=== PATIENT | female | born 1955 | race Caucasian/White ===

== ENCOUNTER 2021-11-06 06:48 | Emergency (ER) | payer OTHER ==
--- OUTSIDE RECORDS SUMMARY | 2021-11-06 06:50 | XMS REPORT | Continuity of Care Document ---
:1955 Author Organization [facility] t Address [address] [place] [address] Care Team Providers Name Role Phone PCP, DOES NOT HAVE A Primary Care Physician Unavailable Mike Attending Clinician Unavailable Topher GUAJARDO Attending Clinician Unavailable Jones FLETCHER Attending Clinician Unavailable Payers Payer Name Policy Type Policy Number Effective Date Expiration Date S ourclaribel COVID19 [facility] [id number] 2020 2020 UNINSURED 00:00:00 00:00:00 Problems This patient has no known problems. Allergies, Adverse Reactions, Alerts Allergy Allergy Status Severity Reaction(s) Onset Inactive Treating Comm ents Source Name Type Date Date Clinician PENICILL Drug Active SOB 2015- Univers INS Class 5-26 ity of 00:00: [address] Medications This patient has no known medications. Procedures This patient has no known procedures. Encounters Start End Encounter Admission Attending Care Care Encounter Source Date/Time Date/Time Type Type Clinicians Facility Department ID 2021-09-29 Outpatient Mckeon, [facility] [id number] Common 15:48:01 Avnee [facility] 2021-06-27 Outpatient Mckeon, [facility] [id number] Common 13:32:02 Avnee [facility] 2021-06-11 [facility] [id number] Common 12:53:14 Avnee [facility] 2021-10-30 2021-10-30 ambulatory [facility] [id number] Common 00:00:00 00:00:00 [facility] 2021-10-02 2021-10-02 ambulatory [facility]C [facility] [id number] Common 00:00:00 00:00:00 [facility] 2021-09-30 2021-09-30 ambulatory [facility] [id number] Common 00:00:00 00:00:00 [facility] 2021-09-30 2021-09-30 ambulatory [facility] [id number] Common 00:00:00 00:00:00 [facility] 2021-03-17 2021-03-17 Outpatient [facility]C [facility] [id number] Common 00:00:00 00:00:00 [facility] 2021-03-17 2021-03-17 ambulatory [facility]C [facility] [id number] Common 00:00:00 00:00:00 [facility] 2020-12-17 2020-12-17 Outpatient [facility]C [facility] [id number] Common 00:00:00 00:00:00 [facility] 2020-12-12 2020-12-12 Outpatient [facility] [id number] Common 00:00:00 00:00:00 [facility] 2020-11-20 2020-11-20 Outpatient [facility]C [facility] [id number] Common 00:00:00 00:00:00 [facility] 2020-11-04 2020-11-04 Outpatient [facility] [id number] Common 00:00:00 00:00:00 [facility] 2020-10-08 2020-10-08 Outpatient [facility] [id number] Common 00:00:00 00:00:00 [facility] 2020-10-07 2020-10-07 Outpatient [facility] [id number] Common 00:00:00 00:00:00 [facility] 2020-10-04 2020-10-04 Outpatient [facility] [id number] Common 00:00:00 00:00:00 [facility] 2020-09-16 2020-09-16 Outpatient [facility] [id number] Common 00:00:00 00:00:00 [facility] 2020-09-13 2020-09-13 Outpatient [facility] [id number] Common 00:00:00 00:00:00 [facility] 2020-09-13 2020-09-13 Outpatient [facility] [id number] Common 00:00:00 00:00:00 [facility] 2020-09-03 2020-09-03 Outpatient [facility] [id number] Common 00:00:00 00:00:00 [facility] 2020-09-03 2020-09-03 Outpatient [facility] [id number] Common 00:00:00 00:00:00 [facility] 2020-09-02 2020-09-02 Outpatient [facility] [id number] Common 00:00:00 00:00:00 [facility] 2020-09-02 2020-09-02 Outpatient [facility] [id number] Common 00:00:00 00:00:00 [facility] 2020-08-13 2020-08-13 [facility] [id number] Univers 11:50:00 11:34:24 MASSIEL kim of [facility] 2020-07-11 2020-07-11 [facility] [id number] Univers 16:40:00 16:42:58 IMELDA carlos [facility] Results Test Description Test Time Test Comments Results Result Sourc e Comments SCR MAMM 2019-03-14 - SCR MAMM BILATERAL BILATERAL CAD 13:00:02 CAD DIGITALBILATERAL DIGITAL DIGITAL SCREENING MAMMOGRAM WITH CAD: 03/13/2019CLINICAL: Asymptomatic. Current mammographic images were evaluated by either a [employer] M-Vu or a [employer] CAD (computer aided detection system). Comparison is made to exams dated 07/20/2016 mammogram - [facility] and 03/23/2013 mammogram - [facility]. The tissue of both breasts is predominantly fatty. No suspicious mass, architectural distortion, malignant type calcification, or lymph node abnormality detected. Breast architecture is stable compared to prior exams.IMPRESSION: NEGATIVEThere is no mammographic evidence of malignancy. Resume annual screening mammography in one year. Yoli caldwell/sue:03/14/2019 13:00:02 Education Associate: Tracee Finney [facility], [facility] sent: BIRADS 1-2 Normal Mammogram BI-RADS: 1 Negative
[2021-11-06] MEDS ORDERED: GABAPENTIN 300 MG CAP ONE (07:44)
[2021-11-06] MEDS ORDERED: HYDROCODONE/APAP 7.5/325 MG TAB ONE (07:44)
[2021-11-06 08:25] LABS: Absolute Lymphocytes (CBC) 2.3 K/uL (0.7-4.9); MPV 7.5 fL (7.6-11.3); RBC Red Blood Cell Count 3.99 M/uL (3.86-4.86)
[2021-11-06 08:41] LABS: Albumin 3.5 g/dL (3.4-5.0); Bilirubin Total 0.4 mg/dL (0.2-1.0); Potassium 4.9 mmol/L (3.5-5.1); Protein, Total 7.2 g/dL (6.4-8.2)
[2021-11-06 08:46] LABS: Blood Morphology Comment NOT SEEN (NOT SEEN); Platelet Estimate ADEQ; White Blood Cell Scan OK (OK)
--- NOTE | 2021-11-06 10:47 | RAD REPORT ---
EXAM DESCRIPTION: USExtrem Venous W Compress Bil11/06/2021 8:12 am CLINICAL HISTORY: Leg pain COMPARISON: none FINDINGS: The common femoral, superficial femoral, popliteal and posterior tibial veins bilaterally are compressible and demonstrate augmentation. Doppler demonstrates good flow. Grayscale, color and spectral analysis performed on all vessels IMPRESSION: No evidence of deep venous thrombosis involving either lower extremity.
--- NOTE | 2021-11-06 10:59 | EDPHYS ---
Physician Documentation [facility] Name: Anju Richards Age: 66 yrs Sex: Female : 1955 Arrival Date: 11/06/2021 Time: 06:52 Bed 5 Private MD: ED Physician Frederick Ramirez HPI: 11/06 07:34 This 66 yrs old Female presents to ER via Ambulatory with complaints of Leg Pain. kdr 07:34 The patient presents with pain, that is acute. The complaints affect the left kdr quadriceps, left knee, left brooke and anterior aspect of left ankle, right quadriceps, right knee, right brooke, anterior aspect of right ankle and dorsum of right foot. Context: The problem was sustained at home, resulted from an unknown cause, the patient can fully bear weight, the patient is able to ambulate, with mild difficulty, Problem is a result from a previous injury: No. Onset: The symptoms/episode began/occurred gradually, Wednesday. Modifying factors: The symptoms are alleviated by nothing. the symptoms are aggravated by movement, weight bearing. Associated signs and symptoms: The patient has no apparent associated signs or symptoms. Severity of symptoms: At their worst the symptoms were moderate, severe, just prior to arrival. The patient has experienced similar episodes in the past, a few times, but today's symptoms are worse. 07:34 Patient has pain in both legs from just below the hips down. Similar pain though not as kdr severe and persistent in the past. She has a history of varicose veins. She denies any injury or any other precipitating factor. She has not had any fever, chills or nausea and vomiting. Historical: - Allergies: 07:20 No Known Allergies; jh6 - PMHx: 07:20 Hypertensive disorder; 6 - Immunization history:: Adult Immunizations up to date, Client reports receiving the 2nd dose of the Covid vaccine. - Social history:: Smoking status: Patient denies any tobacco usage or history of. ROS: 07:34 Constitutional: Negative for fever, chills, and weight loss, Eyes: Negative for injury, kdr pain, redness, and discharge, ENT: Negative for injury, pain, and discharge, Neck: Negative for injury, pain, and swelling, Cardiovascular: Negative for chest pain, palpitations, and edema, Respiratory: Negative for shortness of breath, cough, wheezing, and pleuritic chest pain, Abdomen/GI: Negative for abdominal pain, nausea, vomiting, diarrhea, and constipation, Back: Negative for injury and pain, : Negative for injury, bleeding, discharge, and swelling, Skin: Negative for injury, rash, and discoloration, Neuro: Negative for headache, weakness, numbness, tingling, and seizure activity. Psych: Negative for depression, anxiety, suicide ideation, homicidal ideation, and hallucinations, Allergy/Immunology: Negative for hives, rash, and allergies, Endocrine: Negative for neck swelling, polydipsia, polyuria, polyphagia, and marked weight changes, Hematologic/Lymphatic: Negative for swollen nodes, abnormal bleeding, and unusual bruising. 07:34 MS/extremity: Positive for pain, Negative for injury or acute deformity, abrasion, decreased range of motion, ecchymosis, erythema. Exam: 07:34 Constitutional: This is a well developed, well nourished patient who is awake, alert, kdr and in no acute distress. Head/Face: Normocephalic, atraumatic. Eyes: Pupils equal round and reactive to light, extra-ocular motions intact. Lids and lashes normal. Conjunctiva and sclera are non-icteric and not injected. Cornea within normal limits. Periorbital areas with no swelling, redness, or edema. Neck: Trachea midline, no thyromegaly or masses palpated, and no cervical lymphadenopathy. Supple, full range of motion without nuchal rigidity, or vertebral point tenderness. No Meningismus. Chest/axilla: Normal chest wall appearance and motion. Nontender with no deformity. No lesions are appreciated. Cardiovascular: Regular rate and rhythm with a normal S1 and S2. No gallops, murmurs, or rubs. Normal PMI, no JVD. No pulse deficits. Respiratory: Lungs have equal breath sounds bilaterally, clear to auscultation and percussion. No rales, rhonchi or wheezes noted. No increased work of breathing, no retractions or nasal flaring. Abdomen/GI: Soft, non-tender, with normal bowel sounds. No distension or tympany. No guarding or rebound. No evidence of tenderness throughout. Back: No spinal tenderness. No costovertebral tenderness. Full range of motion. Skin: Warm, dry with normal turgor. Normal color with no rashes, no lesions, and no evidence of cellulitis. Neuro: Awake and alert, GCS 15, oriented to person, place, time, and situation. Cranial nerves II-XII grossly intact. Motor strength 5/5 in all extremities. Sensory grossly intact. Cerebellar exam normal. Normal gait. Psych: Awake, alert, with orientation to person, place and time. Behavior, mood, and affect are within normal limits. 07:34 Musculoskeletal/extremity: Extremities: grossly normal except: General appearance of her lower extremities appears to be at her baseline however there is obviously numerous varicose veins in both legs. Pulses distally are equal and strong. No obvious cellulitis or suggestion of any DVT. Vital Signs: 07:17 BP 119 / 70; Pulse 73; Resp 18; Temp 97.6(O); Pulse Ox 99% ; Weight 90.26 kg; Height 5 [facility] ft. 3 in. (160.02 cm); Pain 0/10; 09:46 BP 107 / 62; Pulse 70; Resp 16; Pulse Ox 100% ; Pain 0/10; [facility] 11:08 BP 112 / 60; Pulse 64; Resp 16; Pulse Ox 100% ; Pain 0/10; 6 07:17 Body Mass Index 35.25 (90.26 kg, 160.02 cm) [facility] MDM: 10:59 Patient medically screened. [facility] 13:04 Data reviewed: vital signs, nurses notes, lab test result(s), radiologic studies. kdr Counseling: I had a detailed discussion with the patient and/or guardian regarding: the historical points, exam findings, and any diagnostic results supporting the discharge/admit diagnosis, lab results, radiology results, the need for outpatient follow up. 11/06 07:29 Order name: CBC with Diff; Complete Time: 08:50 [facility] 11/06 07:29 Order name: Comprehensive Metabolic Panel; Complete Time: 08:50 [facility] 11/06 07:29 Order name: CPK; Complete Time: 08:50 [facility] 11/06 07:29 Order name: US Extremity Venous W Compression Rafael; Complete Time: 10:57 [facility] 11/06 08:46 Order name: CBC Smear Scan; Complete Time: 08:50 EDMS Administered Medications: 07:45 Drug: Gabapentin 300 mg Route: PO; [facility] 10:23 Follow up: Response: No adverse reaction [facility] 07:45 Drug: [place] (HYDROcodone-acetaminophen) (7.5 mg-325 mg) 1 tabs Route: PO; 6 10:23 Follow up: Response: No adverse reaction jh6 11:05 Drug: traMADol 50 mg Route: PO; ph 11:09 Follow up: Response: No adverse reaction; Medication administered at discharge. ph Disposition Summary: 11/06/21 10:59 Discharge Ordered Location: Home kdr Problem: new kdr Symptoms: have improved kdr Condition: Stable kdr Diagnosis - Other idiopathic peripheral autonomic neuropathy kdr - Varicose veins of unspecified lower extremity with pain kdr Followup: kdr - With: Private Physician - When: 2 - 3 days - Reason: If symptoms return, Further diagnostic work-up, Recheck today's complaints, Continuance of care, Re-evaluation by your physician Discharge Instructions: - Discharge Summary Sheet kdr - Neuropathic Pain kdr - Varicose Veins kdr - Peripheral Neuropathy kdr Forms: - Medication Reconciliation Form kdr - Thank You Letter kdr Prescriptions: - Neurontin 300 mg Oral Capsule - take 1 capsule by ORAL route At bedtime; 20 capsule; Refills: 0, Product kdr Selection Permitted - Tramadol 50 mg Oral Tablet - take 1 tablet by ORAL route every 8 hours As needed as needed; 12 tablet; kdr Refills: 0, Product Selection Permitted Signatures: Dispatcher [employer] Frederick Berger MD MD kdr Eleni Peguero RN PRISCILLA Alyssa Pa RN RN 6
--- NOTE | 2021-11-06 10:59 | ER ---
Nurse's Notes [facility] Name: Anju Richards Age: 66 yrs Sex: Female : 1955 Arrival Date: 11/06/2021 Time: 06:52 Bed 5 Private MD: Diagnosis: Other idiopathic peripheral autonomic neuropathy;Varicose veins of unspecified lower extremity with pain Presentation: 11/06 07:17 Chief complaint: Patient states: bilat lower leg pain started two days ago. no injury jh6 or lower back pain. pain from the top of foot to mid thigh. Coronavirus screen: Vaccine status: Patient reports receiving the 2nd dose of the covid vaccine. Ebola Screen: Patient negative for fever greater than or equal to 101.5 degrees Fahrenheit, and additional compatible Ebola Virus Disease symptoms Patient denies exposure to infectious person. Patient denies travel to an Ebola-affected area in the 21 days before illness onset. Initial Sepsis Screen: Does the patient meet any 2 criteria? No. Patient's initial sepsis screen is negative. Does the patient have a suspected source of infection? No. Patient's initial sepsis screen is negative. Risk Assessment: Do you want to hurt yourself or someone else? Patient reports no desire to harm self or others. Onset of symptoms was November 06, 2021. 07:17 Method Of Arrival: Ambulatory [facility] 07:17 Acuity: ROBBY 4 jh6 Historical: - Allergies: 07:20 No Known Allergies; jh6 - PMHx: 07:20 Hypertensive disorder; 6 - Immunization history:: Adult Immunizations up to date, Client reports receiving the 2nd dose of the Covid vaccine. - Social history:: Smoking status: Patient denies any tobacco usage or history of. Screenin:21 Abuse screen: Denies threats or abuse. Denies injuries from another. Nutritional [facility] screening: No deficits noted. Tuberculosis screening: No symptoms or risk factors identified. Fall Risk None identified. Assessment: 07:21 General: Appears in no apparent distress. Behavior is calm. Pain: Complains of pain in jh6 right leg and left leg Pain currently is 7 out of 10 on a pain scale. Quality of pain is described as burning, aching, shooting, Pain began 2-3 days ago. Is intermittent, Aggravated by increased activity. 09:47 Reassessment: Patient is alert, oriented x 3, equal unlabored respirations, skin jh6 warm/dry/pink. Patient denies pain at this time. Patient states feeling better. Patient states symptoms have improved. 11:08 Reassessment: Patient and/or family updated on plan of care and expected duration. Pain jh6 level reassessed. Patient is alert, oriented x 3, equal unlabored respirations, skin warm/dry/pink. Patient denies pain at this time. Patient states symptoms have improved. Vital Signs: 07:17 BP 119 / 70; Pulse 73; Resp 18; Temp 97.6(O); Pulse Ox 99% ; Weight 90.26 kg; Height 5 jh6 ft. 3 in. (160.02 cm); Pain 0/10; 09:46 BP 107 / 62; Pulse 70; Resp 16; Pulse Ox 100% ; Pain 0/10; jh6 11:08 BP 112 / 60; Pulse 64; Resp 16; Pulse Ox 100% ; Pain 0/10; jh6 07:17 Body Mass Index 35.25 (90.26 kg, 160.02 cm) jh6 ED Course: 06:52 Patient arrived in ED. as 07:05 Frederick Ramirez MD is Attending Physician. kdr 07:17 Alyssa Pa RN is Primary Nurse. jh6 07:20 Triage completed. jh6 07:21 Arm band placed on right wrist. Patient placed in the treatment room, on a stretcher, jh6 on pulse oximetry. 07:21 No provider procedures requiring assistance completed. jh6 07:22 Bed in low position. Call light in reach. Side rails up X 1. jh6 07:50 Patient taken to ultrasound. via wheelchair. jh6 08:03 US Extremity Venous W Compression Rafael In Process Unspecified. EDMS 08:20 Inserted saline lock: 22 gauge in right antecubital area, using aseptic technique. jh6 Blood collected. 11:08 IV discontinued, intact, bleeding controlled, No redness/swelling at site. Pressure jh6 dressing applied. Administered Medications: 07:45 Drug: Gabapentin 300 mg Route: PO; jh6 10:23 Follow up: Response: No adverse reaction jh6 07:45 Drug: [place] (HYDROcodone-acetaminophen) (7.5 mg-325 mg) 1 tabs Route: PO; jh6 10:23 Follow up: Response: No adverse reaction jh6 11:05 Drug: traMADol 50 mg Route: PO; ph 11:09 Follow up: Response: No adverse reaction; Medication administered at discharge. ph Medication: 11:20 VIS not applicable for this client. ph Outcome: 10:59 Discharge ordered by . kdr 11:09 Patient left the ED. 6 11:09 Discharged to home ambulatory. ph 11:09 Condition: good 11:09 Discharge instructions given to patient, Instructed on discharge instructions, follow up and referral plans. medication usage, Demonstrated understanding of instructions, follow-up care, medications, Prescriptions given X 2. 11:20 Patient left the ED. ph Signatures: Dispatcher [employer] EDMS Frederick Ramirez MD MD [facility] Arabella Kumar Patricia, RN RN [facility] Center[facility]lyssa camara RN RN [facility]
[2021-11-06] MEDS ORDERED: TRAMADOL HCL 50 MG TAB ONE (11:12)
[2021-11-06 11:19] VITALS: TEMP 97.6
[2021-11-06 11:22] VITALS: O2SAT 100
[2021-11-06 11:24] VITALS: BP 112/60
== END 2021-11-06 11:20 | disposition home or self-care (01) ==
LOC: ER 06:48
DX: I83.812 Varicose veins of left lower extremity with pain (principal); G90.09 Other idiopathic peripheral autonomic neuropathy; I10 Essential (primary) hypertension
CPT/HCPCS: 36415; 80053; 82550; 85025; 93970; 99284

== ENCOUNTER 2021-11-09 10:23 | Observation (INO) | payer OTHER ==
--- OUTSIDE RECORDS SUMMARY | 2021-11-09 10:25 | XMS REPORT | Continuity of Care Document ---
:1955 Author Organization [facility] t Address [address] [place] [address] Care Team Providers Name Role Phone PCP, DOES NOT HAVE A Primary Care Physician Unavailable Mike Attending Clinician Unavailable Topher GUAJARDO Attending Clinician Unavailable Jones FLETCHER Attending Clinician Unavailable Payers Payer Name Policy Type Policy Number Effective Date Expiration Date S ourclaribel COVID19 [facility] [id number] 2020 2020 UNINSURED 00:00:00 00:00:00 Problems This patient has no known problems. Allergies, Adverse Reactions, Alerts Allergy Allergy Status Severity Reaction(s) Onset Inactive Treating Comm ents Source Name Type Date Date Clinician PENICILL Drug Active SOB 2015- [facility] INS Class 5-26 ity of 00:00: [address] Medications This patient has no known medications. Procedures This patient has no known procedures. Encounters Start End Encounter Admission Attending Care Care Encounter Source Date/Time Date/Time Type Type Clinicians Facility Department ID 2021-09-29 Outpatient Mckeon, [facility] [id number] Common 15:48:01 Avnee [facility] 2021-06-27 Outpatient Mckeon, [facility] [id number] Common 13:32:02 Avnee [facility]06[facility] [id number] Common 12:53:14 Avnee [facility] 2021-11-06 2021-11-06 ambulatory [facility]C [facility] [id number] Common 00:00:00 00:00:00 [facility] 2021-11-06 2021-11-06 ambulatory [facility]MLC [facility] [id number] Common 00:00:00 00:00:00 [facility] 2021-10-30 2021-10-30 ambulatory [facility]C [facility] [id number] Common 00:00:00 00:00:00 [facility] 2021-10-02 2021-10-02 ambulatory [facility]C [facility] [id number] Common 00:00:00 00:00:00 [facility] 2021-09-30 2021-09-30 ambulatory [facility] [id number] Common 00:00:00 00:00:00 [facility] 2021-09-30 2021-09-30 ambulatory [facility]C [facility] [id number] Common 00:00:00 00:00:00 [facility] 2021-03-17 2021-03-17 Outpatient [facility]C [facility] [id number] Common 00:00:00 00:00:00 [facility] 2021-03-17 2021-03-17 ambulatory [facility]C [facility] [id number] Common 00:00:00 00:00:00 [facility] 2020-12-17 2020-12-17 Outpatient [facility] [id number] Common 00:00:00 00:00:00 [facility] 2020-12-12 2020-12-12 Outpatient [facility]C [facility] [id number] Common 00:00:00 00:00:00 [facility] 2020-11-20 2020-11-20 Outpatient [facility]C [facility] [id number] Common 00:00:00 00:00:00 [facility] 2020-11-04 2020-11-04 Outpatient [facility] [id number] Common 00:00:00 00:00:00 [facility] 2020-10-08 2020-10-08 Outpatient [facility]C [facility] [id number] Common 00:00:00 00:00:00 [facility] 2020-10-07 2020-10-07 Outpatient [facility]C [facility] [id number] Common 00:00:00 00:00:00 [facility] 2020-10-04 2020-10-04 Outpatient [facility]C [facility] [id number] Common 00:00:00 00:00:00 [facility] 2020-09-16 2020-09-16 Outpatient [facility]C [facility] [id number] Common 00:00:00 00:00:00 [facility] 2020-09-13 2020-09-13 Outpatient [facility]C [facility] [id number] Common 00:00:00 00:00:00 [facility] 2020-09-13 2020-09-13 Outpatient [facility] [id number] Common 00:00:00 00:00:00 [facility] 2020-09-03 2020-09-03 Outpatient [facility] [id number] Common 00:00:00 00:00:00 [facility] 2020-09-03 2020-09-03 Outpatient [facility] [id number] Common 00:00:00 00:00:00 [facility] 2020-09-02 2020-09-02 Outpatient [facility] [id number] Common 00:00:00 00:00:00 [facility] 2020-09-02 2020-09-02 Outpatient [facility]C [facility] [id number] Common 00:00:00 00:00:00 [facility] 2020-08-13 2020-08-13 Outpatient Paula GUAJARDO [facility] [id number] Univers 11:50:00 11:34:24 MASSIEL kim of [facility] 2020-07-11 2020-07-11 Outpatient Paula FLETCHER [facility] [id number] Univers 16:40:00 16:42:58 IMELDA carlos [facility] Results Test Description Test Time Test Comments Results Result Sour e Comments SCR MAMM 2019-03-14 - SCR MAMM BILATERAL BILATERAL CAD 13:00:02 CAD DIGITALBILATERAL DIGITAL DIGITAL SCREENING MAMMOGRAM WITH CAD: 03/13/2019CLINICAL: Asymptomatic. Current mammographic images were evaluated by either a [employer] M-Vu or a [employer] CAD (computer aided detection system). Comparison is made to exams dated 07/20/2016 mammogram - [facility] and 03/23/2013 mammogram - [facility]. The tissue of both breasts is predominantly fatty. No suspicious mass, architectural distortion, malignant type calcification, or lymph node abnormality detected. Breast architecture is stable compared to prior exams.IMPRESSION: NEGATIVEThere is no mammographic evidence of malignancy. Resume annual screening mammography in one year. Yoli caldwell/sue:03/14/2019 13:00:02 Stage Rigger: Tracee Finney MM, [facility] sent: BIRADS 1-2 Normal Mammogram BI-RADS: 1 Negative
[2021-11-09] MEDS ORDERED: IPRATROPIUM BROM 0.5MG/2.5ML ONE (12:12)
[2021-11-09] MEDS ORDERED: ALBUTEROL 2.5 MG/3 ML NEB SOL ONE (12:12)
--- NOTE | 2021-11-09 12:35 | RAD REPORT ---
EXAM DESCRIPTION: CT - Thorax Wo Hardy - 11/09/2021 12:23 pm CLINICAL HISTORY: Rib fracture suspected, traumatic, chest pain persistent following fall 2 days ear lier COMPARISON: No comparisons TECHNIQUE: Axial 5 mm thick images of the chest were obtained without IV contrast. All CT scans are performed using dose optimization technique as appropriate and may include automated exposure control or mA/KV adjustment according to patient size. FINDINGS: No pulmonary contusion or acute lung parenchymal process. No pleural thickening or pleural effusion. No pneumothorax. No abnormal mediastinal or hilar masses or lymphadenopathy seen. No gross aortic or pulmonary artery finding suspected. Assessment is limited in the absence of IV contrast. No cardiomegaly or pericardi al effusion. No chest wall mass or abnormal axillary lymphadenopathy. No displaced rib fractures are present. No acute rib fractures confirmed. Posterior left seventh rib does show some cortical irregularity. This could be a nondisplaced fracture. Correlation is needed wi th any localizing pain. Seventh rib is at the approximate level of the tip of the scapula. No scapula fracture is identified. No clavicle fracture is seen. There are portions of the left clavi emerson and bilateral scapula that are outside of this [id number]. Granulomatous calcifications are present in the lung parenchyma and agustín. Numerous splenic granulomat ous calcifications are seen. Partially imaged liver shows fatty infiltration. IMPRESSION: No displaced rib fractures are present. No definitive fractures seen though there is some cortical irregularity posterior left seventh rib. T his would be at the level of the tip of the left scapula. Correlation can be made with any localizing pain. No pulmonary contusion, pneumothorax or other emergent finding.
--- NOTE | 2021-11-09 12:36 | RAD REPORT ---
EXAM DESCRIPTION: CT - [id number] - 11/09/2021 12:18 pm CLINICAL HISTORY: trauma COMPARISON: No comparisons TECHNIQUE: Axial 5 mm thick images of the head were obtained. Axial 2 mm thick images of the cervic al spine were obtained with sagittal and coronal reconstruction images generated and reviewed. All CT scans are performed using dose optimization technique as appropriate and may include automated exposure control or mA/KV adjustment according to patient size. FINDINGS: No intracranial hemorrhage, mass, edema or acute intracranial finding. No suspicion for ac rubin infarction. No extra-axial fluid collections. Mastoid air cells and paranasal sinuses are clear. No globe or orbit abnormality seen. Cervical body height and alignment are normal. No disk space narrowing. No fracture or acute bony abn ormality. Central canal detail is inherently limited. No paraspinal mass or hematoma. IMPRESSION: Negative CT head examination for acute or significant finding. Negative CT cervical spine examination for acute or significant finding.
--- NOTE | 2021-11-09 13:13 | RAD REPORT ---
EXAM DESCRIPTION: RAD - Chest Pa And Lat (2 Views) - 11/09/2021 12:40 pm CLINICAL HISTORY: PAIN, fall with left-sided chest and rib pain COMPARISON: CT chest same date, two view chest 09/30/2020 TECHNIQUE: Frontal and lateral views of the chest were obtained. FINDINGS: The lungs are normal volume with no pulmonary contusion or acute lung parenchymal process. Interstitial pattern matches comparison. Heart size is normal and central vasculature is within no rmal limits. No pleural effusion or pneumothorax seen. No acute bone finding identifiable. No aorti c abnormality. No significant change from comparison study. IMPRESSION: No acute cardiopulmonary process.
[2021-11-09 13:14] LABS: Absolute Lymphocytes (CBC) 1.2 K/uL (0.7-4.9); Hematocrit 40.7 % (36.0-45.0); Lymphocytes % 10.7 % (15.3-44.8); MCV 101.2 fL (80-100); MPV 8.1 fL (7.6-11.3); RBC Red Blood Cell Count 4.02 M/uL (3.86-4.86)
[2021-11-09 13:29] LABS: Protime INR 0.94
[2021-11-09] MEDS ORDERED: MORPHINE 4 MG/ML SYR ONE (13:54)
[2021-11-09] MEDS ORDERED: ONDANSETRON 4 MG/2 ML VIAL ONE (13:54)
[2021-11-09] MEDS ORDERED: ONDANSETRON 4 MG/2 ML VIAL IV PRN (14:29)
[2021-11-09] MEDS ORDERED: IPRATROPIUM BROM 0.5MG/2.5ML NEB PRN (14:36)
[2021-11-09] MEDS ORDERED: ALBUTEROL 2.5 MG/3 ML NEB SOL NEB PRN (14:36)
[2021-11-09] MEDS ORDERED: ACETAMINOPHEN 325 MG TABLET PO PRN (14:37)
[2021-11-09 14:45] LABS: ALT/SGPT 48 U/L (12-78); AST/SGOT 25 U/L (15-37); Albumin 3.7 g/dL (3.4-5.0); Alkaline Phosphatase 96 U/L (45-117); BUN Blood Urea Nitrogen 14 mg/dL (7-18); Bicarbonate 28 mmol/L (21-32); Bilirubin Direct 0.2 mg/dL (0-0.2); Bilirubin Total 0.7 mg/dL (0.2-1.0); Creatine Phosphokinase 33 U/L (26-192); Glomerular Filtration Rate 48 ml/min (=/>90); Glucose Level 105 mg/dL (74-106); Lipase 124 U/L (73-393); Magnesium 2.5 mg/dL (1.8-2.4); NT PRO-BNP 207 pg/mL (<125); Potassium 4.2 mmol/L (3.5-5.1); Protein, Total 7.8 g/dL (6.4-8.2); Sodium Level 138 mmol/L (136-145); Troponin High Sensitivity 3.8 pg/mL (<58.9)
[2021-11-09 14:46] LABS: CKMB Creatine Kinase MB < 1.0 ng/mL (1.0-3.6)
--- NOTE | 2021-11-09 14:57 | P.HP ---
Certification for Inpatient Patient admitted to: Observation With expected LOS: <2 Midnights Practitioner: I am a practitioner with admitting privileges, knowledge of patient current condition, hospital course, and medical plan of care. Services: Services provided to patient in accordance with Admission requirements found in Title 42 Section 412.3 of the Code of Federal Regulations Patient History Date of Service: 11/09/21 Reason for admission: Fall, COPD exacerbation History of Present Illness: 66-year-old female patient with medical history significant for hypertension, hy perlipidemia, history of COPD who was evaluated in the emergency room for episode of worsening shortness of breath. She reports this started on the day of evaluation. No issues with nausea with vomiting however she did have a fall episode a day prior which she reports was deemed to alcohol use. She has evaluated in the emergency room and there was concern for possible seventh rib fracture. She also does have sputum production however she denied overt episode of bloody sputum. She was evaluated for possible COPD exacerbation and she was started on steroid therapy was asked to be admitted observation. No report of chest pain given. Allergies Penicillins Allergy (Unknown, Verified 12/05/12 20:32) UNKNOWN Home Medications: Levothyroxine [Synthroid*] 25 mcg PO [id number] #30 tab 12/09/12 Topiramate [Topamax*] 25 mg PO BID #60 tab 12/09/12 lisinopriL [Prinivil*] 5 mg PO DAILY #30 tab 12/09/12 - Past Medical/Surgical History Diabetic: No -: hernia -: hysterectomy -: appy - Social History Alcohol use: Yes CD- Drugs: No Caffeine use: Yes Review of Systems General: Chills Eyes: Unremarkable ENT: Unremarkable Respiratory: Cough, Shortness of Breath, SOB with Excertion, Sputum, Wheezing Cardiovascular: Unremarkable Gastrointestinal: Unremarkable Genitourinary: Unremarkable Musculoskeletal: Unremarkable Integumentary: Unremarkable Neurological: Unremarkable Physical Examination - Physical Exam General: Alert, Oriented x3 HEENT: Atraumatic, Normocephalic Neck: Supple Respiratory: Diminished Cardiovascular: Regular rate/rhythm, Normal S1 S2 Gastrointestinal: Soft and benign Musculoskeletal: No swelling Neurological: Normal speech, Normal strength at 5/5 x4 extr - Studies Laboratory Data (last 24 hrs) 11/09/21 13:51: Sodium 138, Potassium 4.2, BUN 14, Creatinine 1.23, Glucose 105, Magnesium 2.5 H, Total Bilirubin 0.7, AST 25, ALT 48, Alkaline Phosphatase 96, Lipase 124 11/09/21 12:57: PT 10.3, INR 0.94, APTT 26.3 11/09/21 12:57: WBC 11.6 H, Hgb 13.3, Hct 40.7, Plt Count 221 Assessment and Plan - Plan COPD with exacerbation: She does have COPD with exacerbation and has wheezing episode. Will continue DuoNeb therapy and Solu-Medrol for management. Will continue supplemental oxygen and wean off as tolerated. Pulmonary physician to evaluate. Hypertension: Blood pressure is significantly elevated. Monitor vital signs per unit protocol. Will continue with hypertensive medication. Blood pressure goal is less than 130/80 mmHg. Hypothyroidism: We will continue levothyroxine therapy Fall episode: She did have episode of fall which was deemed secondary to possible alcohol intoxication. Suspicion for rib fracture noted however there was no overt evidence on xrays. Will follow closely. Monitor for possible repeat episode. Prophylaxis: Lovenox for DVT prophylaxis. CODE STATUS: Full code. Disposition: For possible discharge in next 24 to 48 hours. - Advance Directives Does patient have a Living Will: No Does patient have a Durable POA for Healthcare: Yes
[2021-11-09] MEDS: METHYLPREDNISOLONE 40 MG INJ IV SCH (15:00)
[2021-11-09] MEDS: ENOXAPARIN 40 MG/0.4 ML SQ SCH (15:00)
--- NOTE | 2021-11-09 15:28 | ER ---
Nurse's Notes [facility] Name: Anju Richards Age: 66 yrs Sex: Female : 1955 Arrival Date: 11/09/2021 Time: 10:25 Bed 19 Private MD: Diagnosis: COPD/ Chronic obstructive pulmonary disease, unspecified Presentation: 11/09 10:39 Chief complaint: Patient states: Wednesday night, slipped off of bottom step at home and as6 landed on Left side of ribs, states difficulty breathing and is unable to take a deep breath. Denies hitting head or LOC. Coronavirus screen: Vaccine status: Patient reports receiving the 2nd dose of the covid vaccine. Client denies travel out of the [place] in the last 14 days. Ebola Screen: Patient denies exposure to infectious person. Patient denies travel to an Ebola-affected area in the 21 days before illness onset. Initial Sepsis Screen: Does the patient meet any 2 criteria? No. Patient's initial sepsis screen is negative. Does the patient have a suspected source of infection? No. Patient's initial sepsis screen is negative. Risk Assessment: Do you want to hurt yourself or someone else? Patient reports no desire to harm self or others. Onset of symptoms was November 07, 2021. 10:39 Method Of Arrival: Wheelchair as6 10:39 Acuity: ROBBY 3 as6 Triage Assessment: 10:40 General: Appears uncomfortable, Behavior is cooperative. Pain: Complains of pain in as6 Left side of ribs Pain currently is 10 out of 10 on a pain scale. Respiratory: Airway is patent Respiratory effort is even, labored. Historical: - Allergies: 10:40 No Known Allergies; as6 - Home Meds: 10:40 atorvastatin oral [Active]; sertraline oral [Active]; Lisinopril Oral [Active]; as6 amlodipine oral [Active]; Albuterol Inhl [Active]; Trazodone Oral [Active]; - PMHx: 10:40 Hypertensive disorder; Chronic obstructive lung disease; as6 - PSHx: 10:40 Hysterectomy; Appendectomy; as6 - Immunization history:: Client reports receiving the 2nd dose of the Covid vaccine. - Social history:: Smoking status: Patient/guardian denies using tobacco, the patient reports quitting approximately 9 years ago. - Family history:: not pertinent. Screenin:55 Abuse screen: Denies threats or abuse. Denies injuries from another. Nutritional jl7 screening: No deficits noted. Tuberculosis screening: No symptoms or risk factors identified. 11:30 Fall Risk IV access (20 points). Total See Fall Scale indicates No Risk (0-24 pts). jl7 Assessment: 10:55 General: Appears in no apparent distress. uncomfortable, Behavior is cooperative, jl7 appropriate for age, restless. Pain: Complains of pain in left lateral anterior chest and anterior aspect of left lateral abdomen Pain currently is 10 out of 10 on a pain scale. Pain began 2-3 days ago. Is continuous. Neuro: Level of Consciousness is awake, alert, obeys commands, Oriented to person, place, time, situation. Cardiovascular: Patient's skin is warm and dry. Respiratory: Airway is patent Respiratory effort is even, unlabored, shallow, using tripod position, Respiratory pattern is symmetrical, tachypnea Breath sounds are clear in right upper lobe, left upper lobe, left posterior upper lobe and right posterior upper lobe Breath sounds with wheezes in left posterior lower lobe. Derm: Skin is pink, warm \T\ dry. 12:00 Reassessment: Patient appears in no apparent distress at this time. No changes from jl7 previously documented assessment. Patient and/or family updated on plan of care and expected duration. Pain level reassessed. Patient is alert, oriented x 3, equal unlabored respirations, skin warm/dry/pink. 13:00 Reassessment: Pt requesting pain medication, ERD notified, VO for 30 mg Toradol IVP x jl7 1, pt medicated as ordered. 14:00 Reassessment: Pt reports pain unchanged, ERD notified, VO for 4 mg Zofran IVP and 4 mg jl7 Morphine IVP x 1, pt medicated as ordered. 14:15 Reassessment: SPO2 noted to decrease to 85%, NC placed on pt at 2 lpm. jl7 14:30 Reassessment: Attempted to call report, pt will go to room 215 after shift change. jl7 Reassessment: Patient appears in no apparent distress at this time. Patient and/or family updated on plan of care and expected duration. Pain level reassessed. Patient is alert, oriented x 3, equal unlabored respirations, skin warm/dry/pink. Patient states feeling better. 15:30 Reassessment: Patient appears in no apparent distress at this time. No changes from jl7 previously documented assessment. Patient and/or family updated on plan of care and expected duration. Pain level reassessed. Patient is alert, oriented x 3, equal unlabored respirations, skin warm/dry/pink. 16:30 Reassessment: Patient appears in no apparent distress at this time. No changes from jl7 previously documented assessment. Patient and/or family updated on plan of care and expected duration. Pain level reassessed. Patient is alert, oriented x 3, equal unlabored respirations, skin warm/dry/pink. 17:30 Reassessment: Patient appears in no apparent distress at this time. No changes from jl7 previously documented assessment. Patient and/or family updated on plan of care and expected duration. Pain level reassessed. Patient is alert, oriented x 3, equal unlabored respirations, skin warm/dry/pink. 18:30 Reassessment: Patient appears in no apparent distress at this time. No changes from jl7 previously documented assessment. Patient and/or family updated on plan of care and expected duration. Pain level reassessed. Patient is alert, oriented x 3, equal unlabored respirations, skin warm/dry/pink. Vital Signs: 10:39 BP 121 / 72; Pulse 79; Resp 22; Temp 98.1; Pulse Ox 93% on R/A; Weight 90.26 kg; Height as6 5 ft. 5 in. (165.10 cm); Pain 10/10; 13:45 BP 114 / 80; Pulse 91; Resp 23; Pulse Ox 94% on R/A; jl7 15:04 BP 104 / 57; Pulse 87; Resp 19; Pulse Ox 97% on 2 lpm NC; Pain 6/10; jl7 16:30 BP 110 / 60; Pulse 72; Resp 15; Pulse Ox 93% on 2 lpm NC; jl7 17:30 BP 107 / 63; Pulse 80; Resp 15; Pulse Ox 93% on 2 lpm NC; jl7 18:30 BP 111 / 62; Pulse 75; Resp 15 S; Pulse Ox 95% on 2 lpm NC; jl7 10:39 Body Mass Index 33.11 (90.26 kg, 165.10 cm) as6 ED Course: 10:25 Patient arrived in ED. as 10:39 Arm band placed on. as6 10:40 Triage completed. as6 10:45 Julisa Maguire, PRISCILLA is Primary Nurse. jl7 10:46 Galen Mcdowell MD is Attending Physician. ma2 10:55 Patient has correct armband on for positive identification. Placed in gown. Bed in low jl7 position. Call light in reach. Side rails up X 1. manager monitoring on. 11:30 Warm blanket given. jl7 11:45 Initial lab(s) drawn, by ms, sent to lab. Inserted saline lock: 22 gauge in right jl7 forearm, using aseptic technique. Blood collected. 12:[address] jh6 12:14 X-ray(s) taken. jh6 12:20 CT Head C Spine In Process Unspecified. EDMS 12:25 CT Chest Wo Con In Process Unspecified. EDMS 12:41 XRAY Chest Pa And Lat (2 Views) In Process Unspecified. EDMS 13:16 EKG done, by ED staff, reviewed by Galen Mcdowell MD. mb7 13:40 Notified ED physician of a critical lab result(s). D-dimer of 805. jd3 15:26 Tonny An MD is Hospitalizing Provider. ma2 18:39 No provider procedures requiring assistance completed. Patient admitted, IV remains in jl7 place. intact, No redness/swelling at site. Administered Medications: 12:45 Drug: Albuterol 2.5 mg Route: Inhalation; jl7 13:30 Follow up: Response: No adverse reaction jl7 12:45 Drug: Albuterol 2.5 mg Route: Inhalation; jl7 12:45 Drug: Albuterol 2.5 mg Route: Inhalation; jl7 12:45 Drug: AtroVENT (ipratropium) Aerosol 0.5 mg Route: Inhalation; jl7 13:30 Follow up: Response: No adverse reaction jl7 12:45 Drug: AtroVENT (ipratropium) Aerosol 0.5 mg Route: Inhalation; jl7 12:45 Drug: AtroVENT (ipratropium) Aerosol 0.5 mg Route: Inhalation; jl7 13:00 Drug: Ketorolac 30 mg Route: IVP; Site: right forearm; jl7 13:30 Follow up: Response: No adverse reaction; Pain is unchanged, physician notified jl7 13:11 Drug: SOLU-Medrol (methylPrednisoLONE) 125 mg Route: IVP; Site: right forearm; jl7 13:30 Follow up: Response: No adverse reaction jl7 14:00 Drug: morphine 4 mg Route: IVP; Infused Over: 4 mins; Site: right forearm; jl7 14:30 Follow up: Response: No adverse reaction; Pain is decreased jl7 14:28 Drug: Zofran (Ondansetron) 4 mg Route: IVP; Site: right forearm; jl7 18:39 Follow up: Response: No adverse reaction jl7 Medication: 13:45 VIS not applicable for this client. jl7 Outcome: 15:27 Decision to Hospitalize by Provider. ma2 19:33 Patient left the ED. bb Signatures: Dispatcher [employer] EDMS Arabella Kumar Brenda, RN RN Julisa Ibrahim RN RN jl7 Ambrose Watson RN RN jd3 Alzahri, Mohammad, MD MD ma2 Dewayne White RN RN as6 Alyssa Pa RN RN 6 Janet Martines 7 Corrections: (The following items were deleted from the chart) 10:43 10:39 BP 121 / 72; Pulse 79bpm; Resp 16bpm; Pulse Ox 93% RA; Temp 98.1F; 90.26 kg; as6 Height 5 ft. 5 in.; BMI: 33.1; Pain 10/10; as6 10:44 10:39 Chief complaint: Patient states: Wednesday night, slipped off of bottom step at home as6 and landed on Left side of ribs, states difficulty breathing and is unable to take a deep breath. as6
--- NOTE | 2021-11-09 15:28 | EDPHYS ---
Physician Documentation [facility] Name: Anju Richards Age: 66 yrs Sex: Female : 1955 Arrival Date: 11/09/2021 Time: 10:25 Bed 19 Private MD: ED Physician Galen Mcdowell HPI: 11/09 12:04 This 66 yrs old Female presents to ER via Wheelchair with complaints of Fall Injury. ma2 12:04 Patient has history of COPD, however she does not use home oxygen, patient presents ma2 because she was intoxicated with alcohol yesterday and she thinks she fell, she does not remember the fall, does not recall hitting her head, however she states she has had this left side of the lower chest and thinks she broke that because of the main reason she presents today with left lower chest pain lateral over ribs. Worse when she takes deep breath, denies chest pain or general COVID.. Historical: - Allergies: 10:40 No Known Allergies; as6 - Home Meds: 10:40 atorvastatin oral [Active]; sertraline oral [Active]; Lisinopril Oral [Active]; as6 amlodipine oral [Active]; Albuterol Inhl [Active]; Trazodone Oral [Active]; - PMHx: 10:40 Hypertensive disorder; Chronic obstructive lung disease; as6 - PSHx: 10:40 Hysterectomy; Appendectomy; as6 - Immunization history:: Client reports receiving the 2nd dose of the Covid vaccine. - Social history:: Smoking status: Patient/guardian denies using tobacco, the patient reports quitting approximately 9 years ago. - Family history:: not pertinent. ROS: 12:04 Constitutional: Negative for fever, chills, and weight loss. ma2 12:04 All other systems are negative. Exam: 12:04 Constitutional: This is a well developed, well nourished patient who is awake, alert, ma2 and in no acute distress. Head/Face: Normocephalic, atraumatic. Eyes: Pupils equal round and reactive to light, extra-ocular motions intact. Lids and lashes normal. Conjunctiva and sclera are non-icteric and not injected. Cornea within normal limits. Periorbital areas with no swelling, redness, or edema. ENT: Nares patent. No nasal discharge, no septal abnormalities noted. Tympanic membranes are normal and external auditory canals are clear. Oropharynx with no redness, swelling, or masses, exudates, or evidence of obstruction, uvula midline. Mucous membranes moist. Neck: Trachea midline, no thyromegaly or masses palpated, and no cervical lymphadenopathy. Supple, full range of motion without nuchal rigidity, or vertebral point tenderness. No Meningismus. Chest/axilla: Patient has tenderness to palpation over left lateral lower chest site, otherwise normal chest wall appearance and motion. Nontender with no deformity. No lesions are appreciated. Cardiovascular: Regular rate and rhythm with a normal S1 and S2. No gallops, murmurs, or rubs. Normal PMI, no JVD. No pulse deficits. Respiratory: Patient has diffuse wheezes, sats 95 on room air, lungs have equal breath sounds bilaterally, clear to auscultation and percussion. No rales, rhonchi or wheezes noted. No increased work of breathing, no retractions or nasal flaring. Abdomen/GI: Soft, non-tender, with normal bowel sounds. No distension or tympany. No guarding or rebound. No evidence of tenderness throughout. Back: No spinal tenderness. No costovertebral tenderness. Full range of motion. Skin: Warm, dry with normal turgor. Normal color with no rashes, no lesions, and no evidence of cellulitis. MS/ Extremity: Pulses equal, no cyanosis. Neurovascular intact. Full, normal range of motion. Neuro: Awake and alert, GCS 15, oriented to person, place, time, and situation. Cranial nerves II-XII grossly intact. Motor strength 5/5 in all extremities. Sensory grossly intact. Cerebellar exam normal. Normal gait. Vital Signs: 10:39 BP 121 / 72; Pulse 79; Resp 22; Temp 98.1; Pulse Ox 93% on R/A; Weight 90.26 kg; Height as6 5 ft. 5 in. (165.10 cm); Pain 10/10; 13:45 BP 114 / 80; Pulse 91; Resp 23; Pulse Ox 94% on R/A; jl7 15:04 BP 104 / 57; Pulse 87; Resp 19; Pulse Ox 97% on 2 lpm NC; Pain 6/10; jl7 16:30 BP 110 / 60; Pulse 72; Resp 15; Pulse Ox 93% on 2 lpm NC; jl7 17:30 BP 107 / 63; Pulse 80; Resp 15; Pulse Ox 93% on 2 lpm NC; jl7 18:30 BP 111 / 62; Pulse 75; Resp 15 S; Pulse Ox 95% on 2 lpm NC; jl7 10:39 Body Mass Index 33.11 (90.26 kg, 165.10 cm) as6 MDM: 11:32 Patient medically screened. [facility] 12:04 Differential diagnosis: contusion, fracture, sprain, strain, Addition to COPD ma2 exacerbation.. 15:26 Data reviewed: vital signs, nurses notes. Counseling: I had a detailed discussion with [facility] the patient and/or guardian regarding: the historical points, exam findings, and any diagnostic results supporting the discharge/admit diagnosis, the presence of at least one elevated blood pressure reading (>120/80) during this emergency department visit, the need for outpatient follow up. Response to treatment: the patient's symptoms have markedly improved after treatment. 11/09 11:54 Order name: BMP [facility] 11/09 11:54 Order name: Blood Culture Adult (2) [facility] 11/09 11:54 Order name: CBC with Diff; Complete Time: 13:42 [facility] 11/09 11:54 Order name: CPK [facility] 11/09 11:54 Order name: Ckmb [facility] 11/09 11:54 Order name: D-Dimer; Complete Time: 13:42 [facility] 11/09 11:54 Order name: Hepatic Function [facility] 11/09 11:54 Order name: Lipase [facility] 11/09 11:54 Order name: Magnesium [facility] 11/09 11:54 Order name: NT PRO-BNP [facility] 11/09 11:54 Order name: PT-INR; Complete Time: 13:42 [facility] 11/09 11:54 Order name: Ptt, Activated; Complete Time: 13:42 [facility] 11/09 11:54 Order name: Troponin HS [facility] 11/09 14:35 Order name: CBC with Automated Diff [facility] 11/09 11:29 Order name: XRAY Chest Pa And Lat (2 Views); Complete Time: 13:23 [facility] 11/09 11:54 Order name: CT Head C Spine; Complete Time: 12:52 [facility] 11/09 11:54 Order name: CT Chest Wo Con; Complete Time: 12:52 [facility] 11/09 11:54 Order name: EKG; Complete Time: 11:55 [facility] 11/09 14:35 Order name: Heart Healthy [facility] 11/09 14:35 Order name: CBC with Automated Diff [facility] 11/09 14:35 Order name: Lipid Profile [facility] 11/09 14:35 Order name: Lipid Profile [facility] 11/09 15:08 Order name: SARS-COV-2 RT PCR (Document "Date of Onset" if Symptomatic) 1 11/09 16:07 Order name: SARS-COV-[address] [facility] 11/09 11:54 Order name: EKG - Nurse/Tech; Complete Time: 13:11 [facility] 11/09 11:54 Order name: IV Saline Lock; Complete Time: 13:03 [facility] 11/09 11:54 Order name: Labs collected and sent; Complete Time: 13:03 [facility] 11/09 11:54 Order name: O2 Per Protocol; Complete Time: 13:03 [facility] 11/09 11:54 Order name: O2 Sat Monitoring; Complete Time: 13:03 [facility] 11/09 16:25 Order name: Diet Heart Healthy; Complete Time: 16:25 aa5 Administered Medications: 12:45 Drug: Albuterol 2.5 mg Route: Inhalation; jl7 13:30 Follow up: Response: No adverse reaction jl7 12:45 Drug: Albuterol 2.5 mg Route: Inhalation; jl7 12:45 Drug: Albuterol 2.5 mg Route: Inhalation; jl7 12:45 Drug: AtroVENT (ipratropium) Aerosol 0.5 mg Route: Inhalation; jl7 13:30 Follow up: Response: No adverse reaction jl7 12:45 Drug: AtroVENT (ipratropium) Aerosol 0.5 mg Route: Inhalation; jl7 12:45 Drug: AtroVENT (ipratropium) Aerosol 0.5 mg Route: Inhalation; jl7 13:00 Drug: Ketorolac 30 mg Route: IVP; Site: right forearm; jl7 13:30 Follow up: Response: No adverse reaction; Pain is unchanged, physician notified jl7 13:11 Drug: SOLU-Medrol (methylPrednisoLONE) 125 mg Route: IVP; Site: right forearm; jl7 13:30 Follow up: Response: No adverse reaction jl7 14:00 Drug: morphine 4 mg Route: IVP; Infused Over: 4 mins; Site: right forearm; jl7 14:30 Follow up: Response: No adverse reaction; Pain is decreased jl7 14:28 Drug: Zofran (Ondansetron) 4 mg Route: IVP; Site: right forearm; jl7 18:39 Follow up: Response: No adverse reaction jl7 Disposition Summary: 11/09/21 15:27 Hospitalization Ordered Hospitalization Status: Observation ma2 Provider: Tonny An ma2 Location: Telemetry/MedSurg (observation) ma2 Condition: Stable ma2 Problem: new ma2 Symptoms: are unchanged ma2 Bed/Room Type: Standard [facility] Room Assignment: [facility](11/09/21 18:08) Diagnosis - COPD/ Chronic obstructive pulmonary disease, unspecified ma2 Forms: - Medication Reconciliation Form ma2 - SBAR form ma2 Signatures: Dispatcher [employer] Benita Carvajal RN RN Julisa Goldsmith RN RN jl7 Galen Mcdowell MD MD ma2 Dewayne White RN RN as6 Corrections: (The following items were deleted from the chart) 18:08 15:27 ma2 dw
[2021-11-09] MEDS: HYDROCODONE/APAP 7.5/325 MG TAB PO PRN (21:30)
[2021-11-09] MEDS: MORPHINE 2 MG/ML SYR IV PRN (22:46)
[2021-11-10] MEDS: METHYLPREDNISOLONE 40 MG INJ IV SCH ×3 (03:15→20:45)
[2021-11-10 04:51] LABS: Absolute Lymphocytes (CBC) 0.6 K/uL (0.7-4.9); Hematocrit 34.6 % (36.0-45.0); MCV 99.2 fL (80-100); MPV 7.9 fL (7.6-11.3); RBC Red Blood Cell Count 3.49 M/uL (3.86-4.86)
[2021-11-10] MEDS: LEVOTHYROXINE SOD 0.025 MG TAB PO SCH (05:13)
[2021-11-10 05:23] LABS: Blood Morphology Comment NOT SEEN (NOT SEEN); Platelet Estimate ADEQ
[2021-11-10 05:24] LABS: Phosphorus 3.6 mg/dL (2.5-4.9); Potassium 5.5 mmol/L (3.5-5.1)
[2021-11-10 06:37] VITALS: BMI 34.4
[2021-11-10] MEDS ORDERED: PNEUMOCOCCAL VACCINE 0.5 ML IMVAC ONE (08:00)
[2021-11-10] MEDS: ENOXAPARIN 40 MG/0.4 ML SQ SCH (08:56)
[2021-11-10] MEDS: HYDROCODONE/APAP 7.5/325 MG TAB PO PRN ×2 (08:56→18:24)
[2021-11-10] MEDS: MORPHINE 2 MG/ML SYR IV PRN ×2 (12:49→23:56)
[2021-11-10 14:28] LABS: Potassium 5.1 mmol/L (3.5-5.1)
--- NOTE | 2021-11-10 14:42 | EKG ---
Test Date: 2021-11-09 Test Time: 13:09:41 Hoop Coiling Machine Operator: MB MEASUREMENT RESULTS: Intervals: Rate: 77 NE: 162 QRSD: 72 QT: 384 QTc: 434 [place]: P: 41 NE: 162 QRS: 40 T: 78 INTERPRETIVE STATEMENTS: Normal sinus rhythm Low voltage QRS Cannot rule out Anterior infarct, age undetermined Abnormal ECG Compared to ECG 12/08/2012 10:35:42 Low QRS voltage now present Myocardial infarct finding now present Electronically Signed On 11-10-21 14:40:43 CDT by Michael Gusman
[2021-11-10] MEDS ORDERED: NA CHLORIDE 0.9% 1,000 ML IV SCH (23:45)
--- NOTE | 2021-11-10 23:45 | P.PN ---
Subjective Date of Service: 11/10/21 Subjective: No new changes, No C/O voiced, Improving Patient had a large amount of pain. She states her her sides her. She also has pain in her shoulders. She just has generalized aches and pains. Review of Systems 10-point ROS is otherwise unremarkable Physical Examination - Vital Signs Temperature: 98.0 F Blood Pressure: 119/60 Pulse: 74 Respirations: 18 Pulse Ox (%): 98 - Physical Exam General: Alert, In no apparent distress HEENT: Atraumatic, PERRLA, EOMI Neck: Supple, JVD not distended Respiratory: Clear to auscultation bilaterally, Normal air movement Cardiovascular: Regular rate/rhythm, Normal S1 S2 Gastrointestinal: Normal bowel sounds, No tenderness Musculoskeletal: No tenderness Integumentary: No rashes Neurological: Normal speech, Normal tone, Normal affect Lymphatics: No axilla or inguinal lymphadenopathy - Studies Medications List Reviewed: Yes Assessment & Plan - Problems (Diagnosis) (1) Shortness of breath Current Visit: Yes Status: Acute (2) COPD with acute exacerbation Current Visit: Yes Status: Acute (3) Status post fall Current Visit: Yes Status: Acute - Plan -nebs, steroids, and antibiotics -O2 per protocol. -peak flow measurements -outpatient spirometry or pulmonary function testing -repeat chest x-ray -pulmonary consultation - Advance Directives Does patient have a Living Will: No Does patient have a Durable POA for Healthcare: Yes
[2021-11-11] MEDS: METHYLPREDNISOLONE 40 MG INJ IV SCH ×2 (01:56→10:18)
[2021-11-11] MEDS: LEVOTHYROXINE SOD 0.025 MG TAB PO SCH (05:14)
[2021-11-11] MEDS: ENOXAPARIN 40 MG/0.4 ML SQ SCH (10:18)
[2021-11-11] MEDS ORDERED: TRAZODONE 50 MG TABLET PO PRN (10:41)
[2021-11-11 12:21] VITALS: BP 128/64; TEMP 97.6
[2021-11-11] MEDS: HYDROCODONE/APAP 7.5/325 MG TAB PO PRN (13:24)
[2021-11-11 13:35] VITALS: O2SAT 97
[2021-11-11] MEDS ORDERED: ATORVASTATIN 20 MG TAB PO SCH (21:00)
[2021-11-11] MEDS ORDERED: ALBUTEROL SULFATE 90 MCG IH SCH (21:00)
--- NOTE | 2021-11-11 23:59 | P.DS ---
Discharge Date: 11/11/21 Disposition: ROUTINE DISCHARGE Discharge Condition: GOOD Reason for Admission: Fall, COPD exacerbation - Problems (1) Shortness of breath Status: Acute (2) COPD with acute exacerbation Status: Acute (3) Status post fall Status: Acute Brief History of Present Illness: 66-year-old female patient with medical history significant for hypertension, hyperlipidemia, history of COPD who was evaluated in the emergency room for episode of worsening shortness of breath. She reports this started on the day of evaluation. No issues with nausea with vomiting however she did have a fall episode a day prior which she reports was deemed to alcohol use. She has evaluated in the emergency room and there was concern for possible seventh rib fracture. She also does have sputum production however she denied overt episode of bloody sputum. She was evaluated for possible COPD exacerbation and she was started on steroid therapy was asked to be admitted observation. No report of chest pain given. Hospital Course: Patient's pain is better controlled. Patient's respiratory status has improved. Patient is feeling much better today and she is wanting to go home. On discharge home with outpatient follow-up with Pulmonary. She will need to continue with neb treatments and steroids. Also pain control as needed. I talked to the pharmacy and they actually had Ultram called in a couple of days ago but patient wanted the hydrocodone. I asked the pharmacist only give hy drocodone but not the tramadol. Vital Signs/Physical Exam: Temp Pulse Resp BP Pulse Ox 97.6 F 65 18 128/64 97 11/11/21 12:00 11/11/21 12:00 11/11/21 13:24 11/11/21 12:00 11/11/21 13:24 General: Alert, In no apparent distress, Oriented x3 Laboratory Data at Discharge: WBC 11.8 K/uL (4.3-10.9) H 11/10/21 04:25 Hgb 11.7 g/dL (12.0-15.0) L 11/10/21 04:25 Hct 34.6 % (36.0-45.0) L 11/10/21 04:25 Plt Count 208 K/uL (152-406) 11/10/21 04:25 PT 10.3 SECONDS (9.5-12.5) 11/09/21 12:57 INR 0.94 11/09/21 12:57 APTT 26.3 SECONDS (24.3-36.9) 11/09/21 12:57 Sodium 134 mmol/L (136-145) L 11/10/21 14:07 Potassium 5.1 mmol/L (3.5-5.1) 11/10/21 14:07 BUN 28 mg/dL (7-18) H 11/10/21 14:07 Creatinine 1.31 mg/dL (0.55-1.3) H 11/10/21 14:07 Glucose 96 mg/dL (74-106) 11/10/21 14:07 Phosphorus Cancelled 11/10/21 05:11 Magnesium 2.5 mg/dL (1.8-2.4) H 11/09/21 13:51 Total Bilirubin 0.7 mg/dL (0.2-1.0) 11/09/21 13:51 AST 25 U/L (15-37) 11/09/21 13:51 ALT 48 U/L (12-78) 11/09/21 13:51 Alkaline Phosphatase 96 U/L (45-117) 11/09/21 13:51 Triglycerides 74 mg/dL (<150) 11/10/21 04:25 Cholesterol 242 mg/dL (<200) H 11/10/21 04:25 HDL Cholesterol 95 mg/dL (40-60) H 11/10/21 04:25 Cholesterol/HDL Ratio 2.55 11/10/21 04:25 Lipase 124 U/L (73-393) 11/09/21 13:51 Home Medications: Albuterol Sulfate [Proair Digihaler] 90 mcg IH BID 11/09/21 Amlodipine [Norvasc*] 2.5 mg PO DAILY 11/09/21 Atorvastatin Calcium 20 mg PO BEDTIME 11/09/21 Sertraline [Zoloft*] 100 mg PO DAILY 11/09/21 Trazodone HCl 100 mg PO BEDTIME PRN 11/09/21 Albuterol Neb [Proventil 0.083% Neb Soln] 2.5 mg NEB [id number] PRN #60 amp 11/10/21 Azithromycin Tab [Zithromax*] 250 mg PO DAILY #5 tab 11/10/21 Ipratropium Neb [Atrovent*] 0.5 mg NEB [id number] PRN #60 amp 11/10/21 Losartan Potassium [Cozaar] 50 mg PO DAILY #30 tablet 11/10/21 predniSONE [Deltasone] 20 mg PO BID #11 tab 11/10/21 Hydrocodone 7.5/APAP 325 [[place] 7.5/325 mg*] 1 tab PO Q6H PRN #30 tab 11/11/21 New Medications: Ipratropium Neb [Atrovent*] 0.5 mg NEB [id number] PRN #60 amp PRN Reason: Shortness Of Breath Losartan Potassium [Cozaar] 50 mg PO DAILY #30 tablet Hydrocodone 7.5/APAP 325 [[place] 7.5/325 mg*] 1 tab PO Q6H PRN #30 tab PRN Reason: Pain Scale 5-7 (Moderate) predniSONE [Deltasone] 20 mg PO BID #11 tab Albuterol Neb [Proventil 0.083% Neb Soln] 2.5 mg NEB [id number] PRN #60 amp PRN Reason: Shortness Of Breath Azithromycin Tab [Zithromax*] 250 mg PO DAILY #5 tab Diet: Regular Activity: Fall precautions Followup: Murphy Weston MD [ACTIVE - CAN ADMIT] - (Call for an appointment) Rosa Mckeon NP [Primary Care Provider] - (Call for an appointment) Time spent managing pt's care (in minutes): 35
[2021-11-12] MEDS ORDERED: SERTRALINE HCL 100 MG TAB PO SCH (09:00)
[2021-11-12] MEDS ORDERED: AMLODIPINE 2.5 MG TAB PO SCH (09:00)
== END 2021-11-11 14:30 | disposition home or self-care (01) ==
LOC: ER 10:23 → ERHOLD 14:29 → 2ND 19:25
PROVIDERS: ADMIT Internal Medicine Nephrology; ATTEND Hospitalist
DX: J44.1 Chronic obstructive pulmonary disease with (acute) exacerbation (principal); W19.XXXA Unspecified fall, initial encounter; I10 Essential (primary) hypertension; E03.9 Hypothyroidism, unspecified; E78.5 Hyperlipidemia, unspecified; Z79.899 Other long term (current) drug therapy; Z88.0 Allergy status to penicillin; Z87.891 Personal history of nicotine dependence; Z90.710 Acquired absence of both cervix and uterus; Z20.822 Contact with and (suspected) exposure to COVID-19
CPT/HCPCS: 36415; 70450; 71046; 71250; 72125; 80048; 80061; 80076; 82550; 82553; 82947; 83690; 83735; 83880; 84100; 84484; 85025; 85379; 85610; 85730; 93005; 96374; 96375; 99285; G0378; J1650; J2270; J2405; J2920; J7030; U0003

== ENCOUNTER 2022-01-28 11:33 | Emergency (ER) | payer OTHER ==
--- OUTSIDE RECORDS SUMMARY | 2022-01-28 11:40 | XMS REPORT | Continuity of Care Document ---
:1955 Author Organization [facility] t Address [address] [place] [address] Care Team Providers Name Role Phone PCP, PATIENT DOES NOT HAVE A Primary Care Physician UnavailRosa Ryan Attending Clinician Unavailable MASSIEL GUAJARDO Attending Clinician Unavailable IMELDA FLETCHER Attending Clinician Unavailable Payers Payer Name Policy Type Policy Number Effective Date Expiration Date S [facility]claribel [facility] [id number] 2020 2020 UNINSURED 00:00:00 00:00:00 Problems This patient has no known problems. Allergies, Adverse Reactions, Alerts Allergy Allergy Status Severity Reaction(s) Onset Inactive Treating Comm ents Source Name Type Date Date Clinician PENICILL Drug Active SOB [facility] Class 5-26 ity of 00:00: [address] Medications This patient has no known medications. Procedures This patient has no known procedures. Encounters Start End Encounter Admission Attending Care Care Encounter Source Date/Time Date/Time Type Type Clinicians Facility Department ID 2022-01-08 Outpatient Mike [facility] [id number] Common 10:56:01 Rosa [facility] 2022-01-07 Outpatient Mike [facility] [id number] Common 10:04:00 Rosa [facility] 2021-09-29 Outpatient Mike [facility] [id number] Common 15:48:01 Avnee [facility] 2021-06-27 Outpatient Mckeon, STLMLC ST[facility] [id number] Common 13:32:02 Avnee [facility] 2021-06-11 Outpatient Mckeon, STLMLC STL[facility]C [id number] Common 12:53:14 Avnee [facility] 2022-01-27 2022-01-27 ambulatory STLMLC ST[facility]C [id number] Common 00:00:00 00:00:00 [facility] 2021-12-23 2021-12-23 ambulatory STLMLC STL[facility]C [id number] Common 00:00:00 00:00:00 [facility] 2021-11-19 2021-11-19 ambulatory STLMLC STL[facility]C [id number] Common 00:00:00 00:00:00 [facility] 2021-11-10 2021-11-10 ambulatory STLMLC STLMLC [id number] Common 00:00:00 00:00:00 [facility] 2021-11-06 2021-11-06 ambulatory STLMLC STLMLC [id number] Common 00:00:00 00:00:00 [facility] 2021-11-06 2021-11-06 ambulatory STLMLC STLMLC [id number] Common 00:00:00 00:00:00 [facility] 2021-10-30 2021-10-30 ambulatory STLMLC STLMLC [id number] Common 00:00:00 00:00:00 [facility] 2021-10-27 2021-10-27 ambulatory STLMLC STLMLC [id number] Common 00:00:00 00:00:00 [facility] 2021-10-02 2021-10-02 ambulatory STLMLC STLMLC [id number] Common 00:00:00 00:00:00 [facility] 2021-09-30 2021-09-30 ambulatory STLMLC STLMLC [id number] Common 00:00:00 00:00:00 [facility] 2021-09-30 2021-09-30 ambulatory STLMLC STLMLC [id number] Common 00:00:00 00:00:00 [facility] 2021-03-17 2021-03-17 Outpatient STLMLC STL[facility]C [id number] Common 00:00:00 00:00:00 [facility] 2021-03-17 2021-03-17 ambulatory STLMLC STLMLC [id number] Common 00:00:00 00:00:00 [facility] 2020-12-17 2020-12-17 Outpatient STLMLC STLMLC [id number] Common 00:00:00 00:00:00 [facility] 2020-12-12 2020-12-12 Outpatient STLMLC STLMLC [id number] Common 00:00:00 00:00:00 [facility] 2020-11-20 2020-11-20 Outpatient STLMLC STLMLC [id number] Common 00:00:00 00:00:00 [facility] 2020-11-04 2020-11-04 Outpatient STLMLC STLMLC [id number] Common 00:00:00 00:00:00 [facility] 2020-10-08 2020-10-08 Outpatient STLMLC STLMLC [id number] Common 00:00:00 00:00:00 [facility] 2020-10-07 2020-10-07 Outpatient STLMLC STLMLC [id number] Common 00:00:00 00:00:00 [facility] 2020-10-04 2020-10-04 Outpatient STLMLC STLMLC [id number] Common 00:00:00 00:00:00 [facility] 2020-09-16 2020-09-16 Outpatient STLMLC STLMLC [id number] Common 00:00:00 00:00:00 [facility] 2020-09-13 2020-09-13 Outpatient STLMLC STLMLC [id number] Common 00:00:00 00:00:00 [facility] 2020-09-13 2020-09-13 Outpatient STLMLC STLMLC [id number] Common 00:00:00 00:00:00 [facility] 2020-09-03 2020-09-03 Outpatient STLMLC STLMLC [id number] Common 00:00:00 00:00:00 [facility] 2020-09-03 2020-09-03 Outpatient STLMLC STLMLC [id number] Common 00:00:00 00:00:00 [facility] 2020-09-02 2020-09-02 Outpatient STLMLC STLMLC [id number] Common 00:00:00 00:00:00 [facility] 2020-09-02 2020-09-02 Outpatient STLMLC STL[facility]C [id number] Common 00:00:00 00:00:00 [facility] 2020-08-13 2020-08-13 [id number] [facility] 11:50:00 11:34:24 MASSIEL kim [facility] 2020-07-11 2020-07-11 [facility] [id number] [facility] 16:40:00 16:42:58 IMELDA kim o f [facility] Results Test Description Test Time Test Comments Results Result Sourc e Comments SCR MAMM 2019-03-14 - SCR MAMM BILATERAL BILATERAL CAD 13:00:02 CAD DIGITALBILATERAL DIGITAL DIGITAL SCREENING MAMMOGRAM WITH CAD: 03/13/2019CLINICAL: Asymptomatic. Current mammographic images were evaluated by either a [employer] M-Vu or a [employer] ImageChecker CAD (computer aided detection system). Comparison is made to exams dated 07/20/2016 mammogram - [facility] and 03/23/2013 mammogram - [facility]. The tissue of both breasts is predominantly fatty. No suspicious mass, architectural distortion, malignant type calcification, or lymph node abnormality detected. Breast architecture is stable compared to prior exams.IMPRESSION: NEGATIVEThere is no mammographic evidence of malignancy. Resume annual screening mammography in one year. Yoli caldwell/sue:03/14/2019 13:00:02 Guest Services Lead: Tracee Finney MM, [facility] Mammographyletter sent: BIRADS 1-2 Normal Mammogram BI-RADS: 1 Negative
[2022-01-28] MEDS ORDERED: NA CHLORIDE 0.9% 500 ML ONE (12:10)
[2022-01-28 12:14] LABS: Absolute Lymphocytes (CBC) 0.7 K/uL (0.7-4.9); Hematocrit 30.9 % (36.0-45.0); Lymphocytes % 9.2 % (15.3-44.8); MPV 8.1 fL (7.6-11.3); RBC Red Blood Cell Count 3.12 M/uL (3.86-4.86)
--- NOTE | 2022-01-28 12:17 | RAD REPORT ---
EXAM DESCRIPTION: CT - Head Brain Wo Cont - 01/28/2022 12:10 pm CLINICAL HISTORY: Dizziness, syncope COMPARISON: HEAD BRAIN W O CONTRAST dated 12/05/2012 TECHNIQUE: Axial 5 mm thick images of the head were obtained without IV contrast. All CT scans are performed using dose optimization technique as appropriate and may include automated exposure control or mA/KV adjustment according to patient size. FINDINGS: No intracranial hemorrhage, mass, edema or shift of mid-line structures. No acute infarcti on changes seen. No abnormal extra-axial fluid collections. Ventricles are normal. Patient has no sig nificant atrophy or chronic ischemic change. Intracranial findings are not significantly different th e 2013 study. Mastoid air cells and visualized portions of the paranasal sinuses are clear. No acute bony findings. IMPRESSION: Negative non-contrast CT head examination for acute finding No significant change from the 2013 study.
[2022-01-28 12:20] LABS: Protime INR 1.02
[2022-01-28 12:32] LABS: ALT/SGPT 33 U/L (12-78); AST/SGOT 22 U/L (15-37); Albumin 3.4 g/dL (3.4-5.0); Alkaline Phosphatase 113 U/L (45-117); BUN Blood Urea Nitrogen 14 mg/dL (7-18); Bicarbonate 29 mmol/L (21-32); Bilirubin Total 0.2 mg/dL (0.2-1.0); Glomerular Filtration Rate 48 ml/min (=/>90); Glucose Level 138 mg/dL (74-106); Magnesium 2.9 mg/dL (1.8-2.4); NT PRO-BNP 487 pg/mL (<125); Potassium 4.5 mmol/L (3.5-5.1); Protein, Total 7.1 g/dL (6.4-8.2); Sodium Level 137 mmol/L (136-145)
[2022-01-28 12:33] LABS: Bilirubin Direct < 0.1 mg/dL (0-0.2)
--- NOTE | 2022-01-28 12:46 | RAD REPORT ---
EXAM DESCRIPTION: RAD - Chest Single View - 01/28/2022 12:37 pm CLINICAL HISTORY: Dizziness COMPARISON: Chest Pa And Lat (2 Views) dated 11/09/2021; Chest Pa And Lat (2 Views) dated 09/30/2020; ABDOMEN 1 VIEW KUB dated 01/02/2013; CHEST SINGLE VIEW dated 12/05/2012 FINDINGS: Lines: None. Lungs: Hazy opacities in the left mid lung that are new. Mild nonspecific increased prominence of the pulmonary vasculature. Pleural: No significant pleural effusions or pneumothorax. Cardiac: Similar size and configuration Mediastinum: Within normal limits. Bones: No acute fractures. Other: None IMPRESSION: Hazy left mid lung opacities. The finding is likely accentuated by underpenetration. Con single stayer operator a standard PA and lateral radiograph to exclude underlying airspace disease .
[2022-01-28] MEDS ORDERED: NA CHLORIDE 0.9% 1,000 ML ONE (15:03)
--- NOTE | 2022-01-28 17:48 | EDPHYS ---
Physician Documentation [facility] Name: Anju Richards Age: 66 yrs Sex: Female : 1955 Arrival Date: 01/28/2022 Time: 11:38 Bed 26 Private MD: ED Physician Oscar Victor HPI: 01/28 11:48 This 66 yrs old Female presents to ER via EMS with complaints of Near syncope. pm1 11:48 The patient has experienced near-syncope, felt faint. Onset: The symptoms/episode pm1 began/occurred today. Duration: This was a single episode. Context: the episode(s) was witnessed, by a friend, occurred at home, occurred while the patient was walking, Just prior to the episode the patient experienced dizziness. Associated injury: The patient did not suffer any apparent associated injury. Associated signs and symptoms: Pertinent negatives: abdominal pain, chest pain, shortness of breath. Current symptoms: Currently, the patient is not experiencing any symptoms. The patient has experienced similar episodes in the past, multiple times. The patient has been recently seen by a physician: with different complaint(s), and apparently was diagnosed with Chest wall muscle strain and prescribed pain medication and muscle relaxant. 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 Patient contacted her sister to boat puller to the gas station and wanted to walk around to help her symptoms resolve. Patient reports that she has had multiple episodes similar to this over the years that she typically resolves with ambulation. Today as patient was attempting to walk out of the store she felt faint and told her sister who guided her down to the floor. Patient without loss of consciousness, without injury, negative for headache negative for chest pain negative for shortness of breath. Historical: - Allergies: 11:43 No Known Allergies; ph - Home Meds: 11:43 Albuterol Inhl [Active]; amlodipine oral [Active]; atorvastatin Oral [Active]; ph lisinopril Oral [Active]; sertraline Oral [Active]; Trazodone Oral [Active]; - PMHx: 11:43 Chronic obstructive lung disease; Hypertensive disorder; ph 11:44 Chronic obstructive lung disease; Hypertensive disorder; ss - PSHx: 11:43 hysterectomy; Appendectomy; ph 11:44 Appendectomy; hysterectomy; ss - Immunization history:: Adult Immunizations unknown. - Social history:: Smoking status: Patient denies any tobacco usage or history of. ROS: 11:48 Constitutional: Negative for fever, chills, and weight loss, Cardiovascular: Negative pm1 for chest pain, palpitations, and edema, Respiratory: Negative for shortness of breath, cough, wheezing, and pleuritic chest pain, Abdomen/GI: Negative for abdominal pain, nausea, vomiting, diarrhea, and constipation, Back: Negative for injury and pain, MS/Extremity: Negative for injury and deformity, Skin: Negative for injury, rash, and discoloration. 11:48 Neuro: Positive for dizziness, near syncope, Negative for headache, numbness, tingling, weakness. 11:48 All other systems are negative. Exam: 11:48 Abdomen/GI: Exam negative for acute changes, Inspection: abdomen appears normal, pm1 Palpation: abdomen is soft and non-tender, in all quadrants. 11:48 Constitutional: This is a well developed, well nourished patient who is awake, alert, and in no acute distress. Head/Face: Normocephalic, atraumatic. 11:48 MS/ Extremity: Pulses equal, no cyanosis. Neurovascular intact. Full, normal range of motion. 11:48 Eyes: Exam is negative for acute changes, Periorbital structures: appear normal, Pupils: no acute changes, Extraocular movements: no acute changes, Conjunctiva: no acute changes, no injection. 11:48 ENT: Exam is negative for acute changes, Mouth: no acute changes, Lips: normal, moist, Oral mucosa: normal, pink and intact, moist. 11:48 Cardiovascular: Exam negative for acute changes, Rate: normal, Rhythm: regular, Pulses: no pulse deficits are appreciated, Heart sounds: normal, normal S1and S2. 11:48 Respiratory: Exam negative for acute changes, respiratory distress, shortness of breath, Breath sounds: are clear throughout. 11:48 Back: Exam negative for acute changes, pain, is absent, ROM is normal. 11:48 Neuro: Exam negative for acute changes, Orientation: is normal, Mentation: is normal, Motor: is normal, moves all fours. Vital Signs: 11:39 BP 95 / 57; Pulse 55; Resp 18; Temp 97.8(O); Pulse Ox 91% on R/A; Weight 90.72 kg; ss Height 5 ft. 5 in. (165.10 cm); 12:30 BP 91 / 58; Pulse 48; Resp 16; Pulse Ox 95% ; ph 13:00 BP 96 / 61; Pulse 49; Resp 18; Pulse Ox 95% ; ph 13:40 BP 96 / 51 Supine; Pulse 49; Resp 18; Pulse Ox 96% ; ph 13:44 BP 96 / 65 Sitting; Pulse 58; Resp 16; Pulse Ox 93% ; ph 13:46 BP 87 / 59 Standing; Pulse 63; Resp 16; Pulse Ox 95% ; ph 14:50 BP 99 / 59; Pulse 43; Resp 18; Pulse Ox 96% ; kb3 16:00 BP 101 / 61; Pulse 44; Resp 20; Pulse Ox 93% ; kb3 17:00 BP 113 / 56; Pulse 63; Resp 16; Pulse Ox 94% ; kb3 17:34 BP 120 / 72 Supine; Pulse 53; Resp 16; Pulse Ox 95% ; kb3 17:36 BP 122 / 67 Sitting; Pulse 65; Resp 18; Pulse Ox 96% ; kb3 17:37 BP 126 / 82 Standing; Pulse 69; Resp 16; Pulse Ox 95% ; kb3 11:39 Body Mass Index 33.28 (90.72 kg, 165.10 cm) ss 11:39 90-91% is baseline for patient on RA MDM: 11:39 Patient medically screened. pm1 14:30 ED course: Orthostasis present, will give patient bolus of NS 1 L. pm1 15:44 ED course: Patient refused repeat chest x-ray. patient reports she has had multiple pm1 imaging and is not having any symptoms to indicate pneumonia. 15:44 Counseling: I had a detailed discussion with the patient and/or guardian regarding: the pm1 historical points, exam findings, and any diagnostic results supporting the discharge/admit diagnosis, lab results, radiology results. 17:24 ED course: Patient reports feeling better and wanting to go home. Requested that the pm1 patient to repeat orthostatics and determination is she is well hydrated prior to discharge. 17:24 ED course: Patient reports her baseline blood pressure ranges between 90-110 with heart pm1 rates typically in the 60s. Patient with tilting on orthostatics and will address with IV fluids. 17:46 Data reviewed: vital signs. Data interpreted: Pulse oximetry: on room air is 94 %. pm1 Interpretation: normal. 17:56 ED course: Patient without any complaints of shortness of breath throughout ER visit. pm1 While patient was getting ready to be discharged her nurse reported audible wheezing. Patient offered breathing treatment but she reported she had her inhaler in her purse, however was not present we will give patient breathing treatment prior to discharge. 01/28 11:47 Order name: Basic Metabolic Panel; Complete Time: 12:56 pm1 01/28 11:47 Order name: CBC with Diff; Complete Time: 12:56 pm1 01/28 11:47 Order name: LFT's; Complete Time: 12:56 pm1 01/28 11:47 Order name: Magnesium; Complete Time: 12:56 pm1 01/28 11:47 Order name: NT PRO-BNP; Complete Time: 12:56 pm1 01/28 11:47 Order name: PT-INR; Complete Time: 12:56 pm1 01/28 11:46 Order name: CT Head Brain wo Cont; Complete Time: 12:56 pm1 01/28 11:47 Order name: Troponin HS; Complete Time: 12:56 pm1 01/28 11:47 Order name: XRAY Chest (1 view); Complete Time: 12:56 pm1 01/28 11:47 Order name: EKG; Complete Time: 11:49 pm1 01/28 11:47 Order name: Cardiac monitoring; Complete Time: 12:03 pm1 01/28 11:47 Order name: EKG - Nurse/Tech; Complete Time: 12:03 pm1 01/28 11:47 Order name: IV Saline Lock; Complete Time: 12:03 pm1 01/28 11:47 Order name: Labs collected and sent; Complete Time: 12:03 pm1 01/28 11:47 Order name: O2 Per Protocol; Complete Time: 12:03 pm1 01/28 11:47 Order name: O2 Sat Monitoring; Complete Time: 12:03 pm01/28 11:47 Order name: Orthostatic Blood Pressure; Complete Time: 18:07 pm01/28 17:48 Order name: Orthostatic Blood Pressure; Complete Time: 18:06 pm1 EC:52 Rate is 50 beats/min. Rhythm is regular, Sinus bradycardia with Sinus bradycardia, low pm1 voltage QRS, borderline EKG. QRS [place] is Normal. [place] interval is normal. QRS interval is normal. QT interval is normal. No Q waves. T waves are Normal. No ST changes noted. Clinical impression: Sinus bradycardia, low voltage QRS, borderline EKG. Administered Medications: 12:31 Drug: NS 0.9% 500 ml Route: IV; Rate: bolus; Site: right forearm; ph 13:30 Follow up: Response: No adverse reaction; IV Status: Completed infusion; IV Intake: kb3 500ml 14:57 Drug: NS 0.9% 1000 ml Route: IV; Rate: 1000 ml; Site: right forearm; kb3 17:46 Follow up: Response: No adverse reaction; IV Status: Completed infusion; IV Intake: kb3 1000ml 17:55 Drug: Albuterol HFA Inhaler 2 puffs Route: Inhalation; kb3 18:06 Follow up: Response: No adverse reaction kb3 Disposition Summary: 01/28/22 17:47 Discharge Ordered Location: Home pm1 Problem: new pm1 Symptoms: have improved pm1 Condition: Stable pm1 Diagnosis - Dehydration pm1 - Syncope Near pm1 Followup: pm1 - With: Emergency Department - When: As needed - Reason: Worsening of condition Followup: pm1 - With: Private Physician - When: 2 - 3 days - Reason: Recheck today's complaints, Continuance of care, Re-evaluation by your physician Discharge Instructions: - Discharge Summary Sheet pm1 - Dehydration, Elderly pm1 - Orthostatic Hypotension pm1 - Rehydration, Elderly pm1 Forms: - Medication Reconciliation Form pm1 - Thank You Letter pm1 - Antibiotic Education pm1 - Prescription Opioid Use pm1 Addendum: 01/29/2022 20:31 Co-signature as Attending Physician, Oscar Victor MD. r n Signatures: Dispatcher [employer] EDMS Oscar Victor MD MD rn Smirch, Shelby, RN RN Eleni Peguero RN RN ph Deven Montoya, MOJGAN MEDICAL OFFICE SPECIALIST pm1 Lindsay Carpenter RN RN kb3 Corrections: (The following items were deleted from the chart) 01/28 11:45 11:44 Allergies: No Known Allergies; [facility]
--- NOTE | 2022-01-28 17:48 | ER ---
Nurse's Notes [facility] Name: Anju Richards Age: 66 yrs Sex: Female : 1955 Arrival Date: 01/28/2022 Time: 11:38 Bed 26 Private MD: Diagnosis: Dehydration;Syncope Near Presentation: 01/28 11:39 Chief complaint: EMS states: syncopal episode while at the gas station. Pt was assisted ss to the ground by family member. Recently seen at [facility] for "pulled muscle under breast" and given pain medication as well as muscle relaxers. PT's only complaint at this time is the pain under her breast that has been ongoing since . Coronavirus screen: Client denies travel out of the [place] in the last 14 days. Ebola Screen: Patient denies exposure to infectious person. Patient denies travel to an Ebola-affected area in the 21 days before illness onset. Initial Sepsis Screen: Does the patient meet any 2 criteria? No. Patient's initial sepsis screen is negative. Does the patient have a suspected source of infection? No. Patient's initial sepsis screen is negative. Risk Assessment: Do you want to hurt yourself or someone else? Patient reports no desire to harm self or others. Onset of symptoms was January 28, 2022. 11:39 Method Of Arrival: EMS: [facility] 11:39 Acuity: ROBBY 3 ss Historical: - Allergies: 11:43 No Known Allergies; ph - Home Meds: 11:43 Albuterol Inhl [Active]; amlodipine oral [Active]; atorvastatin Oral [Active]; ph lisinopril Oral [Active]; sertraline Oral [Active]; Trazodone Oral [Active]; - PMHx: 11:43 Chronic obstructive lung disease; Hypertensive disorder; ph 11:44 Chronic obstructive lung disease; Hypertensive disorder; ss - PSHx: 11:43 hysterectomy; Appendectomy; ph 11:44 Appendectomy; hysterectomy; ss - Immunization history:: Adult Immunizations unknown. - Social history:: Smoking status: Patient denies any tobacco usage or history of. Screenin:43 Abuse screen: Denies threats or abuse. Denies injuries from another. Nutritional ph screening: No deficits noted. Tuberculosis screening: No symptoms or risk factors identified. Fall Risk No fall in past 12 months (0 pts). No secondary diagnosis (0 pts). IV access (20 points). Ambulatory Aid- Crutches/Cane/Walker (15 pts). Gait- Weak (10 pts.). Mental Status- Oriented to own ability (0 pts). Total See Fall Scale indicates High Risk Score (45 or more points). Fall prevention measures have been instituted. Side Rails Up X 2 Placed Close to Nursing Station Frequent Obs/Assessments Occuring As available patient and family educated on Fall Prevention Program and Strategies. Assessment: 12:04 Reassessment: Pt to CT now VIA stretcher with GEOVANNI Cruz. ss 12:15 Pain: Denies pain. kb3 12:15 Neuro: No deficits noted. Level of Consciousness is awake, alert, obeys commands, kb3 Oriented to person, place, time, situation, Sap Ppm Consultant are equal bilaterally. Cardiovascular: Rhythm is sinus bradycardia. 12:15 General: Received care of pt from CT, report given by ema WELLS. Pt is AAO x4, denies kb3 pain, Reports a fainting spell earlier today, feeling well at this time. Updated regarding POC. Pt with no questions at this time. 15:30 General: Pt resting comfortably, no complaints. kb3 Vital Signs: 11:39 BP 95 / 57; Pulse 55; Resp 18; Temp 97.8(O); Pulse Ox 91% on R/A; Weight 90.72 kg; ss Height 5 ft. 5 in. (165.10 cm); 12:30 BP 91 / 58; Pulse 48; Resp 16; Pulse Ox 95% ; ph 13:00 BP 96 / 61; Pulse 49; Resp 18; Pulse Ox 95% ; ph 13:40 BP 96 / 51 Supine; Pulse 49; Resp 18; Pulse Ox 96% ; ph 13:44 BP 96 / 65 Sitting; Pulse 58; Resp 16; Pulse Ox 93% ; ph 13:46 BP 87 / 59 Standing; Pulse 63; Resp 16; Pulse Ox 95% ; ph 14:50 BP 99 / 59; Pulse 43; Resp 18; Pulse Ox 96% ; kb3 16:00 BP 101 / 61; Pulse 44; Resp 20; Pulse Ox 93% ; kb3 17:00 BP 113 / 56; Pulse 63; Resp 16; Pulse Ox 94% ; kb3 17:34 BP 120 / 72 Supine; Pulse 53; Resp 16; Pulse Ox 95% ; kb3 17:36 BP 122 / 67 Sitting; Pulse 65; Resp 18; Pulse Ox 96% ; kb3 17:37 BP 126 / 82 Standing; Pulse 69; Resp 16; Pulse Ox 95% ; kb3 11:39 Body Mass Index 33.28 (90.72 kg, 165.10 cm) ss 11:39 90-91% is baseline for patient on RA ss ED Course: 11:38 Patient arrived in ED. ss 11:39 Deven Montoya NP is PHCP. pm1 11:39 Oscar Victor MD is Attending Physician. pm1 11:43 Patient has correct armband on for positive identification. Bed in low position. Call ph light in reach. Side rails up X 1. Client placed on continuous cardiac and pulse oximetry monitoring. NIBP monitoring applied. 11:44 Triage completed. ss 11:44 Arm band placed on Patient placed in an exam room, on a stretcher. ph 12:00 Eleni Peguero RN is Primary Nurse. ph 12:03 Inserted saline lock: 20 gauge in right forearm, using aseptic technique. Blood ss collected. 12:03 Maintain EMS IV. Dressing intact. Good blood return noted. Site clean \\T\\ dry. Gauge \\T\\ ss site: 20 gauge in L FA. Patient maintains SpO2 saturation greater than 95% on room air. 12:11 CT Head Brain wo Cont In Process Unspecified. EDMS 12:15 Warm blanket given. kb3 12:39 XRAY Chest (1 view) In Process Unspecified. EDMS 13:56 No provider procedures requiring assistance completed. ph 18:04 IV discontinued, intact, bleeding controlled, No redness/swelling at site. kb3 Administered Medications: 12:31 Drug: NS 0.9% 500 ml Route: IV; Rate: bolus; Site: right forearm; ph 13:30 Follow up: Response: No adverse reaction; IV Status: Completed infusion; IV Intake: kb3 500ml 14:57 Drug: NS 0.9% 1000 ml Route: IV; Rate: 1000 ml; Site: right forearm; kb3 17:46 Follow up: Response: No adverse reaction; IV Status: Completed infusion; IV Intake: kb3 1000ml 17:55 Drug: Albuterol HFA Inhaler 2 puffs Route: Inhalation; kb3 18:06 Follow up: Response: No adverse reaction kb3 Medication: 11:43 VIS not applicable for this client. ph Intake: 13:30 IV: 500ml; Total: 500ml. kb3 17:46 IV: 1000ml; Total: 1500ml. kb3 Outcome: 17:47 Discharge ordered by . pm1 18:05 Discharged to home ambulatory, with family. kb3 18:05 Condition: good 18:05 Discharge instructions given to patient, family, Instructed on discharge instructions, follow up and referral plans. Demonstrated understanding of instructions, follow-up care. 18:05 Patient left the ED. kb3 Signatures: Dispatcher [employer] EDMS Ifeoma Garcia RN RN ss Eleni Peguero RN RN Deven Montoya, MODEL MAKER SCALE MODEL MAKER SCALE pm1 Lindsay Carpenter RN RN kb3 Corrections: (The following items were deleted from the chart) 11:45 11:44 Allergies: No Known Allergies; ss ss 16:08 12:03 Maintain EMS IV. Dressing intact. Good blood return noted. Site clean \\T\\ dry. kb3 Gauge \\T\\ site: 20 gauge in L FA. ss
[2022-01-28] MEDS ORDERED: ALBUTEROL INHALER 60 PUFF/8 GM IH ONE (18:07)
[2022-01-29 08:17] VITALS: TEMP 97.8
[2022-01-29 10:00] VITALS: BP 126/82; O2SAT 95
--- NOTE | 2022-01-29 13:37 | EKG ---
Test Date: 2022-01-28 Test Time: 11:49:21 Surgical Aide: KV MEASUREMENT RESULTS: Intervals: Rate: 50 PA: 194 QRSD: 82 QT: 450 QTc: 410 [place]: P: 56 PA: 194 QRS: 1 T: 65 INTERPRETIVE STATEMENTS: Sinus bradycardia Low voltage QRS Borderline ECG Compared to ECG 11/09/2021 13:09:41 Sinus rhythm no longer present Myocardial infarct finding no longer present Electronically Signed On 01-29-22 13:35:15 CDT by Michael Gusman
== END 2022-01-28 18:05 | disposition home or self-care (01) ==
LOC: ER 11:33
DX: E86.0 Dehydration (principal); R55 Syncope and collapse; I10 Essential (primary) hypertension; J44.9 Chronic obstructive pulmonary disease, unspecified
CPT/HCPCS: 96361; 93005; 85025; 80048; 36415; 83735; 85610; 80076; 84484; 83880; 70450; 71045; 96360; 99285; J7040; J7030

== ENCOUNTER 2022-02-03 22:29 | Inpatient (IN) | payer OTHER ==
--- OUTSIDE RECORDS SUMMARY | 2022-02-03 22:32 | XMS REPORT | Continuity of Care Document ---
:1955 Author Organization [facility] t Address [address] [place] [address] Care Team Providers Name Role Phone PCP, PATIENT DOES NOT HAVE A Primary Care Physician UnavailRosa Ryan Attending Clinician Unavailable MASSIEL GUAJARDO Attending Clinician Unavailable IMELDA FLETCHER Attending Clinician Unavailable Payers Payer Name Policy Type Policy Number Effective Date Expiration Date S ourclaribel COVID19 [facility] [id number] 2020 2020 UNINSURED 00:00:00 00:00:00 Problems This patient has no known problems. Allergies, Adverse Reactions, Alerts Allergy Allergy Status Severity Reaction(s) Onset Inactive Treating Comm ents Source Name Type Date Date Clinician PENICILL Drug Active SOB [facility] INS Class 5-26 ity of 00:00: [address] Medications This patient has no known medications. Procedures This patient has no known procedures. Encounters Start End Encounter Admission Attending Care Care Encounter Source Date/Time Date/Time Type Type Clinicians Facility Department ID 2022-01-08 Outpatient Mike [facility] [id number] Common 10:56:01 Rosa [facility] 2022-01-07 Outpatient Mike [facility] [id number] Common 10:04:00 Rosa [facility] 2021-09-29 Outpatient Mike [facility] [id number] Common 15:48:01 Avnee [facility] 2021-06-27 Outpatient Mckeon, STLMLC [facility] [id number] Common 13:32:02 Avnee [facility] 2021-06-11 Outpatient Mckeon, STLMLC [facility] [id number] Common 12:53:14 Avnee [facility] 2022-01-30 2022-01-30 ambulatory [facility]C [facility] [id number] Common 00:00:00 00:00:00 [facility] 2022-01-27 2022-01-27 ambulatory STLMLC [facility] [id number] Common 00:00:00 00:00:00 [facility] 2021-12-23 2021-12-23 ambulatory STLMLC ST[facility] [id number] Common 00:00:00 00:00:00 [facility] 2021-11-19 2021-11-19 ambulatory STLMLC ST[facility] [id number] Common 00:00:00 00:00:00 [facility] 2021-11-10 2021-11-10 ambulatory STLMLC ST[facility] [id number] Common 00:00:00 00:00:00 [facility] 2021-11-06 2021-11-06 ambulatory STLMLC [facility] [id number] Common 00:00:00 00:00:00 [facility] 2021-11-06 2021-11-06 ambulatory STLMLC ST[facility] [id number] Common 00:00:00 00:00:00 [facility] 2021-10-30 2021-10-30 ambulatory STLMLC ST[facility] [id number] Common 00:00:00 00:00:00 [facility] 2021-10-27 2021-10-27 ambulatory STLMLC STL[facility] [id number] Common 00:00:00 00:00:00 [facility] 2021-10-02 2021-10-02 ambulatory STLMLC STL[facility] [id number] Common 00:00:00 00:00:00 [facility] 2021-09-30 2021-09-30 ambulatory STLMLC ST[facility] [id number] Common 00:00:00 00:00:00 [facility] 2021-09-30 2021-09-30 ambulatory STLMLC ST[facility] [id number] Common 00:00:00 00:00:00 [facility] 2021-03-17 2021-03-17 Outpatient STLMLC [facility] [id number] Common 00:00:00 00:00:00 [facility] 2021-03-17 2021-03-17 ambulatory STLMLC STL[facility]C [id number] Common 00:00:00 00:00:00 [facility] 2020-12-17 2020-12-17 Outpatient STLMLC ST[facility] [id number] Common 00:00:00 00:00:00 [facility] 2020-12-12 2020-12-12 Outpatient STLMLC ST[facility] [id number] Common 00:00:00 00:00:00 [facility] 2020-11-20 2020-11-20 Outpatient STLMLC ST[facility] [id number] Common 00:00:00 00:00:00 [facility] 2020-11-04 2020-11-04 Outpatient STLMLC ST[facility] [id number] Common 00:00:00 00:00:00 [facility] 2020-10-08 2020-10-08 Outpatient STLMLC ST[facility] [id number] Common 00:00:00 00:00:00 [facility] 2020-10-07 2020-10-07 Outpatient STLMLC ST[facility] [id number] Common 00:00:00 00:00:00 [facility] 2020-10-04 2020-10-04 Outpatient STLMLC ST[facility] [id number] Common 00:00:00 00:00:00 [facility] 2020-09-16 2020-09-16 Outpatient STLMLC STL[facility]C [id number] Common 00:00:00 00:00:00 [facility] 2020-09-13 2020-09-13 Outpatient STLMLC ST[facility]C [id number] Common 00:00:00 00:00:00 [facility] 2020-09-13 2020-09-13 Outpatient STLMLC ST[facility] [id number] Common 00:00:00 00:00:00 [facility] 2020-09-03 2020-09-03 Outpatient STLMLC ST[facility] [id number] Common 00:00:00 00:00:00 [facility] 2020-09-03 2020-09-03 Outpatient STLMLC [facility] [id number] Common 00:00:00 00:00:00 [facility] 2020-09-02 2020-09-02 Outpatient STLMLC [facility] [id number] Common 00:00:00 00:00:00 [facility] 2020-09-02 2020-09-02 Outpatient STLMLC STL[facility]C [id number] Common 00:00:00 00:00:00 [facility] 2020-08-13 2020-08-13 [facility] [id number] Univers 11:50:00 11:34:24 MASSIEL kim [facility] 2020-07-11 2020-07-11 [facility] [id number] Univers 16:40:00 16:42:58 IMELDA kim o f [facility] Results Test Description Test Time Test Comments Results Result Sourc e Comments SCR MAMM 2019-03-14 - SCR MAMM BILATERAL BILATERAL CAD 13:00:02 CAD DIGITALBILATERAL DIGITAL DIGITAL SCREENING MAMMOGRAM WITH CAD: 03/13/2019CLINICAL: Asymptomatic. Current mammographic images were evaluated by either a Viewpoint M-Vu or a Viroprogic ImageChecker CAD (computer aided detection system). Comparison is made to exams dated 07/20/2016 mammogram - [facility] and 03/23/2013 mammogram - [facility]. The tissue of both breasts is predominantly fatty. No suspicious mass, architectural distortion, malignant type calcification, or lymph node abnormality detected. Breast architecture is stable compared to prior exams.IMPRESSION: NEGATIVEThere is no mammographic evidence of malignancy. Resume annual screening mammography in one year. Yoli caldwell/sue:03/14/2019 13:00:02 Plow Shaker: Tracee Finney MM, [facility] Mammographyletter sent: BIRADS 1-2 Normal Mammogram BI-RADS: 1 Negative
--- NOTE | 2022-02-03 23:56 | P.HP ---
Certification for Inpatient Patient admitted to: Inpatient With expected LOS: <2 Midnights Patient will require the following post-hospital care: None Practitioner: I am a practitioner with admitting privileges, knowledge of patient current condition, hospital course, and medical plan of care. Services: Services provided to patient in accordance with Admission requirements found in Title 42 Section 412.3 of the Code of Federal Regulations Patient History Date of Service: 02/04/22 Reason for admission: Acute Respiratory Failure History of Present Illness: Patient is a 66-year-old female with hypertension, hyperlipidemia, and COPD admitted to this facility as a transfer from [place]. Patient states she has been short of breath and and had bilateral lower extremity edema for about 3 days now. She noticed that she was 83% on RA at home. Labs without significant abnormalities. Her chest xray showed pulmonary vascular congestion and was given aspirin, lasix, rocephin, breathing treatments, and solumedrol at [place]. Her O2 saturation remained in high 80s/low90s and worsened with exertion. Her kidney function limited a chest CT angio. She is saturating appropriately on 4L upon arrival but is complaining of right sided chest pain. Stat EKG and troponin negative. She will be worked up further with VQ scan and echo in the morning. Allergies No Known Allergies Allergy (Verified 11/09/21 19:55) Home medications list reviewed: Yes Home Medications: Amlodipine [Norvasc*] 2.5 mg PO DAILY 11/09/21 Atorvastatin Calcium 20 mg PO BEDTIME 11/09/21 Sertraline [Zoloft*] 150 mg PO DAILY 11/09/21 Trazodone HCl 100 mg PO BEDTIME PRN 11/09/21 Albuterol Neb [Proventil 0.083% Neb Soln] 2.5 mg NEB [id number] PRN #60 amp 11/10/21 Ipratropium Neb [Atrovent*] 0.5 mg NEB [id number] PRN #60 amp 11/10/21 Losartan Potassium [Cozaar] 50 mg PO DAILY #30 tablet 11/10/21 Aspirin [Adult Low Dose Aspirin EC] 81 mg PO DAILY 02/03/22 Fluticasone Propion/Salmeterol [Fluticasone-Salmeterol 250-50] 50 mg IH DAILY 02/03/22 Gabapentin 600 mg PO BID 02/03/22 Lisinopril [Zestril] 20 mg PO DAILY 02/03/22 Pregabalin 75 mg PO DAILY 02/03/22 Primidone 50 mg PO BID 02/03/22 Tramadol HCl [Ultram] 50 mg PO PRN PRN 02/03/22 predniSONE [Deltasone] 10 mg PO PRN PRN 02/04/22 - Past Medical/Surgical History Diabetic: No -: COPD -: HTN -: ESSENTIAL TREMORS -: KIDNEY CYST -: HLD -: hysterectomy -: APPENDECTOMY Psychosocial/ Personal History: Patient lives at home. - Social History Smoking Status: Never smoker Alcohol use: Yes CD- Drugs: No Caffeine use: Yes Place of Residence: Home Review of Systems Respiratory: Shortness of Breath Cardiovascular: Edema Physical Examination - Physical Exam General: Alert, In no apparent distress, Obese HEENT: Atraumatic, PERRLA, EOMI, Sclerae nonicteric Neck: Supple, 2+ carotid pulse no bruit, No LAD, Without JVD or thyroid abnormality Respiratory: Clear to auscultation bilaterally, Normal air movement Cardiovascular: Regular rate/rhythm, Normal S1 S2 Gastrointestinal: Normal bowel sounds, No tenderness Musculoskeletal: No tenderness Integumentary: No rashes Neurological: Normal speech, Normal strength at 5/5 x4 extr, Normal tone, Normal affect Assessment and Plan - Problems (Diagnosis) (1) Acute respiratory failure with hypoxia Current Visit: Yes Status: Acute (2) Pulmonary vascular congestion Current Visit: Yes Status: Acute (3) COPD (chronic obstructive pulmonary disease) Current Visit: Yes Status: Chronic Qualifiers: COPD type: unspecified COPD Qualified Code(s): J44.9 - Chronic obstructive pulmonary disease, unspecified (4) Hypertension Current Visit: Yes Status: Chronic Qualifiers: Hypertension type: primary hypertension Qualified Code(s): I10 - Essential (primary) hypertension - Plan -VQ scan, echo, and additional labs pending -Patient saturating appropriately on 4L. Wean as tolerated. Monitor pulse ox -Pulmonology consult -Breathing treatments PRN, incentive spirometry -Monitor and replete electrolytes per protocol -Reconcile and continue home medications -Lovenox for VTE prophylaxis -Full code Discharge Plan: Home Plan to discharge in: 48 Hours - Advance Directives Does patient have a Living Will: No Does patient have a Durable POA for Healthcare: Yes - Code Status/Comfort Care Code Status Assessed: Yes (Full) Critical Care: No Time Spent Managing Pts Care (In Minutes): 50
[2022-02-04] MEDS ORDERED: ONDANSETRON 4 MG/2 ML VIAL IV PRN (00:32)
[2022-02-04] MEDS ORDERED: ALBUTEROL 2.5 MG/3 ML NEB SOL NEB PRN ×2 (00:32→15:00)
[2022-02-04] MEDS ORDERED: MORPHINE 2 MG/ML SYR IV PRN (00:49)
[2022-02-04 00:57] VITALS: BMI 33.1
[2022-02-04] MEDS: ACETAMINOPHEN 500 MG TAB PO PRN ×2 (01:10→17:17)
[2022-02-04 04:14] LABS: Absolute Lymphocytes (CBC) 0.6 K/uL (0.7-4.9); Hematocrit 32.3 % (36.0-45.0); Lymphocytes % 6.9 % (15.3-44.8); MCV 99.3 fL (80-100); MPV 8.4 fL (7.6-11.3); RBC Red Blood Cell Count 3.25 M/uL (3.86-4.86)
[2022-02-04 04:17] LABS: Protime INR 1.04
[2022-02-04 04:36] LABS: Magnesium 2.6 mg/dL (1.8-2.4); Thyroid Stimulating Hormone 0.583 uIU/mL (0.360-3.740)
[2022-02-04 04:38] LABS: Specific Gravity 1.008 (1.005-1.030); Urine Bilirubin NEGATIVE (Negative); Urine Blood Negative (Negative); Urine Clarity Clear (Clear); Urine Color Colorless (Yellow); Urine Glucose NEGATIVE (Negative); Urine Protein NEGATIVE (Negative); Urine Urobilinogen Normal (Normal); Urine pH 7.5 (5.0-7.0)
[2022-02-04 04:39] LABS: Potassium 5.8 mmol/L (3.5-5.1)
[2022-02-04 04:52] LABS: Blood Morphology Comment NOT SEEN (NOT SEEN); Platelet Estimate ADEQ
[2022-02-04] MEDS ORDERED: CALCIUM GLUC 10% INJ 4.65 MEQ in NA CHLORIDE 0.9% 100 ML IV ONE (04:54)
[2022-02-04] MEDS ORDERED: D50W 25 GM/50 ML SYRINGE IV PRN (04:54)
[2022-02-04] MEDS ORDERED: D50W 25 GM/50 ML SYRINGE IV ONE (04:54)
[2022-02-04] MEDS ORDERED: GLUCAGON 1 MG/VIAL IM PRN (04:54)
[2022-02-04] MEDS ORDERED: INSULIN -REGULAR HUMAN 50 UNIT/0.5 ML ML IV ONE (04:55)
[2022-02-04] MEDS ORDERED: CALCIUM GLUCONATE 1 GM IVPB 1 GM/50 ML BAG IV ONE (05:00)
[2022-02-04] MEDS ORDERED: D10W 125 ML IV PRN (05:02)
[2022-02-04] MEDS ORDERED: D10W 250 ML IV ONE (06:00)
--- NOTE | 2022-02-04 06:31 | EKG ---
Test Date: 2022-02-04 Test Time: 00:32:00 General Merchandise Salesperson: ENMA MEASUREMENT RESULTS: Intervals: Rate: 57 RI: 174 QRSD: 78 QT: 454 QTc: 441 Ronks: P: 33 RI: 174 QRS: -24 T: 44 INTERPRETIVE STATEMENTS: Sinus bradycardia Low voltage QRS Borderline ECG Compared to ECG 01/28/2022 11:49:21 No significant changes Electronically Signed On 02-04-22 06:31:00 CDT by Houston Edmond
[2022-02-04] MEDS: ENOXAPARIN 40 MG/0.4 ML SQ SCH (08:00)
[2022-02-04] MEDS: ASPIRIN EC 81 MG TAB PO SCH (08:00)
[2022-02-04 09:56] LABS: Potassium 5.3 mmol/L (3.5-5.1)
[2022-02-04] MEDS: D5 0.45 NS 1,000 ML IV SCH ×2 (11:35→22:30)
--- NOTE | 2022-02-04 11:54 | P.CNS ---
Date of Consult: 02/04/22 Reason for Consult: Hypoxemia Chief Complaint: Acute Respiratory Failure History of Present Illness: Patient is 66 years of age developed sudden onset of lower extremity edema over the weekend was evaluated by a physician was also found to be hypoxic came here to the emergency room is a history of obstructive airways disease and is compliant with her inhalers no prior history of coronary artery disease Allergies No Known Allergies Allergy (Verified 11/09/21 19:55) Home Medications: Amlodipine [Norvasc*] 2.5 mg PO DAILY 11/09/21 Atorvastatin Calcium 20 mg PO BEDTIME 11/09/21 Sertraline [Zoloft*] 150 mg PO DAILY 11/09/21 Trazodone HCl 100 mg PO BEDTIME PRN 11/09/21 Albuterol Neb [Proventil 0.083% Neb Soln] 2.5 mg NEB [id number] PRN #60 amp 11/10/21 Ipratropium Neb [Atrovent*] 0.5 mg NEB [id number] PRN #60 amp 11/10/21 Losartan Potassium [Cozaar] 50 mg PO DAILY #30 tablet 11/10/21 Aspirin [Adult Low Dose Aspirin EC] 81 mg PO DAILY 02/03/22 Fluticasone Propion/Salmeterol [Fluticasone-Salmeterol 250-50] 50 mg IH DAILY 02/03/22 Gabapentin 600 mg PO BID 02/03/22 Lisinopril [Zestril] 20 mg PO DAILY 02/03/22 Pregabalin 75 mg PO DAILY 02/03/22 Primidone 50 mg PO BID 02/03/22 Tramadol HCl [Ultram] 50 mg PO PRN PRN 02/03/22 predniSONE [Deltasone] 10 mg PO PRN PRN 02/04/22 - Past Medical/Surgical History Diabetic: No -: COPD -: HTN -: ESSENTIAL TREMORS -: KIDNEY CYST -: HLD -: hysterectomy -: APPENDECTOMY Psychosocial/ Personal History: Patient lives at home. - Social History Smoking Status: Former smoker Alcohol use: Yes CD- Drugs: No Caffeine use: Yes Place of Residence: Home Review of Systems 10-point ROS is otherwise unremarkable Physical Examination Temp Pulse Resp BP Pulse Ox 96.9 F 53 16 144/67 H 100 02/04/22 08:00 02/04/22 08:00 02/04/22 08:00 02/04/22 08:00 02/04/22 08:00 General: Alert, Oriented x3 Respiratory: Clear to auscultation bilaterally Cardiovascular: No edema, Normal S1 S2 Gastrointestinal: Normal bowel sounds Musculoskeletal: No swelling Laboratory Data (last 24 hrs) 02/04/22 09:18: Sodium 137, Potassium 5.3 H, BUN 21 H, Creatinine 1.38 H, Glucose 63 L 02/04/22 03:53: Sodium 137, Potassium 5.8 H*, BUN 20 H, Creatinine 1.40 H, Glucose 142 H, Magnesium 2.6 H, Triglycerides 59, Cholesterol 152, HDL Cholesterol 96 H, Cholesterol/HDL Ratio 1.58 02/04/22 03:53: PT 11.4, INR 1.04, APTT 28.3 02/04/22 03:53: WBC 8.10, Hgb 10.7 L, Hct 32.3 L, Plt Count 235 - Problems (1) Lower extremity edema Current Visit: Yes Status: Acute Plan: Patient is 66 years of age with a history of COPD admitted with sudden onset of lower extremity edema no prior history of coronary artery disease patient has some renal insufficiency is on MU inhibitor oxygenation satisfactory she is 100% on 4 L we will check room air blood gases patient is also mildly hyperkalemic mild anemia agree with IV fluids for now ordered ultrasound of the kidney avoid MU inhibitor's awaiting echocardiogram rule out cor pulmonale D- dimer was negative renal function is slightly improving
[2022-02-04] MEDS: ARFORMOTEROL TARTRATE 15 MCG/2 ML VIAL.NEB NEB SCH ×2 (12:00→20:20)
--- NOTE | 2022-02-04 12:39 | RAD REPORT ---
EXAM DESCRIPTION: CT - Chest For Pe Angio - 02/04/2022 12:16 pm CLINICAL HISTORY: Chest pain COMPARISON: October 2021 TECHNIQUE: Dynamically enhanced axial 3 mm thick images of the chest were obtained during administra tion of <100> mL Isovue 370 IV contrast. Coronal and oblique reconstruction images were generated and reviewed. Exam utilizes a protocol for optimal evaluation of pulmonary arterial tree. Maximum intensity projections 3D imaging was utilized All CT scans are performed using dose optimization technique as appropriate and may include automated exposure control or mA/KV adjustment according to patient size. FINDINGS: A pulmonary embolus is not seen. A thoracic aortic aneurysm is not noted. A pleural effusion is not seen. A pericardial effusion is not seen. Centrilobular emphysema. No lung consolidation IMPRESSION: Negative for a pulmonary embolism.
--- NOTE | 2022-02-04 13:32 | ECHO ---
HEIGHT: 5 ft 5 in WEIGHT: 199 lb 0 oz DATE OF STUDY: 02/04/[address]: Perla Quiroga 2-DIMENSIONAL: YES M.MODE: YES DOPPLER: YES COLOR FLOW: YES TDS: YES PORTABLE: YES DEFINITY: NO BUBBLE STUDY: NO DIAGNOSIS: BILATERAL LOWER EXTREMITY EDEMA CARDIAC HISTORY: CATHERIZATION: SURGERY: PROSTHETIC VALVE: PACEMAKER: MEASUREMENTS (cm) DIASTOLIC (NORMALS) SYSTOLIC (NORMALS) IVSd 1.0 (0.6-1.2) LA Diam 3.3 (1.9-4.0) LVEF 67% LVIDd 4.4 (3.5-5.7) LVIDs 2.8 (2.0-3.5) %FS 37% LVPWd 1.2 (0.6-1.2) Ao Diam 2.8 (2.0-3.7) 2 DIMENSIONAL ASSESSMENT: RIGHT ATRIUM: NORMAL LEFT ATRIUM: NORMAL RIGHT VENTRICLE: NORMAL LEFT VENTRICLE: NORMAL TRICUSPID VALVE: NORMAL MITRAL VALVE: NORMAL PULMONIC VALVE: NORMAL AORTIC VALVE: NORMAL PERICARDIAL EFFUSION: NONE AORTIC ROOT: NORMAL LEFT VENTRICULAR WALL MOTION: NORMAL DOPPLER/COLOR FLOW: NORMAL COMMENTS: NORMAL LEFT VENTRICULAR SIZE AND FUNCTION. TECHNICALLY DIFFICULT STUDY. NO EFFUSION. NO WALL MOTION ABNORMALITY. TECHNOLOGIST: Lata DE OLIVEIRA
--- NOTE | 2022-02-04 15:34 | RAD REPORT ---
EXAM DESCRIPTION: US - Renal Ultrasound-Complete - 02/04/2022 3:27 pm CLINICAL HISTORY: Renal failure Flank pain COMPARISON: ABDOMINAL EXAM LIMITED dated 06/27/2010 FINDINGS: Both kidneys are normal in size, shape and echotexture. The right kidney measures 10.2 x 4.6 x 4.1 cm. No hydronephrosis, focal mass or perinephric fluid. Be nign cysts are noted. The left kidney measures 10.8 x 5.0 x 3.9 cm. No hydronephrosis, focal mass or perinephric fluid. Salvador ign cysts are present. The urinary bladder is incompletely distended without gross abnormality seen. IMPRESSION: Benign bilateral renal cysts, otherwise unremarkable study.
[2022-02-04 16:09] LABS: Arterial Blood Carboxyhemoglob 1.5 % (0-1.5); Blood Gas Oxyhemoglobin 71.1 % (94-97); Blood O2 Saturation 73.1 % (92-98.5)
[2022-02-05 03:14] LABS: Hematocrit 30.6 % (36.0-45.0); Lymphocytes % 25.7 % (15.3-44.8); MCV 97.8 fL (80-100); MPV 7.8 fL (7.6-11.3); RBC Red Blood Cell Count 3.13 M/uL (3.86-4.86)
[2022-02-05 03:32] LABS: Magnesium 2.4 mg/dL (1.8-2.4); Potassium 4.3 mmol/L (3.5-5.1)
[2022-02-05] MEDS: ACETAMINOPHEN 500 MG TAB PO PRN ×2 (04:32→16:24)
[2022-02-05] MEDS: D5 0.45 NS 1,000 ML IV SCH (08:29)
[2022-02-05] MEDS: ENOXAPARIN 40 MG/0.4 ML SQ SCH (08:30)
[2022-02-05] MEDS: ASPIRIN EC 81 MG TAB PO SCH (08:30)
[2022-02-05 08:31] VITALS: BP 140/67; TEMP 97.9
[2022-02-05] MEDS: ARFORMOTEROL TARTRATE 15 MCG/2 ML VIAL.NEB NEB SCH (08:35)
[2022-02-05 09:25] VITALS: O2SAT 96
--- NOTE | 2022-02-05 12:36 | P.PN ---
Subjective Date of Service: 02/05/22 Chief Complaint: Chronic respiratory failure Subjective: Improving (Patient is doing better lower extremity edema has resolved) Review of Systems Respiratory: Shortness of Breath Physical Examination - Vital Signs Temperature: 97.9 F Blood Pressure: 140/67 Pulse: 58 Respirations: 16 Pulse Ox (%): 97 - Physical Exam General: Alert, Oriented x3 Respiratory: Clear to auscultation bilaterally, Diminished - Studies Laboratory Data (last 24 hrs) 02/05/22 03:01: Sodium 139, Potassium 4.3 D, BUN 15, Creatinine 1.26, Glucose 104, Magnesium 2.4 02/05/22 03:01: WBC 7.90, Hgb 10.3 L, Hct 30.6 L, Plt Count 199 Assessment And Plan - Current Problems (Diagnosis) (1) Lower extremity edema Current Visit: Yes Status: Acute Plan: She admitted with lower extremity edema she has normal echo evidence of thromboembolism suspect cor pulmonale from COPD use as needed diuretics we will send a refill for her inhaler avoid MU inhibitor's due to hyperkalemia renal function is improved with IV fluids oxygenation satisfactory patient record requesting portable O2 faxed from the office
--- NOTE | 2022-02-05 16:15 | P.PN ---
Subjective Date of Service: 02/04/22 Subjective: No new changes, No C/O voiced, Improving Review of Systems 10-point ROS is otherwise unremarkable Physical Examination - Vital Signs Temperature: 97.9 F Blood Pressure: 140/67 Pulse: 58 Respirations: 16 Pulse Ox (%): 97 - Physical Exam General: Alert, In no apparent distress, Oriented x3 HEENT: Atraumatic, PERRLA, EOMI Neck: Supple, JVD not distended Respiratory: Clear to auscultation bilaterally, Normal air movement Cardiovascular: Regular rate/rhythm, Normal S1 S2 Gastrointestinal: Normal bowel sounds, No tenderness Musculoskeletal: No tenderness Integumentary: No rashes Neurological: Normal speech, Normal tone, Normal affect Lymphatics: No axilla or inguinal lymphadenopathy - Studies Laboratory Data (last 24 hrs) 02/05/22 03:01: Sodium 139, Potassium 4.3 D, BUN 15, Creatinine 1.26, Glucose 104, Magnesium 2.4 02/05/22 03:01: WBC 7.90, Hgb 10.3 L, Hct 30.6 L, Plt Count 199 Medications List Reviewed: Yes Assessment & Plan - Problems (Diagnosis) (1) Acute respiratory failure with hypoxia Current Visit: Yes Status: Acute (2) COPD (chronic obstructive pulmonary disease) Current Visit: Yes Status: Chronic Qualifiers: COPD type: unspecified COPD Qualified Code(s): J44.9 - Chronic obstructive pulmonary disease, unspecified - Plan Plan: 1. Continue with albuterol and Atrovent nebs 2. Continue with IV steroids 3. Outpatient pulmonary function testing 4. Pulmonary follow-up if symptoms do not improve 5. Room air O2 sats 6. Repeat chest x-ray in the morning 7. CT and echo pending 8. GI and DVT prophylaxis Discharge Plan: Home Plan to discharge in: Greater than 2 days - Advance Directives Does patient have a Living Will: No Does patient have a Durable POA for Healthcare: Yes - Code Status/Comfort Care Code Status Assessed: Yes Code Status: Full Code Critical Care: No Time Spent Managing PTS Care (In Minutes): 35
--- NOTE | 2022-02-05 16:21 | P.DS ---
Discharge Date: 02/05/22 Disposition: ROUTINE DISCHARGE Discharge Condition: GOOD Reason for Admission: Chronic respiratory failure - Problems (1) Acute respiratory failure with hypoxia Current Visit: Yes Status: Acute (2) COPD (chronic obstructive pulmonary disease) Current Visit: Yes Status: Chronic Qualifiers: COPD type: unspecified COPD Qualified Code(s): J44.9 - Chronic obstructive pulmonary disease, unspecified Brief History of Present Illness: Patient is a 66-year-old female with hypertension, hyperlipidemia, and COPD admitted to this facility as a transfer from [place]. Patient states she has been short of breath and and had bilateral lower extremity edema for about 3 days now. She noticed that she was 83% on RA at home. Labs without significant abnormalities. Her chest xray showed pulmonary vascular congestion and was given aspirin, lasix, rocephin, breathing treatments, and solumedrol at [place]. Her O2 saturation remained in high 80s/low90s and worsened with exertion. Her kidney function limited a chest CT angio. She is saturating appropriately on 4L upon arrival but is complaining of right sided chest pain. Stat EKG and troponin negative. She will be worked up further with VQ scan and echo in the morning. Hospital Course: Patient continues to improve. Respiratory status is much better. CT did not reveal any pulmonary embolism. Echocardiogram without any abnormality. Patient clinically doing well and stable for discharge. Patient has home oxygen. We will continue this and follow-up with pulmonary as an outpatient. Vital Signs/Physical Exam: Temp Pulse Resp BP Pulse Ox 97.9 F 58 16 140/67 97 02/05/22 16:15 02/05/22 16:15 02/05/22 16:15 02/05/22 16:15 02/05/22 16:15 General: Alert, In no apparent distress, Oriented x3 Laboratory Data at Discharge: WBC 7.90 K/uL (4.3-10.9) 02/05/22 03:01 Hgb 10.3 g/dL (12.0-15.0) L 02/05/22 03:01 Hct 30.6 % (36.0-45.0) L 02/05/22 03:01 Plt Count 199 K/uL (152-406) 02/05/22 03:01 PT 11.4 SECONDS (9.5-12.5) 02/04/22 03:53 INR 1.04 02/04/22 03:53 APTT 28.3 SECONDS (24.3-36.9) 02/04/22 03:53 Sodium 139 mmol/L (136-145) 02/05/22 03:01 Potassium 4.3 mmol/L (3.5-5.1) D 02/05/22 03:01 BUN 15 mg/dL (7-18) 02/05/22 03:01 Creatinine 1.26 mg/dL (0.55-1.3) 02/05/22 03:01 Glucose 104 mg/dL (74-106) 02/05/22 03:01 Magnesium 2.4 mg/dL (1.8-2.4) 02/05/22 03:01 Triglycerides 59 mg/dL (<150) 02/04/22 03:53 Cholesterol 152 mg/dL (<200) 02/04/22 03:53 HDL Cholesterol 96 mg/dL (40-60) H 02/04/22 03:53 Cholesterol/HDL Ratio 1.58 02/04/22 03:53 Home Medications: Amlodipine [Norvasc*] 2.5 mg PO DAILY 11/09/21 Atorvastatin Calcium 20 mg PO BEDTIME 11/09/21 Sertraline [Zoloft*] 150 mg PO DAILY 11/09/21 Trazodone HCl 100 mg PO BEDTIME PRN 11/09/21 Albuterol Neb [Proventil 0.083% Neb Soln] 2.5 mg NEB [id number] PRN #60 amp 11/10/21 Ipratropium Neb [Atrovent*] 0.5 mg NEB [id number] PRN #60 amp 11/10/21 Aspirin [Adult Low Dose Aspirin EC] 81 mg PO DAILY 02/03/22 Fluticasone Propion/Salmeterol [Fluticasone-Salmeterol 250-50] 50 mg IH DAILY 02/03/22 Gabapentin 600 mg PO BID 02/03/22 Lisinopril [Zestril] 20 mg PO DAILY 02/03/22 Pregabalin 75 mg PO DAILY 02/03/22 Primidone 50 mg PO BID 02/03/22 Tramadol HCl [Ultram] 50 mg PO PRN PRN 02/03/22 predniSONE [Prednisone*] 10 mg PO PRN PRN 02/04/22 Arformoterol Tartrate [Brovana] 15 mcg NEB BIDRESP #60 vial.neb 02/05/22 Cefdinir [Omnicef] 300 mg PO BID #14 cap 02/05/22 predniSONE [Deltasone] 20 mg PO BID #11 tab 02/05/22 New Medications: Arformoterol Tartrate [Brovana] 15 mcg NEB BIDRESP #60 vial.neb Cefdinir [Omnicef] 300 mg PO BID #14 cap predniSONE [Deltasone] 20 mg PO BID #11 tab Physician Discharge Instructions: -DC IV and DC home -Follow-up with PCP in 1 to 2 weeks -Follow-up with Pulmonary in 1 to 2 weeks -Please call Dr. Manning at [phone] if any questions regarding hospital stay -Please call nursing station at [phone] if any nursing or medication questions -Return to the emergency room if symptoms worsen Diet: AHA Activity: Fall precautions Time spent managing pt's care (in minutes): 35
== END 2022-02-05 17:30 | disposition home or self-care (01) | DRG 189 ==
LOC: 4TH 22:29
PROVIDERS: ADMIT Hospitalist; ATTEND Hospitalist
DX: J96.01 Acute respiratory failure with hypoxia (principal); J44.9 Chronic obstructive pulmonary disease, unspecified; E87.5 Hyperkalemia; R60.0 Localized edema; I27.81 Cor pulmonale (chronic); N28.1 Cyst of kidney, acquired; I10 Essential (primary) hypertension; N28.9 Disorder of kidney and ureter, unspecified; D64.9 Anemia, unspecified; E78.5 Hyperlipidemia, unspecified; G25.0 Essential tremor; Z99.81 Dependence on supplemental oxygen; Z79.82 Long term (current) use of aspirin; Z79.52 Long term (current) use of systemic steroids; Z79.899 Other long term (current) drug therapy; Z87.891 Personal history of nicotine dependence; Z90.710 Acquired absence of both cervix and uterus
CPT/HCPCS: 36415; 71275; 76770; 80048; 80061; 81003; 82805; 82947; 83735; 83880; 84443; 84484; 85025; 85379; 85610; 85730; 93005; 93306; 94010; 94640; 94760; 97116; 97161; J0610; J1650; J1815; J2270; J7605; J7799; Q9967

== ENCOUNTER 2022-11-06 10:28 | Inpatient (IN) | payer OTHER ==
--- OUTSIDE RECORDS SUMMARY | 2022-11-06 10:34 | XMS REPORT | Continuity of Care Document ---
:1955 Author Organization [facility] t Address [address] [facility] [address] [place] [address] Care Team Providers Name Role Phone PCP, PATIENT DOES NOT HAVE A Primary Care Physician UnavailRosa Ryan Attending Clinician Unavailable Jordi Attending Clinician Unavailable [facility] CAR[facility] Attending Clinician Unavailable Mahad Regalado Attending Clinician Unavailable MASSIEL GUAJARDO Attending Clinician Unavailable IMELDA FLETCHER Attending Clinician Unavailable Rosa Mckeon Admitting Clinician Unavailable Jordi Admitting Clinician Unavailable [facility] CARMEN Admitting Clinician Unavailable Mahad Regalado Admitting Clinician Unavailable Payers Payer Name Policy Type Policy Number Effective Date Expiration Date Corey eastman [employer] (MEDICARE [id number] 2022 REPLACEMENT PPO) 00:00:00 EPISODE SOLUTIONS [id number] MEDICARE B-[place]: [id number] 2020 NOVITAS SOLUTIONS 00:00:00 PHYSICIANS MUTUAL 53 [id number] 2021 Common INS 00:00:00 [facility] PHYSICIANS MUTUAL [id number] 2021 (MEDICARE 00:00:00 SUPPLEMENT) [place] Abdias Mccullough [id number] 2020 Common 00:00:00 [facility] MEDICARE NOVITAS [id number] 2020 Common 00:00:00 [id number] 2020 UNINSURED 00:00:00 00:00:00 Problems Condition Condition Condition Status Onset Resolution Last Treating Co mments Source Name Details Category Date Date Treatment Clinician Date Osteoarthr Osteoarthr Problem Active 2021-05 A zalea [facility] of it[facility] of 06-23 [facility] right knee Right Knee 00:00: di c joint Joint 00 [facility] Osteoarthr Osteoarthr Problem Active 2021-05 A zalea itis of itis of 06-23 [facility] left knee Left Knee 00:00: dic joint Joint 00 [facility] Medic[facility] e Fibromyalg Fibromyalg Problem C [facility] ia [facility] [id number] Adrenal Problem Commo n nodule [facility] Depression Depression Problem C [facility] Acute COPD Problem Common exacerbati exacerbati Sp jim on of COPD on [facility] Chronic Stage 3 Problem Common kidney chronic Spirit disease kidney [facility] stage [address] disease, [address] (disorder) unspecifie Rabia ke d whether Medical stage 3a Center or 3b CKD [id number] 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 - [facility] ce [facility] [id number] Constipati Problem Com mon on, Spirit unspecifie - [id number] [place], [place] [id number] joint, Spirit knee, left - [facility] [id number] 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 [facility] [id number] Primary Problem Commo n osteoarthr Spirit itis of [facility] both knees [facility] [id number] Pain, Problem Commo n [id number] joint, Spirit knee, - [facility] right [facility] 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, Spirit of colon [facility]specifie [facility] type [facility] [id number] Current Problem 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[facility] major St depressive [facility] disorder, Medical unspecifie Center d whether recurrent Dyspnea Shortness Problem Commo n of breath [facility] on [facility] exertion [facility] Body mass Obesity Problem Commo n index (BMI [facility] 30.00 to 30.0-34.9) - [facility] I 34.99 [facility] Fatty Fatty Problem Common liver liver [facility] Hypertensi HTN Problem Commo n on (hypertens [facility] ion) [facility] [id number] Mixed Problem Common hyperlipid [facility] emia [facility] Insomnia Insomnia Problem Commo n [facility] Blood clot Blood clot Problem C ommon [facility] [id number] Chronic Problem Common obstructiv [facility] pulmonary [facility] unspecifie Medica l d COPD Center type Essential Essential Problem Com mon tremor tremor [facility] Allergies, Adverse Reactions, Alerts Allergy Allergy Status Severity Reaction(s) Onset Inactive Treating Comm ents Source Name Type Date Date Clinician No Known DA Active U [facility] Allergie 07-21 Clear s 00:00: García [address] [place] [address] PENICILL Drug Active SOB [facility] INS Class 5-26 ity of 00:00: [place] [address] [facility] Social History Social Habit Start Date Stop Date Quantity Comments Source History of Tobacco Use Co mmon [facility] Sex Assigned At Com [facility] Smoking Status Start Date Stop Date Source Former Smoker Ja[facility] Medications Ordered Filled Start Stop Current Ordering Indication Dosage Frequency Signature Comments Components Source Medication Medication Date Date Medication? Clinician (SIG) Name Name Lactulose Lactulose 2021- No 15{ml} BID Lactulose 10 GM/15ML 10 GM/15ML 02-13 10-05 10 GM/15ML 00:: :00 00 :00 Lactulose Lactulose 2021- No 15{ml} BID Lactulose 10 GM/15ML 10 GM/15ML 9-30 10-05 10 GM/15ML 00:00: 00:00 00 :00 Lactulose Lactulose 2021- No 15{ml} BID Lactulose 10 GM/15ML 10 GM/15ML 9-30 10-05 10 GM/15ML 00:00: 00:00 00 :00 Lactulose Lactulose 0 2- No 15{ml} BID Lactulose 10 GM/15ML 10 GM/15ML 9-30 10-05 10 GM/15ML 00:00: 00:00 00 :00 traZODone traZODone 2020-05 No 1{table QD traZODone HCl 100 MG HCl 100 MG 1-01 t_at_be HCl 100 MG 00:00: dtime} 00 traZODone traZODone 2020-05 No 1{table QD traZODone HCl 100 MG HCl 100 MG 1-01 t_at_be HCl 100 MG 00:00: dtime} 00 Zoloft 100 Zoloft 100 0 No 1{table QD Zoloft 100 MG MG 4-19 t} MG 00:00: 00 Zoloft 100 Zoloft 100 0 No 1{table QD Zoloft 100 MG MG 4-19 t} MG 00:00: 00 Advair Advair No Advair Jaida Diskus 250 Diskus 250 Diskus 250 [facility] mcg-50 mcg-50 mcg-50 dic mcg/dose mcg/dose mcg/dose Spo rts powder for powder for powder for Medicin inhalation inhalation inhalation e INHALE ONE INHALE ONE INHALE ONE PUFF 2 PUFF 2 PUFF 2 TIMES A DAY TIMES A DAY TIMES A FOR 30 DAYS FOR 30 DAYS DAY FOR 30 DAYS albuterol albuterol No albuterol Jaida sulfate 2.5 sulfate 2.5 sulfate [facility] mg/3 mL mg/3 mL 2.5 mg/3 dic (0.083 %) (0.083 %) mL (0.083 Sports solution solution %) Medicin for for solution e nebulizatio nebulizatio for n USE 1 n USE 1 nebulizati VIAL IN VIAL IN on USE 1 NEBULIZER NEBULIZER VIAL IN EVERY 6 EVERY 6 NEBULIZER HOURS HOURS EVERY 6 NEEDED FOR NEEDED FOR HOURS SHORTNESS SHORTNESS NEEDED FOR OF BREATH OF BREATH SHORTNESS OF BREATH albuterol albuterol No albuterol Jaida sulfate HFA sulfate HFA sulfate [facility] 90 90 HFA 90 dic mcg/actuati mcg/actuati mcg/actuat Sports on aerosol on aerosol ion Med icin inhaler inhaler aerosol e INHALE 2 INHALE 2 inhaler PUFFS BY PUFFS BY INHALE 2 MOUTH EVERY MOUTH EVERY PUFFS BY 6 HOURS 6 HOURS MOUTH NEEDED NEEDED EVERY 6 HOURS NEEDED amlodipine amlodipine No amlodipine Jaida 2.5 mg 2.5 mg 2.5 mg [facility] tablet TAKE tablet TAKE tablet dic 1 TABLET BY 1 TABLET BY TAKE 1 Sports MOUTH ONCE MOUTH ONCE TABLET BY Medicin DAILY DAILY MOUTH ONCE e DAILY arformotero arformotero No arformoter Jaida l 15 mcg/2 l 15 mcg/2 ol 15 Or thope mL solution mL solution mcg/2 mL dic for for solution Sports nebulizatio nebulizatio for M edicin n USE 1 n USE 1 nebulizati e VIAL IN VIAL IN on USE 1 NEBULIZER NEBULIZER VIAL IN TWICE DAILY TWICE DAILY NEBULIZER TWICE DAILY atorvastati atorvastati No atorvastat Jaida n 20 mg n 20 mg in 20 mg Ortho pe tablet TAKE tablet TAKE tablet dic 1 TABLET BY 1 TABLET BY TAKE 1 Sports MOUTH EVERY MOUTH EVERY TABLET BY Medicin DAY FOR 90 DAY FOR 90 MOUTH e DAYS DAYS EVERY DAY FOR 90 DAYS azithromyci azithromyci No azithromyc Jaida n 250 mg n 250 mg in 250 mg Or thope tablet TAKE tablet TAKE tablet dic 1 TABLET BY 1 TABLET BY TAKE 1 Sports MOUTH ONCE MOUTH ONCE TABLET BY Medicin DAILY DAILY MOUTH ONCE e DAILY cefdinir cefdinir No cefdinir Aza trinity 300 mg 300 mg 300 mg [facility] capsule capsule capsule dic Sports Medicin e gabapentin gabapentin No gabapentin Jaida 300 mg 300 mg 300 mg [facility] capsule capsule capsule dic TAKE 1 TAKE 1 TAKE 1 Sports CAPSULE BY CAPSULE BY CAPSULE BY Medicin MOUTH AT MOUTH AT MOUTH AT e BEDTIME BEDTIME BEDTIME gabapentin gabapentin No gabapentin Jaida 600 mg 600 mg 600 mg [facility] tablet TAKE tablet TAKE tablet dic 1 TABLET BY 1 TABLET BY TAKE 1 Sports MOUTH TWICE MOUTH TWICE TABLET BY Medicin A DAY A DAY MOUTH e TWICE A DAY hydrocodone hydrocodone No hydrocodon Jaida 7.5 7.5 e 7.5 [facility] mg-acetamin mg-acetamin mg-acetami dic ophen 325 ophen 325 nophen 325 Sports mg tablet mg tablet mg tablet Medicin TAKE 1 TAKE 1 TAKE 1 e TABLET BY TABLET BY TABLET BY MOUTH EVERY MOUTH EVERY MOUTH 6 HOURS 6 HOURS EVERY 6 NEEDED FOR NEEDED FOR HOURS PAIN (SCALE PAIN (SCALE NEEDED FOR 5-7) 5-7) PAIN (SCALE 5-7) ipratropium ipratropium No ipratropiu Jaida bromide bromide m bromide Orth ope 0.02 % 0.02 % 0.02 % dic solution solution solution Spo rts for for for Medicin inhalation inhalation inhalation e INHALE 1 INHALE 1 INHALE 1 VIAL IN VIAL IN VIAL IN NEBULIZER NEBULIZER NEBULIZER EVERY 6 EVERY 6 EVERY 6 HOURS HOURS HOURS NEEDED FOR NEEDED FOR NEEDED FOR SHORTNESS SHORTNESS SHORTNESS OF BREATH OF BREATH OF BREATH ketorolac ketorolac No ketorolac Jaida 10 mg 10 mg 10 mg [facility] tablet TAKE tablet TAKE tablet dic 1 TABLET BY 1 TABLET BY TAKE 1 Sports MOUTH EVERY MOUTH EVERY TABLET BY Medicin 6 HOURS 6 HOURS MOUTH e NEEDED NEEDED EVERY 6 HOURS NEEDED lactulose lactulose No lactulose Jaida 10 gram/15 10 gram/15 10 gram/15 [facility] mL oral mL oral mL oral dic solution solution solution Spo rts Medicin e lisinopril lisinopril No lisinopril Jaida 20 mg 20 mg 20 mg [facility] tablet TAKE tablet TAKE tablet dic 1 TABLET BY 1 TABLET BY TAKE 1 Sports MOUTH ONCE MOUTH ONCE TABLET BY Medicin DAILY DAILY MOUTH ONCE e DAILY losartan 50 losartan 50 No losartan Jaida mg tablet mg tablet 50 mg Orth ope TAKE 1 TAKE 1 tablet dic TABLET BY TABLET BY TAKE 1 Spo rts MOUTH ONCE MOUTH ONCE TABLET BY Medicin DAILY DAILY MOUTH ONCE e DAILY nitrofurant nitrofurant No nitrofuran Jaida oin oin toin Orth[facility] monohydrate monohydrate monohydrat dic /macrocryst /macrocryst e/macrocry Sports als 100 mg als 100 mg stals 100 Medicin capsule capsule mg capsule e TAKE 1 TAKE 1 TAKE 1 CAPSULE BY CAPSULE BY CAPSULE BY MOUTH EVERY MOUTH EVERY MOUTH 12 HOURS 12 HOURS EVERY 12 FOR 7 DAYS FOR 7 DAYS HOURS FOR 7 DAYS prednisone prednisone No prednisone Jaida 10 mg 10 mg 10 mg [facility] tablet TAKE tablet TAKE tablet dic 1 TABLET BY 1 TABLET BY TAKE 1 Sports MOUTH EVERY MOUTH EVERY TABLET BY Medicin DAY DAY MOUTH e NEEDED NEEDED EVERY DAY NEEDED prednisone prednisone No prednisone Jaida 20 mg 20 mg 20 mg [facility] tablet TAKE tablet TAKE tablet dic 1 TABLET BY 1 TABLET BY TAKE 1 Sports MOUTH TWICE MOUTH TWICE TABLET BY Medicin DAILY FOR 3 DAILY FOR 3 MOUTH e DAYS AND 1 DAYS AND 1 TWICE TABLET ONCE TABLET ONCE DAILY FOR DAILY FOR 3 DAILY FOR 3 3 DAYS AND DAYS AND DAYS AND 1 TABLET 1/2 1/2 ONCE DAILY (ONE-HALF) (ONE-HALF) FOR 3 DAYS TABLET ONCE TABLET ONCE AND 1/2 DAILY FOR 4 DAILY FOR 4 (ONE-HALF) DAYS DAYS TABLET ONCE DAILY FOR 4 DAYS pregabalin pregabalin No pregabalin Jaida 75 mg 75 mg 75 mg [facility] capsule capsule capsule dic Sports Medicin e primidone primidone No primidone Jaida 50 mg 50 mg 50 mg [facility] tablet 1/2 tablet 1/2 tablet 1/2 dic TABLET TABLET TABLET Sports B.I.D. B.I.D. B.I.D. Medicin e sertraline sertraline No sertraline Jaida 100 mg 100 mg 100 mg [facility] tablet TAKE tablet TAKE tablet dic 1 TABLET BY 1 TABLET BY TAKE 1 Sports MOUTH ONCE MOUTH ONCE TABLET BY Medicin DAILY DAILY MOUTH ONCE e DAILY tizanidine tizanidine No tizanidine Jaida 4 mg tablet 4 mg tablet 4 mg O rthope TAKE 1 TAKE 1 tablet dic TABLET BY TABLET BY TAKE 1 Spo rts MOUTH EVERY MOUTH EVERY TABLET BY Medicin 8 HOURS 8 HOURS MOUTH e NEEDED FOR NEEDED FOR EVERY 8 MUSCLE MUSCLE HOURS SPASMS SPASMS NEEDED FOR MUSCLE SPASMS tramadol tramadol No tramadol Aza trinity 37.5 37.5 37.5 [facility] mg-acetamin mg-acetamin mg-acetami dic ophen 325 ophen 325 nophen 325 Sports mg tablet mg tablet mg tablet Medicin TAKE 1 TAKE 1 TAKE 1 e TABLET BY TABLET BY TABLET BY MOUTH EVERY MOUTH EVERY MOUTH 8 HOURS 8 HOURS EVERY 8 NEEDED FOR NEEDED FOR HOURS 10 DAYS 10 DAYS NEEDED FOR 10 DAYS tramadol 50 tramadol 50 No tramadol Jaida mg tablet mg tablet 50 mg Orth ope tablet dic Sports Medicin e trazodone trazodone No trazodone Jaida 100 mg 100 mg 100 mg [facility] tablet TAKE tablet TAKE tablet dic 1 TABLET BY 1 TABLET BY TAKE 1 Sports MOUTH ONCE MOUTH ONCE TABLET BY Medicin DAILY AT DAILY AT MOUTH ONCE e BEDTIME BEDTIME DAILY AT BEDTIME Advair Advair No Advair Jaida Diskus 250 Diskus 250 Diskus 250 [facility] mcg-50 mcg-50 mcg-50 dic mcg/dose mcg/dose mcg/dose Spo rts powder for powder for powder for Medicin inhalation inhalation inhalation e INHALE ONE INHALE ONE INHALE ONE PUFF 2 PUFF 2 PUFF 2 TIMES A DAY TIMES A DAY TIMES A FOR 30 DAYS FOR 30 DAYS DAY FOR 30 DAYS albuterol albuterol No albuterol Jaida sulfate 2.5 sulfate 2.5 sulfate [facility] mg/3 mL mg/3 mL 2.5 mg/3 dic (0.083 %) (0.083 %) mL (0.083 Sports solution solution %) Medicin for for solution e nebulizatio nebulizatio for n USE 1 n USE 1 nebulizati VIAL IN VIAL IN on USE 1 NEBULIZER NEBULIZER VIAL IN EVERY 6 EVERY 6 NEBULIZER HOURS HOURS EVERY 6 NEEDED FOR NEEDED FOR HOURS SHORTNESS SHORTNESS NEEDED FOR OF BREATH OF BREATH SHORTNESS OF BREATH albuterol albuterol No albuterol Jaida sulfate HFA sulfate HFA sulfate [facility] 90 90 HFA 90 dic mcg/actuati mcg/actuati mcg/actuat Sports on aerosol on aerosol ion Med icin inhaler inhaler aerosol e INHALE 2 INHALE 2 inhaler PUFFS BY PUFFS BY INHALE 2 MOUTH EVERY MOUTH EVERY PUFFS BY 6 HOURS 6 HOURS MOUTH NEEDED NEEDED EVERY 6 HOURS NEEDED amlodipine amlodipine No amlodipine Jaida 2.5 mg 2.5 mg 2.5 mg [facility] tablet TAKE tablet TAKE tablet dic 1 TABLET BY 1 TABLET BY TAKE 1 Sports MOUTH ONCE MOUTH ONCE TABLET BY Medicin DAILY DAILY MOUTH ONCE e DAILY arformotero arformotero No arformoter Jaida l 15 mcg/2 l 15 mcg/2 ol 15 Or thope mL solution mL solution mcg/2 mL dic for for solution Sports nebulizatio nebulizatio for M edicin n USE 1 n USE 1 nebulizati e VIAL IN VIAL IN on USE 1 NEBULIZER NEBULIZER VIAL IN TWICE DAILY TWICE DAILY NEBULIZER TWICE DAILY aspirin 81 aspirin 81 No 1 BID aspirin 81 Jaida mg mg mg [facility] tablet,mikael tablet,mikael tablet,del dic yed release yed release ayed S ports Take 1 Take 1 release Medicin tablet tablet Take 1 e twice a day twice a day tablet by oral by oral twice a route with route with day by meals for meals for oral route 30 days. to 30 days. to with meals prevent a prevent a for 30 blood clot blood clot days. to prevent a blood clot atorvastati atorvastati No atorvastat Jaida n 20 mg n 20 mg in 20 mg Ortho pe tablet TAKE tablet TAKE tablet dic 1 TABLET BY 1 TABLET BY TAKE 1 Sports MOUTH EVERY MOUTH EVERY TABLET BY Medicin DAY FOR 90 DAY FOR 90 MOUTH e DAYS DAYS EVERY DAY FOR 90 DAYS azithromyci azithromyci No azithromyc Jaida n 250 mg n 250 mg in 250 mg Or thope tablet TAKE tablet TAKE tablet dic 1 TABLET BY 1 TABLET BY TAKE 1 Sports MOUTH ONCE MOUTH ONCE TABLET BY Medicin DAILY DAILY MOUTH ONCE e DAILY cefdinir cefdinir No cefdinir Aza trinity 300 mg 300 mg 300 mg [facility] capsule capsule capsule dic Sports Medicin e celecoxib celecoxib No celecoxib Jaida 200 mg 200 mg 200 mg [facility] capsule capsule capsule dic Take 1 Take 1 Take 1 Sports capsule capsule capsule Medici n twice a day twice a day twice a e by oral by oral day by route with route with oral route meals for meals for with meals 14 days. 14 days. for 14 days. Colace 100 Colace 100 No 1capsul BID Colace 100 Jaida mg capsule mg capsule e(s) mg capsule [facility] Take 1 Take 1 Take 1 dic capsule capsule capsule Sports twice a day twice a day twice a Medicin by oral by oral day by e route as route as oral route needed. for needed. for as needed. constipatio constipatio for n n constipati on gabapentin gabapentin No gabapentin Jaida 300 mg 300 mg 300 mg [facility] capsule capsule capsule dic Take 1 Take 1 Take 1 Sports capsule capsule capsule Medici n every day every day every day e by oral by oral by oral route as route as route as needed. needed. needed. gabapentin gabapentin No gabapentin Jaida 600 mg 600 mg 600 mg [facility] tablet TAKE tablet TAKE tablet dic 1 TABLET BY 1 TABLET BY TAKE 1 Sports MOUTH TWICE MOUTH TWICE TABLET BY Medicin A DAY A DAY MOUTH e TWICE A DAY hydrocodone hydrocodone No 1 Q6H hydrocodon Jaida 10 10 e 10 [facility] mg-acetamin mg-acetamin mg-acetami dic ophen 325 ophen 325 nophen 325 Sports mg tablet mg tablet mg tablet Medicin Take 1 Take 1 Take 1 e tablet tablet tablet every 6 every 6 every 6 hours by hours by hours by oral route oral route oral route as needed. as needed. as needed. for pain for pain for pain hydrocodone hydrocodone No hydrocodon Jaida 7.5 7.5 e 7.5 [facility] mg-acetamin mg-acetamin mg-acetami dic ophen 325 ophen 325 nophen 325 Sports mg tablet mg tablet mg tablet Medicin TAKE 1 TAKE 1 TAKE 1 e TABLET BY TABLET BY TABLET BY MOUTH EVERY MOUTH EVERY MOUTH 6 HOURS 6 HOURS EVERY 6 NEEDED FOR NEEDED FOR HOURS PAIN (SCALE PAIN (SCALE NEEDED FOR 5-7) 5-7) PAIN (SCALE 5-7) ipratropium ipratropium No ipratropiu Jaida bromide bromide m bromide Orth ope 0.02 % 0.02 % 0.02 % dic solution solution solution Spo rts for for for Medicin inhalation inhalation inhalation e INHALE 1 INHALE 1 INHALE 1 VIAL IN VIAL IN VIAL IN NEBULIZER NEBULIZER NEBULIZER EVERY 6 EVERY 6 EVERY 6 HOURS HOURS HOURS NEEDED FOR NEEDED FOR NEEDED FOR SHORTNESS SHORTNESS SHORTNESS OF BREATH OF BREATH OF BREATH ketorolac ketorolac No ketorolac Jaida 10 mg 10 mg 10 mg [facility] tablet TAKE tablet TAKE tablet dic 1 TABLET BY 1 TABLET BY TAKE 1 Sports MOUTH EVERY MOUTH EVERY TABLET BY Medicin 6 HOURS 6 HOURS MOUTH e NEEDED NEEDED EVERY 6 HOURS NEEDED lactulose lactulose No lactulose Jaida 10 gram/15 10 gram/15 10 gram/15 [facility] mL oral mL oral mL oral dic solution solution solution Spo rts Medicin e lisinopril lisinopril No lisinopril Jaida 20 mg 20 mg 20 mg [facility] tablet TAKE tablet TAKE tablet dic 1 TABLET BY 1 TABLET BY TAKE 1 Sports MOUTH ONCE MOUTH ONCE TABLET BY Medicin DAILY DAILY MOUTH ONCE e DAILY losartan 50 losartan 50 No losartan Jaida mg tablet mg tablet 50 mg Orth ope TAKE 1 TAKE 1 tablet dic TABLET BY TABLET BY TAKE 1 Spo rts MOUTH ONCE MOUTH ONCE TABLET BY Medicin DAILY DAILY MOUTH ONCE e DAILY methocarbam methocarbam No 1 TID methocarba Jaida ol 500 mg ol 500 mg mol 500 mg [facility] tablet Take tablet Take tablet dic 1 tablet 3 1 tablet 3 Take 1 S ports times a day times a day tablet 3 Medicin by oral by oral times a e route as route as day by needed. for needed. for oral route muscle muscle as needed. spasms spasms for muscle spasms minocycline minocycline No minocyclin Jaida 100 mg 100 mg e 100 mg [facility] capsule capsule capsule dic Take 1 Take 1 Take 1 Sports capsule capsule capsule Medici n every 12 every 12 every 12 e hours by hours by hours by oral route oral route oral route for 7 days. for 7 days. for 7 days. nitrofurant nitrofurant No nitrofuran Jaida oin oin toin [facility] monohydrate monohydrate monohydrat dic /macrocryst /macrocryst e/macrocry Sports als 100 mg als 100 mg stals 100 Medicin capsule capsule mg capsule e TAKE 1 TAKE 1 TAKE 1 CAPSULE BY CAPSULE BY CAPSULE BY MOUTH EVERY MOUTH EVERY MOUTH 12 HOURS 12 HOURS EVERY 12 FOR 7 DAYS FOR 7 DAYS HOURS FOR 7 DAYS ondansetron ondansetron No ondansetro Jaida HCl 4 mg HCl 4 mg n HCl 4 mg O rthope tablet Take tablet Take tablet dic 1 tablet 1 tablet Take 1 Sport s every 8 every 8 tablet Medicin hours by hours by every 8 e oral route oral route hours by as needed. as needed. oral route as needed. prednisone prednisone No prednisone Jaida 10 mg 10 mg 10 mg [facility] tablet TAKE tablet TAKE tablet dic 1 TABLET BY 1 TABLET BY TAKE 1 Sports MOUTH EVERY MOUTH EVERY TABLET BY Medicin DAY DAY MOUTH e NEEDED NEEDED EVERY DAY NEEDED prednisone prednisone No prednisone Jaida 20 mg 20 mg 20 mg [facility] tablet TAKE tablet TAKE tablet dic 1 TABLET BY 1 TABLET BY TAKE 1 Sports MOUTH TWICE MOUTH TWICE TABLET BY Medicin DAILY FOR 3 DAILY FOR 3 MOUTH e DAYS AND 1 DAYS AND 1 TWICE TABLET ONCE TABLET ONCE DAILY FOR DAILY FOR 3 DAILY FOR 3 3 DAYS AND DAYS AND DAYS AND 1 TABLET 1/2 1/2 ONCE DAILY (ONE-HALF) (ONE-HALF) FOR 3 DAYS TABLET ONCE TABLET ONCE AND 1/2 DAILY FOR 4 DAILY FOR 4 (ONE-HALF) DAYS DAYS TABLET ONCE DAILY FOR 4 DAYS pregabalin pregabalin No pregabalin Jaida 75 mg 75 mg 75 mg [facility] capsule capsule capsule dic Sports Medicin e primidone primidone No primidone Jaida 50 mg 50 mg 50 mg [facility] tablet 1/2 tablet 1/2 tablet 1/2 dic TABLET TABLET TABLET Sports B.I.D. B.I.D. B.I.D. Medicin e sertraline sertraline No sertraline Jaida 100 mg 100 mg 100 mg [facility] tablet TAKE tablet TAKE tablet dic 1 TABLET BY 1 TABLET BY TAKE 1 Sports MOUTH ONCE MOUTH ONCE TABLET BY Medicin DAILY DAILY MOUTH ONCE e DAILY tizanidine tizanidine No tizanidine Jaida 4 mg tablet 4 mg tablet 4 mg O rthope TAKE 1 TAKE 1 tablet dic TABLET BY TABLET BY TAKE 1 Spo rts MOUTH EVERY MOUTH EVERY TABLET BY Medicin 8 HOURS 8 HOURS MOUTH e NEEDED FOR NEEDED FOR EVERY 8 MUSCLE MUSCLE HOURS SPASMS SPASMS NEEDED FOR MUSCLE SPASMS tramadol tramadol No tramadol Aza trinity 37.5 37.5 37.5 [facility] mg-acetamin mg-acetamin mg-acetami dic ophen 325 ophen 325 nophen 325 Sports mg tablet mg tablet mg tablet Medicin TAKE 1 TAKE 1 TAKE 1 e TABLET BY TABLET BY TABLET BY MOUTH EVERY MOUTH EVERY MOUTH 8 HOURS 8 HOURS EVERY 8 NEEDED FOR NEEDED FOR HOURS 10 DAYS 10 DAYS NEEDED FOR 10 DAYS tramadol 50 tramadol 50 No 1 Q6H tramadol Jaida mg tablet mg tablet 50 mg Orth ope Take 1 Take 1 tablet dic tablet tablet Take 1 Sports every 6 every 6 tablet Medicin hours by hours by every 6 e oral route oral route hours by as needed. as needed. oral route for pain for pain as needed. for pain Advair Advair No Advair Jaida Diskus 250 Diskus 250 Diskus 250 [facility] mcg-50 mcg-50 mcg-50 dic mcg/dose mcg/dose mcg/dose Spo rts powder for powder for powder for Medicin inhalation inhalation inhalation e INHALE ONE INHALE ONE INHALE ONE (1) PUFF BY (1) PUFF BY (1) PUFF MOUTH TWICE MOUTH TWICE BY MOUTH DAILY. DAILY. TWICE DAILY. trazodone trazodone No trazodone Jaida 100 mg 100 mg 100 mg [facility] tablet TAKE tablet TAKE tablet dic 1 TABLET BY 1 TABLET BY TAKE 1 Sports MOUTH ONCE MOUTH ONCE TABLET BY Medicin DAILY AT DAILY AT MOUTH ONCE e BEDTIME BEDTIME DAILY AT BEDTIME albuterol albuterol No albuterol Jaida sulfate 2.5 sulfate 2.5 sulfate [facility] mg/3 mL mg/3 mL 2.5 mg/3 dic (0.083 %) (0.083 %) mL (0.083 [facility] solution solution %) Medicin for for solution e nebulizatio nebulizatio for n USE 1 n USE 1 nebulizati VIAL IN VIAL IN on USE 1 NEBULIZER NEBULIZER VIAL IN EVERY 6 EVERY 6 NEBULIZER HOURS HOURS EVERY 6 NEEDED FOR NEEDED FOR HOURS SHORTNESS SHORTNESS NEEDED FOR OF BREATH OF BREATH SHORTNESS OF BREATH Advair Advair No Advair Jaida Diskus 250 Diskus 250 Diskus 250 [facility] mcg-50 mcg-50 mcg-50 dic mcg/dose mcg/dose mcg/dose Spo rts powder for powder for powder for Medicin inhalation inhalation inhalation e INHALE ONE INHALE ONE INHALE ONE PUFF 2 PUFF 2 PUFF 2 TIMES A DAY TIMES A DAY TIMES A FOR 30 DAYS FOR 30 DAYS DAY FOR 30 DAYS albuterol albuterol No albuterol Jaida sulfate 2.5 sulfate 2.5 sulfate [facility] mg/3 mL mg/3 mL 2.5 mg/3 dic (0.083 %) (0.083 %) mL (0.083 Enikos solution solution %) Medicin for for solution e nebulizatio nebulizatio for n USE 1 n USE 1 nebulizati VIAL IN VIAL IN on USE 1 NEBULIZER NEBULIZER VIAL IN EVERY 6 EVERY 6 NEBULIZER HOURS HOURS EVERY 6 NEEDED FOR NEEDED FOR HOURS SHORTNESS SHORTNESS NEEDED FOR OF BREATH OF BREATH SHORTNESS OF BREATH albuterol albuterol No albuterol Jaida sulfate HFA sulfate HFA sulfate [facility] 90 90 HFA 90 dic mcg/actuati mcg/actuati mcg/actuat Sports on aerosol on aerosol ion Med icin inhaler inhaler aerosol e INHALE 2 INHALE 2 inhaler PUFFS BY PUFFS BY INHALE 2 MOUTH EVERY MOUTH EVERY PUFFS BY 6 HOURS 6 HOURS MOUTH NEEDED NEEDED EVERY 6 HOURS NEEDED amlodipine amlodipine No amlodipine Jaida 2.5 mg 2.5 mg 2.5 mg [facility] tablet TAKE tablet TAKE tablet dic 1 TABLET BY 1 TABLET BY TAKE 1 Sports MOUTH ONCE MOUTH ONCE TABLET BY Medicin DAILY DAILY MOUTH ONCE e DAILY arformotero arformotero No arformoter Jaida l 15 mcg/2 l 15 mcg/2 ol 15 Or thope mL solution mL solution mcg/2 mL dic for for solution Sports nebulizatio nebulizatio for M edicin n USE 1 n USE 1 nebulizati e VIAL IN VIAL IN on USE 1 NEBULIZER NEBULIZER VIAL IN TWICE DAILY TWICE DAILY NEBULIZER TWICE DAILY aspirin 81 aspirin 81 No 1 BID aspirin 81 [facility] mg mg mg [facility] tablet,mikael tablet,mikael tablet,del dic yed release yed release ayed S ports Take 1 Take 1 release Medicin tablet tablet Take 1 e twice a day twice a day tablet by oral by oral twice a route with route with day by meals for meals for oral route 30 days. to 30 days. to with meals prevent a prevent a for 30 blood clot blood clot days. to prevent a blood clot atorvastati atorvastati No atorvastat Jaida n 20 mg n 20 mg in 20 mg [facility] pe tablet TAKE tablet TAKE tablet dic 1 TABLET BY 1 TABLET BY TAKE 1 Sports MOUTH EVERY MOUTH EVERY TABLET BY Medicin DAY FOR 90 DAY FOR 90 MOUTH e DAYS DAYS EVERY DAY FOR 90 DAYS albuterol albuterol No albuterol [facility] sulfate HFA sulfate HFA sulfate [facility] 90 90 HFA 90 dic mcg/actuati mcg/actuati mcg/actuat Sports on aerosol on aerosol ion Med icin inhaler inhaler aerosol e INHALE 2 INHALE 2 inhaler PUFFS INTO PUFFS INTO INHALE 2 THE LUNGS THE LUNGS PUFFS INTO EVERY 6 EVERY 6 THE LUNGS HOURS FOR HOURS FOR EVERY 6 30 DAYS 30 DAYS HOURS FOR 30 DAYS azithromyci azithromyci No azithromyc Jaida n 250 mg n 250 mg in 250 mg Or thope tablet TAKE tablet TAKE tablet dic 1 TABLET BY 1 TABLET BY TAKE 1 Sports MOUTH ONCE MOUTH ONCE TABLET BY Medicin DAILY DAILY MOUTH ONCE e DAILY cefdinir cefdinir No cefdinir Aza trinity 300 mg 300 mg 300 mg [facility] capsule capsule capsule dic Sports Medicin e celecoxib celecoxib No celecoxib Jaida 200 mg 200 mg 200 mg [facility] capsule capsule capsule dic Take 1 Take 1 Take 1 Sports capsule capsule capsule Medici n twice a day twice a day twice a e by oral by oral day by route with route with oral route meals for meals for with meals 14 days. 14 days. for 14 days. Colace 100 Colace 100 No 1capsul BID Colace 100 Jaida mg capsule mg capsule e(s) mg capsule [facility] Take 1 Take 1 Take 1 dic capsule capsule capsule Sports twice a day twice a day twice a Medicin by oral by oral day by e route as route as oral route needed. for needed. for as needed. constipatio constipatio for n n constipati on gabapentin gabapentin No gabapentin Jaida 300 mg 300 mg 300 mg [facility] capsule capsule capsule dic Take 1 Take 1 Take 1 Sports capsule capsule capsule Medici n every day every day every day e by oral by oral by oral route as route as route as needed. needed. needed. gabapentin gabapentin No gabapentin Jaida 600 mg 600 mg 600 mg [facility] tablet TAKE tablet TAKE tablet dic 1 TABLET BY 1 TABLET BY TAKE 1 Sports MOUTH TWICE MOUTH TWICE TABLET BY Medicin A DAY A DAY MOUTH e TWICE A DAY hydrocodone hydrocodone No hydrocodon Jaida 10 10 e 10 [facility] mg-acetamin mg-acetamin mg-acetami dic ophen 325 ophen 325 nophen 325 Sports mg tablet mg tablet mg tablet Medicin TAKE 1 TAKE 1 TAKE 1 e TABLET BY TABLET BY TABLET BY MOUTH EVERY MOUTH EVERY MOUTH 6 HOURS 6 HOURS EVERY 6 NEEDED FOR NEEDED FOR HOURS 7 DAYS 7 DAYS NEEDED FOR 7 DAYS hydrocodone hydrocodone No hydrocodon Ja[facility] 7.5 7.5 e 7.5 [facility] mg-acetamin mg-acetamin mg-acetami dic ophen 325 ophen 325 nophen 325 Sports mg tablet mg tablet mg tablet Medicin TAKE 1 TAKE 1 TAKE 1 e TABLET BY TABLET BY TABLET BY MOUTH EVERY MOUTH EVERY MOUTH 6 HOURS 6 HOURS EVERY 6 NEEDED FOR NEEDED FOR HOURS PAIN (SCALE PAIN (SCALE NEEDED FOR 5-7) 5-7) PAIN (SCALE 5-7) ipratropium ipratropium No ipratropiu Jaida bromide bromide m bromide [facility] 0.02 % 0.02 % 0.02 % dic solution solution solution Spo rts for for for Medicin inhalation inhalation inhalation e INHALE 1 INHALE 1 INHALE 1 VIAL IN VIAL IN VIAL IN NEBULIZER NEBULIZER NEBULIZER EVERY 6 EVERY 6 EVERY 6 HOURS HOURS HOURS NEEDED FOR NEEDED FOR NEEDED FOR SHORTNESS SHORTNESS SHORTNESS OF BREATH OF BREATH OF BREATH ketorolac ketorolac No ketorolac Jaida 10 mg 10 mg 10 mg [facility] tablet TAKE tablet TAKE tablet dic 1 TABLET BY 1 TABLET BY TAKE 1 Sports MOUTH EVERY MOUTH EVERY TABLET BY Medicin 6 HOURS 6 HOURS MOUTH e NEEDED NEEDED EVERY 6 HOURS NEEDED amlodipine amlodipine No amlodipine [facility] 2.5 mg 2.5 mg 2.5 mg [facility] tablet TAKE tablet TAKE tablet dic 1 TABLET BY 1 TABLET BY TAKE 1 Sports MOUTH ONCE MOUTH ONCE TABLET BY Medicin DAILY DAILY MOUTH ONCE e DAILY lactulose lactulose No lactulose Jaida 10 gram/15 10 gram/15 10 gram/15 [facility] mL oral mL oral mL oral dic solution solution solution Spo rts Medicin e lisinopril lisinopril No lisinopril Jaida 20 mg 20 mg 20 mg [facility] tablet TAKE tablet TAKE tablet dic 1 TABLET BY 1 TABLET BY TAKE 1 Sports MOUTH ONCE MOUTH ONCE TABLET BY Medicin DAILY DAILY MOUTH ONCE e DAILY losartan 50 losartan 50 No losartan Jaida mg tablet mg tablet 50 mg [facility] TAKE 1 TAKE 1 tablet dic TABLET BY TABLET BY TAKE 1 Spo rts MOUTH ONCE MOUTH ONCE TABLET BY Medicin DAILY DAILY MOUTH ONCE e DAILY methocarbam methocarbam No methocarba Jaida ol 500 mg ol 500 mg mol 500 mg [facility] tablet TAKE tablet TAKE tablet dic 1 TABLET 3 1 TABLET 3 TAKE 1 S ports TIMES A DAY TIMES A DAY TABLET 3 Medicin BY ORAL BY ORAL TIMES A e ROUTE ROUTE DAY BY NEEDED. NEEDED. ORAL ROUTE NEEDED. minocycline minocycline No minocyclin Jaida 100 mg 100 mg e 100 mg [facility] capsule capsule capsule dic Take 1 Take 1 Take 1 Sports capsule capsule capsule Medici n every 12 every 12 every 12 e hours by hours by hours by oral route oral route oral route for 7 days. for 7 days. for 7 days. nitrofurant nitrofurant No nitrofuran Jaida oin oin toin [facility] monohydrate monohydrate monohydrat dic /macrocryst /macrocryst e/macrocry Sports als 100 mg als 100 mg stals 100 [facility] capsule capsule mg capsule e TAKE 1 TAKE 1 TAKE 1 CAPSULE BY CAPSULE BY CAPSULE BY MOUTH EVERY MOUTH EVERY MOUTH 12 HOURS 12 HOURS EVERY 12 FOR 7 DAYS FOR 7 DAYS HOURS FOR 7 DAYS ondansetron ondansetron No ondansetro [facility] HCl 4 mg HCl 4 mg n HCl 4 mg [facility] tablet Take tablet Take tablet dic 1 tablet 1 tablet Take 1 Sport s every 8 every 8 tablet Medicin hours by hours by every 8 e oral route oral route hours by as needed. as needed. oral route as needed. prednisone prednisone No prednisone Jaida 10 mg 10 mg 10 mg [facility] tablet TAKE tablet TAKE tablet dic 1 TABLET BY 1 TABLET BY TAKE 1 Sports MOUTH EVERY MOUTH EVERY TABLET BY Medicin DAY DAY MOUTH e NEEDED NEEDED EVERY DAY NEEDED prednisone prednisone No prednisone Jaida 20 mg 20 mg 20 mg [facility] tablet TAKE tablet TAKE tablet dic 1 TABLET BY 1 TABLET BY TAKE 1 Sports MOUTH TWICE MOUTH TWICE TABLET BY Medicin DAILY FOR 3 DAILY FOR 3 MOUTH e DAYS AND 1 DAYS AND 1 TWICE TABLET ONCE TABLET ONCE DAILY FOR DAILY FOR 3 DAILY FOR 3 3 DAYS AND DAYS AND DAYS AND 1 TABLET 1/2 1/2 ONCE DAILY (ONE-HALF) (ONE-HALF) FOR 3 DAYS TABLET ONCE TABLET ONCE AND 1/2 DAILY FOR 4 DAILY FOR 4 (ONE-HALF) DAYS DAYS TABLET ONCE DAILY FOR 4 DAYS pregabalin pregabalin No pregabalin Jaida 75 mg 75 mg 75 mg [facility] capsule capsule capsule dic Sports Medicin e arformotero arformotero No arformoter Jaida l 15 mcg/2 l 15 mcg/2 ol 15 Or [facility]ope mL solution mL solution mcg/2 mL dic for for solution [facility] nebulizatio nebulizatio for M edicin n USE 1 n USE 1 nebulizati e VIAL IN VIAL IN on USE 1 NEBULIZER NEBULIZER VIAL IN TWICE DAILY TWICE DAILY NEBULIZER TWICE DAILY primidone primidone No primidone Jaida 50 mg 50 mg 50 mg [facility] tablet 1/2 tablet 1/2 tablet 1/2 dic TABLET TABLET TABLET Sports B.I.D. B.I.D. B.I.D. Medicin e sertraline sertraline No sertraline Jaida 100 mg 100 mg 100 mg [facility] tablet TAKE tablet TAKE tablet dic 1 TABLET BY 1 TABLET BY TAKE 1 Sports MOUTH ONCE MOUTH ONCE TABLET BY Medicin DAILY DAILY MOUTH ONCE e DAILY tizanidine tizanidine No tizanidine Jaida 4 mg tablet 4 mg tablet 4 mg [facility] TAKE 1 TAKE 1 tablet dic TABLET BY TABLET BY TAKE 1 Spo rts MOUTH EVERY MOUTH EVERY TABLET BY Medicin 8 HOURS 8 HOURS MOUTH e NEEDED FOR NEEDED FOR EVERY 8 MUSCLE MUSCLE HOURS SPASMS SPASMS NEEDED FOR MUSCLE SPASMS tramadol tramadol No tramadol Aza trinity 37.5 37.5 37.5 [facility] mg-acetamin mg-acetamin mg-acetami dic ophen 325 ophen 325 nophen 325 Sports mg tablet mg tablet mg tablet Medicin TAKE 1 TAKE 1 TAKE 1 e TABLET BY TABLET BY TABLET BY MOUTH EVERY MOUTH EVERY MOUTH 8 HOURS 8 HOURS EVERY 8 NEEDED FOR NEEDED FOR HOURS 10 DAYS 10 DAYS NEEDED FOR 10 DAYS tramadol 50 tramadol 50 No tramadol Jaida mg tablet mg tablet 50 mg [facility] TAKE 1 TAKE 1 tablet dic TABLET BY TABLET BY TAKE 1 Spo rts MOUTH EVERY MOUTH EVERY TABLET BY Medicin 6 HOURS 6 HOURS MOUTH e NEEDED NEEDED EVERY 6 HOURS NEEDED trazodone trazodone No trazodone Jaida 100 mg 100 mg 100 mg [facility] tablet TAKE tablet TAKE tablet dic 1 TABLET BY 1 TABLET BY TAKE 1 Sports MOUTH ONCE MOUTH ONCE TABLET BY Medicin DAILY AT DAILY AT MOUTH ONCE e BEDTIME BEDTIME DAILY AT BEDTIME atorvastati atorvastati No atorvastat Jaida n 20 mg n 20 mg in 20 mg [facility] pe tablet TAKE tablet TAKE tablet dic 1 TABLET BY 1 TABLET BY TAKE 1 Sports MOUTH ONCE MOUTH ONCE TABLET BY Medicin DAILY DAILY MOUTH ONCE e DAILY azithromyci azithromyci No azithromyc Jaida n 250 mg n 250 mg in 250 mg Or thope tablet TAKE tablet TAKE tablet dic 1 TABLET BY 1 TABLET BY TAKE 1 Sports MOUTH ONCE MOUTH ONCE TABLET BY Medicin DAILY DAILY MOUTH ONCE e DAILY cefdinir cefdinir No cefdinir Aza trinity 300 mg 300 mg 300 mg [facility] capsule capsule capsule dic Sports Medicin e gabapentin gabapentin No gabapentin Jaida 300 mg 300 mg 300 mg [facility] capsule capsule capsule dic TAKE 1 TAKE 1 TAKE 1 Sports CAPSULE BY CAPSULE BY CAPSULE BY Medicin MOUTH AT MOUTH AT MOUTH AT e BEDTIME BEDTIME BEDTIME gabapentin gabapentin No gabapentin Jaida 600 mg 600 mg 600 mg [facility] tablet TAKE tablet TAKE tablet dic 1 TABLET BY 1 TABLET BY TAKE 1 Sports MOUTH TWICE MOUTH TWICE TABLET BY Medicin A DAY A DAY MOUTH e TWICE A DAY hydrocodone hydrocodone No hydrocodon Jaida 7.5 7.5 e 7.5 [facility] mg-acetamin mg-acetamin mg-acetami dic ophen 325 ophen 325 nophen 325 [facility] mg tablet mg tablet mg tablet Medicin TAKE 1 TAKE 1 TAKE 1 e TABLET BY TABLET BY TABLET BY MOUTH EVERY MOUTH EVERY MOUTH 6 HOURS 6 HOURS EVERY 6 NEEDED FOR NEEDED FOR HOURS PAIN (SCALE PAIN (SCALE NEEDED FOR 5-7) 5-7) PAIN (SCALE 5-7) ipratropium ipratropium No ipratropiu Jaida bromide bromide m bromide [facility] 0.02 % 0.02 % 0.02 % dic solution solution solution Spo rts for for for Medicin inhalation inhalation inhalation e INHALE 1 INHALE 1 INHALE 1 VIAL IN VIAL IN VIAL IN NEBULIZER NEBULIZER NEBULIZER EVERY 6 EVERY 6 EVERY 6 HOURS HOURS HOURS NEEDED FOR NEEDED FOR NEEDED FOR SHORTNESS SHORTNESS SHORTNESS OF BREATH OF BREATH OF BREATH ketorolac ketorolac No ketorolac Jaida 10 mg 10 mg 10 mg [facility] tablet TAKE tablet TAKE tablet dic 1 TABLET BY 1 TABLET BY TAKE 1 Sports MOUTH EVERY MOUTH EVERY TABLET BY Medicin 6 HOURS 6 HOURS MOUTH e NEEDED NEEDED EVERY 6 HOURS NEEDED lactulose lactulose No lactulose Jaida 10 gram/15 10 gram/15 10 gram/15 [facility] mL oral mL oral mL oral dic solution solution solution Spo rts Medicin e lisinopril lisinopril No lisinopril Jaida 20 mg 20 mg 20 mg [facility] tablet TAKE tablet TAKE tablet dic 1 TABLET BY 1 TABLET BY TAKE 1 Sports MOUTH ONCE MOUTH ONCE TABLET BY Medicin DAILY DAILY MOUTH ONCE e DAILY losartan 50 losartan 50 No losartan [facility] mg tablet mg tablet 50 mg [facility] TAKE 1 TAKE 1 tablet dic TABLET BY TABLET BY TAKE 1 Spo rts MOUTH ONCE MOUTH ONCE TABLET BY Medicin DAILY DAILY MOUTH ONCE e DAILY nitrofurant nitrofurant No nitrofuran Jaida oin oin toin [facility] monohydrate monohydrate monohydrat dic /macrocryst /macrocryst e/macrocry Sports als 100 mg als 100 mg stals 100 [facility] capsule capsule mg capsule e TAKE 1 TAKE 1 TAKE 1 CAPSULE BY CAPSULE BY CAPSULE BY MOUTH EVERY MOUTH EVERY MOUTH 12 HOURS 12 HOURS EVERY 12 FOR 7 DAYS FOR 7 DAYS HOURS FOR 7 DAYS prednisone prednisone No prednisone Jaida 10 mg 10 mg 10 mg [facility] tablet TAKE tablet TAKE tablet dic 1 TABLET BY 1 TABLET BY TAKE 1 Sports MOUTH ONCE MOUTH ONCE TABLET BY Medicin DAILY DAILY MOUTH ONCE e NEEDED NEEDED DAILY NEEDED prednisone prednisone No prednisone Jaida 20 mg 20 mg 20 mg [facility] tablet TAKE tablet TAKE tablet dic 1 TABLET BY 1 TABLET BY TAKE 1 Sports MOUTH TWICE MOUTH TWICE TABLET BY Medicin DAILY FOR 3 DAILY FOR 3 MOUTH e DAYS AND 1 DAYS AND 1 TWICE TABLET ONCE TABLET ONCE DAILY FOR DAILY FOR 3 DAILY FOR 3 3 DAYS AND DAYS AND DAYS AND 1 TABLET 1/2 /2 ONCE DAILY (ONE-HALF) (ONE-HALF) FOR 3 DAYS TABLET ONCE TABLET ONCE AND 1/2 DAILY FOR 4 DAILY FOR 4 (ONE-HALF) DAYS DAYS TABLET ONCE DAILY FOR 4 DAYS pregabalin pregabalin No pregabalin Jaida 75 mg 75 mg 75 mg [facility] capsule capsule capsule dic Sports Medicin e primidone primidone No primidone Jaida 50 mg 50 mg 50 mg [facility] tablet TAKE tablet TAKE tablet dic 05/18 05/18 TAKE 1/2 Sports (ONE-HALF) (ONE-HALF) (ONE-HALF) Medicin TABLET BY TABLET BY TABLET BY e MOUTH TWICE MOUTH TWICE MOUTH DAILY DAILY TWICE DAILY sertraline sertraline No sertraline Jaida 100 mg 100 mg 100 mg [facility] tablet TAKE tablet TAKE tablet dic 1 TABLET BY 1 TABLET BY TAKE 1 Sports MOUTH ONCE MOUTH ONCE TABLET BY Medicin DAILY DAILY MOUTH ONCE e DAILY tizanidine tizanidine No tizanidine Jaida 4 mg tablet 4 mg tablet 4 mg [facility] TAKE 1 TAKE 1 tablet dic TABLET BY TABLET BY TAKE 1 Spo rts MOUTH EVERY MOUTH EVERY TABLET BY Medicin 8 HOURS 8 HOURS MOUTH e NEEDED FOR NEEDED FOR EVERY 8 MUSCLE MUSCLE HOURS SPASMS SPASMS NEEDED FOR MUSCLE SPASMS tramadol tramadol No tramadol Aza trinity 37.5 37.5 37.5 [facility] mg-acetamin mg-acetamin mg-acetami dic ophen 325 ophen 325 nophen 325 Sports mg tablet mg tablet mg tablet Medicin TAKE 1 TAKE 1 TAKE 1 e TABLET BY TABLET BY TABLET BY MOUTH EVERY MOUTH EVERY MOUTH 8 HOURS 8 HOURS EVERY 8 NEEDED FOR NEEDED FOR HOURS 10 DAYS 10 DAYS NEEDED FOR 10 DAYS tramadol 50 tramadol 50 No tramadol Jaida mg tablet mg tablet 50 mg [facility] tablet dic Sports Medicin e trazodone trazodone No trazodone Jaida 100 mg 100 mg 100 mg [facility] tablet TAKE tablet TAKE tablet dic 1 TABLET BY 1 TABLET BY TAKE 1 Sports MOUTH ONCE MOUTH ONCE TABLET BY Medicin DAILY AT DAILY AT MOUTH ONCE e BEDTIME BEDTIME DAILY AT BEDTIME Advair Advair No Advair Jaida Diskus 250 Diskus 250 Diskus 250 [facility] mcg-50 mcg-50 mcg-50 dic mcg/dose mcg/dose mcg/dose Spo rts powder for powder for powder for Medicin inhalation inhalation inhalation e INHALE ONE INHALE ONE INHALE ONE PUFF 2 PUFF 2 PUFF 2 TIMES A DAY TIMES A DAY TIMES A FOR 30 DAYS FOR 30 DAYS DAY FOR 30 DAYS albuterol albuterol No albuterol [facility] sulfate 2.5 sulfate 2.5 sulfate [facility] mg/3 mL mg/3 mL 2.5 mg/3 dic (0.083 %) (0.083 %) mL (0.083 Sports solution solution %) Medicin for for solution e nebulizatio nebulizatio for n USE 1 n USE 1 nebulizati VIAL IN VIAL IN on USE 1 NEBULIZER NEBULIZER VIAL IN EVERY 6 EVERY 6 NEBULIZER HOURS HOURS EVERY 6 NEEDED FOR NEEDED FOR HOURS SHORTNESS SHORTNESS NEEDED FOR OF BREATH OF BREATH SHORTNESS OF BREATH albuterol albuterol No albuterol [facility] sulfate HFA sulfate HFA sulfate [facility] 90 90 HFA 90 dic mcg/actuati mcg/actuati mcg/actuat Sports on aerosol on aerosol ion Med icin inhaler inhaler aerosol e INHALE 2 INHALE 2 inhaler PUFFS BY PUFFS BY INHALE 2 MOUTH EVERY MOUTH EVERY PUFFS BY 6 HOURS 6 HOURS MOUTH NEEDED NEEDED EVERY 6 HOURS NEEDED amlodipine amlodipine No amlodipine Jaida 2.5 mg 2.5 mg 2.5 mg [facility] tablet TAKE tablet TAKE tablet dic 1 TABLET BY 1 TABLET BY TAKE 1 Sports MOUTH ONCE MOUTH ONCE TABLET BY Medicin DAILY DAILY MOUTH ONCE e DAILY arformotero arformotero No arformoter Jaida l 15 mcg/2 l 15 mcg/2 ol 15 Or [facility]ope mL solution mL solution mcg/2 mL dic for for solution Sports nebulizatio nebulizatio for M edicin n USE 1 n USE 1 nebulizati e VIAL IN VIAL IN on USE 1 NEBULIZER NEBULIZER VIAL IN TWICE DAILY TWICE DAILY NEBULIZER TWICE DAILY atorvastati atorvastati No atorvastat Jaida n 20 mg n 20 mg in 20 mg [facility] pe tablet TAKE tablet TAKE tablet dic 1 TABLET BY 1 TABLET BY TAKE 1 Sports MOUTH EVERY MOUTH EVERY TABLET BY Medicin DAY FOR 90 DAY FOR 90 MOUTH e DAYS DAYS EVERY DAY FOR 90 DAYS azithromyci azithromyci No azithromyc Jaida n 250 mg n 250 mg in 250 mg Or [facility]ope tablet TAKE tablet TAKE tablet dic 1 TABLET BY 1 TABLET BY TAKE 1 Sports MOUTH ONCE MOUTH ONCE TABLET BY Medicin DAILY DAILY MOUTH ONCE e DAILY cefdinir cefdinir No cefdinir Aza trinity 300 mg 300 mg 300 mg [facility] capsule capsule capsule dic Sports Medicin e gabapentin gabapentin No gabapentin Jaida 300 mg 300 mg 300 mg [facility] capsule capsule capsule dic TAKE 1 TAKE 1 TAKE 1 Sports CAPSULE BY CAPSULE BY CAPSULE BY Medicin MOUTH AT MOUTH AT MOUTH AT e BEDTIME BEDTIME BEDTIME gabapentin gabapentin No gabapentin Jaida 600 mg 600 mg 600 mg [facility] tablet TAKE tablet TAKE tablet dic 1 TABLET BY 1 TABLET BY TAKE 1 Sports MOUTH TWICE MOUTH TWICE TABLET BY Medicin A DAY A DAY MOUTH e TWICE A DAY hydrocodone hydrocodone No hydrocodon Jaida 7.5 7.5 e 7.5 [facility] mg-acetamin mg-acetamin mg-acetami dic ophen 325 ophen 325 nophen 325 [facility] mg tablet mg tablet mg tablet Medicin TAKE 1 TAKE 1 TAKE 1 e TABLET BY TABLET BY TABLET BY MOUTH EVERY MOUTH EVERY MOUTH 6 HOURS 6 HOURS EVERY 6 NEEDED FOR NEEDED FOR HOURS PAIN (SCALE PAIN (SCALE NEEDED FOR 5-7) 5-7) PAIN (SCALE 5-7) ipratropium ipratropium No ipratropiu Jaida bromide bromide m bromide [facility] 0.02 % 0.02 % 0.02 % dic solution solution solution Spo rts for for for Medicin inhalation inhalation inhalation e INHALE 1 INHALE 1 INHALE 1 VIAL IN VIAL IN VIAL IN NEBULIZER NEBULIZER NEBULIZER EVERY 6 EVERY 6 EVERY 6 HOURS HOURS HOURS NEEDED FOR NEEDED FOR NEEDED FOR SHORTNESS SHORTNESS SHORTNESS OF BREATH OF BREATH OF BREATH ketorolac ketorolac No ketorolac Jaida 10 mg 10 mg 10 mg [facility] tablet TAKE tablet TAKE tablet dic 1 TABLET BY 1 TABLET BY TAKE 1 Sports MOUTH EVERY MOUTH EVERY TABLET BY Medicin 6 HOURS 6 HOURS MOUTH e NEEDED NEEDED EVERY 6 HOURS NEEDED lactulose lactulose No lactulose Jaida 10 gram/15 10 gram/15 10 gram/15 [facility] mL oral mL oral mL oral dic solution solution solution Spo rts Medicin e lisinopril lisinopril No lisinopril Jaida 20 mg 20 mg 20 mg [facility] tablet TAKE tablet TAKE tablet dic 1 TABLET BY 1 TABLET BY TAKE 1 Sports MOUTH ONCE MOUTH ONCE TABLET BY Medicin DAILY DAILY MOUTH ONCE e DAILY losartan 50 losartan 50 No losartan Jaida mg tablet mg tablet 50 mg [facility] TAKE 1 TAKE 1 tablet dic TABLET BY TABLET BY TAKE 1 Spo rts MOUTH ONCE MOUTH ONCE TABLET BY Medicin DAILY DAILY MOUTH ONCE e DAILY nitrofurant nitrofurant No nitrofuran Jaida oin oin toin [facility] monohydrate monohydrate monohydrat dic /macrocryst /macrocryst e/macrocry Sports als 100 mg als 100 mg stals 100 [facility] capsule capsule mg capsule e TAKE 1 TAKE 1 TAKE 1 CAPSULE BY CAPSULE BY CAPSULE BY MOUTH EVERY MOUTH EVERY MOUTH 12 HOURS 12 HOURS EVERY 12 FOR 7 DAYS FOR 7 DAYS HOURS FOR 7 DAYS prednisone prednisone No prednisone Jaida 10 mg 10 mg 10 mg [facility] tablet TAKE tablet TAKE tablet dic 1 TABLET BY 1 TABLET BY TAKE 1 Sports MOUTH EVERY MOUTH EVERY TABLET BY Medicin DAY DAY MOUTH e NEEDED NEEDED EVERY DAY NEEDED prednisone prednisone No prednisone Jaida 20 mg 20 mg 20 mg [facility] tablet TAKE tablet TAKE tablet dic 1 TABLET BY 1 TABLET BY TAKE 1 Sports MOUTH TWICE MOUTH TWICE TABLET BY Medicin DAILY FOR 3 DAILY FOR 3 MOUTH e DAYS AND 1 DAYS AND 1 TWICE TABLET ONCE TABLET ONCE DAILY FOR DAILY FOR 3 DAILY FOR 3 3 DAYS AND DAYS AND DAYS AND 1 TABLET 1/2 1/2 ONCE DAILY (ONE-HALF) (ONE-HALF) FOR 3 DAYS TABLET ONCE TABLET ONCE AND 1/2 DAILY FOR 4 DAILY FOR 4 (ONE-HALF) DAYS DAYS TABLET ONCE DAILY FOR 4 DAYS pregabalin pregabalin No pregabalin Jaida 75 mg 75 mg 75 mg [facility] capsule capsule capsule dic Sports Medicin e primidone primidone No primidone Jaida 50 mg 50 mg 50 mg [facility] tablet 1/2 tablet 1/2 tablet 1/2 dic TABLET TABLET TABLET Sports B.I.D. B.I.D. B.I.D. Medicin e sertraline sertraline No sertraline Jaida 100 mg 100 mg 100 mg [facility] tablet TAKE tablet TAKE tablet dic 1 TABLET BY 1 TABLET BY TAKE 1 Sports MOUTH ONCE MOUTH ONCE TABLET BY Medicin DAILY DAILY MOUTH ONCE e DAILY tizanidine tizanidine No tizanidine Jaida 4 mg tablet 4 mg tablet 4 mg [facility] TAKE 1 TAKE 1 tablet dic TABLET BY TABLET BY TAKE 1 Spo rts MOUTH EVERY MOUTH EVERY TABLET BY Medicin 8 HOURS 8 HOURS MOUTH e NEEDED FOR NEEDED FOR EVERY 8 MUSCLE MUSCLE HOURS SPASMS SPASMS NEEDED FOR MUSCLE SPASMS tramadol tramadol No tramadol Aza trinity 37.5 37.5 37.5 [facility] mg-acetamin mg-acetamin mg-acetami dic ophen 325 ophen 325 nophen 325 Sports mg tablet mg tablet mg tablet Medicin TAKE 1 TAKE 1 TAKE 1 e TABLET BY TABLET BY TABLET BY MOUTH EVERY MOUTH EVERY MOUTH 8 HOURS 8 HOURS EVERY 8 NEEDED FOR NEEDED FOR HOURS 10 DAYS 10 DAYS NEEDED FOR 10 DAYS tramadol 50 tramadol 50 No tramadol Jaida mg tablet mg tablet 50 mg [facility] tablet dic Sports Medicin e trazodone trazodone No trazodone Jaida 100 mg 100 mg 100 mg [facility] tablet TAKE tablet TAKE tablet dic 1 TABLET BY 1 TABLET BY TAKE 1 Sports MOUTH ONCE MOUTH ONCE TABLET BY Medicin DAILY AT DAILY AT MOUTH ONCE e BEDTIME BEDTIME DAILY AT BEDTIME Atorvastati Atorvastati No 1{table QD Atorvastat n Calcium n Calcium t} in Calcium 20 MG 20 MG 20 MG ProAir ProAir No 1{puff_ 6xD ProAir RespiClick RespiClick as_need RespiClick 108 (90 108 (90 ed} 108 (90 Base) Base) Base) MCG/ACT MCG/ACT MCG/ACT Arformotero Arformotero No 2{ml} BID Arformoter l Tartrate l Tartrate ol 15 MCG/2ML 15 MCG/2ML Tartrate 15 MCG/2ML Stool Stool No Stool Softener Softener Softener traMADol traMADol No 1{table traMADol HCl 50 MG HCl 50 MG t_as_ne HCl 50 MG eded} Fluticasone Fluticasone No 1{puff} BID Fluticason -Salmeterol -Salmeterol e-Salmeter 250-50 250-50 ol 250-50 MCG/ACT MCG/ACT MCG/ACT Lisinopril Lisinopril No QD Lisinopril 20 MG 20 MG 20 MG Primidone Primidone No 1{table QD Primidone 50 MG 50 MG t} 50 MG Gabapentin Gabapentin No 1{capsu Gabapentin 600 MG 600 MG le} 600 MG Sertraline Sertraline No 1{table QD Sertraline HCl 100 MG HCl 100 MG t} HCl 100 MG Aspir-81 81 Aspir-81 81 No 1{table QD Aspir-81 MG MG t} 81 MG Ipratropium Ipratropium No 2.5{ml} TID Ipratropiu [place] 0.02 % 0.02 % 0.02 % Pregabalin Pregabalin No 1{capsu BID Pregabalin 75 MG 75 MG le} 75 MG Atorvastati Atorvastati No 1{table QD Atorvastat n Calcium n Calcium t} in Calcium 20 MG 20 MG 20 MG ProAir ProAir No 1{puff_ 6xD ProAir RespiClick RespiClick as_need RespiClick 108 (90 108 (90 ed} 108 (90 Base) Base) Base) MCG/ACT MCG/ACT MCG/ACT Arformotero Arformotero No 2{ml} BID Arformoter l Tartrate l Tartrate ol 15 MCG/2ML 15 MCG/2ML Tartrate 15 MCG/2ML Stool Stool No Stool Softener Softener Softener traMADol traMADol No 1{table traMADol HCl 50 MG HCl 50 MG t_as_ne HCl 50 MG eded} Fluticasone Fluticasone No 1{puff} BID Fluticason -Salmeterol -Salmeterol e-Salmeter 250-50 250-50 ol 250-50 MCG/ACT MCG/ACT MCG/ACT Lisinopril Lisinopril No QD Lisinopril 20 MG 20 MG 20 MG Primidone Primidone No 1{table QD Primidone 50 MG 50 MG t} 50 MG Gabapentin Gabapentin No 1{capsu Gabapentin 600 MG 600 MG le} 600 MG Sertraline Sertraline No 1{table QD Sertraline HCl 100 MG HCl 100 MG t} HCl 100 MG Aspir-81 81 Aspir-81 81 No 1{table QD Aspir-81 MG MG t} 81 MG Ipratropium Ipratropium No 2.5{ml} TID Ipratropiu [place] 0.02 % 0.02 % 0.02 % Pregabalin Pregabalin No 1{capsu BID Pregabalin 75 MG 75 MG le} 75 MG Lisinopril Lisinopril No QD Lisinopril 20 MG 20 MG 20 MG ProAir ProAir No 1{puff_ 6xD ProAir RespiClick RespiClick as_need RespiClick 108 (90 108 (90 ed} 108 (90 Base) Base) Base) MCG/ACT MCG/ACT MCG/ACT Stool Stool No Stool Softener Softener Softener Sertraline Sertraline No Sertraline HCl 100 MG HCl 100 MG HCl 100 MG amLODIPine amLODIPine No 1{table QD amLODIPine Besylate Besylate t} Besylate 2.5 MG 2.5 MG 2.5 MG Zoloft 100 Zoloft 100 No 1{table QD Zoloft 100 MG MG t} MG amLODIPine amLODIPine No 1{table QD amLODIPine Besylate Besylate t} Besylate 2.5 MG 2.5 MG 2.5 MG Aspir-81 81 Aspir-81 81 No 1{table QD Aspir-81 MG MG t} 81 MG Lisinopril Lisinopril No QD Lisinopril 20 MG 20 MG 20 MG ProAir ProAir No 1{puff_ 6xD ProAir RespiClick RespiClick as_need RespiClick 108 (90 108 (90 ed} 108 (90 Base) Base) Base) MCG/ACT MCG/ACT MCG/ACT Stool Stool No Stool Softener Softener Softener Sertraline Sertraline No Sertraline HCl 100 MG HCl 100 MG HCl 100 MG amLODIPine amLODIPine No 1{table QD amLODIPine Besylate Besylate t} Besylate 2.5 MG 2.5 MG 2.5 MG Zoloft 100 Zoloft 100 No 1{table QD Zoloft 100 MG MG t} MG amLODIPine amLODIPine No 1{table QD amLODIPine Besylate Besylate t} Besylate 2.5 MG 2.5 MG 2.5 MG Aspir-81 81 Aspir-81 81 No 1{table QD Aspir-81 MG MG t} 81 MG Stool Stool No Stool Softener Softener Softener Fluticasone Fluticasone No 1{puff} BID Fluticason -Salmeterol -Salmeterol e-Salmeter 113-14 113-14 ol 113-14 MCG/ACT MCG/ACT MCG/ACT traZODone traZODone No 1{table QD traZODone HCl 100 MG HCl 100 MG t_at_be HCl 100 MG dtime} amLODIPine amLODIPine No 1{table QD amLODIPine Besylate Besylate t} Besylate 2.5 MG 2.5 MG 2.5 MG Lisinopril Lisinopril No QD Lisinopril 20 MG 20 MG 20 MG traZODone traZODone No 1{table QD traZODone HCl 100 MG HCl 100 MG t_at_be HCl 100 MG dtime} ProAir ProAir No 1{puff_ 6xD ProAir RespiClick RespiClick as_need RespiClick 108 (90 108 (90 ed} 108 (90 Base) Base) Base) MCG/ACT MCG/ACT MCG/ACT Sertraline Sertraline No Sertraline HCl 100 MG HCl 100 MG HCl 100 MG Aspir-81 81 Aspir-81 81 No 1{table QD Aspir-81 MG MG t} 81 MG Zoloft 100 Zoloft 100 No 2{table QD Zoloft 100 MG MG t} MG Stool Stool No Stool Softener Softener Softener Fluticasone Fluticasone No 1{puff} BID Fluticason -Salmeterol -Salmeterol e-Salmeter 113-14 113-14 ol 113-14 MCG/ACT MCG/ACT MCG/ACT traZODone traZODone No 1{table QD traZODone HCl 100 MG HCl 100 MG t_at_be HCl 100 MG dtime} amLODIPine amLODIPine No 1{table QD amLODIPine Besylate Besylate t} Besylate 2.5 MG 2.5 MG 2.5 MG Lisinopril Lisinopril No QD Lisinopril 20 MG 20 MG 20 MG traZODone traZODone No 1{table QD traZODone HCl 100 MG HCl 100 MG t_at_be HCl 100 MG dtime} ProAir ProAir No 1{puff_ 6xD ProAir RespiClick RespiClick as_need RespiClick 108 (90 108 (90 ed} 108 (90 Base) Base) Base) MCG/ACT MCG/ACT MCG/ACT Sertraline Sertraline No Sertraline HCl 100 MG HCl 100 MG HCl 100 MG Aspir-81 81 Aspir-81 81 No 1{table QD Aspir-81 MG MG t} 81 MG Zoloft 100 Zoloft 100 No 2{table QD Zoloft 100 MG MG t} MG Stool Stool No Stool Softener Softener Softener Fluticasone Fluticasone No 1{puff} BID Fluticason -Salmeterol -Salmeterol e-Salmeter 113-14 113-14 ol 113-14 MCG/ACT MCG/ACT MCG/ACT traZODone traZODone No 1{table QD traZODone HCl 100 MG HCl 100 MG t_at_be HCl 100 MG dtime} amLODIPine amLODIPine No 1{table QD amLODIPine Besylate Besylate t} Besylate 2.5 MG 2.5 MG 2.5 MG Lisinopril Lisinopril No QD Lisinopril 20 MG 20 MG 20 MG traZODone traZODone No 1{table QD traZODone HCl 100 MG HCl 100 MG t_at_be HCl 100 MG dtime} ProAir ProAir No 1{puff_ 6xD ProAir RespiClick RespiClick as_need RespiClick 108 (90 108 (90 ed} 108 (90 Base) Base) Base) MCG/ACT MCG/ACT MCG/ACT Sertraline Sertraline No Sertraline HCl 100 MG HCl 100 MG HCl 100 MG Aspir-81 81 Aspir-81 81 No 1{table QD Aspir-81 MG MG t} 81 MG Zoloft 100 Zoloft 100 No 2{table QD Zoloft 100 MG MG t} MG Zoloft 100 Zoloft 100 No 2{table QD Zoloft 100 MG MG t} MG amLODIPine amLODIPine No 1{table QD amLODIPine Besylate Besylate t} Besylate 2.5 MG 2.5 MG 2.5 MG Stool Stool No Stool Softener Softener Softener Sertraline Sertraline No Sertraline HCl 100 MG HCl 100 MG HCl 100 MG Atorvastati Atorvastati No 1{table QD Atorvastat n Calcium n Calcium t} in Calcium 20 MG 20 MG 20 MG Aspir-81 81 Aspir-81 81 No 1{table QD Aspir-81 MG MG t} 81 MG Lisinopril Lisinopril No QD Lisinopril 20 MG 20 MG 20 MG traZODone traZODone No 1{table QD traZODone HCl 100 MG HCl 100 MG t_at_be HCl 100 MG dtime} traZODone traZODone No 1{table QD traZODone HCl 100 MG HCl 100 MG t_at_be HCl 100 MG dtime} Fluticasone Fluticasone No 1{puff} BID Fluticason -Salmeterol -Salmeterol e-Salmeter 113-14 113-14 ol 113-14 MCG/ACT MCG/ACT MCG/ACT ProAir ProAir No 1{puff_ 6xD ProAir RespiClick RespiClick as_need RespiClick 108 (90 108 (90 ed} 108 (90 Base) Base) Base) MCG/ACT MCG/ACT MCG/ACT ProAir ProAir No 1{puff_ 6xD ProAir RespiClick RespiClick as_need RespiClick 108 (90 108 (90 ed} 108 (90 Base) Base) Base) MCG/ACT MCG/ACT MCG/ACT Sertraline Sertraline No Sertraline HCl 100 MG HCl 100 MG HCl 100 MG Gabapentin Gabapentin No 1{capsu Gabapentin 300 MG 300 MG le} 300 MG traMADol traMADol No 1{table traMADol HCl 50 MG HCl 50 MG t_as_ne HCl 50 MG eded} amLODIPine amLODIPine No 1{table QD amLODIPine Besylate Besylate t} Besylate 2.5 MG 2.5 MG 2.5 MG Aspir-81 81 Aspir-81 81 No 1{table QD Aspir-81 MG MG t} 81 MG Stool Stool No Stool Softener Softener Softener Atorvastati Atorvastati No 1{table QD Atorvastat n Calcium n Calcium t} in Calcium 20 MG 20 MG 20 MG Lisinopril Lisinopril No QD Lisinopril 20 MG 20 MG 20 MG ProAir ProAir No 1{puff_ 6xD ProAir RespiClick RespiClick as_need RespiClick 108 (90 108 (90 ed} 108 (90 Base) Base) Base) MCG/ACT MCG/ACT MCG/ACT Sertraline Sertraline No Sertraline HCl 100 MG HCl 100 MG HCl 100 MG Gabapentin Gabapentin No 1{capsu Gabapentin 300 MG 300 MG le} 300 MG traMADol traMADol No 1{table traMADol HCl 50 MG HCl 50 MG t_as_ne HCl 50 MG eded} amLODIPine amLODIPine No 1{table QD amLODIPine Besylate Besylate t} Besylate 2.5 MG 2.5 MG 2.5 MG Aspir-81 81 Aspir-81 81 No 1{table QD Aspir-81 MG MG t} 81 MG Stool Stool No Stool Softener Softener Softener Atorvastati Atorvastati No 1{table QD Atorvastat n Calcium n Calcium t} in Calcium 20 MG 20 MG 20 MG Lisinopril Lisinopril No QD Lisinopril 20 MG 20 MG 20 MG ProAir ProAir No 1{puff_ 6xD ProAir RespiClick RespiClick as_need RespiClick 108 (90 108 (90 ed} 108 (90 Base) Base) Base) MCG/ACT MCG/ACT MCG/ACT Sertraline Sertraline No Sertraline HCl 100 MG HCl 100 MG HCl 100 MG Gabapentin Gabapentin No 1{capsu Gabapentin 300 MG 300 MG le} 300 MG traMADol traMADol No 1{table traMADol HCl 50 MG HCl 50 MG t_as_ne HCl 50 MG eded} amLODIPine amLODIPine No 1{table QD amLODIPine Besylate Besylate t} Besylate 2.5 MG 2.5 MG 2.5 MG Aspir-81 81 Aspir-81 81 No 1{table QD Aspir-81 MG MG t} 81 MG Stool Stool No Stool Softener Softener Softener Atorvastati Atorvastati No 1{table QD Atorvastat n Calcium n Calcium t} in Calcium 20 MG 20 MG 20 MG Lisinopril Lisinopril No QD Lisinopril 20 MG 20 MG 20 MG ProAir ProAir No 1{puff_ 6xD ProAir RespiClick RespiClick as_need RespiClick 108 (90 108 (90 ed} 108 (90 Base) Base) Base) MCG/ACT MCG/ACT MCG/ACT Sertraline Sertraline No Sertraline HCl 100 MG HCl 100 MG HCl 100 MG Gabapentin Gabapentin No 1{capsu Gabapentin 300 MG 300 MG le} 300 MG traMADol traMADol No 1{table traMADol HCl 50 MG HCl 50 MG t_as_ne HCl 50 MG eded} amLODIPine amLODIPine No 1{table QD amLODIPine Besylate Besylate t} Besylate 2.5 MG 2.5 MG 2.5 MG Aspir-81 81 Aspir-81 81 No 1{table QD Aspir-81 MG MG t} 81 MG Stool Stool No Stool Softener Softener Softener Atorvastati Atorvastati No 1{table QD Atorvastat n Calcium n Calcium t} in Calcium 20 MG 20 MG 20 MG Lisinopril Lisinopril No QD Lisinopril 20 MG 20 MG 20 MG Aspir-81 81 Aspir-81 81 No 1{table QD Aspir-81 MG MG t} 81 MG Sertraline Sertraline No Sertraline HCl 100 MG HCl 100 MG HCl 100 MG traMADol traMADol No 1{table traMADol HCl 50 MG HCl 50 MG t_as_ne HCl 50 MG eded} Atorvastati Atorvastati No 1{table QD Atorvastat n Calcium n Calcium t} in Calcium 20 MG 20 MG 20 MG Stool Stool No Stool Softener Softener Softener Gabapentin Gabapentin No 1{capsu Gabapentin 300 MG 300 MG le} 300 MG ProAir ProAir No 1{puff_ 6xD ProAir RespiClick RespiClick as_need RespiClick 108 (90 108 (90 ed} 108 (90 Base) Base) Base) MCG/ACT MCG/ACT MCG/ACT amLODIPine amLODIPine No 1{table QD amLODIPine Besylate Besylate t} Besylate 2.5 MG 2.5 MG 2.5 MG Lisinopril Lisinopril No QD Lisinopril 20 MG 20 MG 20 MG ProAir ProAir No 1{puff_ 6xD ProAir RespiClick RespiClick as_need RespiClick 108 (90 108 (90 ed} 108 (90 Base) Base) Base) MCG/ACT MCG/ACT MCG/ACT Sertraline Sertraline No Sertraline HCl 100 MG HCl 100 MG HCl 100 MG traMADol traMADol No 1{table traMADol HCl 50 MG HCl 50 MG t_as_ne HCl 50 MG eded} amLODIPine amLODIPine No 1{table QD amLODIPine Besylate Besylate t} Besylate 2.5 MG 2.5 MG 2.5 MG Atorvastati Atorvastati No 1{table QD Atorvastat n Calcium n Calcium t} in Calcium 20 MG 20 MG 20 MG Aspir-81 81 Aspir-81 81 No 1{table QD Aspir-81 MG MG t} 81 MG Lisinopril Lisinopril No Lisinopril 20 MG 20 MG 20 MG Gabapentin Gabapentin No 1{capsu Gabapentin 300 MG 300 MG le} 300 MG Stool Stool No Stool Softener Softener Softener ProAir ProAir No 1{puff_ 6xD ProAir RespiClick RespiClick as_need RespiClick 108 (90 108 (90 ed} 108 (90 Base) Base) Base) MCG/ACT MCG/ACT MCG/ACT Gabapentin Gabapentin No 1{capsu Gabapentin 300 MG 300 MG le} 300 MG traZODone traZODone No 1{table QD traZODone HCl 100 MG HCl 100 MG t_at_be HCl 100 MG dtime} Lisinopril Lisinopril No Lisinopril 20 MG 20 MG 20 MG Atorvastati Atorvastati No 1{table QD Atorvastat n Calcium n Calcium t} in Calcium 20 MG 20 MG 20 MG Fluticasone Fluticasone No 1{puff} BID Fluticason -Salmeterol -Salmeterol e-Salmeter 250-50 250-50 ol 250-50 MCG/ACT MCG/ACT MCG/ACT Primidone Primidone No 1{table QD Primidone 50 MG 50 MG t} 50 MG Lisinopril Lisinopril No QD Lisinopril 20 MG 20 MG 20 MG Sertraline Sertraline No 1{table QD Sertraline HCl 100 MG HCl 100 MG t} HCl 100 MG Sertraline Sertraline No Sertraline HCl 100 MG HCl 100 MG HCl 100 MG Pregabalin Pregabalin No 1{capsu BID Pregabalin 75 MG 75 MG le} 75 MG Stool Stool No Stool Softener Softener Softener Atorvastati Atorvastati No 1{table QD Atorvastat n Calcium n Calcium t} in Calcium 20 MG 20 MG 20 MG traMADol traMADol No 1{table traMADol HCl 50 MG HCl 50 MG t_as_ne HCl 50 MG eded} Aspir-81 81 Aspir-81 81 No 1{table QD Aspir-81 MG MG t} 81 MG ProAir ProAir No 1{puff_ 6xD ProAir RespiClick RespiClick as_need RespiClick 108 (90 108 (90 ed} 108 (90 Base) Base) Base) MCG/ACT MCG/ACT MCG/ACT Gabapentin Gabapentin No 1{capsu Gabapentin 300 MG 300 MG le} 300 MG traZODone traZODone No 1{table QD traZODone HCl 100 MG HCl 100 MG t_at_be HCl 100 MG dtime} Lisinopril Lisinopril No Lisinopril 20 MG 20 MG 20 MG Atorvastati Atorvastati No 1{table QD Atorvastat n Calcium n Calcium t} in Calcium 20 MG 20 MG 20 MG Fluticasone Fluticasone No 1{puff} BID Fluticason -Salmeterol -Salmeterol e-Salmeter 250-50 250-50 ol 250-50 MCG/ACT MCG/ACT MCG/ACT Primidone Primidone No 1{table QD Primidone 50 MG 50 MG t} 50 MG Lisinopril Lisinopril No QD Lisinopril 20 MG 20 MG 20 MG Sertraline Sertraline No 1{table QD Sertraline HCl 100 MG HCl 100 MG t} HCl 100 MG Sertraline Sertraline No Sertraline HCl 100 MG HCl 100 MG HCl 100 MG Pregabalin Pregabalin No 1{capsu BID Pregabalin 75 MG 75 MG le} 75 MG Stool Stool No Stool Softener Softener Softener Atorvastati Atorvastati No 1{table QD Atorvastat n Calcium n Calcium t} in Calcium 20 MG 20 MG 20 MG traMADol traMADol No 1{table traMADol HCl 50 MG HCl 50 MG t_as_ne HCl 50 MG eded} Aspir-81 81 Aspir-81 81 No 1{table QD Aspir-81 MG MG t} 81 MG ProAir ProAir No 1{puff_ 6xD ProAir RespiClick RespiClick as_need RespiClick 108 (90 108 (90 ed} 108 (90 Base) Base) Base) MCG/ACT MCG/ACT MCG/ACT Gabapentin Gabapentin No 1{capsu Gabapentin 300 MG 300 MG le} 300 MG traZODone traZODone No 1{table QD traZODone HCl 100 MG HCl 100 MG t_at_be HCl 100 MG dtime} Lisinopril Lisinopril No Lisinopril 20 MG 20 MG 20 MG Atorvastati Atorvastati No 1{table QD Atorvastat n Calcium n Calcium t} in Calcium 20 MG 20 MG 20 MG Fluticasone Fluticasone No 1{puff} BID Fluticason -Salmeterol -Salmeterol e-Salmeter 250-50 250-50 ol 250-50 MCG/ACT MCG/ACT MCG/ACT Primidone Primidone No 1{table QD Primidone 50 MG 50 MG t} 50 MG Lisinopril Lisinopril No QD Lisinopril 20 MG 20 MG 20 MG Sertraline Sertraline No 1{table QD Sertraline HCl 100 MG HCl 100 MG t} HCl 100 MG Sertraline Sertraline No Sertraline HCl 100 MG HCl 100 MG HCl 100 MG Pregabalin Pregabalin No 1{capsu BID Pregabalin 75 MG 75 MG le} 75 MG Stool Stool No Stool Softener Softener Softener Atorvastati Atorvastati No 1{table QD Atorvastat n Calcium n Calcium t} in Calcium 20 MG 20 MG 20 MG traMADol traMADol No 1{table traMADol HCl 50 MG HCl 50 MG t_as_ne HCl 50 MG eded} Aspir-81 81 Aspir-81 81 No 1{table QD Aspir-81 MG MG t} 81 MG Atorvastati Atorvastati No 1{table QD Atorvastat n Calcium n Calcium t} in Calcium 20 MG 20 MG 20 MG ProAir ProAir No 1{puff_ 6xD ProAir RespiClick RespiClick as_need RespiClick 108 (90 108 (90 ed} 108 (90 Base) Base) Base) MCG/ACT MCG/ACT MCG/ACT Arformotero Arformotero No 2{ml} BID Arformoter l Tartrate l Tartrate ol 15 MCG/2ML 15 MCG/2ML Tartrate 15 MCG/2ML Stool Stool No Stool Softener Softener Softener traMADol traMADol No 1{table traMADol HCl 50 MG HCl 50 MG t_as_ne HCl 50 MG eded} Fluticasone Fluticasone No 1{puff} BID Fluticason -Salmeterol -Salmeterol e-Salmeter 250-50 250-50 ol 250-50 MCG/ACT MCG/ACT MCG/ACT Lisinopril Lisinopril No QD Lisinopril 20 MG 20 MG 20 MG Primidone Primidone No 1{table QD Primidone 50 MG 50 MG t} 50 MG Gabapentin Gabapentin No 1{capsu Gabapentin 600 MG 600 MG le} 600 MG Sertraline Sertraline No 1{table QD Sertraline HCl 100 MG HCl 100 MG t} HCl 100 MG Aspir-81 81 Aspir-81 81 No 1{table QD Aspir-81 MG MG t} 81 MG Ipratropium Ipratropium No 2.5{ml} TID [place]rop[place] 0.02 % 0.02 % 0.02 % Pregabalin Pregabalin No 1{capsu BID Pregabalin 75 MG 75 MG le} 75 MG Atorvastati Atorvastati No 1{table QD Atorvastat n Calcium n Calcium t} in Calcium 20 MG 20 MG 20 MG ProAir ProAir No 1{puff_ 6xD ProAir RespiClick RespiClick as_need RespiClick 108 (90 108 (90 ed} 108 (90 Base) Base) Base) MCG/ACT MCG/ACT MCG/ACT Arformotero Arformotero No 2{ml} BID Arformoter l Tartrate l Tartrate ol 15 MCG/2ML 15 MCG/2ML Tartrate 15 MCG/2ML Stool Stool No Stool Softener Softener Softener traMADol traMADol No 1{table traMADol HCl 50 MG HCl 50 MG t_as_ne HCl 50 MG eded} Fluticasone Fluticasone No 1{puff} BID Fluticason -Salmeterol -Salmeterol e-Salmeter 250-50 250-50 ol 250-50 MCG/ACT MCG/ACT MCG/ACT Lisinopril Lisinopril No QD Lisinopril 20 MG 20 MG 20 MG Primidone Primidone No 1{table QD Primidone 50 MG 50 MG t} 50 MG Gabapentin Gabapentin No 1{capsu Gabapentin 600 MG 600 MG le} 600 MG Sertraline Sertraline No 1{table QD Sertraline HCl 100 MG HCl 100 MG t} HCl 100 MG Aspir-81 81 Aspir-81 81 No 1{table QD Aspir-81 MG MG t} 81 MG Ipratropium Ipratropium No 2.5{ml} TID [place]rop[place] 0.02 % 0.02 % 0.02 % Pregabalin Pregabalin No 1{capsu BID Pregabalin 75 MG 75 MG le} 75 MG Atorvastati Atorvastati No 1{table QD Atorvastat n Calcium n Calcium t} in Calcium 20 MG 20 MG 20 MG ProAir ProAir No 1{puff_ 6xD ProAir RespiClick RespiClick as_need RespiClick 108 (90 108 (90 ed} 108 (90 Base) Base) Base) MCG/ACT MCG/ACT MCG/ACT Arformotero Arformotero No 2{ml} BID Arformoter l Tartrate l Tartrate ol 15 MCG/2ML 15 MCG/2ML Tartrate 15 MCG/2ML Stool Stool No Stool Softener Softener Softener traMADol traMADol No 1{table traMADol HCl 50 MG HCl 50 MG t_as_ne HCl 50 MG eded} Sertraline Sertraline No 1{table QD Sertraline HCl 100 MG HCl 100 MG t} HCl 100 MG Fluticasone Fluticasone No 1{puff} BID Fluticason -Salmeterol -Salmeterol e-Salmeter 250-50 250-50 ol 250-50 MCG/ACT MCG/ACT MCG/ACT Lisinopril Lisinopril No QD Lisinopril 20 MG 20 MG 20 MG Pregabalin Pregabalin No 1{capsu BID Pregabalin 75 MG 75 MG le} 75 MG Gabapentin Gabapentin No 1{capsu Gabapentin 600 MG 600 MG le} 600 MG Primidone Primidone No 1{table QD Primidone 50 MG 50 MG t} 50 MG Aspir-81 81 Aspir-81 81 No 1{table QD Aspir-81 MG MG t} 81 MG Ipratropium Ipratropium No 2.5{ml} TID [place] 0.02 % 0.02 % 0.02 % traZODone traZODone No 1{table QD traZODone HCl 100 MG HCl 100 MG t_at_be HCl 100 MG dtime} Atorvastati Atorvastati No 1{table QD Atorvastat n Calcium n Calcium t} in Calcium 20 MG 20 MG 20 MG ProAir ProAir No 1{puff_ 6xD ProAir RespiClick RespiClick as_need RespiClick 108 (90 108 (90 ed} 108 (90 Base) Base) Base) MCG/ACT MCG/ACT MCG/ACT Arformotero Arformotero No 2{ml} BID Arformoter l Tartrate l Tartrate ol 15 MCG/2ML 15 MCG/2ML Tartrate 15 MCG/2ML Stool Stool No Stool Softener Softener Softener traMADol traMADol No 1{table traMADol HCl 50 MG HCl 50 MG t_as_ne HCl 50 MG eded} Sertraline Sertraline No 1{table QD Sertraline HCl 100 MG HCl 100 MG t} HCl 100 MG Fluticasone Fluticasone No 1{puff} BID Fluticason -Salmeterol -Salmeterol e-Salmeter 250-50 250-50 ol 250-50 MCG/ACT MCG/ACT MCG/ACT Lisinopril Lisinopril No QD Lisinopril 20 MG 20 MG 20 MG Pregabalin Pregabalin No 1{capsu BID Pregabalin 75 MG 75 MG le} 75 MG Gabapentin Gabapentin No 1{capsu Gabapentin 600 MG 600 MG le} 600 MG Primidone Primidone No 1{table QD Primidone 50 MG 50 MG t} 50 MG Aspir-81 81 Aspir-81 81 No 1{table QD Aspir-81 MG MG t} 81 MG Ipratropium Ipratropium No 2.5{ml} TID [place]rop[place] 0.02 % 0.02 % 0.02 % traZODone traZODone No 1{table QD traZODone HCl 100 MG HCl 100 MG t_at_be HCl 100 MG dtime} Atorvastati Atorvastati No Atorvastat n Calcium n Calcium in Calcium 20 MG 20 MG 20 MG ProAir ProAir No 1{puff_ 6xD ProAir RespiClick RespiClick as_need RespiClick 108 (90 108 (90 ed} 108 (90 Base) Base) Base) MCG/ACT MCG/ACT MCG/ACT Arformotero Arformotero No 2{ml} BID Arformoter l Tartrate l Tartrate ol 15 MCG/2ML 15 MCG/2ML Tartrate 15 MCG/2ML Stool Stool No Stool Softener Softener Softener traMADol traMADol No 1{table traMADol HCl 50 MG HCl 50 MG t_as_ne HCl 50 MG eded} Sertraline Sertraline No 1{table QD Sertraline HCl 100 MG HCl 100 MG t} HCl 100 MG Fluticasone Fluticasone No 1{puff} BID Fluticason -Salmeterol -Salmeterol e-Salmeter 250-50 250-50 ol 250-50 MCG/ACT MCG/ACT MCG/ACT Lisinopril Lisinopril No QD Lisinopril 20 MG 20 MG 20 MG Pregabalin Pregabalin No 1{capsu BID Pregabalin 75 MG 75 MG le} 75 MG Gabapentin Gabapentin No 1{capsu Gabapentin 600 MG 600 MG le} 600 MG Primidone Primidone No 1{table QD Primidone 50 MG 50 MG t} 50 MG Aspir-81 81 Aspir-81 81 No 1{table QD Aspir-81 MG MG t} 81 MG Ipratropium Ipratropium No 2.5{ml} TID [place]rop[place] 0.02 % 0.02 % 0.02 % traZODone traZODone No 1{table QD traZODone HCl 100 MG HCl 100 MG t_at_be HCl 100 MG dtime} Gabapentin Gabapentin No 1{capsu Gabapentin 600 MG 600 MG le} 600 MG traZODone traZODone No 1{table QD traZODone HCl 100 MG HCl 100 MG t_at_be HCl 100 MG dtime} Ipratropium Ipratropium No 2.5{ml} TID [place]rop[place] 0.02 % 0.02 % 0.02 % ProAir ProAir No 1{puff_ 6xD ProAir RespiClick RespiClick as_need RespiClick 108 (90 108 (90 ed} 108 (90 Base) Base) Base) MCG/ACT MCG/ACT MCG/ACT Stool Stool No Stool Softener Softener Softener Albuterol Albuterol No Albuterol Sulfate Sulfate Sulfate Fluticasone Fluticasone No 1{puff} BID Fluticason -Salmeterol -Salmeterol e-Salmeter 250-50 250-50 ol 250-50 MCG/ACT MCG/ACT MCG/ACT Atorvastati Atorvastati No Atorvastat n Calcium n Calcium in Calcium 20 MG 20 MG 20 MG Arformotero Arformotero No 2{ml} BID Arformoter l Tartrate l Tartrate ol 15 MCG/2ML 15 MCG/2ML Tartrate 15 MCG/2ML predniSONE predniSONE No predniSONE traMADol traMADol No 1{table traMADol HCl 50 MG HCl 50 MG t_as_ne HCl 50 MG eded} Lisinopril Lisinopril No QD Lisinopril 20 MG 20 MG 20 MG Aspir-81 81 Aspir-81 81 No 1{table QD Aspir-81 MG MG t} 81 MG Pregabalin Pregabalin No 1{capsu BID Pregabalin 75 MG 75 MG le} 75 MG Sertraline Sertraline No 1{table QD Sertraline HCl 100 MG HCl 100 MG t} HCl 100 MG Primidone Primidone No 1{table QD Primidone 50 MG 50 MG t} 50 MG Gabapentin Gabapentin No 1{capsu Gabapentin 600 MG 600 MG le} 600 MG traZODone traZODone No 1{table QD traZODone HCl 100 MG HCl 100 MG t_at_be HCl 100 MG dtime} Ipratropium Ipratropium No 2.5{ml} TID [place]rop[place] 0.02 % 0.02 % 0.02 % ProAir ProAir No 1{puff_ 6xD ProAir RespiClick RespiClick as_need RespiClick 108 (90 108 (90 ed} 108 (90 Base) Base) Base) MCG/ACT MCG/ACT MCG/ACT Stool Stool No Stool Softener Softener Softener Albuterol Albuterol No Albuterol Sulfate Sulfate Sulfate Fluticasone Fluticasone No 1{puff} BID Fluticason -Salmeterol -Salmeterol e-Salmeter 250-50 250-50 ol 250-50 MCG/ACT MCG/ACT MCG/ACT Atorvastati Atorvastati No Atorvastat n Calcium n Calcium in Calcium 20 MG 20 MG 20 MG Arformotero Arformotero No 2{ml} BID Arformoter l Tartrate l Tartrate ol 15 MCG/2ML 15 MCG/2ML Tartrate 15 MCG/2ML predniSONE predniSONE No predniSONE traMADol traMADol No 1{table traMADol HCl 50 MG HCl 50 MG t_as_ne HCl 50 MG eded} Lisinopril Lisinopril No QD Lisinopril 20 MG 20 MG 20 MG Aspir-81 81 Aspir-81 81 No 1{table QD Aspir-81 MG MG t} 81 MG Pregabalin Pregabalin No 1{capsu BID Pregabalin 75 MG 75 MG le} 75 MG Sertraline Sertraline No 1{table QD Sertraline HCl 100 MG HCl 100 MG t} HCl 100 MG Primidone Primidone No 1{table QD Primidone 50 MG 50 MG t} 50 MG Primidone Primidone No 1{table QD Primidone 50 MG 50 MG t} 50 MG Atorvastati Atorvastati No Atorvastat n Calcium n Calcium in Calcium 20 MG 20 MG 20 MG ProAir ProAir No 1{puff_ 6xD ProAir RespiClick RespiClick as_need RespiClick 108 (90 108 (90 ed} 108 (90 Base) Base) Base) MCG/ACT MCG/ACT MCG/ACT predniSONE predniSONE No 1{table predniSONE 10 MG 10 MG t} 10 MG Albuterol Albuterol No 2{puff_ Albuterol Sulfate 108 Sulfate 108 as_need Sulfate (90 Base) (90 Base) ed} 108 (90 MCG/ACT MCG/ACT Base) MCG/ACT Ipratropium Ipratropium No 2.5{ml} TID [place]rop[place] 0.02 % 0.02 % 0.02 % Arformotero Arformotero No 2{ml} BID Arformoter l Tartrate l Tartrate ol 15 MCG/2ML 15 MCG/2ML Tartrate 15 MCG/2ML Sertraline Sertraline No 1{table QD Sertraline HCl 100 MG HCl 100 MG t} HCl 100 MG traMADol traMADol No 1{table traMADol HCl 50 MG HCl 50 MG t_as_ne HCl 50 MG eded} Pregabalin Pregabalin No 1{capsu BID Pregabalin 75 MG 75 MG le} 75 MG Atorvastati Atorvastati No 1{table QD Atorvastat n Calcium n Calcium t} in Calcium 20 MG 20 MG 20 MG Stool Stool No Stool Softener Softener Softener Fluticasone Fluticasone No 1{puff} BID Fluticason -Salmeterol -Salmeterol e-Salmeter 250-50 250-50 ol 250-50 MCG/ACT MCG/ACT MCG/ACT Aspir-81 81 Aspir-81 81 No 1{table QD Aspir-81 MG MG t} 81 MG Gabapentin Gabapentin No 1{capsu BID Gabapentin 600 MG 600 MG le} 600 MG Ipratropium Ipratropium No 2.5{ml} TID [place]pratropiu [place] 0.02 % 0.02 % 0.02 % Aspir-81 81 Aspir-81 81 No 1{table QD Aspir-81 MG MG t} 81 MG Albuterol Albuterol No 2{puff_ Albuterol Sulfate 108 Sulfate 108 as_need Sulfate (90 Base) (90 Base) ed} 108 (90 MCG/ACT MCG/ACT Base) MCG/ACT Primidone Primidone No 1{table QD Primidone 50 MG 50 MG t} 50 MG Fluticasone Fluticasone No 1{puff} BID Fluticason -Salmeterol -Salmeterol e-Salmeter 250-50 250-50 ol 250-50 MCG/ACT MCG/ACT MCG/ACT traMADol traMADol No 1{table traMADol HCl 50 MG HCl 50 MG t_as_ne HCl 50 MG eded} Pregabalin Pregabalin No 1{capsu BID Pregabalin 75 MG 75 MG le} 75 MG Arformotero Arformotero No 2{ml} BID Arformoter l Tartrate l Tartrate ol 15 MCG/2ML 15 MCG/2ML Tartrate 15 MCG/2ML Gabapentin Gabapentin No 1{capsu BID Gabapentin 600 MG 600 MG le} 600 MG Atorvastati Atorvastati No 1{table QD Atorvastat n Calcium n Calcium t} in Calcium 20 MG 20 MG 20 MG Atorvastati Atorvastati No Atorvastat n Calcium n Calcium in Calcium 20 MG 20 MG 20 MG Sertraline Sertraline No 1{table QD Sertraline HCl 100 MG HCl 100 MG t} HCl 100 MG predniSONE predniSONE No 1{table predniSONE 10 MG 10 MG t} 10 MG Stool Stool No Stool Softener Softener Softener ProAir ProAir No 1{puff_ 6xD ProAir RespiClick RespiClick as_need RespiClick 108 (90 108 (90 ed} 108 (90 Base) Base) Base) MCG/ACT MCG/ACT MCG/ACT Ipratropium Ipratropium No 2.5{ml} TID Ipratropiu [place] 0.02 % 0.02 % 0.02 % Aspir-81 81 Aspir-81 81 No 1{table QD Aspir-81 MG MG t} 81 MG Albuterol Albuterol No 2{puff_ Albuterol Sulfate 108 Sulfate 108 as_need Sulfate (90 Base) (90 Base) ed} 108 (90 MCG/ACT MCG/ACT Base) MCG/ACT Primidone Primidone No 1{table QD Primidone 50 MG 50 MG t} 50 MG Fluticasone Fluticasone No 1{puff} BID Fluticason -Salmeterol -Salmeterol e-Salmeter 250-50 250-50 ol 250-50 MCG/ACT MCG/ACT MCG/ACT traMADol traMADol No 1{table traMADol HCl 50 MG HCl 50 MG t_as_ne HCl 50 MG eded} Pregabalin Pregabalin No 1{capsu BID Pregabalin 75 MG 75 MG le} 75 MG Arformotero Arformotero No 2{ml} BID Arformoter l Tartrate l Tartrate ol 15 MCG/2ML 15 MCG/2ML Tartrate 15 MCG/2ML Gabapentin Gabapentin No 1{capsu BID Gabapentin 600 MG 600 MG le} 600 MG Atorvastati Atorvastati No 1{table QD Atorvastat n Calcium n Calcium t} in Calcium 20 MG 20 MG 20 MG Atorvastati Atorvastati No Atorvastat n Calcium n Calcium in Calcium 20 MG 20 MG 20 MG Sertraline Sertraline No 1{table QD Sertraline HCl 100 MG HCl 100 MG t} HCl 100 MG predniSONE predniSONE No 1{table predniSONE 10 MG 10 MG t} 10 MG Stool Stool No Stool Softener Softener Softener ProAir ProAir No 1{puff_ 6xD ProAir RespiClick RespiClick as_need RespiClick 108 (90 108 (90 ed} 108 (90 Base) Base) Base) MCG/ACT MCG/ACT MCG/ACT ProAir ProAir No 1{puff_ 6xD ProAir RespiClick RespiClick as_need RespiClick 108 (90 108 (90 ed} 108 (90 Base) Base) Base) MCG/ACT MCG/ACT MCG/ACT Stool Stool No Stool Softener Softener Softener traMADol traMADol No 1{table traMADol HCl 50 MG HCl 50 MG t_as_ne HCl 50 MG eded} Albuterol Albuterol No 2{puff_ Albuterol Sulfate 108 Sulfate 108 as_need Sulfate (90 Base) (90 Base) ed} 108 (90 MCG/ACT MCG/ACT Base) MCG/ACT Ipratropium Ipratropium No 2.5{ml} TID Ipratropiu [place] 0.02 % 0.02 % 0.02 % Pregabalin Pregabalin No 1{capsu BID Pregabalin 75 MG 75 MG le} 75 MG Sertraline Sertraline No 1{table QD Sertraline HCl 100 MG HCl 100 MG t} HCl 100 MG Gabapentin Gabapentin No 1{capsu BID Gabapentin 600 MG 600 MG le} 600 MG Albuterol Albuterol No 3{ml_as QID Albuterol Sulfate Sulfate _needed Sulfate (2.5 (2.5 } (2.5 MG/3ML) MG/3ML) MG/3ML) 0.083% 0.083% 0.083% Arformotero Arformotero No 2{ml} BID Arformoter l Tartrate l Tartrate ol 15 MCG/2ML 15 MCG/2ML Tartrate 15 MCG/2ML Aspir-81 81 Aspir-81 81 No 1{table QD Aspir-81 MG MG t} 81 MG Rosuvastati Rosuvastati No Rosuvastat n Calcium 5 n Calcium 5 in Calcium MG MG 5 MG predniSONE predniSONE No 1{table predniSONE 10 MG 10 MG t} 10 MG Primidone Primidone No 1{table QD Primidone 50 MG 50 MG t} 50 MG Fluticasone Fluticasone No 1{puff} BID Fluticason -Salmeterol -Salmeterol e-Salmeter 250-50 250-50 ol 250-50 MCG/ACT MCG/ACT MCG/ACT ProAir ProAir No 1{puff_ 6xD ProAir RespiClick RespiClick as_need RespiClick 108 (90 108 (90 ed} 108 (90 Base) Base) Base) MCG/ACT MCG/ACT MCG/ACT Gabapentin Gabapentin No 1{capsu Gabapentin 300 MG 300 MG le} 300 MG traZODone traZODone No 1{table QD traZODone HCl 100 MG HCl 100 MG t_at_be HCl 100 MG dtime} Lisinopril Lisinopril No Lisinopril 20 MG 20 MG 20 MG Atorvastati Atorvastati No 1{table QD Atorvastat n Calcium n Calcium t} in Calcium 20 MG 20 MG 20 MG Fluticasone Fluticasone No 1{puff} BID Fluticason -Salmeterol -Salmeterol e-Salmeter 250-50 250-50 ol 250-50 MCG/ACT MCG/ACT MCG/ACT Primidone Primidone No 1{table QD Primidone 50 MG 50 MG t} 50 MG Lisinopril Lisinopril No QD Lisinopril 20 MG 20 MG 20 MG Sertraline Sertraline No 1{table QD Sertraline HCl 100 MG HCl 100 MG t} HCl 100 MG Sertraline Sertraline No Sertraline HCl 100 MG HCl 100 MG HCl 100 MG Pregabalin Pregabalin No 1{capsu BID Pregabalin 75 MG 75 MG le} 75 MG Stool Stool No Stool Softener Softener Softener Atorvastati Atorvastati No 1{table QD Atorvastat n Calcium n Calcium t} in Calcium 20 MG 20 MG 20 MG traMADol traMADol No 1{table traMADol HCl 50 MG HCl 50 MG t_as_ne HCl 50 MG eded} Aspir-81 81 Aspir-81 81 No 1{table QD Aspir-81 MG MG t} 81 MG Immunizations Ordered Immunization Filled Immunization Date Status Commen ts Source Name Name Pfizer COVID-19 Pfizer COVID-19 2021-03-06 [facility]:00 - [facility] Pfizer COVID-19 Pfizer COVID-19 2021-03-06 Completed [facility] 08:26:00 - [facility] Pfizer COVID-19 Pfizer COVID-19 2021-03-06 Completed [facility] Vaccine 08:26:00 - [facility] Pfizer COVID-19 Pfizer COVID-19 2021-03-06 Completed [facility] 08:26:00 - [facility] Pfizer COVID-19 Pfizer COVID-19 2021-03-06 Completed [facility] 08:26:00 - [facility] Pfizer COVID-19 Pfizer COVID-19 2021-03-06 Completed [facility] 08:26:00 - [facility] Pfizer COVID-19 Pfizer COVID-19 2021-03-06 Completed [facility] 08:26:00 [facility] Pfizer COVID-19 Pfizer COVID-19 2021-03-06 Completed [facility] Vaccine 08:26:00 [facility] Pfizer COVID-19 Pfizer COVID-19 2021-03-06 Completed [facility] Vaccine 08:26:00 [facility] Pfizer COVID-19 Pfizer COVID-19 2021-03-06 Completed [facility] 08:26:00 [facility] Pfizer COVID-19 Pfizer COVID-19 2021-03-06 Completed [facility] Vaccine 08:26:00 [facility] Pfizer COVID-19 Pfizer COVID-19 2021-03-06 Completed [facility] Vacc[facility] 08:26:00 - [facility] Pfizer COVID-19 Pfizer COVID-19 2021-03-06 Completed [facility] Vaccine 08:26:00 - [facility] Pfizer COVID-19 Pfizer COVID-19 2021-03-06 Completed [facility] Vaccine 08:26:00 [facility] Pfizer COVID-19 Pfizer COVID-19 2021-03-06 Completed [facility] Vaccine 08:26:00 [facility] Pfizer COVID-19 Pfizer COVID-19 2021-03-06 Completed [facility] Vaccine 08:26:00 [facility] Pfizer COVID-19 Pfizer COVID-19 2021-03-06 Completed [facility] Vaccine 08:26:00 [facility] Pfizer COVID-19 Pfizer COVID-19 2021-03-06 Completed [facility] Vaccine 08:26:00 [facility] Pfizer COVID-19 Pfizer COVID-19 2021-03-06 Completed [facility] Vaccine 08:26:00 [facility] Pfizer COVID-19 Pfizer COVID-19 2021-03-06 Completed [facility] Vacc[facility] 08:26:00 [facility] Pfizer COVID-19 Pfizer COVID-19 2021-03-06 Completed [facility] 08:26:00 - [facility] Pfizer COVID-19 Pfizer COVID-19 2021-03-06 Completed [facility]ine 08:26:00 - [facility] Pfizer COVID-19 Pfizer COVID-19 2021-03-06 Completed [facility]ine 08:26:00 - [facility] Pfizer COVID-19 Pfizer COVID-19 2021-03-06 Completed [facility] Vaccine 08:26:00 - [facility] Pfizer COVID-19 Pfizer COVID-19 2021-03-06 Completed [facility] Vaccine 08:26:00 - [facility] Pfizer COVID-19 Pfizer COVID-19 2021-03-06 Completed [facility] Vaccine 08:26:00 - [facility] Pfizer COVID-19 Pfizer COVID-19 2021-03-06 Completed [facility] Vaccine 08:26:00 - [facility] Pfizer COVID-19 Pfizer COVID-19 2021-03-06 Completed [facility] Vaccine 08:26:00 - [facility] Pfizer COVID-19 Pfizer COVID-19 2021-03-06 Completed [facility] 08:26:00 - [facility] FLUZONE HIGH DOSE FLUZONE HIGH DOSE 2021-03-06 [facility] OVER 65 OVER 65 08:25:00 [facility] FLUZONE HIGH DOSE FLUZONE HIGH DOSE 2021-03-06 Completed [facility] OVER 65 OVER 65 08:25:00 [facility] FLUZONE HIGH DOSE FLUZONE HIGH DOSE 2021-03-06 Completed [facility] OVER 65 OVER 65 08:25:00 [facility] FLUZONE HIGH DOSE FLUZONE HIGH DOSE 2021-03-06 Completed [facility] OVER 65 OVER 65 08:25:00 [facility] FLUZONE HIGH DOSE FLUZONE HIGH DOSE 2021-03-06 Completed [facility] OVER 65 OVER 65 08:25:00 [facility] FLUZONE HIGH DOSE FLUZONE HIGH DOSE 2021-03-06 Completed [facility] OVER 65 OVER 65 08:25:00 - [facility] FLUZONE HIGH DOSE FLUZONE HIGH DOSE 2021-03-06 Completed [facility] OVER 65 OVER 65 08:25:00 - [facility] FLUZONE HIGH DOSE FLUZONE HIGH DOSE 2021-03-06 Completed [facility] OVER 65 OVER 65 08:25:00 - [facility] FLUZONE HIGH DOSE FLUZONE HIGH DOSE 2021-03-06 Completed [facility] OVER 65 OVER 65 08:25:00 - [facility] FLUZONE HIGH DOSE FLUZONE HIGH DOSE 2021-03-06 Completed [facility] OVER 65 OVER 65 08:25:00 - [facility] FLUZONE HIGH DOSE FLUZONE HIGH DOSE 2021-03-06 Completed [facility] OVER 65 OVER 65 08:25:00 - [facility] FLUZONE HIGH DOSE FLUZONE HIGH DOSE 2021-03-06 Completed [facility] OVER 65 OVER 65 08:25:00 - [facility] FLUZONE HIGH DOSE FLUZONE HIGH DOSE 2021-03-06 Completed [facility] OVER 65 OVER 65 08:25:00 - [facility] FLUZONE HIGH DOSE FLUZONE HIGH DOSE 2021-03-06 Completed [facility] OVER 65 OVER 65 08:25:00 - [facility] FLUZONE HIGH DOSE FLUZONE HIGH DOSE 2021-03-06 Completed [facility] OVER 65 OVER 65 08:25:00 - [facility] FLUZONE HIGH DOSE FLUZONE HIGH DOSE 2021-03-06 Completed [facility] OVER 65 OVER 65 08:25:00 - [facility] FLUZONE HIGH DOSE FLUZONE HIGH DOSE 2021-03-06 Completed [facility] OVER 65 OVER 65 08:25:00 - [facility] FLUZONE HIGH DOSE FLUZONE HIGH DOSE 2021-03-06 Completed [facility] OVER 65 OVER 65 08:25:00 - [facility] FLUZONE HIGH DOSE FLUZONE HIGH DOSE 2021-03-06 Completed [facility] OVER 65 OVER 65 08:25:00 [facility] FLUZONE HIGH DOSE FLUZONE HIGH DOSE 2021-03-06 Completed [facility] OVER 65 OVER 65 08:25:00 - [facility] FLUZONE HIGH DOSE FLUZONE HIGH DOSE 2021-03-06 Completed [facility] OVER 65 OVER 65 08:25:00 - [facility] FLUZONE HIGH DOSE FLUZONE HIGH DOSE 2021-03-06 Completed [facility] OVER 65 OVER 65 08:25:00 - [facility] FLUZONE HIGH DOSE FLUZONE HIGH DOSE 2021-03-06 Completed [facility] OVER 65 OVER 65 08:25:00 - [facility] FLUZONE HIGH DOSE FLUZONE HIGH DOSE 2021-03-06 Completed [facility] OVER 65 OVER 65 08:25:00 - [facility] FLUZONE HIGH DOSE FLUZONE HIGH DOSE 2021-03-06 Completed [facility] OVER 65 OVER 65 08:25:00 - [facility] FLUZONE HIGH DOSE FLUZONE HIGH DOSE 2021-03-06 Completed [facility] OVER 65 OVER 65 08:25:00 - [facility] FLUZONE HIGH DOSE FLUZONE HIGH DOSE 2021-03-06 Completed [facility] OVER 65 OVER 65 08:25:00 - [facility] FLUZONE HIGH DOSE FLUZONE HIGH DOSE 2021-03-06 Completed [facility] OVER 65 OVER 65 08:25:00 - [facility] FLUZONE HIGH DOSE FLUZONE HIGH DOSE 2021-03-06 Completed [facility] OVER 65 OVER 65 08:25:00 [facility] Pfizer COVID-19 Pfizer COVID-19 2020-08-13 Completed [facility] Vaccine Vaccine 08:26:00 [facility] Pfizer COVID-19 Pfizer COVID-19 2020-08-13 Completed [facility] Vaccine 08:26:00 [facility] Pfizer COVID-19 Pfizer COVID-19 2020-08-13 Completed [facility] Vaccine 08:26:00 [facility] Pfizer COVID-19 Pfizer COVID-19 2020-08-13 Completed [facility] Vaccine 08:26:00 [facility] Pfizer COVID-19 Pfizer COVID-19 2020-08-13 Completed [facility] Vaccine 08:26:00 [facility] Pfizer COVID-19 Pfizer COVID-19 2020-08-13 Completed [facility] Vaccine 08:26:00 - [facility] Pfizer COVID-19 Pfizer COVID-19 2020-08-13 Completed [facility]ine Vaccine 08:26:00 [facility] Pfizer COVID-19 Pfizer COVID-19 2020-08-13 Completed [facility] Vaccine Vaccine 08:26:00 [facility] Pfizer COVID-19 Pfizer COVID-19 2020-08-13 Completed [facility]ine Vaccine 08:26:00 [facility] Pfizer COVID-19 Pfizer COVID-19 2020-08-13 Completed [facility] Vaccine 08:26:00 [facility] Pfizer COVID-19 Pfizer COVID-19 2020-08-13 Completed [facility]ine Vaccine 08:26:00 [facility] Pfizer COVID-19 Pfizer COVID-19 2020-08-13 Completed [facility]ine Vaccine 08:26:00 [facility] Pfizer COVID-19 Pfizer COVID-19 2020-08-13 Completed [facility] Vaccine Vaccine 08:26:00 [facility] Pfizer COVID-19 Pfizer COVID-19 2020-08-13 Completed [facility]ine Vaccine 08:26:00 [facility] Pfizer COVID-19 Pfizer COVID-19 2020-08-13 Completed [facility] Vaccine Vaccine 08:26:00 [facility] Pfizer COVID-19 Pfizer COVID-19 2020-08-13 Completed [facility] Vaccine Vaccine 08:26:00 [facility] Pfizer COVID-19 Pfizer COVID-19 2020-08-13 Completed [facility] Vaccine Vaccine 08:26:00 [facility] Pfizer COVID-19 Pfizer COVID-19 2020-08-13 Completed [facility] Vaccine Vaccine 08:26:00 [facility] Pfizer COVID-19 Pfizer COVID-19 2020-08-13 Completed [facility] Vaccine Vaccine 08:26:00 [facility] Pfizer COVID-19 Pfizer COVID-19 2020-08-13 Completed [facility] Vaccine Vaccine 08:26:00 [facility] Pfizer COVID-19 Pfizer COVID-19 2020-08-13 Completed [facility] Vaccine Vaccine 08:26:00 - [facility] Pfizer COVID-19 Pfizer COVID-19 2020-08-13 Completed [facility] Vaccine Vaccine 08:26:00 [facility] Pfizer COVID-19 Pfizer COVID-19 2020-08-13 Completed [facility] Vaccine Vaccine 08:26:00 [facility] Pfizer COVID-19 Pfizer COVID-19 2020-08-13 Completed [facility] Vaccine Vaccine 08:26:00 - [facility] Pfizer COVID-19 Pfizer COVID-19 2020-08-13 Completed [facility] Vaccine Vaccine 08:26:00 [facility] Pfizer COVID-19 Pfizer COVID-19 2020-08-13 Completed [facility] Vaccine Vaccine 08:26:00 [facility] Pfizer COVID-19 Pfizer COVID-19 2020-08-13 Completed [facility] Vaccine Vaccine 08:26:00 [facility] Pfizer COVID-19 Pfizer COVID-19 2020-08-13 Completed [facility] Vaccine Vaccine 08:26:00 [facility] Pfizer COVID-19 Pfizer COVID-19 2020-08-13 Completed [facility] Vaccine Vaccine 08:26:00 [facility] Pfizer COVID-19 Pfizer COVID-19 2020-06-27 Completed [facility] Vaccine Vaccine 08:25:00 [facility] Pfizer COVID-19 Pfizer COVID-19 2020-06-27 Completed [facility] Vaccine Vaccine 08:25:00 [facility] Pfizer COVID-19 Pfizer COVID-19 2020-06-27 Completed [facility] Vaccine Vaccine 08:25:00 [facility] Pfizer COVID-19 Pfizer COVID-19 2020-06-27 Completed [facility] Vaccine Vaccine 08:25:00 [facility] Pfizer COVID-19 Pfizer COVID-19 2020-06-27 Completed [facility] Vaccine Vaccine 08:25:00 [facility] Pfizer COVID-19 Pfizer COVID-19 2020-06-27 Completed [facility] Vaccine Vaccine 08:25:00 [facility] Pfizer COVID-19 Pfizer COVID-19 2020-06-27 Completed [facility] Vaccine Vaccine 08:25:00 - [facility] Pfizer COVID-19 Pfizer COVID-19 2020-06-27 Completed [facility] Vaccine Vaccine 08:25:00 - [facility] Pfizer COVID-19 Pfizer COVID-19 2020-06-27 Completed [facility] Vaccine Vaccine 08:25:00 - [facility] Pfizer COVID-19 Pfizer COVID-19 2020-06-27 Completed [facility] Vaccine Vaccine 08:25:00 - [facility] Pfizer COVID-19 Pfizer COVID-19 2020-06-27 Completed [facility] Vaccine Vaccine 08:25:00 - [facility] Pfizer COVID-19 Pfizer COVID-19 2020-06-27 Completed [facility] Vaccine Vaccine 08:25:00 - [facility] Pfizer COVID-19 Pfizer COVID-19 2020-06-27 Completed [facility] Vaccine Vaccine 08:25:00 - [facility] Pfizer COVID-19 Pfizer COVID-19 2020-06-27 Completed [facility] Vaccine Vaccine 08:25:00 - [facility] Pfizer COVID-19 Pfizer COVID-19 2020-06-27 Completed [facility] Vaccine Vaccine 08:25:00 - [facility] Pfizer COVID-19 Pfizer COVID-19 2020-06-27 Completed [facility] Vaccine Vaccine 08:25:00 - [facility] Pfizer COVID-19 Pfizer COVID-19 2020-06-27 Completed [facility] Vaccine Vaccine 08:25:00 - [facility] Pfizer COVID-19 Pfizer COVID-19 2020-06-27 Completed [facility] Vaccine Vaccine 08:25:00 - [facility] Pfizer COVID-19 Pfizer COVID-19 2020-06-27 Completed [facility] Vaccine Vaccine 08:25:00 - [facility] Pfizer COVID-19 Pfizer COVID-19 2020-06-27 Completed [facility] Vaccine Vaccine 08:25:00 - [facility] Pfizer COVID-19 Pfizer COVID-19 2020-06-27 Completed [facility] Vaccine Vaccine 08:25:00 - [facility] Pfizer COVID-19 Pfizer COVID-19 2020-06-27 Completed [facility] Vaccine Vaccine 08:25:00 - [facility] Pfizer COVID-19 Pfizer COVID-19 2020-06-27 Completed [facility] Vaccine Vaccine 08:25:00 [facility] Pfizer COVID-19 Pfizer COVID-19 2020-06-27 Completed [facility] Vaccine Vaccine 08:25:00 - [facility] Pfizer COVID-19 Pfizer COVID-19 2020-06-27 Completed [facility] Vaccine Vaccine 08:25:00 [facility] Pfizer COVID-19 Pfizer COVID-19 2020-06-27 Completed [facility] Vaccine Vaccine 08:25:00 - [facility] Pfizer COVID-19 Pfizer COVID-19 2020-06-27 Completed [facility] Vaccine Vaccine 08:25:00 - [facility] Pfizer COVID-19 Pfizer COVID-19 2020-06-27 Completed [facility] Vaccine Vaccine 08:25:00 - [facility] Pfizer COVID-19 Pfizer COVID-19 2020-06-27 Completed [facility] Vaccine Vaccine 08:25:00 [facility] Vital Signs Vital Name Observation Time Observation Value Comments Source Height 2022-08-10 00:00:00 65 [in_i] [facility] BMI (Body Mass 2022-08-10 00:00:00 34.1 kg/m2 [facility] Body Weight 2022-08-10 00:00:00 205 [lb_av] [facility] height 2022-04-30 11:00:00 65.00 [in_i] [facility] weight 2022-04-30 11:00:00 200 [lb_av] [facility] temperature 2022-04-30 11:00:00 97.6 [degF] [facility] bmi 2022-04-30 11:00:00 33.28 kg/m2 [facility] blood pressure 2022-04-30 11:00:00 139 mm[Hg] [facility] - systolic [facility] blood pressure 2022-04-30 11:00:00 84 mm[Hg] [facility] - diastolic [facility] Height 2022-04-22 00:00:00 65 [in_i] [facility] BMI (Body Mass 2022-04-22 00:00:00 46.6 kg/m2 [facility] Body Weight 2022-04-22 00:00:00 280 [lb_av] [facility] height 2022-04-13 09:00:00 65.00 [in_i] [facility] weight 2022-04-13 09:00:00 208.4 [lb_av] [facility] temperature 2022-04-13 09:00:00 97.3 [degF] [facility] bmi 2022-04-13 09:00:00 34.68 kg/m2 [facility] oximetry 2022-04-13 09:00:00 95 % [facility] respiratory rate 2022-04-13 09:00:00 17 /min [facility] blood pressure 2022-04-13 09:00:00 139 mm[Hg] [facility] - systolic [facility] blood pressure 2022-04-13 09:00:00 84 mm[Hg] [facility] - diastolic [facility] height 2022-03-30 10:00:00 65.00 [in_i] [facility] weight 2022-03-30 10:00:00 207 [lb_av] [facility] temperature 2022-03-30 10:00:00 98.0 [degF] [facility] bmi 2022-03-30 10:00:00 34.44 kg/m2 [facility] blood pressure 2022-03-30 10:00:00 130 mm[Hg] [facility] - systolic [facility] blood pressure 2022-03-30 10:00:00 72 mm[Hg] [facility] - diastolic [facility] height 2022-02-11 13:20:00 65.00 [in_i] [facility] weight 2022-02-11 13:20:00 204 [lb_av] [facility] temperature 2022-02-11 13:20:00 98.1 [degF] [facility] bmi 2022-02-11 13:20:00 33.94 kg/m2 [facility] oximetry 2022-02-11 13:20:00 100 % [facility] respiratory rate 2022-02-11 13:20:00 17 /min [facility] blood pressure 2022-02-11 13:20:00 131 mm[Hg] [facility] - systolic [facility] blood pressure 2022-02-11 13:20:00 64 mm[Hg] [facility] - diastolic [facility] height 2022-01-09 09:40:00 65.00 [in_i] [facility] weight 2022-01-09 09:40:00 208.2 [lb_av] [facility] temperature 2022-01-09 09:40:00 97.5 [degF] [facility] bmi 2022-01-09 09:40:00 34.64 kg/m2 [facility] oximetry 2022-01-09 09:40:00 95 % [facility] respiratory rate 2022-01-09 09:40:00 17 /min [facility] blood pressure 2022-01-09 09:40:00 116 mm[Hg] [facility] - systolic [facility] blood pressure 2022-01-09 09:40:00 63 mm[Hg] [facility] - diastolic [facility] height 2021-11-19 09:00:00 65.00 [in_i] [facility] weight 2021-11-19 09:00:00 208.6 [lb_av] [facility] temperature 2021-11-19 09:00:00 98.3 [degF] [facility] bmi 2021-11-19 09:00:00 34.71 kg/m2 [facility] oximetry 2021-11-19 09:00:00 96 % [facility] respiratory rate 2021-11-19 09:00:00 18 /min [facility] blood pressure 2021-11-19 09:00:00 124 mm[Hg] [facility] systolic [facility] blood pressure 2021-11-19 09:00:00 59 mm[Hg] [facility] - diastolic [facility] height 2021-10-27 09:20:00 65.00 [in_i] [facility] weight 2021-10-27 09:20:00 204.8 [lb_av] [facility] temperature 2021-10-27 09:20:00 97.2 [degF] [facility] bmi 2021-10-27 09:20:00 34.08 kg/m2 [facility] oximetry 2021-10-27 09:20:00 98 % [facility] respiratory rate 2021-10-27 09:20:00 17 /min [facility] blood pressure 2021-10-27 09:20:00 125 mm[Hg] [facility] - systolic [facility] blood pressure 2021-10-27 09:20:00 66 mm[Hg] [facility] - diastolic [facility] height 2021-09-30 08:20:00 65.00 [in_i] [facility] weight 2021-09-30 08:20:00 199.0 [lb_av] [facility] temperature 2021-09-30 08:20:00 97.4 [degF] [facility] bmi 2021-09-30 08:20:00 33.11 kg/m2 [facility] oximetry 2021-09-30 08:20:00 96 % [facility] respiratory rate 2021-09-30 08:20:00 16 /min [facility] blood pressure 2021-09-30 08:20:00 123 mm[Hg] [facility] - systolic [facility] blood pressure 2021-09-30 08:20:00 67 mm[Hg] [facility] - diastolic [facility] height 2021-09-30 08:20:00 65.00 [in_i] [facility] weight 2021-09-30 08:20:00 199.0 [lb_av] [facility] temperature 2021-09-30 08:20:00 97.4 [degF] [facility] bmi 2021-09-30 08:20:00 33.11 kg/m2 [facility] oximetry 2021-09-30 08:20:00 96 % [facility] respiratory rate 2021-09-30 08:20:00 16 /min [facility] blood pressure 2021-09-30 08:20:00 123 mm[Hg] [facility] - systolic [facility] blood pressure 2021-09-30 08:20:00 67 mm[Hg] Common [facility] - diastolic [facility] height 2021-03-17 08:00:00 65.00 [in_i] Common [facility] weight 2021-03-17 08:00:00 198.8 [lb_av] [facility] temperature 2021-03-17 08:00:00 97.0 [degF] [facility] bmi 2021-03-17 08:00:00 33.08 kg/m2 Common [facility] oximetry 2021-03-17 08:00:00 95 % Common [facility] respiratory rate 2021-03-17 08:00:00 18 /min Comm on [facility] blood pressure 2021-03-17 08:00:00 120 mm[Hg] Common [facility] - systolic [facility] blood pressure 2021-03-17 08:00:00 82 mm[Hg] Common [facility] - diastolic [facility] Procedures Procedure Date / Time Performed Performing Clinician Edgar e XR, knee, 3 view 2022-04-22 00:00:00 Jaida Adams opedic Sports Medicine Plan of Care Planned Activity Planned Date Details Comments Source Instructions Jaida Daileyed ic Sports Medicine Encounters Start End Encounter Admission Attending Care Care Encounter Source Date/Time Date/Time Type Type Clinicians Facility Department ID 2022-04-28 Outpatient Mckeon, STLMLC STLMLC [id number] Common 14:46:01 Avnee [facility] 2022-03-23 Outpatient Mckeon, STLMLC STLMLC [id number] Common 13:22:01 Avnee [facility] 2022-03-18 Outpatient Mckeon, STLMLC STLMLC [id number] Common 15:16:01 Avnee [facility] 2022-03-17 Outpatient Mckeon, STLMLC STLMLC [id number] Common 10:06:01 Avnee [facility] 2022-01-08 Outpatient Mckeon, STLMLC STLMLC [id number] Common 10:56:01 Avnee [facility] 2022-01-07 Outpatient Mckeon, STLMLC STLMLC [id number] Common 10:04:00 Avnee [facility] 2021-09-29 Outpatient Mckeon, STLMLC STLMLC [id number] Common 15:48:01 Avnee [facility] 2021-06-27 Outpatient Mckeon, STLMLC [facility] [id number] Common 13:32:02 Avnee [facility] 2021-06-11 [facility] [id number] Common 12:53:14 Avnee [id number] [facility] 2022-10-16 2022-10-16 Outpatient FOG_Goytia_ AOSM AOSM [id number] Jaida 00:00:00 00:00:00 Sridhar [id number] Ortho pe dic [facility] 2022-09-18 2022-09-18 [facility] [place] - [place] [id number] Jaida 00:00:00 00:00:00 [facility] MD: [id number] FOG_Ofc dic [facility] Alex [address] [place] [address] , Ph. [phone] 2022-08-31 2022-08-31 Outpatient LIZZIE, MHFB MHFB [id number] MHFB 05:40:00 13:50:00 [place] 2022-08-31 2022-08-31 [facility] [place] - Ortho [id number] Jaida 00:00:00 00:00:00 [facility] MD: [id number], [place], [place] [address] , Ph. [phone] 2022-08-24 2022-08-24 Outpatient FOG_Goytia_ AOSM AOSM [id number] Jaida 00:00:00 00:00:00 Sridhar [id number] Ortho pe dic [facility] 2022-08-24 2022-08-24 Outpatient FOG_Goytia_ AOSM AOSM [id number] Jaida 00:00:00 00:00:00 Sridhar [id number] Ortho pe dic [facility] 2022-08-24 2022-08-24 Outpatient FOG_Goytia_ AOSM AOSM [id number] Jaida 00:00:00 00:00:00 Sridhar [id number] Ortho pe dic Sports Medicin e 2022-08-24 2022-08-24 Outpatient FOG_Goytia_ AOSM AOSM [id number] Jaida 00:00:00 00:00:00 Sridhar [id number] Ortho pe dic Sports Medicin e 2022-08-24 2022-08-24 Outpatient FOG_Goytia_ AOSM AOSM [id number] Jaida 00:00:00 00:00:00 Sridhar [id number] Ortho pe dic [facility] 2022-08-24 2022-08-24 Outpatient FOG_Goytia_ AOSM AOSM [id number] Jaida 00:00:00 00:00:00 Sridhar [id number] Ortho pe dic Sports Medicin [facility] 2022-08-24 2022-08-24 Outpatient FOG_Goytia_ AOSM AOSM [id number] Jaida 00:00:00 00:00:00 Sridhar [id number] Ortho pe dic Sports Medicin e 2022-08-10 2022-08-10 Outpatient FOG_Goytia_ AOSM AOSM [id number] Jaida 00:00:00 00:00:00 Sridhar [id number] Ortho pe dic Sports Medicin e 2022-08-10 2022-08-10 [facility] [place] - [place] [id number] Jaida 00:00:00 00:00:00 [facility] MD: [id number] FOG_Ofc dic [facility] [address] [place] [address] , Ph. [phone] 2022-08-08 2022-08-08 Outpatient FOG_Goytia_ AOSM AOSM [id number] Jaida 00:00:00 00:00:00 Sridhar [id number] Ortho pe dic Sports Medicin e 2022-07-27 2022-07-27 Outpatient FOG_Goytia_ AOSM AOSM [id number] Jaida 00:00:00 00:00:00 Sridhar [id number] Ortho pe dic Sports Medicin e 2022-07-27 2022-07-27 Outpatient FOG_Goytia_ AOSM AOSM [id number] Jaida 00:00:00 00:00:00 Sridhar [id number] Ortho pe dic Sports Medicin e 2022-07-27 2022-07-27 Outpatient FOG_Goytia_ AOSM AOSM [id number] Jaida 00:00:00 00:00:00 Sridhar [id number] Ortho pe dic Sports Medicin e 2022-07-21 2022-07-21 Outpatient Sabine, HCACL LABO [id number] [facility] 16:12:00 16:12:00 Mahad 69 [facility] 2022-07-21 2022-07-21 Outpatient EL Sabine, HCATO LABO [id number] [facility] 08:00:00 09:00:00 Mahad [facility] 2022-06-22 2022-06-22 (TEL) STLC STLC [id number] Co mmon 00:00:00 00:00:00 [facility] 2022-04-30 2022-04-30 Outpatient FOG_Goytia_ AOSM AOSM [id number] Jaida 00:00:00 00:00:00 Sridhar [id number] Ortho pe dic Sports Medicin e 2022-04-30 2022-04-30 Outpatient FOG_Goytia_ AOSM AOSM [id number] Jaida 00:00:00 00:00:00 Sridhar [id number] Ortho pe dic Sports Medicin e 2022-04-30 2022-04-30 Outpatient FOG_Goytia_ AOSM AOSM [id number] Jaida 00:00:00 00:00:00 Sridhar [id number] Ortho pe dic Sports Medicin e 2022-04-30 2022-04-30 OFFICE STLMLC STLMLC [id number] Co mmon 00:00:00 00:00:00 VISIT EST Spir it PT LEVEL 3 [facility] 2022-04-23 2022-04-23 Outpatient FOG_Goytia_ AOSM AOSM [id number] Jaida 00:00:00 00:00:00 Sridhar [id number] Ortho pe dic Sports Medicin e 2022-04-22 2022-04-22 Outpatient FOG_Goytia_ AOSM AOSM [id number] Jaida 00:00:00 00:00:00 Sridhar [id number] Ortho pe dic Sports Medicin [facility] 2022-04-22 2022-04-22 Mahad N [facility]OSM [place] - [place] [id number] Jaida 00:00:00 00:00:00 Peggy Regalado MD: [id number] FOG_Ofc dic [address], [place] [address] , Ph. [phone] 2022-04-21 2022-04-21 Outpatient FOG_Goytia_ AOSM AOSM [id number] Jaida 00:00:00 00:00:00 Sridhar [id number] Ortho pe dic Sports Medicin e 2022-04-13 2022-04-13 OFFICE STLC STLMLC [id number] Co mmon 00:00:00 00:00:00 VISIT Spirit ESTAB PT - CHI LEVEL 4 [facility] 2022-04-08 2022-04-08 Outpatient FOG_Goytia_ AOSM AOSM [id number] Jaida 00:00:00 00:00:00 Sridhar [id number] Ortho pe dic Sports Medicin e 2022-04-01 2022-04-01 Outpatient FOG_Goytia_ AOSM AOSM [id number] Jaida 00:00:00 00:00:00 Sridhar [id number] Ortho pe dic Sports Medicin e 2022-03-31 2022-03-31 (TEL) STLMLC STLMLC [id number] Co mmon 00:00:00 00:00:00 [facility] 2022-03-30 2022-03-30 OFFICE STLMLC STLMLC [id number] Co mmon 00:00:00 00:00:00 VISIT EST Spir it PT LEVEL 3 - [facility] 2022-03-17 2022-03-17 (TEL) STLMLC STLMLC [id number] Co mmon 00:00:00 00:00:00 [facility] 2022-03-10 2022-03-10 (TEL) STLMLC STLMLC [id number] Co mmon 00:00:00 00:00:00 [facility] 2022-02-12 2022-02-12 (TEL) STLMLC STLMLC [id number] Co mmon 00:00:00 00:00:00 [facility] 2022-02-11 2022-02-11 OFFICE STLMLC STLMLC [id number] Co mmon 00:00:00 00:00:00 VISIT [facility] PT - CHI LEVEL 4 [facility] 2022-02-04 2022-02-04 (TEL) STLMLC STLMLC [id number] Co mmon 00:00:00 00:00:00 [facility] 2022-01-30 2022-01-30 (TEL) STLMLC STLMLC [id number] Co mmon 00:00:00 00:00:00 [facility] 2022-01-27 2022-01-27 (TEL) STLMLC STLMLC [id number] Co mmon 00:00:00 00:00:00 [facility] 2022-01-09 2022-01-09 OFFICE STLMLC STLMLC [id number] Co mmon 00:00:00 00:00:00 VISIT [facility] PT - CHI LEVEL 4 [facility] 2021-12-23 2021-12-23 (TEL) STLMLC STLMLC [id number] Co mmon 00:00:00 00:00:00 [facility] 2021-11-19 2021-11-19 OFFICE STLMLC STLMLC [id number] Co mmon 00:00:00 00:00:00 VISIT [facility] PT - CHI LEVEL 4 [facility] 2021-11-10 2021-11-10 (TEL) STLMLC STLMLC [id number] Co mmon 00:00:00 00:00:00 [facility] 2021-11-06 2021-11-06 (TEL) STLMLC STLMLC [id number] Co mmon 00:00:00 00:00:00 [facility] 2021-11-06 2021-11-06 (TEL) STLMLC STLMLC [id number] Co mmon 00:00:00 00:00:00 [facility] 2021-10-30 2021-10-30 (TEL) STLMLC STLMLC [id number] Co mmon 00:00:00 00:00:00 [facility] 2021-10-27 2021-10-27 OFFICE STLMLC STLMLC [id number] Co mmon 00:00:00 00:00:00 VISIT EST Spir it PT LEVEL 3 [facility] 2021-10-02 2021-10-02 (TEL) STLMLC STLMLC [id number] Co mmon 00:00:00 00:00:00 [facility] 2021-09-30 2021-09-30 (MCR WELL) STLMLC STLMLC [id number] Common 00:00:00 00:00:00 Medicare Spiri t Wellness [facility] 2021-09-30 2021-09-30 OFFICE STLMLC STLMLC [id number] Co mmon 00:00:00 00:00:00 VISIT [facility] PT - [facility] LEVEL 4 [facility] 2021-06-16 2021-06-16 (TEL) STLMLC STLMLC [id number] Co mmon 00:00:00 00:00:00 [facility] 2021-03-17 2021-03-17 OFFICE STLMLC STLMLC [id number] Co mmon 00:00:00 00:00:00 VISIT EST Spir it PT LEVEL 3 - [facility] 2021-03-17 2021-03-17 (TEL) STLMLC STLMLC [id number] Co mmon 00:00:00 00:00:00 [facility] 2020-12-17 2020-12-17 Outpatient STLMLC STLMLC [id number] Common 00:00:00 00:00:00 [facility] 2020-12-12 2020-12-12 Outpatient STLMLC STLMLC [id number] Common 00:00:00 00:00:00 [facility] 2020-11-20 2020-11-20 Outpatient STLMLC STLMLC [id number] Common 00:00:00 00:00:00 [facility] 2020-11-04 2020-11-04 Outpatient STLMLC STLMLC [id number] Common 00:00:00 00:00:00 [facility] 2020-10-08 2020-10-08 Outpatient STLMLC STLMLC [id number] Common 00:00:00 00:00:00 [facility] 2020-10-07 2020-10-07 Outpatient STLMLC STLMLC [id number] Common 00:00:00 00:00:00 [facility] 2020-10-04 2020-10-04 Outpatient STLMLC STLMLC [id number] Common 00:00:00 00:00:00 [facility] 2020-09-16 2020-09-16 Outpatient STLMLC STLMLC [id number] Common 00:00:00 00:00:00 [facility] 2020-09-13 2020-09-13 Outpatient STLMLC STLMLC [id number] Common 00:00:00 00:00:00 [facility] 2020-09-13 2020-09-13 Outpatient STLMLC STLMLC [id number] Common 00:00:00 00:00:00 [facility] 2020-09-03 2020-09-03 Outpatient STLMLC STLMLC [id number] Common 00:00:00 00:00:00 [facility] 2020-09-03 2020-09-03 Outpatient STLMLC STLMLC [id number] Common 00:00:00 00:00:00 [facility] 2020-09-02 2020-09-02 Outpatient STLMLC STLMLC [id number] Common 00:00:00 00:00:00 [facility] 2020-09-02 2020-09-02 Outpatient STLMLC STLMLC [id number] Common 00:00:00 00:00:00 [facility] 2020-08-13 2020-08-13 Outpatient Paula GUAJARDO [facility] [id number] [facility] 11:50:00 11:34:24 MASSIEL itvalerie of [facility] 2020-07-11 2020-07-11 Outpatient R CHANCE, [facility] [id number] [facility] 16:40:00 16:42:58 IMELDA carlos [facility] Results Test Description Test Time Test Comments Results Result Comments Source COMPREHENSIVE METABOLIC PANEL 2022-07-21 14:27:00 Test Item Value Reference Range Interpretation Comme nts SODIUM (test code = NA) 142 mmol/L 136-145 N POTASSIUM (test code = K) 3.7 mmol/L 3.5-5.1 N CHLORIDE (test code = CL) 101.0 mmol/L 98-107 N CARBON DIOXIDE (test code = 33.0 mmol/L 21-32 H CO2) GLUCOSE (test code = GLU) 79 mg/dL 70-110 N BLOOD UREA NITROGEN (test 11 mg/dL 7-18 N code = BUN) GLOMERULAR FILTRATION RATE 59.3 >60 T he Glomerular Filtration Rate (test code = GFR) is a calcu lated parameterbased on serum Creati nine, patient age and sex. GF R valuesless than 60 mL/min/ 1.73 square meters are andre cative ofChronic Kidney Disease. Values less than 15 mL/min/ 1.73square meters indicate Kidney failure. The calculation forGFR is based on the CKD-EPI (2020) calculation. Th is formulais race indifferen t and is the recommended for festus for GFRby the National [facility] for Adults.The GFR will not calculate if th e sex is unknown or if thepatien t's age is <18 years. CREATININE (test code = 1.04 mg/dL 0.55-1.30 N CREAT) TOTAL PROTEIN (test code = 7.4 g/dL 6.4-8.2 N PROT) ALBUMIN (test code = ALB) 3.9 g/dL 3.4-5.0 N GLOBULIN (test code = GLOB) 3.5 g/dL 2.2-4.2 N ALBUMIN/GLOBULIN RATIO (test 1.1 0.7-2.0 N code = A/G) CALCIUM (test code = CA) 9.2 mg/dL 8.2-10.1 N BILIRUBIN TOTAL (test code = 0.40 mg/dL 0.2-1.00 N BILT) SGOT/AST (test code = AST) 25.0 U/L 15-37 N SGPT/ALT (test code = ALT) 20.0 U/L 12-78 N ALKALINE PHOSPHATASE TOTAL 135 U/L 46-116 H (test code = ALKP) PROTHROMBIN [id number] 14:18:00 Test Item Value Reference Range Interpretation Comments PROTHROMBIN TIME 11.4 secs 10.1-12.5 N Please note new normal PATIENT (test code = range. PTP) INTERNATIONAL NORMAL 0.99 <2.0 RECOMME NDED THERAPEUTIC RATIO (test code = RANGE FOR ORAL INR) ANTICOAGULANTTR EATMENT: CONDITION INRPr ophylaxis of venous throm bosis in 2.0 - 3.0 high- risk medical or surg ical patientsTreatme nt of venous thrombos is 2.0 - 3.0Prevention o f embolism 2.0 - 3.0Prevention o f recurrent embol ism, or 3.0 - 4.5 patie nts with mechanical pros thetic intravascular v dasilva IS PATIENT ON ANTICOAGULANTS ? YLIST ANTICOAGULANT/ANTI PLT MEDICATION : AspirinHas Lab been notified if Patient is on Heparin Drip? NOTHROMBOPLASTIN TIME [id number] 14:18:00 Test Item Value Reference Range Interpretation Comments PTT ACTIVATED (test 33.1 secs 24.9-37.0 N Please n ote new code = APTT) normal range. IS PATIENT ON ANTICOAGULANTS ? YLIST ANTICOAGULANT/ANTI PLT MEDICATION : AspirinHas Lab been notified if Patient is on Heparin Drip? NOCBC W/AUTO DIFF 2022-07-21 14:02:00 Test Item Value Reference Range Interpretation Comments WHITE BLOOD CELL (test code = WBC) 6.9 K/mm3 5.8-11.0 N RED BLOOD CELL (test code = RBC) 4.00 M/mm3 4.2-5.4 L HEMOGLOBIN (test code = HGB) 12.2 g/dL 12-16 N HEMATOCRIT (test code = HCT) 39.0 % 37-47 N MEAN CELL VOLUME (test code = MCV) 98 fL 80-98 N MEAN CELL HGB (test code = MCH) 30.5 pg 27-34 N MEAN CELL HGB CONCENTRATION (test 31.3 g/dL 30.8-34.1 N code = MCHC) RED CELL DISTRIBUTION WIDTH (test 12.8 % 11-16 N code = RDW) PLT (test code = PLT) 350 K/mm3 130-400 N MEAN PLATELET VOLUME (test code = 10.5 fL 8.9-12.1 N MPV) NEUTROPHIL % (test code = NT%) 60.4 % 45-70 N LYMPHOCYTE % (test code = LY%) 28.1 % 20-40 N MONOCYTE % (test code = MO%) 8.2 % 3-10 N EOSINOPHIL % (test code = EO%) 2.0 % 1-5 N BASOPHIL % (test code = BA%) 1.0 % 0.0-1.1 N NEUTROPHIL # (test code = NT#) 4.15 K/mm3 2.00-7.50 N LYMPHOCYTE # (test code = LY#) 1.93 K/mm3 1.50-4.00 N MONOCYTE # (test code = MO#) 0.56 K/mm3 0.2-0.8 N EOSINOPHIL # (test code = EO#) 0.14 K/mm3 0.04-0.4 N BASOPHIL # (test code = BA#) 0.07 K/mm3 0.02-0.10 N MANUAL DIFF REQUIRED (test code = NO MANUAL DIFF MDIFF) NUCLEATED RED BLOOD CELL (test 0 % 0-0 N code = NRBC) mssa PCR surveillance [id number] 13:23:00 Test Item Value Reference Range Interpretation Comments mssa PCR surveillance screen (test see below code = mssa PCR surveillance screen) performing lab: (test code = performing lab:) [facility] ER W Auto Differential panel - [id number] 13:23:00 Test Item Value Reference Range Interpretation Comments white blood cell (test code = 6.9 K/mm3 5.8-11.0 white blood cell) red blood cell (test code = red 4.00 M/mm3 4.2-5.4 L blood cell) hemoglobin (test code = 12.2 g/dL 12-16 hemoglobin) hematocrit (test code = 39.0 % 37-47 hematocrit) mean cell volume (test code = mean 98 fL 80-98 cell volume) mean cell HGB (test code = mean 30.5 pg 27-34 cell HGB) mean cell HGB concentration (test 31.3 g/dL 30.8-34.1 code = mean cell HGB concentration) red cell distribution width (test 12.8 % 11-16 code = red cell distribution width) plt (test code = plt) 350 K/mm3 130-400 mean platelet volume (test code = 10.5 fL 8.9-12.1 mean platelet volume) neutrophil % (test code = 60.4 % 45-70 neutrophil %) lymphocyte % (test code = 28.1 % 20-40 lymphocyte %) monocyte % (test code = monocyte 8.2 % 3-10 %) eosinophil % (test code = 2.0 % 1-5 eosinophil %) basophil % (test code = basophil 1.0 % 0.0-1.1 %) neutrophil # (test code = 4.15 K/mm3 2.00-7.50 neutrophil #) lymphocyte # (test code = 1.93 K/mm3 1.50-4.00 lymphocyte #) monocyte # (test code = monocyte 0.56 K/mm3 0.2-0.8 #) eosinophil # (test code = 0.14 K/mm3 0.04-0.4 eosinophil #) basophil # (test code = basophil 0.07 K/mm3 0.02-0.10 #) manual diff required (test code = no manual diff manual diff required) nucleated red blood cell (test 0 % 0-0 code = nucleated red blood cell) performing lab: (test code = performing lab:) [facility]21 13:23:00 Test Item Value Reference Range Interpretation Comments prothrombin time patient (test code 11.4 secs 10.1-12.5 = prothrombin time patient) international normal ratio (test 0.99 <2.0 code = international normal ratio) performing lab: (test code = performing lab:) [facility] time [id number] 13:23:00 Test Item Value Reference Range Interpretation Comments PTT activated (test code = PTT 33.1 secs 24.9-37.0 activated) performing lab: (test code = performing lab:) [facility] 2000 panel - Serum or [id number] 13:23:00 Test Item Value Reference Range Interpretation Comments sodium (test code = sodium) 142 mmol/L 136-145 potassium (test code = 3.7 mmol/L 3.5-5.1 potassium) chloride (test code = chloride) 101.0 mmol/L 98-107 carbon dioxide (test code = 33.0 mmol/L 21-32 H carbon dioxide) glucose (test code = glucose) 79 mg/dL 70-110 blood urea nitrogen (test code = 11 mg/dL 7-18 blood urea nitrogen) glomerular filtration rate (test 59.3 >60 code = glomerular filtration rate) creatinine (test code = 1.04 mg/dL 0.55-1.30 creatinine) total protein (test code = total 7.4 g/dL 6.4-8.2 protein) albumin (test code = albumin) 3.9 g/dL 3.4-5.0 globulin (test code = globulin) 3.5 g/dL 2.2-4.2 albumin/globulin ratio (test 1.1 0.7-2.0 code = albumin/globulin ratio) calcium (test code = calcium) 9.2 mg/dL 8.2-10.1 bilirubin total (test code = 0.40 mg/dL 0.2-1.00 bilirubin total) SGOT/AST (test code = SGOT/AST) 25.0 U/L 15-37 SGPT/ALT (test code = SGPT/ALT) 20.0 U/L 12-78 alkaline phosphatase total (test 135 U/L 46-116 H code = alkaline phosphatase total) performing lab: (test code = performing lab:) [facility]eth[facility] resistant Staphylococcus aureus [Presence] in Specimen by Organism specific [id number] 13:23:00 Test Item Value Reference Range Interpretation Comments MRSA surveillance screen (test code see below = MRSA surveillance screen) performing lab: (test code = performing lab:) [facility] PCR surveillance [id number] 13:23:00 Test Item Value Reference Range Interpretation Comments mssa PCR surveillance screen (test see below code = mssa PCR surveillance screen) performing lab: (test code = performing lab:) [facility] W Auto Differential panel - [id number] 13:23:00 Test Item Value Reference Range Interpretation Comments white blood cell (test code = 6.9 K/mm3 5.8-11.0 white blood cell) red blood cell (test code = red 4.00 M/mm3 4.2-5.4 L blood cell) hemoglobin (test code = 12.2 g/dL 12-16 hemoglobin) hematocrit (test code = 39.0 % 37-47 hematocrit) mean cell volume (test code = mean 98 fL 80-98 cell volume) mean cell HGB (test code = mean 30.5 pg 27-34 cell HGB) mean cell HGB concentration (test 31.3 g/dL 30.8-34.1 code = mean cell HGB concentration) red cell distribution width (test 12.8 % 11-16 code = red cell distribution width) plt (test code = plt) 350 K/mm3 130-400 mean platelet volume (test code = 10.5 fL 8.9-12.1 mean platelet volume) neutrophil % (test code = 60.4 % 45-70 neutrophil %) lymphocyte % (test code = 28.1 % 20-40 lymphocyte %) monocyte % (test code = monocyte 8.2 % 3-10 %) eosinophil % (test code = 2.0 % 1-5 eosinophil %) basophil % (test code = basophil 1.0 % 0.0-1.1 %) neutrophil # (test code = 4.15 K/mm3 2.00-7.50 neutrophil #) lymphocyte # (test code = 1.93 K/mm3 1.50-4.00 lymphocyte #) monocyte # (test code = monocyte 0.56 K/mm3 0.2-0.8 #) eosinophil # (test code = 0.14 K/mm3 0.04-0.4 eosinophil #) basophil # (test code = basophil 0.07 K/mm3 0.02-0.10 #) manual diff required (test code = no manual diff manual diff required) nucleated red blood cell (test 0 % 0-0 code = nucleated red blood cell) performing lab: (test code = performing lab:) [facility] (PT)2022-07-21 13:23:00 Test Item Value Reference Range Interpretation Comments prothrombin time patient (test code 11.4 secs 10.1-12.5 = prothrombin time patient) international normal ratio (test 0.99 <2.0 code = international normal ratio) performing lab: (test code = performing lab:) [facility]phthromboplastin time [id number] 13:23:00 Test Item Value Reference Range Interpretation Comments PTT activated (test code = PTT 33.1 secs 24.9-37.0 activated) performing lab: (test code = performing lab:) [facility] 2000 panel - Serum or [id number] 13:23:00 Test Item Value Reference Range Interpretation Comments sodium (test code = sodium) 142 mmol/L 136-145 potassium (test code = 3.7 mmol/L 3.5-5.1 potassium) chloride (test code = chloride) 101.0 mmol/L 98-107 carbon dioxide (test code = 33.0 mmol/L 21-32 H carbon dioxide) glucose (test code = glucose) 79 mg/dL 70-110 blood urea nitrogen (test code = 11 mg/dL 7-18 blood urea nitrogen) glomerular filtration rate (test 59.3 >60 code = glomerular filtration rate) creatinine (test code = 1.04 mg/dL 0.55-1.30 creatinine) total protein (test code = total 7.4 g/dL 6.4-8.2 protein) albumin (test code = albumin) 3.9 g/dL 3.4-5.0 globulin (test code = globulin) 3.5 g/dL 2.2-4.2 albumin/globulin ratio (test 1.1 0.7-2.0 code = albumin/globulin ratio) calcium (test code = calcium) 9.2 mg/dL 8.2-10.1 bilirubin total (test code = 0.40 mg/dL 0.2-1.00 bilirubin total) SGOT/AST (test code = SGOT/AST) 25.0 U/L 15-37 SGPT/ALT (test code = SGPT/ALT) 20.0 U/L 12-78 alkaline phosphatase total (test 135 U/L 46-116 H code = alkaline phosphatase total) performing lab: (test code = performing lab:) [facility]eth[facility] resistant Staphylococcus aureus [Presence] in Specimen by Organism specific [id number] 13:23:00 Test Item Value Reference Range Interpretation Comments MRSA surveillance screen (test code see below = MRSA surveillance screen) performing lab: (test code = performing lab:) [facility] MAMM BILATERAL CAD [id number] 13:00:02 - SCR MAMM BILATERAL CAD DIGITALBILATERAL DIGITAL SCREENING MAMMOGRAM WITH CAD: 03/13/2019CLINICAL:Asymptomatic. Current mammographic images were evaluated by either a [employer] M-Vu or a [employer] ImageChecker CAD (computer aided detection system). Comparison is made to exams dated 07/20/2016 mammogram - [facility] and 03/23/2013 mammogram - [facility]. The tissue of both breasts is predominantly fatty. No suspicious mass, architectural distortion, malignant type calcification, or lymph node abnormality detected. Breast architecture is stable compared to prior exam s.IMPRESSION: NEGATIVEThere is no mammographic evidence of malignancy. Resume annual screening mammography in one year. Yoli Warner M.D. yaq/penrad:03/14/2019 13:00:02 Immigration Specialist: Tracee Finney MM, [facility]: BIRADS 1-2 Normal Mammogram BI-RADS: 1 NegativeCT Abdomen Pelvis W/Wo ContrastCT Abdomen Pelvis W/Wo Contrast Notes Date/Time Note Provider Source 2022-07-21 13:27:00-00:00 [id number] [place] [id number] PATIENT NAME: JASON HERMAN ADMIT DATE: ACCOUNT NO: [id number] ROOM NO: AGE: 66 REPORT TYPE: ELECTROCARDIOGRAM SEX: F ADMITTING PHYSICIAN:Mahad Regalado MD ATTENDING PHYSICIAN:Mahad Regalado MD Order: [id number] Test Reason : PRE OP CLEARANCE HTN Test Date/Time Stamp: WedJul 21 2022 13:27:43 Blood Pressure : / mmHG Vent. Rate : 079 BPM Atrial Rate : 079 BPM P-R Int : 182 ms QRS Dur : 082 ms QT Int : 382 ms P-R-T Axes : 064 -31 047 degree s QTc Int : 438 ms Normal sinus rhythm Left axis deviation Abnormal ECG No previous ECGs available Confirmed by TIMI SOLOMON MD ([id number]) on 07/28/2022 12:33:47 PM Referred By: Mahad Regalado Confirmed by:TIMI SOLOMON MD PATIENT NAME: JASON HERMAN [id number]
[2022-11-06] MEDS ORDERED: NITROGLYCERIN 0.4 MG/TAB SL ONE ×2 (10:55→14:59)
[2022-11-06] MEDS ORDERED: ASPIRIN 81 MG CHEWABLE TABLET ONE ×2 (10:55→14:59)
[2022-11-06 11:02] LABS: Absolute Lymphocytes (CBC) 1.5 K/uL (0.7-4.9); Hematocrit 36.9 % (36.0-45.0); Lymphocytes % 20.4 % (15.3-44.8); MCV 93.6 fL (80-100); RBC Red Blood Cell Count 3.94 M/uL (3.86-4.86)
[2022-11-06 12:05] LABS: Potassium 3.6 mEq/L (3.5-5.1); Troponin High Sensitivity 7.5 pg/mL (<58.9)
[2022-11-06 12:08] LABS: Bilirubin Direct 0.1 mg/dL (0-0.2); Bilirubin Indirect, Calculated 0.2 mg/dL (0.2-0.8); Bilirubin Total 0.3 mg/dL (0.2-1.0); Protein, Total 6.8 g/dL (6.4-8.2)
--- NOTE | 2022-11-06 12:41 | RAD REPORT ---
EXAM DESCRIPTION: CT - Chest For Pe Angio - 11/06/2022 12:30 pm CLINICAL HISTORY: chest pain, dyspnea COMPARISON: Lung Cancer Screening CT W/O dated 10/28/2022; Chest For Pe Angio dated 02/04/2022; Thorax Wo Con dated 11/09/2021 TECHNIQUE: Thin axial CT images of the chest were obtained following administration of 100 mL Isovue 370 IV contrast. Multiplanar reconstructions, and maximum intensity projection reconstructions were generated and reviewed. Exam utilizes a protocol for optimal evaluation of pulmonary arterial tree. All CT scans are performed using dose optimization technique as appropriate and may include automated exposure control or mA/KV adjustment according to patient size. FINDINGS: Pulmonary arteries are normal in caliber. Nonobstructive emboli along the third order bran ches to the right lower lobe anterolateral basal segments. No evidence of right-sided cardiac strain No acute or significant aorta findings. No mass or infiltrate in the lung parenchyma. Moderate to advanced centrilobular emphysematous change s No pleural thickening or pleural effusion. No pneumothorax. No abnormal mediastinal or hilar masses or lymphadenopathy seen. No chest wall mass or abnormal axill iary lymphadenopathy. Severe anterior wedge compression deformity at T7, stable. Healing/healed lateral left rib fractures. Small left adrenal nodule measuring 1.5 centimeter, stable. IMPRESSION: Nonobstructive pulmonary emboli along third order right lower lobe contralateral basal b ranches. No evidence of right heart strain. Other incidental findings as above. The findings were communicated to Matt Wallace on 11/06/2022 at 12:36 hours.
[2022-11-06] MEDS ORDERED: ENOXAPARIN 100 MG/ML SYR SQ ONE (14:59)
[2022-11-06] MEDS ORDERED: LEVALBUTEROL 0.63 MG/3 ML NEB ONE (15:00)
--- NOTE | 2022-11-06 15:36 | ER ---
Nurse's Notes [facility] Name: Anju Richards Age: 67 yrs Sex: Female : 1955 Arrival Date: 11/06/2022 Time: 10:28 Bed 2 Private MD: Diagnosis: Pulmonary embolism without acute cor pulmonale;Chest pain, unspecified;Acute respiratory failure with hypoxia Presentation: 11/06 10:41 Chief complaint: Patient states: Intermittent SOB and midsternal CP x 1 week. jl7 Coronavirus screen: At this time, the client does not indicate any symptoms associated with coronavirus-19. Ebola Screen: No symptoms or risks identified at this time. Initial Sepsis Screen: Does the patient meet any 2 criteria? No. Patient's initial sepsis screen is negative. Does the patient have a suspected source of infection? No. Patient's initial sepsis screen is negative. Risk Assessment: Do you want to hurt yourself or someone else? Patient reports no desire to harm self or others. Onset of symptoms was October 30, 2022. 10:41 Method Of Arrival: Wheelchair [facility] 10:41 Acuity: ROBBY 2 7 Triage Assessment: 21:40 General: Appears. Respiratory: Onset: The symptoms/episode began/occurred. os Historical: - Allergies: 10:43 No Known Allergies; jl7 - Home Meds: 10:41 Advair Diskus Inhl 1 inhalation 2 times per day [Active]; atorvastatin 20 mg oral ko1 tablet daily [Active]; primidone 50 mg Oral tablet 1 tab 2 times per day [Active]; gabapentin 600 mg oral tablet 1 tab 2 times per day [Active]; Albuterol Inhl as needed [Active]; aspirin 81 mg Oral capsule 1 cap daily [Active]; prednisone 10 mg oral tablet as needed [Active]; amlodipine oral [Active]; lisinopril Oral [Active]; sertraline Oral [Active]; Trazodone Oral [Active]; - PMHx: 10:43 Chronic obstructive lung disease; Hypertensive disorder; Fibromyalgia; jl7 10:41 Chronic obstructive lung disease; Hypertensive disorder; ko1 - PSHx: 10:43 Appendectomy; hysterectomy; jl7 10:41 Appendectomy; hysterectomy; ko1 - Immunization history:: Adult Immunizations unknown. - Social history:: Smoking status: Patient denies any tobacco usage or history of. - Family history:: not pertinent. Screenin:19 [facility] ED Fall Risk Assessment (Adult) History of falling in the last 3 months, ld1 including since admission No falls in past 3 months (0 pts). Abuse screen: Denies threats or abuse. Denies injuries from another. Nutritional screening: No deficits noted. Tuberculosis screening: No symptoms or risk factors identified. Assessment: 11:19 General: Appears in no apparent distress. comfortable, Behavior is calm, cooperative, ld1 appropriate for age. Pain: Complains of pain in chest Pain does not radiate. Pain currently is 7 out of 10 on a pain scale. Quality of pain is described as throbbing. Neuro: Level of Consciousness is awake, alert, obeys commands, Oriented to person, place, time, situation. Cardiovascular: Capillary refill < 3 seconds Patient's skin is warm and dry. Rhythm is sinus rhythm. Respiratory: Airway is patent Respiratory effort is even, unlabored, Breath sounds are clear bilaterally. GI: Abdomen is round non-distended. : No signs and/or symptoms were reported regarding the genitourinary system. EENT: No signs and/or symptoms were reported regarding the EENT system. Derm: No signs and/or symptoms reported regarding the dermatologic system. Musculoskeletal: No signs and/or symptoms reported regarding the musculoskeletal system. 12:24 Reassessment: No changes from previously documented assessment. Patient and/or family ko1 updated on plan of care and expected duration. Pain level reassessed. Patient is alert, oriented x 3, equal unlabored respirations, skin warm/dry/pink. 14:39 Reassessment: No changes from previously documented assessment. Patient and/or family ko1 updated on plan of care and expected duration. Pain level reassessed. Patient is alert, oriented x 3, equal unlabored respirations, skin warm/dry/pink. 15:46 Reassessment: patient ambulated to bathroom, was taken back to room via wheelchair. O2 ko1 sats were 78% HR93. Placed on NC 2lpm, sats came back up to 95%. Vital Signs: 10:41 BP 130 / 86; Pulse 86; Resp 24; Temp 97.9; Pulse Ox 98% on 2 lpm NC; Weight 90.26 kg; jl7 Height 5 ft. 5 in. ; Pain 5/10; 11:19 BP 127 / 94; Pulse 84; Resp 17; Pulse Ox 99% on R/A; ld1 12:23 BP 115 / 76; Pulse 84; Resp 16; Pulse Ox 98% on 2 lpm NC; ko1 14:39 BP 114 / 62; Pulse 76; Resp 18; Pulse Ox 99% on 2 lpm NC; ko1 15:46 BP 107 / 54; Pulse 87; Resp 19; Pulse Ox 94% on 2 lpm NC; ko1 18:07 BP 115 / 71; Pulse 79; Resp 19; Pulse Ox 95% 2 lpm ; ko1 19:01 BP 134 / 78; Pulse 72; Resp 18; Pulse Ox 97% on R/A; os 10:41 Body Mass Index 33.11 (90.26 kg, 165.1 cm) jl7 10:41 Pain Scale: Adult jl7 ED Course: 10:28 Patient arrived in ED. am2 10:29 Matt Wallace MD is Attending Physician. rt 10:31 Arm band placed on Patient placed in an exam room, on a stretcher. ll1 10:33 Joan Gomes, PRISCILLA is Primary Nurse. ld1 10:43 Triage completed. jl7 11:15 Inserted saline lock: 20 gauge in right forearm, using aseptic technique. Blood ko1 collected. 11:19 Patient has correct armband on for positive identification. Placed in gown. Bed in low ld1 position. Call light in reach. Side rails up X2. personnel monitor on. Pulse ox on. NIBP on. Door closed. Noise minimized. Warm blanket given. 11:19 No provider procedures requiring assistance completed. ld1 12:32 CT Chest For PE Angio In Process Unspecified. EDMS 15:35 Galen Manning MD is Hospitalizing Provider. rt Administered Medications: 10:38 Not Given (Physician Discretion): Aspirin PO Chewable Tablet 324 mg PO once; 81 mg rt tablets x 4 10:52 Drug: Aspirin PO Chewable Tablet 243 mg Route: PO; ko1 12:43 Follow up: Response: No adverse reaction ko1 10:52 Drug: Nitroglycerin Sublingual 0.4 mg Route: Sublingual; ko1 15:04 Drug: Levalbuterol Inhalation 0.63 mg Route: Inhalation; os 15:04 Drug: Enoxaparin Sub-Q 1 mg/kg Route: Sub-Q; Site: right upper arm; os Medication: 11:19 VIS not applicable for this client. ld1 Outcome: 15:35 Decision to Hospitalize by Provider. rt 21:39 Admitted to Tele accompanied by nurse. os 21:39 Condition: good os 21:40 Patient left the ED. os Signatures: Dispatcher [employer] EDJulisa Kim RN RN jl7 Gauri Leach am2 Jorge Luis Mendoza RN RN ll1 Joan Gomes RN RN ld1 Yaritza Jang RN RN ko1 Matt Wallace MD MD rt Reagan Ferguson RN RN os Corrections: (The following items were deleted from the chart) 15:49 12:23 BP 115 / 76; Pulse 84bpm; Resp 16bpm; Pulse Ox 98%; ko1 ko1 15:49 14:39 BP 114 / 62; Pulse 76bpm; Resp 18bpm; Pulse Ox 99%; ko1 ko1
--- NOTE | 2022-11-06 15:36 | EDPHYS ---
Physician Documentation [facility] Name: Anju Richards Age: 67 yrs Sex: Female : 1955 Arrival Date: 11/06/2022 Time: 10:28 Bed 2 Private MD: ED Physician Matt Wallace HPI: 11/06 10:55 This 67 yrs old Female presents to ER via Wheelchair with complaints of Breathing rt Difficulty, Chest Pain. 10:55 Patient with history of COPD, no reported cardiac history presents to the ED with an rt intermittent chest pain, midsternal chest pain described as a pressure starting 1 week ago. States that the pain has worsened today prompting her to come to the ED for further evaluation. She does report being short of breath, but denies any wheezing and states that this feels different from her COPD. She denies other acute complaints at this time including cough. Symptoms are moderate severity, no other aggravating alleviating factors.. Historical: - Allergies: 10:43 No Known Allergies; jl7 - Home Meds: 10:41 Advair Diskus Inhl 1 inhalation 2 times per day [Active]; atorvastatin 20 mg oral ko1 tablet daily [Active]; primidone 50 mg Oral tablet 1 tab 2 times per day [Active]; gabapentin 600 mg oral tablet 1 tab 2 times per day [Active]; Albuterol Inhl as needed [Active]; aspirin 81 mg Oral capsule 1 cap daily [Active]; prednisone 10 mg oral tablet as needed [Active]; amlodipine oral [Active]; lisinopril Oral [Active]; sertraline Oral [Active]; Trazodone Oral [Active]; - PMHx: 10:43 Chronic obstructive lung disease; Hypertensive disorder; Fibromyalgia; jl7 10:41 Chronic obstructive lung disease; Hypertensive disorder; ko1 - PSHx: 10:43 Appendectomy; hysterectomy; jl7 10:41 Appendectomy; hysterectomy; ko1 - Immunization history:: Adult Immunizations unknown. - Social history:: Smoking status: Patient denies any tobacco usage or history of. - Family history:: not pertinent. ROS: 10:55 Constitutional: Negative for fever, chills, and weight loss, Abdomen/GI: Negative for rt abdominal pain, nausea, vomiting, diarrhea, and constipation, MS/Extremity: Negative for injury and deformity, Skin: Negative for injury, rash, and discoloration, Neuro: Negative for headache, weakness, numbness, tingling, and seizure, Psych: Negative for depression, anxiety, suicide ideation, homicidal ideation, and hallucinations. 10:55 Cardiovascular: Positive for chest pain, Negative for edema. 10:55 Respiratory: Positive for shortness of breath, Negative for cough, wheezing. Exam: 10:55 ECG was reviewed by the Attending Physician. rt 10:55 Respiratory: Somewhat diminished breath sounds diffusely, equal bilaterally, no respiratory distress. Vital Signs: 10:41 BP 130 / 86; Pulse 86; Resp 24; Temp 97.9; Pulse Ox 98% on 2 lpm NC; Weight 90.26 kg; jl7 Height 5 ft. 5 in. ; Pain 5/10; 11:19 BP 127 / 94; Pulse 84; Resp 17; Pulse Ox 99% on R/A; ld1 12:23 BP 115 / 76; Pulse 84; Resp 16; Pulse Ox 98% on 2 lpm NC; ko1 14:39 BP 114 / 62; Pulse 76; Resp 18; Pulse Ox 99% on 2 lpm NC; ko1 15:46 BP 107 / 54; Pulse 87; Resp 19; Pulse Ox 94% on 2 lpm NC; ko1 18:07 BP 115 / 71; Pulse 79; Resp 19; Pulse Ox 95% 2 lpm ; ko1 19:01 BP 134 / 78; Pulse 72; Resp 18; Pulse Ox 97% on R/A; os 10:41 Body Mass Index 33.11 (90.26 kg, 165.1 cm) jl7 10:41 Pain Scale: Adult jl7 MDM: 10:30 Patient medically screened. rt 17:46 Differential diagnosis: Acute coronary syndrome, pneumonia, pneumothorax, pulmonary rt embolism. Data reviewed: vital signs, nurses notes, lab test result(s), EKG, radiologic studies. Consideration of Admission/Observation Patient was admitted/placed on observation. Management of patient was discussed with the following: Hospitalist: Agrees to admit. Independent interpretation of the following test(s) in the Emergency Department CT Scan: My interpretation is No edema seen on interpretation of the CT scan images, no saddle embolus. Care significantly affected by the following chronic conditions: Chronic Obstructive Pulmonary Disease. Counseling: I had a detailed discussion with the patient and/or guardian regarding: the historical points, exam findings, and any diagnostic results supporting the discharge/admit diagnosis, lab results, radiology results, the need for further work-up and treatment in the hospital. 11/06 10:33 Order name: Basic Metabolic Panel; Complete Time: 12:14 11/06 10:33 Order name: CBC with Diff; Complete Time: 12:14 11/06 10:33 Order name: Troponin HS; Complete Time: 12:14 11/06 10:38 Order name: LFT's; Complete Time: 12:14 rt 11/06 10:38 Order name: NT PRO-BNP; Complete Time: 12:14 rt 11/06 10:38 Order name: CT Chest For PE Angio; Complete Time: 13:00 rt 11/06 10:33 Order name: EKG; Complete Time: 10:34 11/06 10:33 Order name: Cardiac monitoring; Complete Time: 10:37 11/06 10:33 Order name: EKG - Nurse/Tech; Complete Time: 10:37 11/06 10:33 Order name: IV Saline Lock; Complete Time: 11:42 11/06 10:33 Order name: Labs collected and sent; Complete Time: 11:40 11/06 10:33 Order name: O2 Per Protocol; Complete Time: 10:33 11/06 10:33 Order name: O2 Sat Monitoring; Complete Time: 10:33 11/06 11:07 Order name: Labs - recollect needed: recollect green and purple top please; Complete em1 Time: 11:42 EC:55 Rate is 82 beats/min. Rhythm is regular, Normal Sinus Rhythm with No ectopy, LAFB. Left rt axis deviation noted. [place] interval is normal. QRS interval is normal. QT interval is normal. No Q waves. Interpreted by me. Administered Medications: 10:38 Not Given (Physician Discretion): Aspirin PO Chewable Tablet 324 mg PO once; 81 mg rt tablets x 4 10:52 Drug: Aspirin PO Chewable Tablet 243 mg Route: PO; ko1 12:43 Follow up: Response: No adverse reaction ko1 10:52 Drug: Nitroglycerin Sublingual 0.4 mg Route: Sublingual; ko1 15:04 Drug: Levalbuterol Inhalation 0.63 mg Route: Inhalation; os 15:04 Drug: Enoxaparin Sub-Q 1 mg/kg Route: Sub-Q; Site: right upper arm; os Disposition Summary: 11/06/22 15:35 Hospitalization Ordered Hospitalization Status: Observation rt Provider: Galen Manning rt Condition: Stable rt Problem: new rt Symptoms: have improved rt Bed/Room Type: Standard rt Location: Telemetry/MedSurg (observation)(11/06/22 20:44) cg Room Assignment: [facility](11/06/22 20:44) Diagnosis - Pulmonary embolism without acute cor pulmonale rt - Chest pain, unspecified rt - Acute respiratory failure with hypoxia rt Forms: - Medication Reconciliation Form rt - SBAR form rt Signatures: Dispatcher [employer] EDTommy Ty em1 Neema Welsh, RN RN cg Julisa Maguire RN RN jl7 Joan Gomes RN RN ld1 Yaritza Jang RN RN ko1 Matt Wallace MD MD rt Reagan Ferguson RN RN os Corrections: (The following items were deleted from the chart) 10:52 10:34 Chest Single View+RAD.RAD.BRZ ordered. EDMS EDMS 18:01 15:35 Telemetry/MedSurg (observation) rt os 18:01 15:35 rt os 20:44 18:01 [facility] ER HOLD os cg 20:44 18:01 ERHOLD- os cg
--- NOTE | 2022-11-06 20:48 | P.HP ---
Certification for Inpatient Patient admitted to: Inpatient With expected LOS: >2 Midnights Patient will require the following post-hospital care: None Practitioner: I am a practitioner with admitting privileges, knowledge of patient current condition, hospital course, and medical plan of care. Services: Services provided to patient in accordance with Admission requirements found in Title 42 Section 412.3 of the Code of Federal Regulations Patient History Date of Service: 11/06/22 Reason for admission: Dyspnea on exertion History of Present Illness: Patient is a 67-year-old female came to the hospital with shortness of breath. Patient also was having some chest discomfort on the right side of her sternum. She states has been going on for last couple of days. It has gotten significantly worse so she came to the ER for further evaluation. In the ER she was felt to have acute COPD exacerbation. She was started on steroids, nebs, and antibiotics. CT revealed the patient had a distal pulmonary embolism. Patient was started on anticoagulation. She was given at [facility] in the emergency room. Patient will be admitted to the hospital for further evaluation. Patient has a longstanding history of COPD. She follow with a local sales manager, Dr. Blake. She was the longstanding smoker but quit a few years ago. She uses home oxygen at 2-3 L daily. She is currently satting 100% on 4-5 L. Will try to wean her back down to 3 L. Initially when she came in she was satting 70%. Patient will be admitted as mentioned above. Allergies No Known Allergies Allergy (Verified 11/09/21 19:55) Home Medications: Amlodipine [Norvasc*] 2.5 mg PO DAILY 11/09/21 Atorvastatin Calcium 20 mg PO BEDTIME 11/09/21 Sertraline [Zoloft*] 150 mg PO DAILY 11/09/21 Trazodone HCl 100 mg PO BEDTIME PRN 11/09/21 Albuterol Neb [Proventil 0.083% Neb Soln] 2.5 mg NEB [id number] PRN #60 amp Ipratropium Neb [Atrovent*] 0.5 mg NEB [id number] PRN #60 amp 11/10/21 Aspirin [Adult Low Dose Aspirin EC] 81 mg PO DAILY 02/03/22 Fluticasone Propion/Salmeterol [Fluticasone-Salmeterol 250-50] 50 mg IH DAILY 02/03/22 Gabapentin 600 mg PO BID 02/03/22 Lisinopril [Zestril] 20 mg PO DAILY 02/03/22 Pregabalin 75 mg PO DAILY 02/03/22 Primidone 50 mg PO BID 02/03/22 Tramadol HCl [Ultram] 50 mg PO PRN PRN 02/03/22 predniSONE [Prednisone*] 10 mg PO PRN PRN 02/04/22 Arformoterol Tartrate [Brovana] 15 mcg NEB BIDRESP #60 vial.neb 02/05/22 Cefdinir [Omnicef] 300 mg PO BID #14 cap 02/05/22 predniSONE [Deltasone] 20 mg PO BID #11 tab 02/05/22 - Past Medical/Surgical History Diabetic: No -: COPD -: HTN -: ESSENTIAL TREMORS -: KIDNEY CYST -: HLD -: hysterectomy -: APPENDECTOMY Psychosocial/ Personal History: Patient lives at home. - Family History Father Family History: Reviewed- Non-Contributory - Social History Alcohol use: Yes CD- Drugs: No Caffeine use: Yes Review of Systems 10-point ROS is otherwise unremarkable Physical Examination - Vital Signs Temperature: 98 F Blood Pressure: 150/80 Pulse: 89 Respirations: 24 Pulse Ox (%): 79 - Physical Exam General: Alert, In no apparent distress, Oriented x3 HEENT: Atraumatic, Normocephalic, PERRLA, Mucous membr. moist/pink Respiratory: Diminished, Inspiratory wheezes Cardiovascular: Other (diminished but clear) Gastrointestinal: Normal bowel sounds, Soft and benign, Non-distended, No tenderness Musculoskeletal: No clubbing, No swelling Integumentary: No rashes Neurological: Normal gait, Normal speech, Normal strength at 5/5 x4 extr, Normal tone, Sensation intact, Cranial nerves 3-12 intact - Studies Laboratory Data (last 24 hrs) 11/06/22 11:36: Total Bilirubin 0.3, AST 19, ALT 26, Alkaline Phosphatase 93 11/06/22 11:36: Sodium 135 L, Potassium 3.6, BUN 13, Creatinine 0.92, Glucose 97 11/06/22 10:48: WBC 7.20, Hgb 11.7 L, Hct 36.9, Plt Count 271 Assessment & Plan - Problems (Diagnosis) (1) Pulmonary emboli Current Visit: Yes Status: Acute (2) JIMMY (obstructive sleep apnea) Current Visit: Yes Status: Acute (3) Acute respiratory failure with hypoxia Current Visit: No Status: Acute (4) COPD with acute exacerbation Current Visit: No Status: Acute (5) Hypertension Current Visit: No Status: Chronic Qualifiers: - Plan -anticoagulation; Eliquis -Doppler of lower extremity -CPAP as needed -echocardiogram -monitor oxygenation closely; O2 per protocol -GI prophylaxis Discharge Plan: Home - Advance Directives Does patient have a Living Will: No Does patient have a Durable POA for Healthcare: Yes - Code Status/Comfort Care Code Status Assessed: Yes Code Status: Full Code Critical Care: No Time Spent Managing PTS Care (In Minutes): 45
[2022-11-06 22:20] VITALS: BMI 32.5
[2022-11-06] MEDS ORDERED: ONDANSETRON 4 MG/2 ML VIAL IV PRN (22:27)
[2022-11-06] MEDS ORDERED: ALBUTEROL 2.5 MG/3 ML NEB SOL NEB PRN (22:27)
[2022-11-06] MEDS: APIXABAN 5 MG TABLET PO SCH (23:34)
[2022-11-07 03:29] LABS: Absolute Lymphocytes (CBC) 1.6 K/uL (0.7-4.9); Hematocrit 32.5 % (36.0-45.0); Lymphocytes % 26.7 % (15.3-44.8); MCV 93.7 fL (80-100); MPV 8.7 fL (7.6-11.3); RBC Red Blood Cell Count 3.47 M/uL (3.86-4.86)
[2022-11-07 03:53] LABS: Potassium 3.4 mEq/L (3.5-5.1); Troponin High Sensitivity 7.4 pg/mL (<58.9)
[2022-11-07] MEDS: IPRATROPIUM BROM 0.5MG/2.5ML NEB SCH ×2 (08:00→20:00)
[2022-11-07] MEDS: ARFORMOTEROL TARTRATE 15 MCG/2 ML VIAL.NEB NEB SCH ×2 (08:00→20:00)
[2022-11-07] MEDS: APIXABAN 5 MG TABLET PO SCH ×2 (08:38→20:04)
[2022-11-07] MEDS ORDERED: ENOXAPARIN 100 MG/ML SYR SQ SCH (09:00)
[2022-11-07] MEDS ORDERED: ACETAMINOPHEN 500 MG TAB PO ONE (10:09)
[2022-11-07] MEDS ORDERED: METHYLPREDNISOLONE 40 MG INJ IV SCH ×2 (14:00→22:00)
[2022-11-07] MEDS: METHYLPREDNISOLONE 40 MG INJ IV SCH (20:04)
[2022-11-08] MEDS: METHYLPREDNISOLONE 40 MG INJ IV SCH ×2 (01:55→07:55)
--- NOTE | 2022-11-08 05:26 | P.PN ---
Subjective Date of Service: 11/07/22 Patient remains having chest discomfort. Troponins are negative. Could be related to phlebitis from pulmonary embolism. Remains slightly hypoxic. Gets short of breath from just ambulating to the bathroom. At this time, patient will continue with inpatient hospitalization. Review of Systems 10-point ROS is otherwise unremarkable Physical Examination - Vital Signs Temperature: 98 F Blood Pressure: 150/80 Pulse: 89 Respirations: 24 Pulse Ox (%): 79 - Physical Exam General: Alert, In no apparent distress, Oriented x3 HEENT: Atraumatic, PERRLA, EOMI Neck: Supple, JVD not distended Respiratory: Clear to auscultation bilaterally, Normal air movement, Other (Pain on inspiration) Cardiovascular: Regular rate/rhythm, Normal S1 S2 Gastrointestinal: Normal bowel sounds, No tenderness Musculoskeletal: No tenderness Integumentary: No rashes Neurological: Normal speech, Normal tone, Normal affect Lymphatics: No axilla or inguinal lymphadenopathy - Studies Medications List Reviewed: Yes Assessment & Plan - Problems (Diagnosis) (1) Pulmonary emboli Current Visit: Yes Status: Acute (2) JIMMY (obstructive sleep apnea) Current Visit: Yes Status: Acute (3) Acute respiratory failure with hypoxia Current Visit: No Status: Acute (4) COPD with acute exacerbation Current Visit: No Status: Acute (5) Hypertension Current Visit: No Status: Chronic Qualifiers: - Plan -Add IV steroids to her regimen for phlebitis type symptoms -anticoagulation; Eliquis -Doppler of lower extremity -CPAP as needed -echocardiogram -monitor oxygenation closely; O2 per protocol -GI prophylaxis - Advance Directives Does patient have a Living Will: No Does patient have a Durable POA for Healthcare: Yes - Code Status/Comfort Care Code Status: Full Code
[2022-11-08] MEDS: APIXABAN 5 MG TABLET PO SCH ×2 (08:28→20:31)
--- NOTE | 2022-11-08 14:26 | EKG ---
Test Date: 2022-11-06 Test Time: 10:36:29 Marine Fireman: RAHEEM MEASUREMENT RESULTS: Intervals: Rate: 82 MO: 160 QRSD: 76 QT: 350 QTc: 408 [place]: P: 76 MO: 160 QRS: -51 T: 65 INTERPRETIVE STATEMENTS: Normal sinus rhythm Low voltage QRS Left anterior fascicular block Abnormal ECG Compared to ECG 02/04/2022 00:32:00 Left anterior fascicular block now present Sinus bradycardia no longer present Electronically Signed On 11-08-22 14:24:04 CDT by Michael Gsuman
[2022-11-09 06:42] LABS: Absolute Lymphocytes (CBC) 2.1 K/uL (0.7-4.9); Hematocrit 33.5 % (36.0-45.0); MCV 91.8 fL (80-100); MPV 8.2 fL (7.6-11.3); RBC Red Blood Cell Count 3.64 M/uL (3.86-4.86)
[2022-11-09 07:01] LABS: Albumin 2.7 g/dL (3.4-5.0); Bilirubin Total 0.2 mg/dL (0.2-1.0); Magnesium 2.5 mg/dL (1.6-2.4); Phosphorus 2.9 mg/dL (2.5-4.9); Potassium 3.5 mEq/L (3.5-5.1); Protein, Total 6.2 g/dL (6.4-8.2)
[2022-11-09] MEDS: APIXABAN 5 MG TABLET PO SCH (08:11)
--- NOTE | 2022-11-09 11:45 | P.PN ---
Date of Service: 11/09/22 Subjective: ROS: 10 point ROS as noted above, otherwise negative Physical Exam: GEN: Alert, oriented, NAD HEENT: Normal conjunctiva, sclera anicteric CV: Regular rate & rhythm, no edema Pulm: Nonlabered respiraitons on room air ABD: Soft, nontender, nondistended MSK: No joint tenderness Integumentary: No rashes Neuro: Normal speech, normal affect vitals reviewed Problem List: VTE: Code: Dispo:
[2022-11-09 12:03] VITALS: BP 107/58; TEMP 97.2
[2022-11-09 12:39] VITALS: O2SAT 95
--- NOTE | 2022-11-09 13:12 | P.DS ---
Disposition: ROUTINE DISCHARGE Discharge Condition: GOOD Reason for Admission: Dyspnea on exertion - Problems (1) Pulmonary emboli Current Visit: Yes Status: Acute (2) JIMMY (obstructive sleep apnea) Current Visit: Yes Status: Acute (3) Acute respiratory failure with hypoxia Current Visit: No Status: Acute (4) COPD with acute exacerbation Current Visit: No Status: Acute (5) Hypertension Current Visit: No Status: Chronic Qualifiers: Brief History of Present Illness: Patient is a 67-year-old female came to the hospital with shortness of breath. Patient also was having some chest discomfort on the right side of her sternum. She states has been going on for last couple of days. It has gotten significantly worse so she came to the ER for further evaluation. In the ER she was felt to have acute COPD exacerbation. She was started on steroids, nebs, and antibiotics. CT revealed the patient had a distal pulmonary embolism. Patient was started on anticoagulation. She was given at [facility] in the emergency room. Patient will be admitted to the hospital for further evaluation. Patient has a longstanding history of COPD. She follow with a local binder cutter hand, Dr. Blake. She was the longstanding smoker but quit a few years ago. She uses home oxygen at 2-3 L daily. She is currently satting 100% on 4-5 L. Will try to wean her back down to 3 L. Initially when she came in she was satting 70%. Patient will be admitted as mentioned above. Hospital Course: Problem List: Pulmonary Emboli JIMMY acute respiratory failure with hypoxia COPD with acute exacerbation Hypertension -Follow-up with PCP in 1 to 2 weeks -Follow-up with Cardiology and Pulmonary in 2 to 4 weeks -Please call Dr. Manning at [phone] if any questions regarding hospital stay -Please call nursing station at [phone] if any nursing or medication questions -Return to the emergency room if symptoms worsen Physical Exam: GEN: Alert, oriented, NAD HEENT: Normal conjunctiva, sclera anicteric CV: Regular rate & rhythm, no edema Pulm: Nonlabered respiraitons on room air ABD: Soft, nontender, nondistended MSK: No joint tenderness Integumentary: No rashes Neuro: Normal speech, normal affect Vital Signs/Physical Exam: Temp Pulse Resp BP Pulse Ox 97.2 F 72 14 107/58 L 99 11/09/22 12:00 11/09/22 12:00 11/09/22 12:00 11/09/22 12:00 11/09/22 12:00 Laboratory Data at Discharge: WBC 11.60 thou/uL (4.3-10.9) H 11/09/22 06:30 Hgb 11.0 g/dL (12.0-15.0) L 11/09/22 06:30 Hct 33.5 % (36.0-45.0) L 11/09/22 06:30 Plt Count 257 thou/uL (152-406) 11/09/22 06:30 Sodium 138 mEq/L (136-145) 11/09/22 06:30 Potassium 3.5 mEq/L (3.5-5.1) 11/09/22 06:30 BUN 16 mg/dL (7-18) 11/09/22 06:30 Creatinine 0.95 mg/dL (0.55-1.02) 11/09/22 06:30 Glucose 87 mg/dL (74-106) 11/09/22 06:30 Phosphorus 2.9 mg/dL (2.5-4.9) 11/09/22 06:30 Magnesium 2.5 mg/dL (1.6-2.4) H 11/09/22 06:30 Total Bilirubin 0.2 mg/dL (0.2-1.0) 11/09/22 06:30 AST 16 U/L (15-37) 11/09/22 06:30 ALT 19 U/L (13-56) 11/09/22 06:30 Alkaline Phosphatase 71 U/L (45-117) 11/09/22 06:30 Home Medications: Atorvastatin Calcium 20 mg PO BEDTIME 11/09/21 Albuterol Neb [Proventil 0.083% Neb Soln] 2.5 mg NEB [id number] PRN #60 amp 11/10/21 Aspirin [Adult Low Dose Aspirin EC] 81 mg PO DAILY 02/03/22 Gabapentin 600 mg PO BID 02/03/22 Primidone 50 mg PO BID 02/03/22 Apixaban [Eliquis] 5 mg PO BID #60 tab 11/09/22 predniSONE [Prednisone*] 20 mg PO BID #11 tab 06/26/23 New Medications: Apixaban [Eliquis] 5 mg PO BID #60 tab predniSONE [Prednisone*] 20 mg PO BID #11 tab Physician Discharge Instructions: -DC IV and DC home -Follow-up with PCP in 1 to 2 weeks -Follow-up with Cardiology and Pulmonary in 2 to 4 weeks -Please call Dr. Manning at [phone] if any questions regarding hospital stay -Please call nursing station at [phone] if any nursing or medication questions -Return to the emergency room if symptoms worsen Diet: AHA Activity: Fall precautions Followup: Harvey Solitario DO [Primary Care Provider] - Time spent managing pt's care (in minutes): 45
--- NOTE | 2022-11-09 17:16 | EKG ---
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
== END 2022-11-09 14:10 | disposition home health service (06) | DRG 175 ==
LOC: ER 10:28 → ERHOLD 20:37 → 2ND 20:56 → OBSVTOIN 11-08 05:25
PROVIDERS: ADMIT Hospitalist; ATTEND Hospitalist
PROC: 5A09457 Assistance with Respiratory Ventilation, 24-96 Consecutive Hours, Continuous Positive Airway Pressure (ICD-10-PCS; principal; 2022-11-06)
DX: I26.99 Other pulmonary embolism without acute cor pulmonale (principal); J96.01 Acute respiratory failure with hypoxia; J44.1 Chronic obstructive pulmonary disease with (acute) exacerbation; M79.7 Fibromyalgia; I10 Essential (primary) hypertension; G47.33 Obstructive sleep apnea (adult) (pediatric); Z79.82 Long term (current) use of aspirin; Z79.52 Long term (current) use of systemic steroids; Z90.49 Acquired absence of other specified parts of digestive tract; Z99.81 Dependence on supplemental oxygen; Z87.891 Personal history of nicotine dependence; Z90.710 Acquired absence of both cervix and uterus; Z79.899 Other long term (current) drug therapy
CPT/HCPCS: 36415; 71275; 80048; 80053; 80076; 83735; 83880; 84100; 84484; 85025; 93005; 94660; 94760; 96372; 99285; G0378; J1650; J2920; J7614; Q9967

== ENCOUNTER 2023-10-23 15:21 | Inpatient (IN) | payer OTHER ==
--- NOTE | 2023-10-23 15:45 | RAD REPORT ---
EXAM DESCRIPTION: RAD - Chest Single View - 10/23/2023 3:39 pm CLINICAL HISTORY: COUGH COMPARISON: <Comparisons> FINDINGS: Lines: None. Lungs: No evidence of edema or pneumonia. Pleural: No significant pleural effusions or pneumothorax. Cardiac: Similar size and configuration. Mediastinum: Within normal limits. Bones: No acute fractures. Other: None IMPRESSION: No acute cardiopulmonary disease.
[2023-10-23] MEDS ORDERED: LORazepam 2 MG/ML VIAL ONE (15:49)
[2023-10-23] MEDS ORDERED: NA CHLORIDE 0.9% 1,000 ML ONE (15:50)
[2023-10-23 16:10] LABS: Absolute Eosinophils 0.1 K/uL (0-0.5); Absolute Lymphocytes (CBC) 1.4 K/uL (0.7-4.9); Absolute Monocytes 0.7 K/uL (0.1-1.3); Absolute Neutrophil 7.2 K/uL (1.8-8.0); Basophils % 0.4 % (0-1.3); Eosinophils % 1.2 % (0-4.4); Hematocrit 23.5 % (36.0-45.0); Hemoglobin 7.4 g/dL (12.0-15.0); Lymphocytes % 14.9 % (15.3-44.8); MCH 29.9 pg (27.0-35.0); MCHC 31.8 g/dL (32.0-36.0); MCV 94.1 fL (80-100); MPV 7.8 fL (7.6-11.3); Monocytes % 7.6 % (3.3-12.3); Neutrophils % 75.9 % (41.7-73.7); Nucleated Red Blood Cells % 0.1 % (0-0); Platelets 292 thou/uL (152-406); RBC Red Blood Cell Count 2.49 M/uL (3.86-4.86); Red Cell Distribution Width 15.5 % (12.1-15.2)
[2023-10-23 16:29] LABS: PT Prothrombin Time 12.3 SECONDS (9.5-12.5); PTT, Activated Partial Thromb 31.7 SECONDS (24.3-36.9); Protime INR 1.12
[2023-10-23 16:38] LABS: ALT/SGPT 15 U/L (13-56); AST/SGOT 13 U/L (15-37); Albumin/Globulin Ratio 0.7 (1.1-1.8); Alkaline Phosphatase 106 U/L (45-117); Anion Gap 5.1 mEq/L (5.0-15.0); BUN Blood Urea Nitrogen 15 mg/dL (7-18); Bicarbonate 37 mEq/L (21-32); Bilirubin Total 0.3 mg/dL (0.2-1.0); Creatine Phosphokinase 29 U/L (26-192); Globulin 4.2 g/dL (2.3-3.5); Glomerular Filtration Rate 76 ml/min (=/>90); Glucose Level 99 mg/dL (74-106); Magnesium 2.4 mg/dL (1.6-2.4); NT PRO-BNP 242 pg/mL (<125); Potassium 4.1 mEq/L (3.5-5.1); Protein, Total 7.2 g/dL (6.4-8.2); Sodium Level 133 mEq/L (136-145)
[2023-10-23 16:40] LABS: Bilirubin Direct < 0.2 mg/dL (0-0.2); Bilirubin Indirect, Calculated 0.1 mg/dL (0.2-0.8)
[2023-10-23] MEDS ORDERED: IPRATROPIUM BROM 0.5MG/2.5ML ONE (17:42)
[2023-10-23] MEDS ORDERED: LEVALBUTEROL 1.25 MG/3 ML NEB ONE (17:43)
[2023-10-23] MEDS ORDERED: PANTOPRAZOLE 40 MG INJ ONE (17:43)
[2023-10-23] MEDS ORDERED: METHYLPREDNISOLONE 125 MG INJ ONE (17:43)
--- NOTE | 2023-10-23 17:50 | ER ---
Nurse's Notes [facility] Name: Anju Richards Age: 68 yrs Sex: Female : 1955 Arrival Date: 10/23/2023 Time: 15:21 Bed 15 Private MD: Diagnosis: Weakness;COPD/ Chronic obstructive pulmonary disease with (acute) exacerbation;Obesity due to excess calories;Anemia, unspecified;Fall on same level, unspecified;Fracture of one rib, right side-#9 Presentation: 10/22 15:37 Chief complaint: EMS states: Full body tremors. 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 Coronavirus screen: Vaccine status:. Ebola Screen: Patient denies travel to an Ebola-affected area in the 21 days before illness onset. Initial Sepsis Screen: Does the patient meet any 2 criteria? No. Patient's initial sepsis screen is negative. Does the patient have a suspected source of infection? No. Patient's initial sepsis screen is negative. Risk Assessment: Do you want to hurt yourself or someone else? Patient reports no desire to harm self or others. Onset of symptoms was October 23, 2023. 15:37 Method Of Arrival: EMS: [place] [id number] 15:37 Acuity: ROBBY 3 nj1 Historical: - Allergies: 15:45 No Known Allergies; nj1 - PMHx: 15:45 Chronic obstructive lung disease; Hypertensive disorder; Fibromyalgia; Congenital heart nj1 disease; - Immunization history:: Client reports receiving the 2nd dose of the Covid vaccine. - Infectious Disease History:: Denies. - Social history:: Smoking status: Patient denies any tobacco usage or history of. Screenin:[address] [facility] ED Fall Risk Assessment (Adult) History of falling in the last 3 months, nj1 including since admission Yes- single mechanical fall (1 pt) Confusion or Disorientation No (0 pts) Intoxicated or Sedated No (0 pts) Impaired Gait Yes (1 pt) Mobility Assist Device Used No (0 pt) Altered Elimination No (0 pt) Score/Fall Risk Level 0 - 2 = Low Risk Oriented to surroundings, Maintained a safe environment, Hourly rounding (assess needs \T\ fall precautionary measures) done. Abuse screen: Denies threats or abuse. Denies injuries from another. Nutritional screening: No deficits noted. Tuberculosis screening: No symptoms or risk factors identified. Assessment: 15:40 General: Appears in no apparent distress. comfortable, Behavior is calm, cooperative, nj1 appropriate for age. 15:40 Pain: Complains of pain in Ribs, right Pain currently is 2 out of 10 on a pain scale. nj1 at worst was 8 out of 10 on a pain scale. Aggravated by Deep breathing. Neuro: Level of Consciousness is awake, alert, obeys commands, Oriented to person, place, time, situation, Moves all extremities. Speech is normal, Facial symmetry appears normal, No tremors observed at this time.. Reports Intermittent tremors. . Cardiovascular: Patient's skin is warm and dry. Respiratory: Airway is patent Respiratory effort is even, unlabored. 15:40 Derm: Bruising that is dark purple, green, on face and right arm. Musculoskeletal: nj1 Swelling present in right hand. 15:50 Neuro: Neuro: Tremors observed at this time on upper extremities, worse when attempting nj1 to hold arms in the air. . 16:45 Reassessment: Patient appears in no apparent distress at this time. Pt resting/sleeping nj1 at this time. 18:05 Reassessment: Patient appears in no apparent distress at this time. Patient and/or nj1 family updated on plan of care and expected duration. Pain level reassessed. Patient is alert, oriented x 3, equal unlabored respirations, skin warm/dry/pink. Neuro: Lower extremities tremoring some at this time.. 18:41 Reassessment: Patient appears in no apparent distress at this time. Patient and/or nj1 family updated on plan of care and expected duration. Pain level reassessed. Patient is alert, oriented x 3, equal unlabored respirations, skin warm/dry/pink. 19:44 General: Appears in no apparent distress. comfortable, Behavior is calm, cooperative, cm10 Assumed care of patient at 1900. Pt currently resting on stretcher. Pt on 5L nc. Pt updated on plan of care. Pt remains on telemetry monitor. Pt consented for blood transfusion at this time. Pt A\T\Ox4.. 19:44 Neuro: No deficits noted. Level of Consciousness is awake, alert, obeys commands, cm10 Oriented to person, place, time, situation. Respiratory: No deficits noted. Airway is patent Respiratory effort is even, unlabored, Respiratory pattern is regular, symmetrical. Derm: Bruising that is dark purple, green, on right hand and right arm and face. 19:50 General: Pt states that she has questions regarding blood transfusion. Dr. Victor made cm10 aware and will come speak with patient. Blood bank made aware to hold blood until pt is ready.. 20:30 General: Blood transfusion initiated at this time. . cm10 20:45 General: Pt tolerating blood transfusion well at this time. Pt denies any shortness of cm10 breath. No s/s of transfusion reaction. rate increased to 125mL/hr.. Vital Signs: 15:37 BP 137 / 84; Pulse 85; Resp 20; Temp 98.2(TE); Pulse Ox 98% on 5 lpm NC; Weight 97.07 nj1 kg; Height 5 ft. 5 in. ; Pain 2/10; 16:44 BP 126 / 72; Pulse 79; Resp 18; Pulse Ox 100% on 5 lpm NC; nj1 17:30 BP 116 / 67; Pulse 82; Resp 15; Pulse Ox 96% 5 lpm ; nj1 18:40 BP 121 / 69; Pulse 80; Resp 16; Pulse Ox 99% on Breathing tx; nj1 19:30 BP 120 / 89; Pulse 90; Resp 18; Pulse Ox 91% ; cm10 20:20 BP 126 / 64; Pulse 86; Resp 19; Temp 97.6; Pulse Ox 99% on 5 lpm NC; cm10 20:35 BP 119 / 61; Pulse 83; Resp 17; Temp 98; Pulse Ox 96% on 5 lpm NC; cm10 15:37 Body Mass Index 35.61 (97.07 kg, 165.1 cm) nj1 15:37 Pain Scale: Adult nj1 ED Course: 15:26 Patient arrived in ED. eb 15:28 Dann Howard MD is Attending Physician. luther 15:36 Libra Alonso RN is Primary Nurse. nj1 15:41 XRAY Chest (1 view) In Process Unspecified. EDMS 15:45 Triage completed. nj1 15:45 Arm band placed on. nj1 15:45 Patient has correct armband on for positive identification. Bed in low position. Call vt1 light in reach. 15:45 Provided Education on: call light, fall precautions. nj1 17:48 Okundaye, Ebima, MD is Hospitalizing Provider. [facility] 18:17 CT Traumagram (Head C Spine CAP W Con) In Process Unspecified. EDMS 19:00 Report given to Zoe WELLS. nj1 19:44 Provided Education on: Blood Transfusion, Consents for blood transfusion signed at this cm10 time.. 19:56 Report faxed to 2nd floor at 1953. [facility] confirmed that fax was received at 1954. cm10 19:58 Urinalysis w/ reflexes Sent. bf2 19:58 Urine Drug Screen Sent. bf2 20:25 Inserted saline lock: 22 gauge in right antecubital area, using aseptic technique. cm10 20:25 Maintain EMS IV. Dressing intact. Good blood return noted. Site clean \T\ dry. Gauge \T\ cm 10 site: 18g Right forearm. 20:40 No provider procedures requiring assistance completed. Patient admitted, IV remains in cm10 place. Administered Medications: 15:55 Drug: NS 0.9% IV 1000 ml IV at 1 bolus Per protocol; 1000 mL bolus Route: IV; Rate: 1 nj1 bolus; Site: right forearm; 16:40 Follow up: Response: No adverse reaction; IV Status: Order to discontinue infusion; IV nj1 Intake: 500ml 15:55 Drug: Ativan IVP 1 mg IVP once Route: IVP; Site: right forearm; nj1 16:30 Follow up: Response: No adverse reaction nj1 17:54 Drug: Pantoprazole IVP 40 mg IVP once Route: IVP; Site: right forearm; nj1 20:37 Follow up: Response: No adverse reaction cm10 17:55 Drug: MethylPrednisoLONE IVP 125 mg IVP once Route: IVP; Site: right forearm; nj1 20:37 Follow up: Response: No adverse reaction cm10 18:40 Drug: Levalbuterol Inhalation 3.75 mg Inhalation once Route: Inhalation; nj1 18:40 Drug: Ipratropium Inhalation Aerosol 0.5 mg Inhalation once Route: Inhalation; nj1 Medication: 20:37 VIS not applicable for this client. Blood products: PRBCs X 1 unit given. Blood cm10 transfusion initiated at 2030. Checked with PRISCILLA Smyth See transfusion record. Intake: 16:40 IV: 500ml; Total: 500ml. nj1 Outcome: 17:49 Decision to Hospitalize by Provider. luther 20:43 Admitted to Med/surg accompanied by nurse, via stretcher, with oxygen, with chart, cm10 20:43 Condition: good 20:43 Instructed on the need for admit, 20:53 Patient left the ED. cm10 Signatures: Dispatcher [employer] EDMS Dann Howard MD MD cha Botello, Elizabeth eb Slawson, Ashby, RN RN as6 Libra Alonso RN RN nj1 Zoe Kumar, RN RN cm10 Angelia Tsai 2 Corrections: (The following items were deleted from the chart) 18:42 18:40 Pulse 80bpm; Resp 16bpm; Pulse Ox 99% Breathing tx; [place] [id number] 19:53 15:40 Cardiovascular: Patient's skin is warm and dry. nj as6 19:54 19:00 Report given to Zoe WELLS as[address] [facility] 19:55 15:40 Derm: Bruising that is dark purple, green, on face and right arm as[address] [facility] 19:55 15:40 Musculoskeletal: [facility] 20:43 19:44 General: Assumed care of patient at 1900. Pt currently resting on stretcher. Pt cm10 on 5L nc. Pt updated on plan of care. Pt remains on telemetry monitor. Pt consented for blood transfusion at this time. Pt A\T\Ox4.. cm10
--- NOTE | 2023-10-23 17:50 | EDPHYS ---
Physician Documentation [facility] Name: Anju Richards Age: 68 yrs Sex: Female : 1955 Arrival Date: 10/23/2023 Time: 15:21 Bed 15 Private MD: ED Physician Dann Howard HPI: 10/22 17:34 This 68 yrs old Female presents to ER via EMS with complaints of copd, falls luther and shaking. 17:34 The patient has shortness of breath at rest. Onset: The symptoms/episode began/occurred luther 2 day(s) ago. Duration: The symptoms are continuous, and are steadily getting worse. The patient's shortness of breath is aggravated by nothing, is alleviated by application of supplemental oxygen. weak , shaking, sob. Associated signs and symptoms: Pertinent positives: non-productive cough. Severity of symptoms: At their worst the symptoms were moderate in the emergency department the symptoms are unchanged. The patient has experienced similar episodes in the past, multiple times. Historical: - Allergies: 15:45 No Known Allergies; nj1 - PMHx: 15:45 Chronic obstructive lung disease; Hypertensive disorder; Fibromyalgia; Congenital heart nj1 disease; - Immunization history:: Client reports receiving the 2nd dose of the Covid vaccine. - Infectious Disease History:: Denies. - Social history:: Smoking status: Patient denies any tobacco usage or history of. ROS: 17:41 Constitutional: Negative for fever, chills, and weight loss, Eyes: Negative for injury, luther pain, redness, and discharge, ENT: Negative for injury, pain, and discharge, Neck: Negative for injury, pain, and swelling, Cardiovascular: Negative for chest pain, palpitations, and edema, Abdomen/GI: Negative for abdominal pain, nausea, vomiting, diarrhea, and constipation, Back: Negative for injury and pain, : Negative for injury, bleeding, discharge, and swelling, MS/Extremity: Negative for injury and deformity, Skin: Negative for injury, rash, and discoloration, Neuro: Negative for headache, weakness, numbness, tingling, and seizure, Psych: Negative for depression, anxiety, suicide ideation, homicidal ideation, and hallucinations, Allergy/Immunology: Negative for hives, rash, and allergies, Endocrine: Negative for neck swelling, polydipsia, polyuria, polyphagia, and marked weight changes, Hematologic/Lymphatic: Negative for swollen nodes, abnormal bleeding, and unusual bruising, 17:41 Respiratory: Positive for cough, shortness of breath, wheezing, expiratory, Exam: 17:41 Constitutional: This is a well developed, well nourished patient who is awake, alert, luther and in no acute distress. Head/Face: Normocephalic, atraumatic. Eyes: Pupils equal round and reactive to light, extra-ocular motions intact. Lids and lashes normal. Conjunctiva and sclera are non-icteric and not injected. Cornea within normal limits. Periorbital areas with no swelling, redness, or edema. ENT: Nares patent. No nasal discharge, no septal abnormalities noted. Tympanic membranes are normal and external auditory canals are clear. Oropharynx with no redness, swelling, or masses, exudates, or evidence of obstruction, uvula midline. Mucous membranes moist. Neck: Trachea midline, no thyromegaly or masses palpated, and no cervical lymphadenopathy. Supple, full range of motion without nuchal rigidity, or vertebral point tenderness. No Meningismus. Chest/axilla: Normal chest wall appearance and motion. Nontender with no deformity. No lesions are appreciated. Cardiovascular: Regular rate and rhythm with a normal S1 and S2. No gallops, murmurs, or rubs. Normal PMI, no JVD. No pulse deficits. Abdomen/GI: Soft, non-tender, with normal bowel sounds. No distension or tympany. No guarding or rebound. No evidence of tenderness throughout. Back: No spinal tenderness. No costovertebral tenderness. Full range of motion. Female : Normal external genitalia. Skin: Warm, dry with normal turgor. Normal color with no rashes, no lesions, and no evidence of cellulitis. MS/ Extremity: Pulses equal, no cyanosis. Neurovascular intact. Full, normal range of motion. Neuro: Awake and alert, GCS 15, oriented to person, place, time, and situation. Cranial nerves II-XII grossly intact. Motor strength 5/5 in all extremities. Sensory grossly intact. Cerebellar exam normal. Normal gait. Psych: Awake, alert, with orientation to person, place and time. Behavior, mood, and affect are within normal limits. 17:41 ECG was reviewed by the Attending Physician. 17:51 Abdomen/GI: Inspection: distension, that is mild, Bowel sounds: normal, Palpation: luther nontender, Rectal exam: rectal tone normal, hemorrhoid(s), are not appreciated, mass, is not appreciated, swelling, is not appreciated, tenderness, is not appreciated, fecal impaction, is not appreciated, no melena , no blood , pt denies black stools, upper and lower gi was neg, Vital Signs: 15:37 BP 137 / 84; Pulse 85; Resp 20; Temp 98.2(TE); Pulse Ox 98% on 5 lpm NC; Weight 97.07 nj1 kg; Height 5 ft. 5 in. ; Pain 2/10; 16:44 BP 126 / 72; Pulse 79; Resp 18; Pulse Ox 100% on 5 lpm NC; nj1 17:30 BP 116 / 67; Pulse 82; Resp 15; Pulse Ox 96% 5 lpm ; nj1 18:40 BP 121 / 69; Pulse 80; Resp 16; Pulse Ox 99% on Breathing tx; nj1 19:30 BP 120 / 89; Pulse 90; Resp 18; Pulse Ox 91% ; cm10 20:20 BP 126 / 64; Pulse 86; Resp 19; Temp 97.6; Pulse Ox 99% on 5 lpm NC; cm10 20:35 BP 119 / 61; Pulse 83; Resp 17; Temp 98; Pulse Ox 96% on 5 lpm NC; cm10 15:37 Body Mass Index 35.61 (97.07 kg, 165.1 cm) [facility] 15:37 Pain Scale: Adult [facility] MDM: 15:28 Patient medically screened. luther 17:43 Differential diagnosis: Anemia CHF exacerbation, Chronic Obstructive Pulmonary Disease luther Myocardial Infarction pneumonia, pulmonary edema, reactive airway disease, Sepsis Unstable Angina. Antibiotic administration: Not indicated. Differential Diagnosis altered mental status, sepsis, flu. Differential diagnosis: abrasion, closed head injury, contusion, fracture, laceration, multiple trauma, sprain, strain. Immunization status: Pneumococcal vaccine: within last 5 years. Influenza vaccine: within last 5 years. Data reviewed: vital signs, nurses notes, lab test result(s), EKG, radiologic studies, plain films. Consideration of Admission/Observation Patient was admitted/placed on observation. Escalation of care including admission/observation considered. I considered the following discharge prescriptions or medication management in the emergency department Medications were administered in the Emergency Department. See 15:31 Order name: Basic Metabolic Panel; Complete Time: 17:21 [facility] 10/22 15:31 Order name: CBC with Diff; Complete Time: 17:21 [facility] 10/22 15:31 Order name: LFT's; Complete Time: 17:21 [facility] 10/22 15:31 Order name: Magnesium; Complete Time: 17:21 [facility] 10/22 15:31 Order name: NT PRO-BNP; Complete Time: 17:21 [facility] 10/22 15:31 Order name: PT-INR; Complete Time: 17:21 [facility] 10/22 15:31 Order name: Troponin HS; Complete Time: 17:21 [facility] 10/22 15:31 Order name: CPK; Complete Time: 17:21 [facility] 10/22 15:31 Order name: Acetaminophen; Complete Time: 17:21 [facility] 10/22 15:31 Order name: ETOH Level; Complete Time: 17:21 [facility] 10/22 15:31 Order name: Ptt, Activated; Complete Time: 17:21 [facility] 10/22 15:31 Order name: Salicylate; Complete Time: 17:21 [facility] 10/22 15:31 Order name: Urinalysis w/ reflexes; Complete Time: 20:05 [facility] 10/22 15:31 Order name: Urine Drug Screen [facility] 10/22 17:29 Order name: Type And Screen [facility] 10/22 18:11 Order name: Packed RBC Leukored [facility] 10/22 19:02 Order name: Creatine Phosphokinase [facility] 10/22 19:02 Order name: CBC with Automated Diff [facility] 10/22 19:02 Order name: CBC with Automated Diff [facility] 10/22 19:02 Order name: Comprehensive Metabolic Panel [facility] 10/22 19:02 Order name: Comprehensive Metabolic Panel [facility] 10/22 19:13 Order name: ABO/RH no charge; Complete Time: 19:32 [facility] 10/22 15:31 Order name: XRAY Chest (1 view); Complete Time: 17:21 [facility] 10/22 17:33 Order name: CT Traumagram (Head C Spine CAP W Con); Complete Time: 19:32 [facility] 10/22 15:31 Order name: EKG; Complete Time: 15:31 [facility] 10/22 19:02 Order name: CONS Physician Consult [facility] 10/22 15:31 Order name: Cardiac monitoring; Complete Time: 16:57 [facility] 10/22 15:31 Order name: EKG - Nurse/Tech; Complete Time: 16:57 [facility] 10/22 15:31 Order name: IV Saline Lock; Complete Time: 15:46 [facility] 10/22 15:31 Order name: Labs collected and sent; Complete Time: 15:57 [facility] 10/22 15:31 Order name: O2 Per Protocol; Complete Time: 15:46 [facility] 10/22 15:31 Order name: O2 Sat Monitoring; Complete Time: 15:46 [facility] 10/22 15:31 Order name: Suicide Screening ([place]); Complete Time: 15:46 [facility] 10/22 17:29 Order name: Transfuse; Complete Time: 20:37 [facility] 10/22 18:37 Order name: IV Saline Lock - Large Bore; Complete Time: 18:40 [facility] EC:41 Rate is 76 beats/min. T waves are Normal. No ST changes noted. Clinical impression: [facility] Normal ECG and No evidence of ischemia. Interpreted by me. Reviewed by me. Administered Medications: 15:55 Drug: NS 0.9% IV 1000 ml IV at 1 bolus Per protocol; 1000 mL bolus Route: IV; Rate: 1 nj1 bolus; Site: right forearm; 16:40 Follow up: Response: No adverse reaction; IV Status: Order to discontinue infusion; IV nj1 Intake: 500ml 15:55 Drug: Ativan IVP 1 mg IVP once Route: IVP; Site: right forearm; nj1 16:30 Follow up: Response: No adverse reaction nj1 17:54 Drug: Pantoprazole IVP 40 mg IVP once Route: IVP; Site: right forearm; nj1 20:37 Follow up: Response: No adverse reaction cm10 17:55 Drug: MethylPrednisoLONE IVP 125 mg IVP once Route: IVP; Site: right forearm; nj1 20:37 Follow up: Response: No adverse reaction cm10 18:40 Drug: Levalbuterol Inhalation 3.75 mg Inhalation once Route: Inhalation; nj1 18:40 Drug: Ipratropium Inhalation Aerosol 0.5 mg Inhalation once Route: Inhalation; nj1 Disposition Summary: 10/23/23 17:49 Hospitalization Ordered Notes: Hospitalization Status: Inpatient Admission luther Provider: Josh Guzman cha Location: Telemetry/MedSurg (Inpatient) luther Condition: Fair luther Problem: new luther Symptoms: have improved luther Bed/Room Type: Standard luther Room Assignment: [facility](10/23/23 19:15) cg Diagnosis - Weakness luther - COPD/ Chronic obstructive pulmonary disease with (acute) exacerbation luther - Obesity due to excess calories luther - Anemia, unspecified luther - Fall on same level, unspecified luther - Fracture of one rib, right side - #9 luther Forms: - Medication Reconciliation Form luther - SBAR form luther - Leadership Thank You Letter luther Signatures: Dispatcher [employer] EDMS Dann Howard MD MD cha Nieto, Roman, MD MD rn Garcia, Cindy, RN RN cg Jaco, Norma, RN RN nj1 Zoe Kumar RN cm10 Corrections: (The following items were deleted from the chart) 15:31 15:31 BASIC METABOLIC PANEL+C.LAB.BRZ ordered. EDMS EDMS 15:31 15:31 CBC+H.LAB.BRZ ordered. EDMS EDMS 15:31 15:31 HEPATIC FUNCTION+C.LAB.BRZ ordered. EDMS EDMS 15:31 15:31 MAGNESIUM+C.LAB.BRZ ordered. EDMS EDMS 15:31 15:31 PROBNP+C.LAB.BRZ ordered. EDMS EDMS 15:31 15:31 PROTIME (+INR)+COAG.LAB.BRZ ordered. EDMS EDMS 15:31 15:31 Troponin High Sensitivity+C.LAB.BRZ ordered. EDMS EDMS 15:31 15:31 CREATINE PHOSPHOKINASE+C.LAB.BRZ ordered. EDMS EDMS 15:31 15:31 ACETAMINOPHEN+C.LAB.BRZ ordered. EDMS EDMS 15:31 15:31 ETHANOL+C.LAB.BRZ ordered. EDMS EDMS 15:31 15:31 PTT, ACTIVATED+COAG.LAB.BRZ ordered. EDMS EDMS 15:31 15:31 SALICYLATE+C.LAB.BRZ ordered. EDMS EDMS 15:31 15:31 Urinalysis+U.LAB.BRZ ordered. EDMS EDMS 15:31 15:31 URINE DRUG SCREEN+UC.LAB.BRZ ordered. EDMS EDMS 18:11 17:29 PACKED RBC LEUKORED+BB.LAB.BRZ ordered. EDMS EDMS 18:11 17:31 ABO/RH typing ordered. EDMS EDMS 18:11 17:31 Antibody Screen ordered. EDMS EDMS 19:15 17:49 luther cg
--- NOTE | 2023-10-23 18:39 | RAD REPORT ---
EXAM DESCRIPTION: CT - Head C Spine Cap Ana Dash - 10/23/2023 6:15 pm CLINICAL HISTORY: Trauma, head and neck injury. Chest, abdomen and pelvis pain. TRAUMA COMPARISON: Chest For Pe Angio dated 06/25/2023 TECHNIQUE: CT head without contrast. CT cervical spine without contrast with coronal and sagittal reformatted images. CT chest, abdomen and pelvis with coronal and sagittal reformatted images of the spine. All CT scans are performed using dose optimization technique as appropriate and may include automated exposure control or mA/KV adjustment according to patient size. FINDINGS: CT HEAD WITHOUT CONTRAST: No intracranial hemorrhage, hydrocephalus or extra-axial fluid collection. No acute large vascular te rritory infarct. The paranasal sinuses and mastoids are clear. The calvarium is intact. Left forehead hematoma. CT CERVICAL SPINE WITHOUT CONTRAST: No fracture or subluxation. The prevertebral soft tissues are normal in thickness. CT CHEST, ABDOMEN, PELVIS: Thorax: Chest Wall: No abnormal mass Lungs: Dependent atelectasis. Emphysema. No suspicious pulmonary nodules. Pleura: Small bilateral pleural effusions. Aleena/Mediastinum: No lymphadenopathy. Aorta/Pulmonary Arteries: Unremarkable Heart: Normal size. Abdomen/Pelvis: Liver: No acute abnormality or suspicious lesions. Biliary: No biliary ductal dilatation. Stomach: No significant focal abnormality. Duodenum: No significant focal abnormality. Pancreas: No significant abnormality. Spleen: No significant abnormality. Adrenal: No suspicious lesions. Kidney/ureter: No hydronephrosis. No renal calculi. Too small to characterize and/or benign appearing renal lesions are noted. Retroperitoneum: No retroperitoneal adenopathy. Vascular: No aneurysm. Bowel: No significant focal abnormality. Peritoneum: No ascites or free air. Bladder: Grossly unremarkable. Reproductive: Hysterectomy. Bones: Remote rib fractures. Possible acute right anterolateral ninth rib fracture. This is minimally displaced. T7 and T9 compression fractures. The T9 compression fracture has slightly increased heigh t loss compared with prior. No acute compression fractures are identified. Other: n/a IMPRESSION: 1. No acute intracranial abnormality. No skull fracture. 2. No fracture or traumatic malalignment of the cervical spine. 3. Possibly acute right anterolateral and ninth rib fracture. No other evidence of significant acute trauma. Sequela of remote trauma noted.
[2023-10-23] MEDS ORDERED: IPRATROPIUM BROM 0.5MG/2.5ML NEB PRN (18:52)
[2023-10-23] MEDS ORDERED: ALBUTEROL 2.5 MG/3 ML NEB SOL NEB PRN (18:52)
[2023-10-23] MEDS ORDERED: ACETAMINOPHEN 500 MG TAB PO PRN (18:52)
[2023-10-23] MEDS ORDERED: ONDANSETRON 4 MG/2 ML VIAL IV PRN (18:52)
--- NOTE | 2023-10-23 18:52 | P.HP ---
Certification for Inpatient Patient admitted to: Observation With expected LOS: <2 Midnights Patient will require the following post-hospital care: None Practitioner: I am a practitioner with admitting privileges, knowledge of patient current condition, hospital course, and medical plan of care. Services: Services provided to patient in accordance with Admission requirements found in Title 42 Section 412.3 of the Code of Federal Regulations Patient History Date of Service: 10/23/23 Reason for admission: weakness, shakiness History of Present Illness: 68-year-old female with past medical history of HTN, previous PE treated with Eliquis, COPDadvanced, on 4 L/min home oxygen, follows with Dr. Layton, chronic back pain, former smoker, who presented because of recurrent falls in the last 1 month. Patient states she fell about 2 weeks ago did not seek medical help, she was able to get up. She admits to increasing weakness and now unsteady gait. She said he fell again 2 days ago. She states she hit her head on both times. She denies any headache or dizziness. She says she has been having increasing tremulousness/tremors of the extremities. She states her weakness has progressed to the point where she is unable to ambulate/walk well now. she denies any nausea or vomiting. She denies any hematochezia. She presented to the hospital today because of increasing weakness. She denies any cough, or worsening shortness of breath. However she said on arrival of EMS she was told by EMS that she is wheezing. She received a dose of DuoNebs. On arrival in the ED vital signs were stable, mildly tachycardic, she was noted to be wheezing and received IV Solu-Medrol as well as an extra dose of DuoNebs. WBC was unremarkable, hemoglobin of 7.4, BMP was unremarkable. CT head shows no acute intracranial pathology, CT of the chest and abdomen shows evidence of T7 and T9 compression fractures as well as an acute right anterolateral ninth rib fracture. Allergies No Known Allergies Allergy (Verified 11/09/21 19:55) Home Medications: Atorvastatin Calcium 20 mg PO BEDTIME 11/09/21 Albuterol Neb [Proventil 0.083% Neb Soln] 2.5 mg NEB [id number] PRN #60 amp 11/10/21 Aspirin [Adult Low Dose Aspirin EC] 81 mg PO DAILY 02/03/22 Gabapentin 600 mg PO BID 02/03/22 Primidone 50 mg PO BID 02/03/22 Apixaban [Eliquis] 5 mg PO BID #60 tab 11/09/22 predniSONE [Prednisone*] 20 mg PO BID #11 tab 11/09/22 - Past Medical/Surgical History Diabetic: No -: COPD -: HTN -: ESSENTIAL TREMORS -: KIDNEY CYST -: HLD -: hysterectomy -: APPENDECTOMY Psychosocial/ Personal History: Patient lives at home. - Family History Father -: Other (see notes) Notes: patient reports no significant family medical history - Social History Smoking Status: Former smoker Smoking therapy provided: No Patient receptive to therapy: No Alcohol use: Yes CD- Drugs: No Caffeine use: Yes Place of Residence: Home Review of Systems General: Malaise Respiratory: Shortness of Breath, Wheezing Neurological: Weakness Physical Examination - Physical Exam General: Alert, Oriented x3, Obese (drowsy) HEENT: Atraumatic, Normocephalic, PERRLA Neck: Supple, 2+ carotid pulse no bruit, JVD not distended Respiratory: Diminished, Expiratory wheezes Cardiovascular: Regular rate/rhythm, Normal S1 S2, No murmurs Gastrointestinal: Normal bowel sounds, Soft and benign, Non-distended, No ascites, No tenderness Musculoskeletal: No clubbing, No swelling, No erythema Integumentary: No breakdown, No significant lesion, No tenderness/swelling Neurological: Normal speech, Normal strength at 5/5 x4 extr, Cranial nerves 3-12 intact - Studies Laboratory Data (last 24 hrs) 10/23/23 10/23/23 10/23/23 15:55 15:55 15:55 WBC 9.50 Hgb 7.4 L Hct 23.5 L Plt Count 292 PT 12.3 INR 1.12 APTT 31.7 Sodium 133 L Potassium 4.1 BUN 15 Creatinine 0.84 Glucose 99 Magnesium 2.4 Total Bilirubin 0.3 AST 13 L ALT 15 Alkaline Phosphatase 106 Assessment and Plan - Problems (Diagnosis) (1) COPD with acute exacerbation Current Visit: No Status: Acute (2) Status post fall Current Visit: No Status: Acute (3) Hypertension Current Visit: No Status: Chronic Qualifiers: - Plan Impression COPD with mild exacerbation HTN Obesity s/p recurrent falls Asthenia/Weakness - may be due to sedative /neuro related medications Rib fractures Compression fractures Anemia - symptomatic PLAN will admit to inpatient Start DuoNebs with low-dose steroids for mild COPD exacerbation Noted with compression fracture as well as a right ninth rib fracture, start incentive spirometry Pulmonary consult in a.m. Pain control as needed morphine Tessalon Perles for as needed cough Weakness may be due to high-dose Neurontin use, hold for now and monitor May need neurology eval for compression fractures Present of anemia may be contributing to shortness of breath and weakness and recurrent falls, PRBC 2 units today Obtain iron profile, prior history of negative colonoscopy with Dr. Pablo, obtain stool for occult blood Lovenox subcu for DVT prophylaxis Full code Continue O2on home 4 L, stable at this time May benefit from SNF - Advance Directives Does patient have a Living Will: No Does patient have a Durable POA for Healthcare: No Physician Review: Patient Assessed, Agree with Above Assessment and Plan Time Spent Managing Pts Care (In Minutes): 70
[2023-10-23] MEDS ORDERED: HYDRALAZINE HCL 20 MG/ML VIAL IV PRN (19:04)
[2023-10-23] MEDS ORDERED: BENZONATATE 100 MG CAP PO PRN (19:04)
[2023-10-23] MEDS ORDERED: NA CHLORIDE 0.9% 250 ML ONE (19:44)
[2023-10-23 19:58] LABS: Specific Gravity 1.016 (1.005-1.030); Urine Bilirubin NEGATIVE (Negative); Urine Blood Negative (Negative); Urine Clarity Clear (Clear); Urine Color Colorless (Yellow); Urine Glucose NEGATIVE (Negative); Urine Ketones NEGATIVE (Negative); Urine Microscopic Reflex YN NO UMIC; Urine Nitrite NEGATIVE (Negative); Urine Protein NEGATIVE (Negative); Urine Urobilinogen Normal (Normal)
[2023-10-23 20:13] LABS: Barbiturates POSITIVE (NEGATIVE); Benzodiazepines NEGATIVE (NEGATIVE); Cocaine NEGATIVE (NEGATIVE); METHAMPHETAM NEGATIVE (NEGATIVE); Methadone NEGATIVE (NEGATIVE); Opiates NEGATIVE (NEGATIVE); Phencyclidine NEGATIVE (NEGATIVE); THC Cannibis NEGATIVE (NEGATIVE)
[2023-10-23 22:24] VITALS: BMI 35.6
[2023-10-23] MEDS: CEFTRIAXONE 1,000 MG in NA CHLORIDE 0.9% 50 ML IVPB SCH (22:40)
[2023-10-23] MEDS: FAMOTIDINE 20 MG TAB PO SCH (22:41)
[2023-10-23] MEDS: MORPHINE 2 MG/ML SYR IV PRN (23:01)
[2023-10-23] MEDS: MELATONIN 5 MG TABLET PO PRN (23:02)
[2023-10-23] MEDS: METHYLPREDNISOLONE 125 MG INJ IV SCH (23:02)
[2023-10-24] LABS: Thyroid Stimulating Hormone 0.645 uIU/mL (0.358-3.740)
[2023-10-24] MEDS: NA CHLORIDE 0.9% 250 ML ONE (01:05)
[2023-10-24] MEDS: MORPHINE 4 MG/ML SYR IV PRN (03:23)
[2023-10-24 07:22] LABS: Absolute Lymphocytes (CBC) 0.7 K/uL (0.7-4.9); Absolute Monocytes 0.1 K/uL (0.1-1.3); Absolute Neutrophil 6.7 K/uL (1.8-8.0); Basophils % 0.2 % (0-1.3); Hematocrit 29.4 % (36.0-45.0); Hemoglobin 9.7 g/dL (12.0-15.0); Lymphocytes % 9.2 % (15.3-44.8); MCH 30.3 pg (27.0-35.0); MCHC 33.1 g/dL (32.0-36.0); MCV 91.6 fL (80-100); MPV 8.2 fL (7.6-11.3); Monocytes % 1.2 % (3.3-12.3); Neutrophils % 89.4 % (41.7-73.7); Nucleated Red Blood Cells % 0.1 % (0-0); Platelets 261 thou/uL (152-406); RBC Red Blood Cell Count 3.21 M/uL (3.86-4.86); Red Cell Distribution Width 15.7 % (12.1-15.2)
[2023-10-24 07:43] LABS: Albumin 2.8 g/dL (3.4-5.0); Albumin/Globulin Ratio 0.7 (1.1-1.8); Anion Gap 6.3 mEq/L (5.0-15.0); Bilirubin Total 0.4 mg/dL (0.2-1.0); Ferritin 19.3 ng/mL (8-388); Globulin 3.9 g/dL (2.3-3.5); Potassium 4.3 mEq/L (3.5-5.1); Protein, Total 6.7 g/dL (6.4-8.2)
[2023-10-24] MEDS: ENOXAPARIN 40 MG/0.4 ML SQ SCH (08:10)
[2023-10-24] MEDS: ASPIRIN EC 81 MG TAB PO SCH (08:10)
[2023-10-24] MEDS ORDERED: HOME MED 1 EA UNK (Gabapentin [Gabapentin] 600 MG) PO SCH (09:32)
--- NOTE | 2023-10-24 09:36 | P.CNS ---
Date of Consult: 10/24/23 Reason for Consult: Generalized tremors and falls Chief Complaint: weakness, shakiness History of Present Illness: Patient is 68 years of age with a history of COPD has been recently experiencing generalized body tremors associated with falls came in with bruising on the head patient is compliant with the therapy Allergies No Known Allergies Allergy (Verified 11/09/21 19:55) Home Medications: Albuterol Neb [Proventil 0.083% Neb Soln] 2.5 mg NEB [id number] PRN #60 amp 11/10/21 Aspirin [Adult Low Dose Aspirin EC] 81 mg PO DAILY 02/03/22 Gabapentin 600 mg PO BID 02/03/22 Primidone 50 mg PO BID 02/03/22 Budesonide/Glycopyr/Formoterol [Breztri Aerosphere Inhaler] 2 puff IH BID 10/23/23 Carvedilol [Coreg] 3.125 mg PO DAILY 10/23/23 Docusate [Colace Cap] 100 mg PO BEDTIME 10/23/23 Duloxetine HCl 20 mg PO DAILY 10/23/23 Furosemide [Lasix] 40 mg PO DAILYPRN PRN 10/23/23 Hydrocodone 7.5/APAP 325 [[place] 7.5/325 mg] 1 tab PO BID 10/23/23 Magnesium [Magnesium Gluconate] 200 mg PO BEDTIME 10/23/23 Potassium Chloride [K-Dur] 10 meq PO DAILY 10/23/23 Rosuvastatin [Crestor] 5 mg PO BEDTIME 10/23/23 Spironolactone [Aldactone] 25 mg PO BEDTIME 10/23/23 predniSONE [Deltasone] 10 mg PO DAILYPRN PRN 10/23/23 - Past Medical/Surgical History Diabetic: No -: COPD -: HTN -: ESSENTIAL TREMORS -: KIDNEY CYST -: HLD -: hysterectomy -: APPENDECTOMY Psychosocial/ Personal History: Patient lives at home. - Family History Father Medical History: Other (see notes) Notes: patient reports no significant family medical history - Social History Smoking Status: Former smoker Alcohol use: Yes CD- Drugs: No Caffeine use: Yes Place of Residence: Home Review of Systems 10-point ROS is otherwise unremarkable General: Weakness Respiratory: Shortness of Breath Physical Examination Temp Pulse Resp BP Pulse Ox 97.7 F 63 22 H 137/64 97 10/24/23 08:00 10/24/23 08:00 10/24/23 08:10 10/24/23 08:00 10/24/23 08:00 General: Alert, In no apparent distress, Oriented x3 Respiratory: Clear to auscultation bilaterally Cardiovascular: No edema, Regular rate/rhythm, Normal S1 S2 Gastrointestinal: Normal bowel sounds, Soft and benign Laboratory Data (last 24 hrs) 10/23/23 10/23/23 10/23/23 15:55 15:55 15:55 WBC 9.50 Hgb 7.4 L Hct 23.5 L Plt Count 292 PT 12.3 INR 1.12 APTT 31.7 Sodium 133 L Potassium 4.1 BUN 15 Creatinine 0.84 Glucose 99 Magnesium 2.4 Total Bilirubin 0.3 AST 13 L ALT 15 Alkaline Phosphatase 106 - Problems (1) Tremor Current Visit: Yes Status: Acute Plan: Patient is 68 years of age admitted with generalized tremor resume gabapentin and primidone for now I am not sure if she is taking both of these medications and has evidence of some rib fractures no evidence of pneumonia DC antibiotics changed to p.o. prednisone (2) COPD (chronic obstructive pulmonary disease) Current Visit: Yes Status: Acute Plan: Patient has a history of COPD currently stable vital signs oxygenation stable Qualifiers: Emphysema type: unspecified
[2023-10-24] MEDS: PRIMIDONE 50 MG TAB PO SCH ×2 (10:23→19:58)
[2023-10-24] MEDS: GABAPENTIN 300 MG CAP PO SCH (10:23)
--- NOTE | 2023-10-24 10:29 | P.PN ---
Date of Service: 10/24/23 Subjective: Still with jerking/tremors C/O pain in back/ribs ROS: 10 point ROS as noted above, otherwise negative Physical exam GEN: Alert, oriented, NAD HEENT: Normal conjunctiva, sclera anicteric CV: Regular rate and rhythm, no edema Pulm: Nonlabored respirations on room air ABD: Soft, nontender, nondistended MSK: No joint tenderness Integumentary: Multiple bruises to face/neck/forehead Neuro: Normal speech, normal affect, frequent jerking motion of torso, legs, moving all extremities Vitals reviewed Problem List Asthenia/Weakness with tremors/myoclonic jerks Recurrent falls Chronic T7/T9 compression fractures Right anterior lateral ninth rib fracture Iron deficiency anemia COPD with mild exacerbation on chronic home 5L Hypertension Plan Asthenia/Weakness with tremors/myoclonic jerks Recurrent falls Chronic T7/T9 compression fractures Right anterior lateral ninth rib fracture Reports chronic tremor of upper extremities and occasional upper extremity jerking Developed jerking of thorax/head/legs intermittently a few months ago which has been worsening Very frequent jerking to torso/head/legs starting a few days ago leading to falls, weakness Denies new meds or changes, unknown etiology Neurology consulted along with PT/OT As needed pain meds, incentive spirometry Iron deficiency anemia Follows with hematology Has appointment with local staple laster Dr. Benitez coming up to further workup her anemia Received 2 unit PRBC 10/22 Denies melena/hematemesis or hematochezia Monitor H&H daily COPD with mild exacerbation on chronic home 5L Pulmonology following Appreciate recommendations DC IV steroids, switch to p.o. Hypertension Continue home medications once verified VTE: Lovenox Code: Full Dispo: 48 hours-may need SNF/Rehab Time Spent Managing Pts Care (In Minutes): 35
[2023-10-24] MEDS: HYDROCODONE/APAP 5/325 MG TAB PO PRN (12:13)
--- NOTE | 2023-10-24 15:28 | EKG ---
Test Date: 2023-10-23 Test Time: 16:50:20 [employer] Attendant: BF MEASUREMENT RESULTS: Intervals: Rate: 76 IA: 178 QRSD: 82 QT: 368 QTc: 414 [place]: P: 67 IA: 178 QRS: -6 T: 63 INTERPRETIVE STATEMENTS: Normal sinus rhythm Normal ECG Compared to ECG 06/25/2023 14:46:13 Myocardial infarct finding no longer present Electronically Signed On 10-24-23 15:27:17 CDT by Chance Pierre
[2023-10-24] MEDS: DOCUSATE NA 100 MG CAP PO SCH (19:57)
[2023-10-24] MEDS: SPIRONOLACTONE 25 MG TABLET PO SCH (19:57)
[2023-10-24] MEDS: predniSONE 10 MG TAB PO SCH (19:58)
[2023-10-24] MEDS: ROSUVASTATIN 5 MG TAB PO SCH (19:58)
[2023-10-24] MEDS: HOME MED 1 EA UNK (Magnesium [Magnesium Gluconate] 200 MG Tablet) PO SCH (20:27)
[2023-10-24] MEDS ORDERED: HOME MED 1 EA UNK (Gabapentin [Gabapentin] 600 MG Tablet) PO SCH (21:00)
[2023-10-25 04:07] LABS: Hematocrit 27.1 % (36.0-45.0); Hemoglobin 8.8 g/dL (12.0-15.0); MCHC 32.7 g/dL (32.0-36.0); MCV 91.9 fL (80-100); MPV 8.4 fL (7.6-11.3); Platelets 272 thou/uL (152-406); RBC Red Blood Cell Count 2.94 M/uL (3.86-4.86); Red Cell Distribution Width 15.8 % (12.1-15.2)
[2023-10-25 04:19] LABS: Anion Gap 4.1 mEq/L (5.0-15.0); Magnesium 2.4 mg/dL (1.6-2.4); Phosphorus 3.5 mg/dL (2.5-4.9); Potassium 4.1 mEq/L (3.5-5.1)
[2023-10-25] MEDS: carvediloL 3.125 MG TAB PO SCH (08:49)
[2023-10-25] MEDS: ASPIRIN EC 81 MG TAB PO SCH (08:49)
[2023-10-25] MEDS: DULOXETINE 20 MG CAP PO SCH (08:49)
--- NOTE | 2023-10-25 08:57 | RAD REPORT ---
EXAM DESCRIPTION: MRI - Brain Wo Cont - 10/25/2023 8:45 am CLINICAL HISTORY: tremors/jerking, falls Fall, head trauma, head injury COMPARISON: Head Brain Wo Cont dated 01/28/2022; Head C Spine Cap W Con dated 10/23/2023 TECHNIQUE: Multi-sequence, multiplanar MR imaging of the brain was performed without contrast. FINDINGS: No intracranial hemorrhage, hydrocephalus or extra-axial fluid collections. No edema or sh ift of midline structures. No findings to suspect brain mass. DWI is negative for acute CVA. Midline structures are normally formed. Mastoid air cells and paranasal sinuses are clear. Focal 3 cm left superior calvarium presumed hemato ma. IMPRESSION: Negative for acute CVA or other acute intracranial abnormality.
--- NOTE | 2023-10-25 09:54 | P.PN ---
Date of Service: 10/25/23 Subjective: Awake and feeling OK no new complaints ROS: 10 point ROS as noted above, otherwise negative Physical exam GEN: Alert and oriented x3, NAD HEENT: Normal conjunctiva, sclera anicteric CV: Regular rate and rhythm, no edema Pulm: Nonlabored respirations on room air ABD: Soft and benign on palpation, nontender, nondistended MSK: No joint tenderness, 2+ peripheral pulses Integumentary: Multiple bruises to face/neck/forehead Neuro: Normal speech, normal affect, frequent jerking motion of torso, legs, moving all extremities Vitals reviewed Problem List Asthenia/Weakness with tremors/myoclonic jerks Recurrent falls Chronic T7/T9 compression fractures Right anterior lateral ninth rib fracture Iron deficiency anemia COPD with mild exacerbation on chronic home 02-5L Hypertension Plan Asthenia/Weakness with tremors/myoclonic jerks Recurrent falls Chronic T7/T9 compression fractures Right anterior lateral ninth rib fracture -Reports chronic tremor of upper extremities and occasional upper extremity jerking -Developed jerking of thorax/head/legs intermittently a few months ago which has been worsening -Very frequent jerking to torso/head/legs starting a few days ago leading to falls, weakness -Denies new meds or changes, unknown etiology -Neurology consulted -recommendations appreciated - PT/OT- able to participate and therapy to return during this admission -As needed pain meds, incentive spirometry -MRI reports "No intracranial hemorrhage, hydrocephalus or extra-axial fluid collections. No edema or shift of midline structures. No findings to suspect brain mass. DWI is negative for acute CVA. Midline structures are normally formed. Mastoid air cells and paranasal sinuses are clear. Focal 3 cm left superior calvarium presumed hematoma.IMPRESSION: Negative for acute CVA or other acute intracranial abnormality." Iron deficiency anemia -Follows with hematology -Has appointment with local interpreter translator Dr. Benitez coming up to further workup her anemia -Received 2 unit PRBC 10/22, H/H 8.8/27.1 -Denies melena/hematemesis or hematochezia -Continue to monitor H&H daily COPD with mild exacerbation on chronic home 02-5L -Pulmonology following -Appreciate recommendations -DC IV steroids, switch to p.o. Hypertension -Continue home medications VTE: Lovenox Code: Full Dispo: 48 hours-may need SNF/Rehab
[2023-10-25] MEDS ORDERED: IPRATROPIUM BROM 0.5MG/2.5ML NEB PRN (13:04)
[2023-10-25] MEDS ORDERED: ALBUTEROL 2.5 MG/3 ML NEB SOL NEB PRN (13:04)
[2023-10-26 03:40] LABS: Hematocrit 27.7 % (36.0-45.0); Hemoglobin 9.2 g/dL (12.0-15.0); MCH 30.8 pg (27.0-35.0); MCHC 33.2 g/dL (32.0-36.0); MCV 92.7 fL (80-100); MPV 7.9 fL (7.6-11.3); Platelets 261 thou/uL (152-406); RBC Red Blood Cell Count 2.99 M/uL (3.86-4.86); Red Cell Distribution Width 15.4 % (12.1-15.2)
[2023-10-26 03:59] LABS: Anion Gap 0.4 mEq/L (5.0-15.0); Magnesium 2.6 mg/dL (1.6-2.4); Phosphorus 3.6 mg/dL (2.5-4.9); Potassium 4.4 mEq/L (3.5-5.1)
[2023-10-26] MEDS: MAGNESIUM OXIDE 400 MG TAB PO SCH (09:00)
[2023-10-26] MEDS: BACLOFEN 10 MG TAB PO SCH (09:18)
--- NOTE | 2023-10-26 12:30 | P.PN ---
Subjective Date of Service: 10/26/23 Chief Complaint: weakness, shakiness No change patient still has this myoclonic jerks Review of Systems General: Weakness Respiratory: Cough, Shortness of Breath Physical Examination - Vital Signs Temperature: 98.0 F Blood Pressure: 140/64 Pulse: 54 Respirations: 18 Pulse Ox (%): 96 - Physical Exam General: Alert, In no apparent distress, Oriented x3 Respiratory: Clear to auscultation bilaterally Cardiovascular: No edema, Normal pulses, Regular rate/rhythm Assessment And Plan - Current Problems (Diagnosis) (1) Tremor Current Visit: Yes Status: Acute Plan: Patient has generalized tremor discussed with Dr. Arambula add baclofen 5 mg twice a day in addition to magnesium oxide (2) COPD (chronic obstructive pulmonary disease) Current Visit: Yes Status: Acute Plan: Patient has a history of COPD currently stable vital signs oxygenation stable Qualifiers: Emphysema type: unspecified Physician Review: Patient Assessed, Agree with Above Assessment and Plan
--- NOTE | 2023-10-26 13:56 | EEG ---
CHART: [id number] TEST ID#: [id number] DATE OF STUDY: 10/25/2023 THE EEG WAS RECORDED PORTABLE IN THE PATIENT'S ROOM ON A 17 CHANNEL MACHINE. ELECTRODES WERE APPLIED IN THE USUAL MANNER USING THE INTERNATIONAL 10-20 SYSTEM. THE WAKING BACKGROUND RHYTHM IN THIS RECORD CONSISTS OF FAIRLY WELL DEVELOPED AND FAIRLY WELL ORGANIZED WAVES OF 8 HZ., MAXIMAL IN THE POSTERIOR HEAD REGIONS WHICH ATTENUATE NORMALLY WITH EYE OPENING. LOW-VOLTAGE 18-22 HZ ACTIVITY IS EXPRESSED IN THE FRONTAL REGIONS. THERE ARE NO FOCAL OR LATERALIZING FEATURES. NO EPILEPTIFORM ACTIVITY APPEARS. SLEEP DID NOT OCCUR. HYPERVENTILATION WAS NOT PERFORMED. PHOTIC STIMULATION PRODUCED NO DRIVING BILATERALLY. IMPRESSION: NORMAL EEG FOR THE AGE OF THE PATIENT IN [place].
--- NOTE | 2023-10-26 19:46 | P.PN ---
Date of Service: 10/26/23 Subjective: Feeling well this morning, reports less jerking activity No new complaints ROS: 10 point ROS as noted above, otherwise negative Physical exam GEN: Alert and oriented x3, NAD HEENT: Normal conjunctiva, sclera anicteric CV: Regular rate and rhythm, S1-S2 present, no edema Pulm: Nonlabored respirations on nasal cannula ABD: Soft and benign on palpation, nontender, distended (obese) MSK: No joint tenderness, 2+ peripheral pulses Integumentary: Multiple bruises to face/neck/forehead Neuro: Normal speech, normal affect, calm and purposeful body movements Vitals reviewed Problem List Asthenia/Weakness with tremors/myoclonic jerks Recurrent falls Chronic T7/T9 compression fractures Right anterior lateral ninth rib fracture Iron deficiency anemia COPD with mild exacerbation on chronic home 02-5L Hypertension Plan Asthenia/Weakness with tremors/myoclonic jerks Recurrent falls Chronic T7/T9 compression fractures Right anterior lateral ninth rib fracture -Reports chronic tremor of upper extremities and occasional upper extremity jerking -Developed jerking of thorax/head/legs intermittently a few months ago which has been worsening -Very frequent jerking to torso/head/legs resulting with weakness and falls -Denies new meds or changes, unknown etiology -Neurology consulted -recommendations appreciated - PT/OT- able to participate and therapy to return during this admission -As needed pain meds, incentive spirometry -MRI reports "No intracranial hemorrhage, hydrocephalus or extra-axial fluid collections. No edema or shift of midline structures. No findings to suspect brain mass. DWI is negative for acute CVA. Midline structures are normally formed. Mastoid air cells and paranasal sinuses are clear. Focal 3 cm left superior calvarium presumed hematoma.IMPRESSION: Negative for acute CVA or other acute intracranial abnormality." -EEG reports "NORMAL EEG FOR THE AGE OF THE PATIENT IN [place]." Iron deficiency anemia -Follows with hematology -Has appointment with local cigar head stringer Dr. Benitez coming up to further workup her anemia -Received 2 unit PRBC 10/22, H/H 8.8/27.1 -Denies melena/hematemesis or hematochezia -Continue to monitor H&H daily, H/H stable COPD with mild exacerbation on chronic home 02-5L -Pulmonology following -Appreciate recommendations - p.o. steroids Hypertension -Continue home medications VTE: Lovenox Code: Full Dispo: 48 hours-may need SNF/Rehab
--- NOTE | 2023-10-26 23:38 | CON ---
Reason For Consultation: Consultation called because of intermittent shaking. History Of Present Illness: Ms. Richards is a 68-year-old patient with hypertension, essential tremor, previous pulmonary embolus, on Eliquis, COPD, who has had recurrent falls over the last month, last f all was 2 days ago, which she was able to recover from; however, she did hit her head with that fall, but denies dizziness and headaches. She at this point has been unable to ambulate and came to [facility]. She was noted to have significant and intermittent shaking that would be to the poin t that the bed she is in made essentially and the shaking was involving upper and lower extremities. During the episode, she maintained awareness and ability to follow instructions for memory and commu nicate. At the hospital on the , she had trauma series with head, spine, chest, abdomen, and pelv is. On the neck, there were no fractures or subluxation. The head CT scan showed no hemorrhage, hyd rocephalus, extra fluid collection, or large vascular territory infarct. There was a left forehead h ematoma where she had impacted, but the calvarium was intact. Sinuses were clear. The chest CT scan , abdomen and pelvis scans showed a possible acute right anterolateral and 9th rib fracture on the ri ght and no other evidence of trauma noted throughout. At this point, her blood work did show anemia down to 7.4, for which she has received 2 units of blood and hematocrit increased to now stable at 9. 2 three days after transfusion. INR was unremarkable. She is hyponatremic on the of 133 and on the today 134. Kidney function normal. She is retaining CO2 with a carbon dioxide level of 40. Glucose unremarkable. Magnesium slightly elevated. Liver function studies essentially unremarkabl e. Urinalysis was unremarkable. She did have a urine screen with barbiturates, which may be prescri bed as positive. Otherwise, negative drug screen. She had an EEG done earlier in the week and showe d a normal study. No epileptiform discharges identified. In addition, earlier yesterday there was M RI of the brain which was negative for any acute ischemic hemorrhagic findings. There was an area of 3 cm left superior calvarium hematoma again noted and no intracranial abnormalities such as hemorrha ge, hydrocephalus, fluid collection, or stroke. Past Medical History: As noted, COPD, hypertension, essential tremors. Allergies: NO KNOWN DRUG ALLERGIES. Medications: At home, atorvastatin 20 mg at bedtime, albuterol nebulizer, aspirin 81 mg daily, gabap entin 600 mg twice daily, primidone 50 mg twice daily, Eliquis 5 mg twice daily, prednisone 20 mg twi ce daily. Family History: Noncontributory. Surgical History: Hysterectomy, appendectomy. Social History: No alcohol, tobacco, or IV drug use. The patient lives in a single family home. Pl ease note, she was a former smoker and does consume alcohol. No IV drug use. Review of Systems: Diffuse weakness, shortness of breath, some wheezing, some myalgias, arthralgias, and unsteady gait w ith multiple falls and some slight pain in the forehead where there is a hematoma. Physical Examination: Vital Signs: Blood pressure 154/74, pulse 58, respiratory rate 18, temperature 98.3, oxygen saturati on 100%. General: Ms. Richards is resting comfortably. HEENT: She appears normocephalic. Just mild swelling of the left frontal calvarium or scalp, where there is hematoma from her recent fall, otherwise atraumatic. Chest: Good air movement. Abdomen: Soft, but obese. Extremities: Show no significant edema, cyanosis. Neurologic: She is alert and oriented to situation and place. She does follow commands appropriatel y. In terms of strength, there is diffuse weakness of lower extremities around 4/5 proximally and di stally. Decreased stocking glove loss to light, touch, temperature. Depressed reflexes. Assessment: Ms. Richards is a 68-year-old patient with essential tremor, hypertension, COPD, dyslipidem ia. She has had worsening gait with debility and multiple falls, a scalp hematoma . She d id ambulate with physical therapy earlier today. She was able to use oxygen; however, without oxygen , her saturation dropped to 84%. She did ambulate forwards, backwards, side step, marching in place with a front wheel walker with contact guard assistance. She had no tremors or jerking noted while d oing her therapy. She was independent with bed mobility and transfers as well as with sliding in her bed. Plan: At this point, she is likely to benefit from detention, where she can receive a more ext ended length of time for therapy to help improve her balance, gait, coordination, strength, and endur ance. monitoring of her comorbid conditions is helpful to maintain normotensive levels an d oxygenation, minimize the risk of aspiration pneumonia, and a potential for systemic infection. He r comorbid conditions again addressed by continuing medication as noted above. In addition, DVT prop hylaxis will be helpful. Aspirin for stroke risk reduction. Continue with gabapentin for neuropathi c pain. Continue the magnesium oxide. She also has baclofen to be added on board for jerking and mu scle spasms, it is 5 mg twice daily, and magnesium to be continued as well. After her discharge and potential stay in detention, she may follow up in Dr. Arambula's clinic. ROMÁN/FOZIA Voice ID: [id number] Report ID: [id number]
[2023-10-27 07:01] LABS: Hematocrit 27.9 % (36.0-45.0); Hemoglobin 8.9 g/dL (12.0-15.0); MCH 29.9 pg (27.0-35.0); MCHC 31.9 g/dL (32.0-36.0); MCV 93.6 fL (80-100); MPV 8.2 fL (7.6-11.3); Platelets 248 thou/uL (152-406); RBC Red Blood Cell Count 2.98 M/uL (3.86-4.86); Red Cell Distribution Width 15.5 % (12.1-15.2)
[2023-10-27 07:29] LABS: Potassium 4.4 mEq/L (3.5-5.1)
[2023-10-27 07:30] LABS: Anion Gap 1.4 mEq/L (5.0-15.0); Phosphorus 4.1 mg/dL (2.5-4.9)
[2023-10-27 07:31] LABS: Magnesium 2.8
--- NOTE | 2023-10-27 12:24 | P.PN ---
Subjective Date of Service: 10/27/23 Chief Complaint: COPD generalized tremor Patient is improving with her regarding her myoclonic jerks numbness of breath is stable Review of Systems Unremarkable Physical Examination - Vital Signs Temperature: 97.4 F Blood Pressure: 130/57 Pulse: 60 Respirations: 18 Pulse Ox (%): 98 - Physical Exam General: Alert, Oriented x3 Respiratory: Clear to auscultation bilaterally, Diminished Cardiovascular: No edema, Regular rate/rhythm, Normal S1 S2 Assessment And Plan - Current Problems (Diagnosis) (1) Tremor Current Visit: Yes Status: Acute Plan: Generalized tremors have improved seen by Dr. Arambula continue with baclofen (2) COPD (chronic obstructive pulmonary disease) Current Visit: Yes Status: Acute Plan: COPD stable discharge planning Qualifiers: Emphysema type: unspecified Physician Review: Patient Assessed, Agree with Above Assessment and Plan
--- NOTE | 2023-10-27 16:17 | P.PN ---
Date of Service: 10/27/23 Subjective: Feeling better, reports less jerking, reports able to ambulate to the restroom independently No new complaints ROS: 10 point ROS as noted above, otherwise negative Physical exam GEN: AAO x3, NAD, comfortable HEENT: Normal conjunctiva, sclera anicteric CV: RRR, normal S1-S2 present, no edema Pulm: Nonlabored respirations on nasal cannula ABD: Soft and benign on palpation, nontender, distended (obese) MSK: No joint tenderness, 2+ peripheral pulses Integumentary: Multiple bruises to face/neck/forehead Neuro: Normal speech, normal affect, calm and purposeful body movements Vitals reviewed Problem List Asthenia/Weakness with tremors/myoclonic jerks Recurrent falls Chronic T7/T9 compression fractures Right anterior lateral ninth rib fracture Iron deficiency anemia COPD with mild exacerbation on chronic home 5L Hypertension Plan Asthenia/Weakness with tremors/myoclonic jerks Recurrent falls Chronic T7/T9 compression fractures Right anterior lateral ninth rib fracture -Reports chronic tremor of upper extremities and occasional upper extremity jerking -Developed jerking of thorax/head/legs intermittently a few months ago which has been worsening -Very frequent jerking to torso/head/legs resulting with weakness and falls -Denies new meds or changes, unknown etiology -Neurology consulted -recommend mag ox and baclofen - PT/OT- able to participate and therapy to return during this admission -As needed pain meds, incentive spirometry -MRI reports "No intracranial hemorrhage, hydrocephalus or extra-axial fluid collections. No edema or shift of midline structures. No findings to suspect brain mass. DWI is negative for acute CVA. Midline structures are normally formed. Mastoid air cells and paranasal sinuses are clear. Focal 3 cm left superior calvarium presumed hematoma.IMPRESSION: Negative for acute CVA or other acute intracranial abnormality." -EEG reports "NORMAL EEG FOR THE AGE OF THE PATIENT [place]." Iron deficiency anemia -Follows with hematology -Has appointment with local topographical field assistant Dr. Benitez coming up to further workup her anemia -Received 2 unit PRBC 10/22, H/H 8.9/27.9 -Denies melena/hematemesis or hematochezia -Continue to monitor H&H daily, H/H stable COPD with mild exacerbation on chronic home 02-5L -Pulmonology following -Appreciate recommendations - p.o. steroids Hypertension -Continue home medications VTE: Lovenox Code: Full Dispo: 48 hours-may need SNF <VaibhavHilaryRuthie - Last Filed: 10/27/23 17:00> Patient seen and examined. Plan of care discussed with Ms. Esposito. Patient with generalized body tremors History of essential tremors. Suspected worsening of tremors despite being on primidone. Neurology Dr. Arambula recommended addition of baclofen Monitor and optimize electrolytes especially magnesium. MRI of the brain unremarkable. Continue PT. History of COPD which is stable Anticipating disposition to skilled rehab. <kartik baron - Last Filed: 10/27/23 18:21>
[2023-10-28 03:57] LABS: Hematocrit 28.2 % (36.0-45.0); MCH 29.8 pg (27.0-35.0); MCV 93.2 fL (80-100); MPV 8.5 fL (7.6-11.3); Platelets 260 thou/uL (152-406); RBC Red Blood Cell Count 3.02 M/uL (3.86-4.86); Red Cell Distribution Width 15.5 % (12.1-15.2)
[2023-10-28 04:09] LABS: Anion Gap 3.6 mEq/L (5.0-15.0); Magnesium 2.7 mg/dL (1.6-2.4); Potassium 4.6 mEq/L (3.5-5.1)
--- NOTE | 2023-10-28 13:32 | P.PN ---
Date of Service: 10/28/23 Subjective: Awake and tolerating p.o. diet, reports smoking has slowed down and is minimal at most. Awaiting discharge to SNF. ROS: 10 point ROS as noted above, otherwise negative Physical exam GEN: AAO x3, no acute distress, conversing well HEENT: Normal conjunctiva, sclera anicteric, PERRLA CV: Normal sinus rhythm, normal S1-S2 present, no edema Pulm: Nonlabored respirations on nasal cannula, symmetrical chest wall movement ABD: Soft and benign on palpation, nontender, distended (obese) MSK: No joint tenderness, 2+ peripheral pulses Integumentary: Multiple bruises to face/neck/forehead Neuro: Normal speech, normal affect, calm and purposeful body movements Vitals reviewed Problem List Asthenia/Weakness with tremors/myoclonic jerks Recurrent falls Chronic T7/T9 compression fractures Right anterior lateral ninth rib fracture Iron deficiency anemia COPD with mild exacerbation on chronic home 02-5L Hypertension Plan Asthenia/Weakness with tremors/myoclonic jerks Recurrent falls Chronic T7/T9 compression fractures Right anterior lateral ninth rib fracture -Reports chronic tremor of upper extremities and occasional upper extremity jerking -Developed jerking of thorax/head/legs intermittently a few months ago which has been worsening -Very frequent jerking to torso/head/legs resulting with weakness and falls -Denies new meds or changes, unknown etiology -Neurology consulted -recommend mag ox and baclofen - PT/OT- able to participate and therapy to return during this admission -As needed pain meds, incentive spirometry -MRI reports "No intracranial hemorrhage, hydrocephalus or extra-axial fluid collections. No edema or shift of midline structures. No findings to suspect brain mass. DWI is negative for acute CVA. Midline structures are normally formed. Mastoid air cells and paranasal sinuses are clear. Focal 3 cm left superior calvarium presumed hematoma.IMPRESSION: Negative for acute CVA or other acute intracranial abnormality." -EEG reports "NORMAL EEG FOR THE AGE OF THE PATIENT IN [place]." Iron deficiency anemia -Follows with hematology -Has appointment with local biomass technician Dr. Benitez coming up to further workup her anemia -Received 2 unit PRBC 6/8 -H/H 9.0/28.2- stable -Denies melena/hematemesis or hematochezia -Continue to monitor H&H daily COPD with mild exacerbation on chronic home 02-5L -Pulmonology following -Appreciate recommendations - p.o. steroids Hypertension -Continue home medications VTE: Lovenox Code: Full Dispo: 48 hours-SNF <Ruthie Esposito - Last Filed: 10/28/23 13:15> Patient seen and examined. She has no new complaint. She reports improvement in her chronic tremors. She feels the baclofen may be helping. Continue primidone and baclofen Respiratory status is at baseline and at baseline oxygen. Bronchodilators as needed. Clinically stable for discharge pending placement in skilled rehab. <kartik baron - Last Filed: 10/28/23 17:04>
--- NOTE | 2023-10-29 07:48 | P.PN ---
Date of Service: 10/29/23 Subjective: ROS: 10 point ROS as noted above, otherwise negative Physical exam GEN: AAO x3, no acute distress, conversing well HEENT: Normal conjunctiva, sclera anicteric, PERRLA CV: Normal sinus rhythm, normal S1-S2 present, no edema Pulm: Nonlabored respirations on nasal cannula, symmetrical chest wall movement ABD: Soft and benign on palpation, nontender, distended (obese) MSK: No joint tenderness, 2+ peripheral pulses Integumentary: Multiple bruises to face/neck/forehead Neuro: Normal speech, normal affect, calm and purposeful body movements Vitals reviewed Problem List Asthenia/Weakness with tremors/myoclonic jerks Recurrent falls Chronic T7/T9 compression fractures Right anterior lateral ninth rib fracture Iron deficiency anemia COPD with mild exacerbation on chronic home 5L Hypertension Plan Asthenia/Weakness with tremors/myoclonic jerks Recurrent falls Chronic T7/T9 compression fractures Right anterior lateral ninth rib fracture -Reports chronic tremor of upper extremities and occasional upper extremity jerking -Developed jerking of thorax/head/legs intermittently a few months ago which has been worsening -Very frequent jerking to torso/head/legs resulting with weakness and falls- resolving -Denies new meds or changes, unknown etiology -Neurology consulted -recommend mag ox and baclofen -Continue Primidone, baclofen, and Mag ox - PT/OT- able to participate and therapy to return during this admission -As needed pain meds, incentive spirometry -MRI reports "No intracranial hemorrhage, hydrocephalus or extra-axial fluid collections. No edema or shift of midline structures. No findings to suspect brain mass. DWI is negative for acute CVA. Midline structures are normally formed. Mastoid air cells and paranasal sinuses are clear. Focal 3 cm left superior calvarium presumed hematoma.IMPRESSION: Negative for acute CVA or other acute intracranial abnormality." -EEG reports "NORMAL EEG FOR THE AGE OF THE PATIENT IN [place]." Iron deficiency anemia -Follows with hematology -Has appointment with local general engineer Dr. Benitez coming up to further workup her anemia -Received 2 unit PRBC 6/8 -H/H 9.0/28.2- stable -Denies melena/hematemesis or hematochezia -Continue to monitor H&H daily COPD with mild exacerbation on chronic home 5L -Pulmonology following -Appreciate recommendations - p.o. steroids Hypertension -Continue home medications VTE: Lovenox Code: Full Dispo: 48 hours-SNF
[2023-10-29 08:52] LABS: Absolute Eosinophils 0.1 K/uL (0-0.5); Absolute Lymphocytes (CBC) 1.6 K/uL (0.7-4.9); Absolute Monocytes 0.7 K/uL (0.1-1.3); Absolute Neutrophil 6.4 K/uL (1.8-8.0); Basophils % 0.3 % (0-1.3); Eosinophils % 0.9 % (0-4.4); Hemoglobin 10.1 g/dL (12.0-15.0); Lymphocytes % 18.2 % (15.3-44.8); MCH 29.4 pg (27.0-35.0); MCHC 31.6 g/dL (32.0-36.0); MCV 93.1 fL (80-100); MPV 8.1 fL (7.6-11.3); Monocytes % 8.3 % (3.3-12.3); Neutrophils % 72.3 % (41.7-73.7); Platelets 295 thou/uL (152-406); RBC Red Blood Cell Count 3.44 M/uL (3.86-4.86); Red Cell Distribution Width 15.4 % (12.1-15.2)
[2023-10-29 09:06] LABS: Anion Gap 4.4 mEq/L (5.0-15.0); Magnesium 2.7 mg/dL (1.6-2.4); Phosphorus 3.7 mg/dL (2.5-4.9); Potassium 4.4 mEq/L (3.5-5.1)
[2023-10-29 09:58] VITALS: O2SAT 98
--- NOTE | 2023-10-29 13:49 | RAD REPORT ---
EXAM DESCRIPTION: RAD - Hand Right 2 View - 10/29/2023 1:29 pm CLINICAL HISTORY: bruising and swelling to right fifth finger COMPARISON: No comparisons FINDINGS: Diffuse osteopenia is seen. Mildly comminuted intra-articular fracture base of the proxima l phalanx of the fifth finger with surrounding soft tissue swelling.
--- NOTE | 2023-10-29 16:15 | P.DS ---
Admission Date: 10/23/23 Discharge Date: 10/31/23 Disposition: TRANSFER TO INPATIENT REHAB Discharge Condition: FAIR Reason for Admission: COPD generalized tremor Brief History of Present Illness: Diagonsis Asthenia/Weakness with tremors/myoclonic jerks Recurrent falls Chronic T7/T9 compression fractures Right anterior lateral ninth rib fracture Iron deficiency anemia COPD with mild exacerbation on chronic home 02-5L Hypertension Mildly comminuted intra-articular fracture base of the proximal phalanx of the fifth finger HPI Anju Richards is a 68-year-old female with past medical history of HTN, previous PE treated with Eliquis, COPDadvanced, on 4 L/min home oxygen, follows with Dr. Layton, chronic back pain, former smoker, who presented because of recurrent falls in the last 1 month. Patient states she fell about 2 weeks ago did not seek medical help, she was able to get up. She admits to increasing weakness and now unsteady gait. She said he fell again 2 days ago. She states she hit her head on both times. She denies any headache or dizziness. She says she has been having increasing tremulousness/tremors of the extremities. She states her weakness has progressed to the point where she is unable to ambulate/walk well now. she denies any nausea or vomiting. She denies any hematochezia. She presented to the hospital today because of increasing weakness. She denies any cough, or worsening shortness of breath. However she said on arrival of EMS she was told by EMS that she is wheezing. She received a dose of DuoNebs. On arrival in the ED vital signs were stable, mildly tachycardic, she was noted to be wheezing and received IV Solu-Medrol as well as an extra dose of DuoNebs. WBC was unremarkable, hemoglobin of 7.4, BMP was unremarkable. CT head shows no acute intracranial pathology, CT of the chest and abdomen shows evidence of T7 and T9 compression fractures as well as an acute right anterolateral ninth rib fracture. Hospital Course: Anju Richards is a 68 year old female with Pmhx history of HTN, previous PE treated with Eliquis, COPDadvanced, on 4 L/min home oxygen, follows with Dr. Weston, chronic back pain, former smoker who was admittted for increased trembling and weakness on 10/23/23. CT and MRI of head is negative for acute pathology. EEG performed and is normal. Dr. Arambula consulted and provided recommendations. She was anemic and received 2 units packed red blood cells on 10/23/2023, H&H has been stable for the remainder of this admission. She has responded well to baclofen and mag ox. During this admission, Anju mentioned she hurt her finger and an xray was performed with the following results: Right hand xray reports "Diffuse osteopenia is seen. Mildly comminuted intra- articular fracture base of the proximal phalanx of the fifth finger with surrounding soft tissue swelling." Outpatient Plan Dr David recommended splinting and reaching out to a hand surgeon Dr. Nunez consutled and recommended to splint the right fifth finger then follow up with him outpatient next week, surgical intervention will be determined at that point. She is tolerating PO diet, ambulating to the bathroom independently and worked with therapy, tremors decreased significantly, and is hemodynamically stable to discharge. On 10/29/2023, Anju was seen on morning rounds and deemed medically stable for discharge. Anju was discharged with instructions to schedule follow-up appointments with PCP and Dr. Arambula. Anju was provided prescriptions for prednisone, baclofen, Mag-Ox, Tessalon Perles. The patient was given the opportunity to ask questions and reported no further questions. Furthermore, all questions were answered to the best of my ability. Physical exam GEN: AAO x3, no acute distress, comfortable HEENT: Normal conjunctiva, sclera anicteric, PERRLA CV: RRR, normal S1-S2 present Pulm: Nonlabored respirations on nasal cannula, symmetrical chest wall movement ABD: Soft and benign on palpation, active bowel sounds present, nontender, distended (obese) MSK: No joint tenderness, 2+ peripheral pulses, right fifth finger bruising Integumentary: Multiple bruises to face/neck/forehead Neuro: Normal speech, normal affect Vital Signs/Physical Exam: Temp Pulse Resp BP Pulse Ox 98.3 F 65 19 131/60 97 10/29/23 12:00 10/29/23 12:00 10/29/23 12:00 10/29/23 12:00 10/29/23 12:00 Laboratory Data at Discharge: WBC 8.80 thou/uL (4.3-10.9) 10/29/23 08:34 Hgb 10.1 g/dL (12.0-15.0) L 10/29/23 08:34 Hct 32.0 % (36.0-45.0) L 10/29/23 08:34 Plt Count 295 thou/uL (152-406) 10/29/23 08:34 PT 12.3 SECONDS (9.5-12.5) 10/23/23 15:55 INR 1.12 10/23/23 15:55 APTT 31.7 SECONDS (24.3-36.9) 10/23/23 15:55 Sodium 138 mEq/L (136-145) 10/29/23 08:34 Potassium 4.4 mEq/L (3.5-5.1) 10/29/23 08:34 BUN 15 mg/dL (7-18) 10/29/23 08:34 Creatinine 0.89 mg/dL (0.55-1.02) 10/29/23 08:34 Glucose 88 mg/dL (74-106) 10/29/23 08:34 Phosphorus 3.7 mg/dL (2.5-4.9) 10/29/23 08:34 Magnesium 2.7 mg/dL (1.6-2.4) H 10/29/23 08:34 Total Bilirubin 0.4 mg/dL (0.2-1.0) 10/24/23 06:50 AST 12 U/L (15-37) L 10/24/23 06:50 ALT 16 U/L (13-56) 10/24/23 06:50 Alkaline Phosphatase 100 U/L (45-117) 10/24/23 06:50 Home Medications: Albuterol Neb [Proventil 0.083% Neb Soln] 2.5 mg NEB [id number] PRN #60 amp 11/10/21 Aspirin [Adult Low Dose Aspirin EC] 81 mg PO DAILY 02/03/22 Gabapentin 600 mg PO BID 02/03/22 Primidone 50 mg PO BID 02/03/22 Budesonide/Glycopyr/Formoterol [Breztri Aerosphere Inhaler] 2 puff IH BID 10/23/23 Carvedilol [Coreg] 3.125 mg PO DAILY 10/23/23 Docusate [Colace Cap*] 100 mg PO BEDTIME 10/23/23 Duloxetine HCl 20 mg PO DAILY 10/23/23 Furosemide [Lasix] 40 mg PO DAILYPRN PRN 10/23/23 Hydrocodone 7.5/APAP 325 [[place] 7.5/325 mg*] 1 tab PO BID 10/23/23 Potassium Chloride [K-Dur] 10 meq PO DAILY 10/23/23 Rosuvastatin [Crestor*] 5 mg PO BEDTIME 10/23/23 Spironolactone [Aldactone*] 25 mg PO BEDTIME 10/23/23 Baclofen [Lioresal*] 5 mg PO BID 30 Days #30 tab 10/29/23 Benzonatate [Tessalon Perle*] 200 mg PO TID PRN 4 Days #12 cap 10/29/23 Magnesium Oxide [Mag 0X*] 400 mg PO BID 15 Days #30 tab 10/29/23 predniSONE [Deltasone*] 10 mg PO BID 30 Days #60 tab 10/29/23 New Medications: predniSONE [Deltasone*] 10 mg PO BID 30 Days #60 tab Baclofen [Lioresal*] 5 mg PO BID 30 Days #30 tab Magnesium Oxide [Mag 0X*] 400 mg PO BID 15 Days #30 tab Benzonatate [Tessalon Perle*] 200 mg PO TID PRN 4 Days #12 cap PRN Reason: Cough Physician Discharge Instructions: Anju Richards was admittted for increased trembling and weakness. CT and MRI of head is negative for acute pathology. EEG performed and is normal. She has responded well to baclofen and mag ox. During this admission, Anju mentioned she hurt her finger and an xray was performed with the following results. Right hand xray reports "Diffuse osteopenia is seen. Mildly comminuted intra- articular fracture base of the proximal phalanx of the fifth finger with surrounding soft tissue swelling." Outpatient Plan Dr David recommended splinting and reaching out to a hand surgeon Dr. Nunez consutled and recommended to splint the right fifth finger then follow up with him outpatient next week, surgical intervention will be determined at that point. 1. Please call and schedule a follow-up appointment with your PCP in 3-5 days - Please follow-up with your PCP for medication refills/adjustments 2. Please call and schedule a follow-up appointment with Dr. Bharath Nunez in 3-5 days 3. Please call and schedule a follow-up an appointment with Dr. Arambula in one week 3. Continue regular diet 4. activity restrictions, fall precautions 5. Return to the ED if symptoms worsen New medications Baclofen 5 mg BID x 30 days Tessalon Perles 200 mg twice daily x 6 days Prednisone 10 mg p.o. twice daily x 30 days Magnesium oxide 400 mg p.o. Diet: Regular Activity: Fall precautions Followup: Tavares Arambula MD [ASSOCIATE-ACTIVE - CAN ADMIT] - 1 Week Harvey Solitario, [Primary Care Provider] - 1 Week EDUARDO NUNEZ [OUTSIDE PHYSICIAN] - 2-3 Days
[2023-10-29 17:59] VITALS: BP 148/69; TEMP 98.6
== END 2023-10-29 19:15 | disposition swing bed (61) | DRG 206 ==
LOC: ER 15:21 → ERHOLD 18:52 → 2ND 20:47
PROVIDERS: ADMIT Internal Medicine; ATTEND Internal Medicine
PROC: 30233N1 Transfusion of Nonautologous Red Blood Cells into Peripheral Vein, Percutaneous Approach (ICD-10-PCS; principal; 2023-10-23)
DX: S22.31XA Fracture of one rib, right side, initial encounter for closed fracture (principal); J44.1 Chronic obstructive pulmonary disease with (acute) exacerbation; J96.11 Chronic respiratory failure with hypoxia; G25.3 Myoclonus; I10 Essential (primary) hypertension; E78.5 Hyperlipidemia, unspecified; D50.9 Iron deficiency anemia, unspecified; M79.7 Fibromyalgia; G89.29 Other chronic pain; M54.9 Dorsalgia, unspecified; S22.069D Unspecified fracture of T7-T8 vertebra, subsequent encounter for fracture with routine healing; S22.079D Unspecified fracture of T9-T10 vertebra, subsequent encounter for fracture with routine healing; E66.09 Other obesity due to excess calories; S00.83XA Contusion of other part of head, initial encounter; S62.610A Displaced fracture of proximal phalanx of right index finger, initial encounter for closed fracture; R29.6 Repeated falls; Z91.81 History of falling; Z68.35 Body mass index [BMI] 35.0-35.9, adult; Z79.01 Long term (current) use of anticoagulants; Z99.81 Dependence on supplemental oxygen; Z79.82 Long term (current) use of aspirin; Z79.52 Long term (current) use of systemic steroids; Z90.49 Acquired absence of other specified parts of digestive tract; Z87.891 Personal history of nicotine dependence; Z86.711 Personal history of pulmonary embolism; Z79.899 Other long term (current) drug therapy; Z90.710 Acquired absence of both cervix and uterus
CPT/HCPCS: 36415; 36430; 70450; 70551; 71045; 71260; 72125; 74177; 80048; 80053; 80076; 80143; 80179; 80307; 81003; 82077; 82550; 82728; 83540; 83735; 83880; 84100; 84443; 84466; 84484; 85025; 85027; 85610; 85730; 86850; 86900; 86901; 86920; 93005; 94010; 95816; 96361; 96374; 96375; 97110; 97116; 97161; 97165; 97530; 99285; C9113; J0696; J1650; J2270; J2919; J7030; J7050; J7512; J7614; J7644; P9016; Q9967

== ENCOUNTER 2024-03-26 15:42 | Inpatient (IN) | payer OTHER ==
--- OUTSIDE RECORDS SUMMARY | 2024-03-26 15:47 | XMS REPORT | Continuity of Care Document ---
Author Name Unknown Address [address] [facility] [address] [place] [address] [facility] thconnect Address [address] [facility] [address] [place] [address] Care Team Providers Care Statuary Painter Name Role Phone Pcp, Patient Does Not Have A Primary Care Physic yumiko Angelica Sales Attending Clinician Unavail able Rosa Mckeon Attending Clinician Unavailable Ramos RT, Ursula C Attending Clinician Unavailab le Ramos RT, Ursula C Attending Clinician Unavailab hellen Therapist, [facility] Attending Clinician Gregoria Danny Downey MD Attending Clinician DANNY BUENO Attending Clinician Unavailable Fellow, Pulmonary Attending Clinician UnavailRICARDO Dobbs Attending Clinician Unavailable RICARDO ALCANTAR Attending Clinician Unavailable [email or web address] Attending Clinician Unavailmary Bacon Attending Clinician Unavaila ROSS Watters Attending Clinician Unavailab Mahad Burr Attending Clinician Unavailable MASSIEL GUAJARDO Attending Clinician Unavailable Doctor Unassigned, [place] Attending Clinician IMELDA Schulz Attending Clinician Unavailab Eliasnee Admitting Clinician Unavailable [email or web address]_Kadiyala_S Admitting Clinician Kin RIOS_Sabine_Mahad_ Admitting Clinician UnavailROSS Landeros Admitting Clinician UnavailMahad Mejia Admitting Clinician Unavailable Payers Payer Name Policy Type Policy Number Effective Date Expirati on Date Source [employer] (MEDICARE REPLACEMENT PPO) [id number] 2022 00:00:00 [employer] [id number] [place]: [employer] [id number] 2020 00:00:00 [employer] 53 [id number] 2021 00:00:00 [facility] [employer] (MEDICARE SUPPLEMENT) [id number] 2021 00:00:00 [place] [facility] [id number] 2020 00:00:00 [facility] MEDICARE NOVITAS [id number] 2020 00:00:00 [facility] Problems Condition Name Condition Details Condition Category Status Onset Date Resolution Date Last Treatment Date Treating Clinician Comments Source Fibromyalg ia Fibromyalg ia Problem Active 2023-05 00:00: 00 [facility] Poor stream of urine Poor Stream of Urine Problem Active 2023-05 00:00: 00 [facility] Essential tremor Essential Tremor Problem Active 2023-05 00:00: 00 [facility] Congestive heart failure Congestive Heart Failure Problem Active 2023-05 00:00: 00 [facility] Chronic obstructiv e pulmonary disease Chronic Obstructiv e Pulmonary Disease Problem Active 2023-05 00:00: 00 [facility] Irritable bowel syndrome Irritable Bowel Syndrome Problem Active 2023-05 00:00: 00 [facility] Female stress incontinen ce Female Stress Incontinen ce Problem Active 2023-05- 00:00: 00 [facility] Osteoarthr itis of right knee joint Osteoarthr itis of Right Knee Joint Problem Active 2021-05 2-07 00:00: 00 [facility] Osteoarthr itis of left knee joint Osteoarthr itis of Left Knee Joint Problem Active 2021-05 00:00: 00 [facility] Functional urinary incontinen ce Functional Urinary Incontinen ce Problem Active 01-28 00:00: 00 [facility] Gynecologi fadi examinatio n abnormal Gynecologi fadi Examinatio n Abnormal Problem Active 01-28 00:00: 00 [facility] Neck pain Neck pain Disease Active 10-09 00:00: 00 [facility] [id number] Leukocytos is, unspecifie d type Problem [facility] [id number] Iron deficiency anemia, unspecifie d iron deficiency anemia type Problem Common [facility] [id number] Chronic fatigue Problem [facility] [id number] Body mass index [BMI] 34.0-34.9, adult Problem [facility] [id number] Chronic congestive heart failure, unspecifie d heart failure type Problem [facility] [id number] Other obesity due to excess calories Problem [facility] [id number] Vitamin D deficiency Problem [facility] [id number] Other osteoporos is with current pathologic al fracture with delayed healing, subsequent encounter Problem [facility] [id number] On home O2 Problem Commo n [facility] [id number] Mixed stress and urge urinary incontinen ce Problem Common [facility] [id number] Iron deficiency anemia secondary to inadequate dietary iron intake Problem Common [facility] [id number] Primary insomnia Problem [facility] [id number] Cervical radiculopa thy Problem Common [facility] Lumbar radiculopa thy Lumbar radiculopa thy Problem Common [facility] Thoracic radiculopa thy Thoracic radiculopa thy Problem Common [facility] [id number] Adrenal nodule Problem Common [facility] Depression Depression Problem [facility] Acute exacerbati on of chronic obstructiv e airways disease COPD with acute exacerbati on Problem [facility] Chronic kidney disease stage 3 (disorder) Chronic kidney disease, stage 3 unspecifie d Problem [facility] [id number] Constipati on, unspecifie d constipati on type Problem [facility] [id number] Pain, joint, knee, left Problem [facility] [id number] Avascular necrosis of bone Problem [facility] [id number] Primary osteoarthr itis of both knees Problem [facility] [id number] Pain, joint, knee, right Problem [facility] Benign neoplasm of colon Polyp of colon, unspecifie d part of colon, unspecifie d type Problem [facility] [id number] Current moderate episode of major depressive disorder, unspecifie d whether recurrent Problem [facility] Dyspnea Shortness of breath on exertion Problem [facility] Body mass index 30.00 to 34.99 BMI 34.0-34.9, adult Problem [facility] Fatty liver Fatty liver Problem [facility] Hypertensi on HTN (hypertens ion) Problem [facility] [id number] Mixed hyperlipid emia Problem [facility] Insomnia Insomnia Problem [facility] Blood clot Blood clot Problem [facility] Chronic kidney disease due to hypertensi on Benign hypertensi on with chronic kidney disease, stage III Problem [facility] Allergies, Adverse Reactions, Alerts Allergy Name Allergy Type Status Severity Reaction(s) Onset Date Inactive Date Treating Clinician Comments Source No Known Allergie s DA Active U 07-21 00:00: 00 [facility] Penicill ins Propensi ty to adverse reaction s Active Shortness of Breath 10-09 00:00: 00 Pt reports she is NOT allergic to PCN. [facility] PENICILL INS Drug Class Active SOB 10-09 00:00: 00 [facility] Social History Social Habit Start Date Stop Date Quantity Comments Source [facility] tobacco use Passive smoker [facility] Tobacco Comment 2023-12-02 00:00:00 2023-12-02 00:00:00 Started smoking age 14; cigarettes; stopped July 2015; smoked 1 - 1.[address] [facility] Alcohol Comment 2023-12-02 00:00:00 2023-12-02 00:00:00 1/wk liquor [facility] History of Social function 2023-12-02 00:00:00 2023-12-02 00:00:00 [facility] Alcoholic beverage intake 2023-12-02 00:00:00 2023-12-02 00:00:00 .43 /d [facility] Tobacco use and exposure 2023-12-02 00:00:00 2023-12-02 00:00:00 Smokeless tobacco non-user [facility] Exposure to SARS-CoV-2 (event) 2020-06-11 00:00:00 2020-07-11 16:37:[address] [facility] Alcohol intake 2015-11-02 00:00:00 2015-11-02 00:00:00 0 /d [facility] Sex assigned at 1955 00:00:00 1955 00:00:00 [facility] Smoking Status Start Date Stop Date Source Former Smoker [facility] Never Smoker [facility] Medications Ordered Medication Name Filled Medication Name Start Date Stop Date Current Medication? Ordering Clinician Indication Dosage Frequency Signature (SIG) Comments Components Source HYDROcodone -Acetaminop hen 7.5-325 MG HYDROcodone -Acetaminop hen 7.5-325 MG 2023-05 0-04 00:00: 00 No 1{table t_as_ne eded} QID HYDROcodon e-Acetamin ophen 7.5-325 MG Mirabegron ER 25 MG Mirabegron ER 25 MG 9-06 00:00: 00 No 1{table t} QD Mirabegron ER 25 MG traMADol-Ac etaminophen 37.5-325 MG traMADol-Ac etaminophen 37.5-325 MG 8- 00:00: 00 No 2{table ts_as_n eeded} QD traMADol-A cetaminoph en 37.5-325 MG Cyanocobala min 2000 MCG Cyanocobala min 2000 MCG 8- 00:00: 00 No 1{table t} QD Cyanocobal evangelista 2000 MCG diclofenac dodium (VOLTAREN ARTHRITIS PAIN) 1 % gel 12-01 16:45: 43 Yes 1g Apply 1 g to area(s) 4 (four) times daily as needed for Pain (apply to hands PRN pain). [facility] budesonide- glycopyr-fo rmoterol (BREZTRI AEROSPHERE) 160-9-4.8 mcg/actuati on HFAA 12-01 16:45: 43 Yes 1{puff} Inhale 1 Puff in the morning and 1 Puff in the evening. Indication s: has been taking ~8 mths [facility] albuterol sulfate 90 mcg/actuati on AePB 12-01 16:45: 43 Yes 2{puff} Inhale 2 Puffs as needed (every 4 hrs;; last used today before coming to [place] eval). [facility] ciprofloxac in HCl (CIPRO) 250 mg tablet 11-01 00:00: 00 Yes 250mg Take 1 tablet by mouth 2 (two) times daily. [facility] acetaminoph en-codeine (TYLENOL #3) 300-30 mg tablet 11-01 00:00: 00 Yes 1{tbl} Take 1 tablet by mouth every 4 (four) hours as needed for Pain (scale 4-6). [facility] lisinopril (PRINIVIL,Z ESTRIL) 5 mg tablet 10-09 10:53: 29 Yes 5mg Take 1 tablet by mouth in the morning. [facility] levothyroxi ne (SYNTHROID) 50 mcg tablet 10-09 10:53: 29 Yes 50ug Take 1 tablet by mouth every morning. [facility] diclofenac (VOLTAREN) 75 mg EC tablet 10-09 00:00: 00 Yes 75mg Take 1 tablet by mouth 2 (two) times daily with meals. [facility] doxycycline (VIBRA-TABS ) 100 mg tablet 10-03 00:00: 00 Yes [facility] albuterol 90 mcg-budeson hetal 80 mcg/actuati on HFA aerosol inhaler Inhale by inhalation route. albuterol 90 mcg-budeson hetal 80 mcg/actuati on HFA aerosol inhaler Inhale by inhalation route. No albuterol 90 mcg-budeso nide 80 mcg/actuat ion HFA aerosol inhaler Inhale by inhalation route. [facility] aspirin aspirin No aspirin [facility] baclofen 5 mg tablet Take 1 tablet 3 times a day by oral route. baclofen 5 mg tablet Take 1 tablet 3 times a day by oral route. No 1 TID baclofen 5 mg tablet Take 1 tablet 3 times a day by oral route. [facility] Breztri Aerosphere 160 mcg-9mcg-4. 8mcg/actuat ion HFA aerosol inhaler Inhale 2 puffs twice a day by inhalation route. Breztri Aerosphere 160 mcg-9mcg-4. 8mcg/actuat ion HFA aerosol inhaler Inhale 2 puffs twice a day by inhalation route. No 2puff(s ) BID Breztri Aerosphere 160 mcg-9mcg-4 .8mcg/actu ation HFA aerosol inhaler Inhale 2 puffs twice a day by inhalation route. [facility] carvedilol 3.125 mg tablet Take 1 tablet twice a day by oral route. carvedilol 3.125 mg tablet Take 1 tablet twice a day by oral route. No 1 BID carvedilol 3.125 mg tablet Take 1 tablet twice a day by oral route. [facility] furosemide 40 mg tablet Take 1 tablet every day by oral route. furosemide 40 mg tablet Take 1 tablet every day by oral route. No 1 Q1D furosemide 40 mg tablet Take 1 tablet every day by oral route. [facility] gabapentin 600 mg tablet Take 1 tablet 4 times a day by oral route. gabapentin 600 mg tablet Take 1 tablet 4 times a day by oral route. No 1 QID gabapentin 600 mg tablet Take 1 tablet 4 times a day by oral route. [facility] magnesium magnesium No magnesium [facility] potassium acetate potassium acetate No potassium acetate [facility] prednisone 10 mg tablet Take 1 tablet every day by oral route. prednisone 10 mg tablet Take 1 tablet every day by oral route. No 1 Q1D prednisone 10 mg tablet Take 1 tablet every day by oral route. [facility] primidone primidone No primidone [facility] Advair Diskus 250 mcg-50 mcg/dose powder for inhalation INHALE ONE PUFF 2 TIMES A DAY FOR 30 DAYS Advair Diskus 250 mcg-50 mcg/dose powder for inhalation INHALE ONE PUFF 2 TIMES A DAY FOR 30 DAYS No Advair Diskus 250 mcg-50 mcg/dose powder for inhalation INHALE ONE PUFF 2 TIMES A DAY FOR 30 DAYS [facility] albuterol sulfate 2.5 mg/3 mL (0.083 %) solution for nebulizatio n USE 1 VIAL IN NEBULIZER EVERY 6 HOURS NEEDED FOR SHORTNESS OF BREATH albuterol sulfate 2.5 mg/3 mL (0.083 %) solution for nebulizatio n USE 1 VIAL IN NEBULIZER EVERY 6 HOURS NEEDED FOR SHORTNESS OF BREATH No albuterol sulfate 2.5 mg/3 mL (0.083 %) solution for nebulizati on USE 1 VIAL IN NEBULIZER EVERY 6 HOURS NEEDED FOR SHORTNESS OF BREATH [facility] albuterol sulfate HFA 90 mcg/actuati on aerosol inhaler INHALE 2 PUFFS BY MOUTH EVERY 6 HOURS NEEDED albuterol sulfate HFA 90 mcg/actuati on aerosol inhaler INHALE 2 PUFFS BY MOUTH EVERY 6 HOURS NEEDED No albuterol sulfate HFA 90 mcg/actuat ion aerosol inhaler INHALE 2 PUFFS BY MOUTH EVERY 6 HOURS NEEDED [facility] rosuvastati n 5 mg tablet Take 1 tablet every day by oral route. rosuvastati n 5 mg tablet Take 1 tablet every day by oral route. No 1 Q1D rosuvastat in 5 mg tablet Take 1 tablet every day by oral route. [facility] amlodipine 2.5 mg tablet TAKE 1 TABLET BY MOUTH ONCE DAILY amlodipine 2.5 mg tablet TAKE 1 TABLET BY MOUTH ONCE DAILY No amlodipine 2.5 mg tablet TAKE 1 TABLET BY MOUTH ONCE DAILY [facility] arformotero l 15 mcg/2 mL solution for nebulizatio n USE 1 VIAL IN NEBULIZER TWICE DAILY arformotero l 15 mcg/2 mL solution for nebulizatio n USE 1 VIAL IN NEBULIZER TWICE DAILY No arformoter ol 15 mcg/2 mL solution for nebulizati on USE 1 VIAL IN NEBULIZER TWICE DAILY [facility] atorvastati n 20 mg tablet TAKE 1 TABLET BY MOUTH EVERY DAY FOR 90 DAYS atorvastati n 20 mg tablet TAKE 1 TABLET BY MOUTH EVERY DAY FOR 90 DAYS No atorvastat in 20 mg tablet TAKE 1 TABLET BY MOUTH EVERY DAY FOR 90 DAYS [facility] azithromyci n 250 mg tablet TAKE 1 TABLET BY MOUTH ONCE DAILY azithromyci n 250 mg tablet TAKE 1 TABLET BY MOUTH ONCE DAILY No azithromyc in 250 mg tablet TAKE 1 TABLET BY MOUTH ONCE DAILY [facility] cefdinir 300 mg capsule cefdinir 300 mg capsule No cefdinir 300 mg capsule [facility] spironolact one 25 mg tablet Take 1 tablet every day by oral route. spironolact one 25 mg tablet Take 1 tablet every day by oral route. No 1 Q1D spironolac tone 25 mg tablet Take 1 tablet every day [facility] 300 mg capsule TAKE 1 CAPSULE BY MOUTH AT BEDTIME gabapentin 300 mg capsule TAKE 1 CAPSULE BY MOUTH AT BEDTIME No gabapentin 300 mg capsule TAKE 1 CAPSULE BY MOUTH AT BEDTIME [facility] gabapentin 600 mg tablet TAKE 1 TABLET BY MOUTH TWICE A DAY gabapentin 600 mg tablet TAKE 1 TABLET BY MOUTH TWICE A DAY No gabapentin 600 mg tablet TAKE 1 TABLET BY MOUTH TWICE A DAY [facility] hydrocodone 7.5 mg-acetamin ophen 325 mg tablet TAKE 1 TABLET BY MOUTH EVERY 6 HOURS NEEDED FOR PAIN (SCALE 5-7) hydrocodone 7.5 mg-acetamin ophen 325 mg tablet TAKE 1 TABLET BY MOUTH EVERY 6 HOURS NEEDED FOR PAIN (SCALE 5-7) No hydrocodon e 7.5 mg-acetami nophen 325 mg tablet TAKE 1 TABLET BY MOUTH EVERY 6 HOURS NEEDED FOR PAIN (SCALE 5-7) [facility] ipratropium bromide 0.02 % solution for inhalation INHALE 1 VIAL IN NEBULIZER EVERY 6 HOURS NEEDED FOR SHORTNESS OF BREATH ipratropium bromide 0.02 % solution for inhalation INHALE 1 VIAL IN NEBULIZER EVERY 6 HOURS NEEDED FOR SHORTNESS OF BREATH No ipratropiu m bromide 0.02 % solution for inhalation INHALE 1 VIAL IN NEBULIZER EVERY 6 HOURS NEEDED FOR SHORTNESS OF BREATH [facility] ketorolac 10 mg tablet TAKE 1 TABLET BY MOUTH EVERY 6 HOURS NEEDED ketorolac 10 mg tablet TAKE 1 TABLET BY MOUTH EVERY 6 HOURS NEEDED No ketorolac 10 mg tablet TAKE 1 TABLET BY MOUTH EVERY 6 HOURS NEEDED [facility] lactulose 10 gram/15 mL oral solution lactulose 10 gram/15 mL oral solution No lactulose 10 gram/15 mL oral solution [facility] lisinopril 20 mg tablet TAKE 1 TABLET BY MOUTH ONCE DAILY lisinopril 20 mg tablet TAKE 1 TABLET BY MOUTH ONCE DAILY No lisinopril 20 mg tablet TAKE 1 TABLET BY MOUTH ONCE DAILY [facility] Stool Softener Stool Softener No Stool Softener [facility] losartan 50 mg tablet TAKE 1 TABLET BY MOUTH ONCE DAILY losartan 50 mg tablet TAKE 1 TABLET BY MOUTH ONCE DAILY No losartan 50 mg tablet TAKE 1 TABLET BY MOUTH ONCE DAILY [facility] nitrofurant oin monohydrate /macrocryst als 100 mg capsule TAKE 1 CAPSULE BY MOUTH EVERY 12 HOURS FOR 7 DAYS nitrofurant oin monohydrate /macrocryst als 100 mg capsule TAKE 1 CAPSULE BY MOUTH EVERY 12 HOURS FOR 7 DAYS No nitrofuran toin monohydrat e/macrocry stals 100 mg capsule TAKE 1 CAPSULE BY MOUTH EVERY 12 HOURS FOR 7 DAYS [facility] prednisone 10 mg tablet TAKE 1 TABLET BY MOUTH EVERY DAY NEEDED prednisone 10 mg tablet TAKE 1 TABLET BY MOUTH EVERY DAY NEEDED No prednisone 10 mg tablet TAKE 1 TABLET BY MOUTH EVERY DAY NEEDED [facility] prednisone 20 mg tablet TAKE 1 TABLET BY MOUTH TWICE DAILY FOR 3 DAYS AND 1 TABLET ONCE DAILY FOR 3 DAYS AND 1/2 (ONE-HALF) TABLET ONCE DAILY FOR 4 DAYS prednisone 20 mg tablet TAKE 1 TABLET BY MOUTH TWICE DAILY FOR 3 DAYS AND 1 TABLET ONCE DAILY FOR 3 DAYS AND 1/2 (ONE-HALF) TABLET ONCE DAILY FOR 4 DAYS No prednisone 20 mg tablet TAKE 1 TABLET BY MOUTH TWICE DAILY FOR 3 DAYS AND 1 TABLET ONCE DAILY FOR 3 DAYS AND 1/2 (ONE-HALF) TABLET ONCE DAILY FOR 4 DAYS [facility] pregabalin 75 mg capsule pregabalin 75 mg capsule No pregabalin 75 mg capsule [facility] primidone 50 mg tablet 1/2 TABLET B.I.D. primidone 50 mg tablet 1/2 TABLET B.I.D. No primidone 50 mg tablet 1/2 TABLET B.I.D. [facility] sertraline 100 mg tablet TAKE 1 TABLET BY MOUTH ONCE DAILY sertraline 100 mg tablet TAKE 1 TABLET BY MOUTH ONCE DAILY No sertraline 100 mg tablet TAKE 1 TABLET BY MOUTH ONCE DAILY [facility] tizanidine 4 mg tablet TAKE 1 TABLET BY MOUTH EVERY 8 HOURS NEEDED FOR MUSCLE SPASMS tizanidine 4 mg tablet TAKE 1 TABLET BY MOUTH EVERY 8 HOURS NEEDED FOR MUSCLE SPASMS No tizanidine 4 mg tablet TAKE 1 TABLET BY MOUTH EVERY 8 HOURS NEEDED FOR MUSCLE SPASMS [facility] tramadol 37.5 mg-acetamin ophen 325 mg tablet TAKE 1 TABLET BY MOUTH EVERY 8 HOURS NEEDED FOR 10 DAYS tramadol 37.5 mg-acetamin ophen 325 mg tablet TAKE 1 TABLET BY MOUTH EVERY 8 HOURS NEEDED FOR 10 DAYS No tramadol 37.5 mg-acetami nophen 325 mg tablet TAKE 1 TABLET BY MOUTH EVERY 8 HOURS NEEDED FOR 10 DAYS [facility] tramadol 50 mg tablet tramadol 50 mg tablet No tramadol 50 mg tablet [facility] trazodone 100 mg tablet TAKE 1 TABLET BY MOUTH ONCE DAILY AT BEDTIME trazodone 100 mg tablet TAKE 1 TABLET BY MOUTH ONCE DAILY AT BEDTIME No trazodone 100 mg tablet TAKE 1 TABLET BY MOUTH ONCE DAILY AT BEDTIME [facility] Advair Diskus 250 mcg-50 mcg/dose powder for inhalation INHALE ONE PUFF 2 TIMES A DAY FOR 30 DAYS Advair Diskus 250 mcg-50 mcg/dose powder for inhalation INHALE ONE PUFF 2 TIMES A DAY FOR 30 DAYS No Advair Diskus 250 mcg-50 mcg/dose powder for inhalation INHALE ONE PUFF 2 TIMES A DAY FOR 30 DAYS [facility] albuterol sulfate 2.5 mg/3 mL (0.083 %) solution for nebulizatio n USE 1 VIAL IN NEBULIZER EVERY 6 HOURS NEEDED FOR SHORTNESS OF BREATH albuterol sulfate 2.5 mg/3 mL (0.083 %) solution for nebulizatio n USE 1 VIAL IN NEBULIZER EVERY 6 HOURS NEEDED FOR SHORTNESS OF BREATH No albuterol sulfate 2.5 mg/3 mL (0.083 %) solution for nebulizati on USE 1 VIAL IN NEBULIZER EVERY 6 HOURS NEEDED FOR SHORTNESS OF BREATH [facility] albuterol sulfate HFA 90 mcg/actuati on aerosol inhaler INHALE 2 PUFFS BY MOUTH EVERY 6 HOURS NEEDED albuterol sulfate HFA 90 mcg/actuati on aerosol inhaler INHALE 2 PUFFS BY MOUTH EVERY 6 HOURS NEEDED No albuterol sulfate HFA 90 mcg/actuat ion aerosol inhaler INHALE 2 PUFFS BY MOUTH EVERY 6 HOURS NEEDED [facility] amlodipine 2.5 mg tablet TAKE 1 TABLET BY MOUTH ONCE DAILY amlodipine 2.5 mg tablet TAKE 1 TABLET BY MOUTH ONCE DAILY No amlodipine 2.5 mg tablet TAKE 1 TABLET BY MOUTH ONCE DAILY [facility] arformotero l 15 mcg/2 mL solution for nebulizatio n USE 1 VIAL IN NEBULIZER TWICE DAILY arformotero l 15 mcg/2 mL solution for nebulizatio n USE 1 VIAL IN NEBULIZER TWICE DAILY No arformoter ol 15 mcg/2 mL solution for nebulizati on USE 1 VIAL IN NEBULIZER TWICE DAILY [facility] aspirin 81 mg tablet,mikael yed release Take 1 tablet twice a day by oral route with meals for 30 days. to prevent a blood clot aspirin 81 mg tablet,mikael yed release Take 1 tablet twice a day by oral route with meals for 30 days. to prevent a blood clot No 1 BID aspirin 81 mg tablet,del ayed release Take 1 tablet twice a day by oral route with meals for 30 days. to prevent a blood clot [facility] atorvastati n 20 mg tablet TAKE 1 TABLET BY MOUTH EVERY DAY FOR 90 DAYS atorvastati n 20 mg tablet TAKE 1 TABLET BY MOUTH EVERY DAY FOR 90 DAYS No atorvastat in 20 mg tablet TAKE 1 TABLET BY MOUTH EVERY DAY FOR 90 DAYS [facility] azithromyci n 250 mg tablet TAKE 1 TABLET BY MOUTH ONCE DAILY azithromyci n 250 mg tablet TAKE 1 TABLET BY MOUTH ONCE DAILY No azithromyc in 250 mg tablet TAKE 1 TABLET BY MOUTH ONCE DAILY [facility] cefdinir 300 mg capsule cefdinir 300 mg capsule No cefdinir 300 mg capsule [facility] celecoxib 200 mg capsule Take 1 capsule twice a day by oral route with meals for 14 days. celecoxib 200 mg capsule Take 1 capsule twice a day by oral route with meals for 14 days. No celecoxib 200 mg capsule Take 1 capsule twice a day by oral route with meals for 14 days. [facility] Colace 100 mg capsule Take 1 capsule twice a day by oral route as needed. for constipatio n Colace 100 mg capsule Take 1 capsule twice a day by oral route as needed. for constipatio n No 1capsul e(s) BID Colace 100 mg capsule Take 1 capsule twice a day by oral route as needed. for constipati on [facility] gabapentin 300 mg capsule Take 1 capsule every day by oral route as needed. gabapentin 300 mg capsule Take 1 capsule every day by oral route as needed. No gabapentin 300 mg capsule Take 1 capsule every day by oral route as needed. [facility] gabapentin 600 mg tablet TAKE 1 TABLET BY MOUTH TWICE A DAY gabapentin 600 mg tablet TAKE 1 TABLET BY MOUTH TWICE A DAY No gabapentin 600 mg tablet TAKE 1 TABLET BY MOUTH TWICE A DAY [facility] hydrocodone 10 mg-acetamin ophen 325 mg tablet Take 1 tablet every 6 hours by oral route as needed. for pain hydrocodone 10 mg-acetamin ophen 325 mg tablet Take 1 tablet every 6 hours by oral route as needed. for pain No 1 Q6H hydrocodon e 10 mg-acetami nophen 325 mg tablet Take 1 tablet every 6 hours by oral route as needed. for pain [facility] hydrocodone 7.5 mg-acetamin ophen 325 mg tablet TAKE 1 TABLET BY MOUTH EVERY 6 HOURS NEEDED FOR PAIN (SCALE 5-7) hydrocodone 7.5 mg-acetamin ophen 325 mg tablet TAKE 1 TABLET BY MOUTH EVERY 6 HOURS NEEDED FOR PAIN (SCALE 5-7) No hydrocodon e 7.5 mg-acetami nophen 325 mg tablet TAKE 1 TABLET BY MOUTH EVERY 6 HOURS NEEDED FOR PAIN (SCALE 5-7) [facility] ipratropium bromide 0.02 % solution for inhalation INHALE 1 VIAL IN NEBULIZER EVERY 6 HOURS NEEDED FOR SHORTNESS OF BREATH ipratropium bromide 0.02 % solution for inhalation INHALE 1 VIAL IN NEBULIZER EVERY 6 HOURS NEEDED FOR SHORTNESS OF BREATH No ipratropiu m bromide 0.02 % solution for inhalation INHALE 1 VIAL IN NEBULIZER EVERY 6 HOURS NEEDED FOR SHORTNESS OF BREATH [facility] ketorolac 10 mg tablet TAKE 1 TABLET BY MOUTH EVERY 6 HOURS NEEDED ketorolac 10 mg tablet TAKE 1 TABLET BY MOUTH EVERY 6 HOURS NEEDED No ketorolac 10 mg tablet TAKE 1 TABLET BY MOUTH EVERY 6 HOURS NEEDED [facility] lactulose 10 gram/15 mL oral solution lactulose 10 gram/15 mL oral solution No lactulose 10 gram/15 mL oral solution [facility] lisinopril 20 mg tablet TAKE 1 TABLET BY MOUTH ONCE DAILY lisinopril 20 mg tablet TAKE 1 TABLET BY MOUTH ONCE DAILY No lisinopril 20 mg tablet TAKE 1 TABLET BY MOUTH ONCE DAILY [facility] losartan 50 mg tablet TAKE 1 TABLET BY MOUTH ONCE DAILY losartan 50 mg tablet TAKE 1 TABLET BY MOUTH ONCE DAILY No losartan 50 mg tablet TAKE 1 TABLET BY MOUTH ONCE DAILY [facility] methocarbam ol 500 mg tablet Take 1 tablet 3 times a day by oral route as needed. for muscle spasms methocarbam ol 500 mg tablet Take 1 tablet 3 times a day by oral route as needed. for muscle spasms No 1 TID methocarba mol 500 mg tablet Take 1 tablet 3 times a day by oral route as needed. for muscle spasms [facility] minocycline 100 mg capsule Take 1 capsule every 12 hours by oral route for 7 days. minocycline 100 mg capsule Take 1 capsule every 12 hours by oral route for 7 days. No minocyclin e 100 mg capsule Take 1 capsule every 12 hours by oral route for 7 days. [facility] nitrofurant oin monohydrate /macrocryst als 100 mg capsule TAKE 1 CAPSULE BY MOUTH EVERY 12 HOURS FOR 7 DAYS nitrofurant oin monohydrate /macrocryst als 100 mg capsule TAKE 1 CAPSULE BY MOUTH EVERY 12 HOURS FOR 7 DAYS No nitrofuran toin monohydrat e/macrocry stals 100 mg capsule TAKE 1 CAPSULE BY MOUTH EVERY 12 HOURS FOR 7 DAYS [facility] ondansetron HCl 4 mg tablet Take 1 tablet every 8 hours by oral route as needed. ondansetron HCl 4 mg tablet Take 1 tablet every 8 hours by oral route as needed. No ondansetro n HCl 4 mg tablet Take 1 tablet every 8 hours by oral route as needed. [facility] prednisone 10 mg tablet TAKE 1 TABLET BY MOUTH EVERY DAY NEEDED prednisone 10 mg tablet TAKE 1 TABLET BY MOUTH EVERY DAY NEEDED No prednisone 10 mg tablet TAKE 1 TABLET BY MOUTH EVERY DAY NEEDED [facility] prednisone 20 mg tablet TAKE 1 TABLET BY MOUTH TWICE DAILY FOR 3 DAYS AND 1 TABLET ONCE DAILY FOR 3 DAYS AND 1/2 (ONE-HALF) TABLET ONCE DAILY FOR 4 DAYS prednisone 20 mg tablet TAKE 1 TABLET BY MOUTH TWICE DAILY FOR 3 DAYS AND 1 TABLET ONCE DAILY FOR 3 DAYS AND 1/2 (ONE-HALF) TABLET ONCE DAILY FOR 4 DAYS No prednisone 20 mg tablet TAKE 1 TABLET BY MOUTH TWICE DAILY FOR 3 DAYS AND 1 TABLET ONCE DAILY FOR 3 DAYS AND 1/2 (ONE-HALF) TABLET ONCE DAILY FOR 4 DAYS [facility] pregabalin 75 mg capsule pregabalin 75 mg capsule No pregabalin 75 mg capsule [facility] primidone 50 mg tablet 1/2 TABLET B.I.D. primidone 50 mg tablet 1/2 TABLET B.I.D. No primidone 50 mg tablet 1/2 TABLET B.I.D. [facility] sertraline 100 mg tablet TAKE 1 TABLET BY MOUTH ONCE DAILY sertraline 100 mg tablet TAKE 1 TABLET BY MOUTH ONCE DAILY No sertraline 100 mg tablet TAKE 1 TABLET BY MOUTH ONCE DAILY [facility] tizanidine 4 mg tablet TAKE 1 TABLET BY MOUTH EVERY 8 HOURS NEEDED FOR MUSCLE SPASMS tizanidine 4 mg tablet TAKE 1 TABLET BY MOUTH EVERY 8 HOURS NEEDED FOR MUSCLE SPASMS No tizanidine 4 mg tablet TAKE 1 TABLET BY MOUTH EVERY 8 HOURS NEEDED FOR MUSCLE SPASMS [facility] tramadol 37.5 mg-acetamin ophen 325 mg tablet TAKE 1 TABLET BY MOUTH EVERY 8 HOURS NEEDED FOR 10 DAYS tramadol 37.5 mg-acetamin ophen 325 mg tablet TAKE 1 TABLET BY MOUTH EVERY 8 HOURS NEEDED FOR 10 DAYS No tramadol 37.5 mg-acetami nophen 325 mg tablet TAKE 1 TABLET BY MOUTH EVERY 8 HOURS NEEDED FOR 10 DAYS [facility] tramadol 50 mg tablet Take 1 tablet every 6 hours by oral route as needed. for pain tramadol 50 mg tablet Take 1 tablet every 6 hours by oral route as needed. for pain No 1 Q6H tramadol 50 mg tablet Take 1 tablet every 6 hours by oral route as needed. for pain [facility] Advair Diskus 250 mcg-50 mcg/dose powder for inhalation INHALE ONE (1) PUFF BY MOUTH TWICE DAILY. Advair Diskus 250 mcg-50 mcg/dose powder for inhalation INHALE ONE (1) PUFF BY MOUTH TWICE DAILY. No Advair Diskus 250 mcg-50 mcg/dose powder for inhalation INHALE ONE (1) PUFF BY MOUTH TWICE DAILY. [facility] trazodone 100 mg tablet TAKE 1 TABLET BY MOUTH ONCE DAILY AT BEDTIME trazodone 100 mg tablet TAKE 1 TABLET BY MOUTH ONCE DAILY AT BEDTIME No trazodone 100 mg tablet TAKE 1 TABLET BY MOUTH ONCE DAILY AT BEDTIME [facility] albuterol sulfate 2.5 mg/3 mL (0.083 %) solution for nebulizatio n USE 1 VIAL IN NEBULIZER EVERY 6 HOURS NEEDED FOR SHORTNESS OF BREATH albuterol sulfate 2.5 mg/3 mL (0.083 %) solution for nebulizatio n USE 1 VIAL IN NEBULIZER EVERY 6 HOURS NEEDED FOR SHORTNESS OF BREATH No albuterol sulfate 2.5 mg/3 mL (0.083 %) solution for nebulizati on USE 1 VIAL IN NEBULIZER EVERY 6 HOURS NEEDED FOR SHORTNESS OF BREATH [facility] Advair Diskus 250 mcg-50 mcg/dose powder for inhalation INHALE ONE PUFF 2 TIMES A DAY FOR 30 DAYS Advair Diskus 250 mcg-50 mcg/dose powder for inhalation INHALE ONE PUFF 2 TIMES A DAY FOR 30 DAYS No Advair Diskus 250 mcg-50 mcg/dose powder for inhalation INHALE ONE PUFF 2 TIMES A DAY FOR 30 DAYS [facility] albuterol sulfate 2.5 mg/3 mL (0.083 %) solution for nebulizatio n USE 1 VIAL IN NEBULIZER EVERY 6 HOURS NEEDED FOR SHORTNESS OF BREATH albuterol sulfate 2.5 mg/3 mL (0.083 %) solution for nebulizatio n USE 1 VIAL IN NEBULIZER EVERY 6 HOURS NEEDED FOR SHORTNESS OF BREATH No albuterol sulfate 2.5 mg/3 mL (0.083 %) solution for nebulizati on USE 1 VIAL IN NEBULIZER EVERY 6 HOURS NEEDED FOR SHORTNESS OF BREATH [facility] albuterol sulfate HFA 90 mcg/actuati on aerosol inhaler INHALE 2 PUFFS BY MOUTH EVERY 6 HOURS NEEDED albuterol sulfate HFA 90 mcg/actuati on aerosol inhaler INHALE 2 PUFFS BY MOUTH EVERY 6 HOURS NEEDED No albuterol sulfate HFA 90 mcg/actuat ion aerosol inhaler INHALE 2 PUFFS BY MOUTH EVERY 6 HOURS NEEDED [facility] amlodipine 2.5 mg tablet TAKE 1 TABLET BY MOUTH ONCE DAILY amlodipine 2.5 mg tablet TAKE 1 TABLET BY MOUTH ONCE DAILY No amlodipine 2.5 mg tablet TAKE 1 TABLET BY MOUTH ONCE DAILY [facility] arformotero l 15 mcg/2 mL solution for nebulizatio n USE 1 VIAL IN NEBULIZER TWICE DAILY arformotero l 15 mcg/2 mL solution for nebulizatio n USE 1 VIAL IN NEBULIZER TWICE DAILY No arformoter ol 15 mcg/2 mL solution for nebulizati on USE 1 VIAL IN NEBULIZER TWICE DAILY [facility] aspirin 81 mg tablet,mikael yed release Take 1 tablet twice a day by oral route with meals for 30 days. to prevent a blood clot aspirin 81 mg tablet,mikael yed release Take 1 tablet twice a day by oral route with meals for 30 days. to prevent a blood clot No 1 BID aspirin 81 mg tablet,del ayed release Take 1 tablet twice a day by oral route with meals for 30 days. to prevent a blood clot [facility] atorvastati n 20 mg tablet TAKE 1 TABLET BY MOUTH EVERY DAY FOR 90 DAYS atorvastati n 20 mg tablet TAKE 1 TABLET BY MOUTH EVERY DAY FOR 90 DAYS No atorvastat in 20 mg tablet TAKE 1 TABLET BY MOUTH EVERY DAY FOR 90 DAYS [facility] albuterol sulfate HFA 90 mcg/actuati on aerosol inhaler INHALE 2 PUFFS INTO THE LUNGS EVERY 6 HOURS FOR 30 DAYS albuterol sulfate HFA 90 mcg/actuati on aerosol inhaler INHALE 2 PUFFS INTO THE LUNGS EVERY 6 HOURS FOR 30 DAYS No albuterol sulfate HFA 90 mcg/actuat ion aerosol inhaler INHALE 2 PUFFS INTO THE LUNGS EVERY 6 HOURS FOR 30 DAYS [facility] azithromyci n 250 mg tablet TAKE 1 TABLET BY MOUTH ONCE DAILY azithromyci n 250 mg tablet TAKE 1 TABLET BY MOUTH ONCE DAILY No azithromyc in 250 mg tablet TAKE 1 TABLET BY MOUTH ONCE DAILY [facility] cefdinir 300 mg capsule cefdinir 300 mg capsule No cefdinir 300 mg capsule [facility] celecoxib 200 mg capsule Take 1 capsule twice a day by oral route with meals for 14 days. celecoxib 200 mg capsule Take 1 capsule twice a day by oral route with meals for 14 days. No celecoxib 200 mg capsule Take 1 capsule twice a day by oral route with meals for 14 days. [facility] Colace 100 mg capsule Take 1 capsule twice a day by oral route as needed. for constipatio n Colace 100 mg capsule Take 1 capsule twice a day by oral route as needed. for constipatio n No 1capsul e(s) BID Colace 100 mg capsule Take 1 capsule twice a day by oral route as needed. for constipati on [facility] gabapentin 300 mg capsule Take 1 capsule every day by oral route as needed. gabapentin 300 mg capsule Take 1 capsule every day by oral route as needed. No gabapentin 300 mg capsule Take 1 capsule every day by oral route as needed. [facility] gabapentin 600 mg tablet TAKE 1 TABLET BY MOUTH TWICE A DAY gabapentin 600 mg tablet TAKE 1 TABLET BY MOUTH TWICE A DAY No gabapentin 600 mg tablet TAKE 1 TABLET BY MOUTH TWICE A DAY [facility] hydrocodone 10 mg-acetamin ophen 325 mg tablet TAKE 1 TABLET BY MOUTH EVERY 6 HOURS NEEDED FOR 7 DAYS hydrocodone 10 mg-acetamin ophen 325 mg tablet TAKE 1 TABLET BY MOUTH EVERY 6 HOURS NEEDED FOR 7 DAYS No hydrocodon e 10 mg-acetami nophen 325 mg tablet TAKE 1 TABLET BY MOUTH EVERY 6 HOURS NEEDED FOR 7 DAYS [facility] hydrocodone 7.5 mg-acetamin ophen 325 mg tablet TAKE 1 TABLET BY MOUTH EVERY 6 HOURS NEEDED FOR PAIN (SCALE 5-7) hydrocodone 7.5 mg-acetamin ophen 325 mg tablet TAKE 1 TABLET BY MOUTH EVERY 6 HOURS NEEDED FOR PAIN (SCALE 5-7) No hydrocodon e 7.5 mg-acetami nophen 325 mg tablet TAKE 1 TABLET BY MOUTH EVERY 6 HOURS NEEDED FOR PAIN (SCALE 5-7) [facility] ipratropium bromide 0.02 % solution for inhalation INHALE 1 VIAL IN NEBULIZER EVERY 6 HOURS NEEDED FOR SHORTNESS OF BREATH ipratropium bromide 0.02 % solution for inhalation INHALE 1 VIAL IN NEBULIZER EVERY 6 HOURS NEEDED FOR SHORTNESS OF BREATH No ipratropiu m bromide 0.02 % solution for inhalation INHALE 1 VIAL IN NEBULIZER EVERY 6 HOURS NEEDED FOR SHORTNESS OF BREATH [facility] ketorolac 10 mg tablet TAKE 1 TABLET BY MOUTH EVERY 6 HOURS NEEDED ketorolac 10 mg tablet TAKE 1 TABLET BY MOUTH EVERY 6 HOURS NEEDED No ketorolac 10 mg tablet TAKE 1 TABLET BY MOUTH EVERY 6 HOURS NEEDED [facility] amlodipine 2.5 mg tablet TAKE 1 TABLET BY MOUTH ONCE DAILY amlodipine 2.5 mg tablet TAKE 1 TABLET BY MOUTH ONCE DAILY No amlodipine 2.5 mg tablet TAKE 1 TABLET BY MOUTH ONCE DAILY [facility] lactulose 10 gram/15 mL oral solution lactulose 10 gram/15 mL oral solution No lactulose 10 gram/15 mL oral solution [facility] lisinopril 20 mg tablet TAKE 1 TABLET BY MOUTH ONCE DAILY lisinopril 20 mg tablet TAKE 1 TABLET BY MOUTH ONCE DAILY No lisinopril 20 mg tablet TAKE 1 TABLET BY MOUTH ONCE DAILY [facility] losartan 50 mg tablet TAKE 1 TABLET BY MOUTH ONCE DAILY losartan 50 mg tablet TAKE 1 TABLET BY MOUTH ONCE DAILY No losartan 50 mg tablet TAKE 1 TABLET BY MOUTH ONCE DAILY [facility] methocarbam ol 500 mg tablet TAKE 1 TABLET 3 TIMES A DAY BY ORAL ROUTE NEEDED. methocarbam ol 500 mg tablet TAKE 1 TABLET 3 TIMES A DAY BY ORAL ROUTE NEEDED. No methocarba mol 500 mg tablet TAKE 1 TABLET 3 TIMES A DAY BY ORAL ROUTE NEEDED. [facility] minocycline 100 mg capsule Take 1 capsule every 12 hours by oral route for 7 days. minocycline 100 mg capsule Take 1 capsule every 12 hours by oral route for 7 days. No minocyclin e 100 mg capsule Take 1 capsule every 12 hours by oral route for 7 days. [facility] nitrofurant oin monohydrate /macrocryst als 100 mg capsule TAKE 1 CAPSULE BY MOUTH EVERY 12 HOURS FOR 7 DAYS nitrofurant oin monohydrate /macrocryst als 100 mg capsule TAKE 1 CAPSULE BY MOUTH EVERY 12 HOURS FOR 7 DAYS No nitrofuran toin monohydrat e/macrocry stals 100 mg capsule TAKE 1 CAPSULE BY MOUTH EVERY 12 HOURS FOR 7 DAYS [facility] ondansetron HCl 4 mg tablet Take 1 tablet every 8 hours by oral route as needed. ondansetron HCl 4 mg tablet Take 1 tablet every 8 hours by oral route as needed. No ondansetro n HCl 4 mg tablet Take 1 tablet every 8 hours by oral route as needed. [facility] prednisone 10 mg tablet TAKE 1 TABLET BY MOUTH EVERY DAY NEEDED prednisone 10 mg tablet TAKE 1 TABLET BY MOUTH EVERY DAY NEEDED No prednisone 10 mg tablet TAKE 1 TABLET BY MOUTH EVERY DAY NEEDED [facility] prednisone 20 mg tablet TAKE 1 TABLET BY MOUTH TWICE DAILY FOR 3 DAYS AND 1 TABLET ONCE DAILY FOR 3 DAYS AND 1/2 (ONE-HALF) TABLET ONCE DAILY FOR 4 DAYS prednisone 20 mg tablet TAKE 1 TABLET BY MOUTH TWICE DAILY FOR 3 DAYS AND 1 TABLET ONCE DAILY FOR 3 DAYS AND 1/2 (ONE-HALF) TABLET ONCE DAILY FOR 4 DAYS No prednisone 20 mg tablet TAKE 1 TABLET BY MOUTH TWICE DAILY FOR 3 DAYS AND 1 TABLET ONCE DAILY FOR 3 DAYS AND 1/2 (ONE-HALF) TABLET ONCE DAILY FOR 4 DAYS [facility] pregabalin 75 mg capsule pregabalin 75 mg capsule No pregabalin 75 mg capsule [facility] arformotero l 15 mcg/2 mL solution for nebulizatio n USE 1 VIAL IN NEBULIZER TWICE DAILY arformotero l 15 mcg/2 mL solution for nebulizatio n USE 1 VIAL IN NEBULIZER TWICE DAILY No arformoter ol 15 mcg/2 mL solution for nebulizati on USE 1 VIAL IN NEBULIZER TWICE DAILY [facility] primidone 50 mg tablet 1/2 TABLET B.I.D. primidone 50 mg tablet 1/2 TABLET B.I.D. No primidone 50 mg tablet 1/2 TABLET B.I.D. [facility] sertraline 100 mg tablet TAKE 1 TABLET BY MOUTH ONCE DAILY sertraline 100 mg tablet TAKE 1 TABLET BY MOUTH ONCE DAILY No sertraline 100 mg tablet TAKE 1 TABLET BY MOUTH ONCE DAILY [facility] tizanidine 4 mg tablet TAKE 1 TABLET BY MOUTH EVERY 8 HOURS NEEDED FOR MUSCLE SPASMS tizanidine 4 mg tablet TAKE 1 TABLET BY MOUTH EVERY 8 HOURS NEEDED FOR MUSCLE SPASMS No tizanidine 4 mg tablet TAKE 1 TABLET BY MOUTH EVERY 8 HOURS NEEDED FOR MUSCLE SPASMS [facility] tramadol 37.5 mg-acetamin ophen 325 mg tablet TAKE 1 TABLET BY MOUTH EVERY 8 HOURS NEEDED FOR 10 DAYS tramadol 37.5 mg-acetamin ophen 325 mg tablet TAKE 1 TABLET BY MOUTH EVERY 8 HOURS NEEDED FOR 10 DAYS No tramadol 37.5 mg-acetami nophen 325 mg tablet TAKE 1 TABLET BY MOUTH EVERY 8 HOURS NEEDED FOR 10 DAYS [facility] tramadol 50 mg tablet TAKE 1 TABLET BY MOUTH EVERY 6 HOURS NEEDED tramadol 50 mg tablet TAKE 1 TABLET BY MOUTH EVERY 6 HOURS NEEDED No tramadol 50 mg tablet TAKE 1 TABLET BY MOUTH EVERY 6 HOURS NEEDED [facility] trazodone 100 mg tablet TAKE 1 TABLET BY MOUTH ONCE DAILY AT BEDTIME trazodone 100 mg tablet TAKE 1 TABLET BY MOUTH ONCE DAILY AT BEDTIME No trazodone 100 mg tablet TAKE 1 TABLET BY MOUTH ONCE DAILY AT BEDTIME [facility] atorvastati n 20 mg tablet TAKE 1 TABLET BY MOUTH ONCE DAILY atorvastati n 20 mg tablet TAKE 1 TABLET BY MOUTH ONCE DAILY No atorvastat in 20 mg tablet TAKE 1 TABLET BY MOUTH ONCE DAILY [facility] azithromyci n 250 mg tablet TAKE 1 TABLET BY MOUTH ONCE DAILY azithromyci n 250 mg tablet TAKE 1 TABLET BY MOUTH ONCE DAILY No azithromyc in 250 mg tablet TAKE 1 TABLET BY MOUTH ONCE DAILY [facility] cefdinir 300 mg capsule cefdinir 300 mg capsule No cefdinir 300 mg capsule [facility] gabapentin 300 mg capsule TAKE 1 CAPSULE BY MOUTH AT BEDTIME gabapentin 300 mg capsule TAKE 1 CAPSULE BY MOUTH AT BEDTIME No gabapentin 300 mg capsule TAKE 1 CAPSULE BY MOUTH AT BEDTIME [facility] gabapentin 600 mg tablet TAKE 1 TABLET BY MOUTH TWICE A DAY gabapentin 600 mg tablet TAKE 1 TABLET BY MOUTH TWICE A DAY No gabapentin 600 mg tablet TAKE 1 TABLET BY MOUTH TWICE A DAY [facility] hydrocodone 7.5 mg-acetamin ophen 325 mg tablet TAKE 1 TABLET BY MOUTH EVERY 6 HOURS NEEDED FOR PAIN (SCALE 5-7) hydrocodone 7.5 mg-acetamin ophen 325 mg tablet TAKE 1 TABLET BY MOUTH EVERY 6 HOURS NEEDED FOR PAIN (SCALE 5-7) No hydrocodon e 7.5 mg-acetami nophen 325 mg tablet TAKE 1 TABLET BY MOUTH EVERY 6 HOURS NEEDED FOR PAIN (SCALE 5-7) [facility] ipratropium bromide 0.02 % solution for inhalation INHALE 1 VIAL IN NEBULIZER EVERY 6 HOURS NEEDED FOR SHORTNESS OF BREATH ipratropium bromide 0.02 % solution for inhalation INHALE 1 VIAL IN NEBULIZER EVERY 6 HOURS NEEDED FOR SHORTNESS OF BREATH No ipratropiu m bromide 0.02 % solution for inhalation INHALE 1 VIAL IN NEBULIZER EVERY 6 HOURS NEEDED FOR SHORTNESS OF BREATH [facility] ketorolac 10 mg tablet TAKE 1 TABLET BY MOUTH EVERY 6 HOURS NEEDED ketorolac 10 mg tablet TAKE 1 TABLET BY MOUTH EVERY 6 HOURS NEEDED No ketorolac 10 mg tablet TAKE 1 TABLET BY MOUTH EVERY 6 HOURS NEEDED [facility] lactulose 10 gram/15 mL oral solution lactulose 10 gram/15 mL oral solution No lactulose 10 gram/15 mL oral solution [facility] lisinopril 20 mg tablet TAKE 1 TABLET BY MOUTH ONCE DAILY lisinopril 20 mg tablet TAKE 1 TABLET BY MOUTH ONCE DAILY No lisinopril 20 mg tablet TAKE 1 TABLET BY MOUTH ONCE DAILY [facility] losartan 50 mg tablet TAKE 1 TABLET BY MOUTH ONCE DAILY losartan 50 mg tablet TAKE 1 TABLET BY MOUTH ONCE DAILY No losartan 50 mg tablet TAKE 1 TABLET BY MOUTH ONCE DAILY [facility] nitrofurant oin monohydrate /macrocryst als 100 mg capsule TAKE 1 CAPSULE BY MOUTH EVERY 12 HOURS FOR 7 DAYS nitrofurant oin monohydrate /macrocryst als 100 mg capsule TAKE 1 CAPSULE BY MOUTH EVERY 12 HOURS FOR 7 DAYS No nitrofuran toin monohydrat e/macrocry stals 100 mg capsule TAKE 1 CAPSULE BY MOUTH EVERY 12 HOURS FOR 7 DAYS [facility] prednisone 10 mg tablet TAKE 1 TABLET BY MOUTH ONCE DAILY NEEDED prednisone 10 mg tablet TAKE 1 TABLET BY MOUTH ONCE DAILY NEEDED No prednisone 10 mg tablet TAKE 1 TABLET BY MOUTH ONCE DAILY NEEDED [facility] prednisone 20 mg tablet TAKE 1 TABLET BY MOUTH TWICE DAILY FOR 3 DAYS AND 1 TABLET ONCE DAILY FOR 3 DAYS AND 1/2 (ONE-HALF) TABLET ONCE DAILY FOR 4 DAYS prednisone 20 mg tablet TAKE 1 TABLET BY MOUTH TWICE DAILY FOR 3 DAYS AND 1 TABLET ONCE DAILY FOR 3 DAYS AND 1/2 (ONE-HALF) TABLET ONCE DAILY FOR 4 DAYS No prednisone 20 mg tablet TAKE 1 TABLET BY MOUTH TWICE DAILY FOR 3 DAYS AND 1 TABLET ONCE DAILY FOR 3 DAYS AND 1/2 (ONE-HALF) TABLET ONCE DAILY FOR 4 DAYS [facility] pregabalin 75 mg capsule pregabalin 75 mg capsule No pregabalin 75 mg capsule [facility] primidone 50 mg tablet TAKE 1/2 (ONE-HALF) TABLET BY MOUTH TWICE DAILY primidone 50 mg tablet TAKE 1/2 (ONE-HALF) TABLET BY MOUTH TWICE DAILY No primidone 50 mg tablet TAKE 1/2 (ONE-HALF) TABLET BY MOUTH TWICE DAILY [facility] sert[facility] 100 mg tablet TAKE 1 TABLET BY MOUTH ONCE DAILY sertraline 100 mg tablet TAKE 1 TABLET BY MOUTH ONCE DAILY No sertraline 100 mg tablet TAKE 1 TABLET BY MOUTH ONCE DAILY [facility] tizanidine 4 mg tablet TAKE 1 TABLET BY MOUTH EVERY 8 HOURS NEEDED FOR MUSCLE SPASMS tizanidine 4 mg tablet TAKE 1 TABLET BY MOUTH EVERY 8 HOURS NEEDED FOR MUSCLE SPASMS No tizanidine 4 mg tablet TAKE 1 TABLET BY MOUTH EVERY 8 HOURS NEEDED FOR MUSCLE SPASMS [facility] tramadol 37.5 mg-acetamin ophen 325 mg tablet TAKE 1 TABLET BY MOUTH EVERY 8 HOURS NEEDED FOR 10 DAYS tramadol 37.5 mg-acetamin ophen 325 mg tablet TAKE 1 TABLET BY MOUTH EVERY 8 HOURS NEEDED FOR 10 DAYS No tramadol 37.5 mg-acetami nophen 325 mg tablet TAKE 1 TABLET BY MOUTH EVERY 8 HOURS NEEDED FOR 10 DAYS [facility] tramadol 50 mg tablet tramadol 50 mg tablet No tramadol 50 mg tablet [facility] trazodone 100 mg tablet TAKE 1 TABLET BY MOUTH ONCE DAILY AT BEDTIME trazodone 100 mg tablet TAKE 1 TABLET BY MOUTH ONCE DAILY AT BEDTIME No trazodone 100 mg tablet TAKE 1 TABLET BY MOUTH ONCE DAILY AT BEDTIME [facility] Advair Diskus 250 mcg-50 mcg/dose powder for inhalation INHALE ONE PUFF 2 TIMES A DAY FOR 30 DAYS Advair Diskus 250 mcg-50 mcg/dose powder for inhalation INHALE ONE PUFF 2 TIMES A DAY FOR 30 DAYS No Advair Diskus 250 mcg-50 mcg/dose powder for inhalation INHALE ONE PUFF 2 TIMES A DAY FOR 30 DAYS [facility] albuterol sulfate 2.5 mg/3 mL (0.083 %) solution for nebulizatio n USE 1 VIAL IN NEBULIZER EVERY 6 HOURS NEEDED FOR SHORTNESS OF BREATH albuterol sulfate 2.5 mg/3 mL (0.083 %) solution for nebulizatio n USE 1 VIAL IN NEBULIZER EVERY 6 HOURS NEEDED FOR SHORTNESS OF BREATH No albuterol sulfate 2.5 mg/3 mL (0.083 %) solution for nebulizati on USE 1 VIAL IN NEBULIZER EVERY 6 HOURS NEEDED FOR SHORTNESS OF BREATH [facility] albuterol sulfate HFA 90 mcg/actuati on aerosol inhaler INHALE 2 PUFFS BY MOUTH EVERY 6 HOURS NEEDED albuterol sulfate HFA 90 mcg/actuati on aerosol inhaler INHALE 2 PUFFS BY MOUTH EVERY 6 HOURS NEEDED No albuterol sulfate HFA 90 mcg/actuat ion aerosol inhaler INHALE 2 PUFFS BY MOUTH EVERY 6 HOURS NEEDED [facility] amlodipine 2.5 mg tablet TAKE 1 TABLET BY MOUTH ONCE DAILY amlodipine 2.5 mg tablet TAKE 1 TABLET BY MOUTH ONCE DAILY No amlodipine 2.5 mg tablet TAKE 1 TABLET BY MOUTH ONCE DAILY [facility] arformotero l 15 mcg/2 mL solution for nebulizatio n USE 1 VIAL IN NEBULIZER TWICE DAILY arformotero l 15 mcg/2 mL solution for nebulizatio n USE 1 VIAL IN NEBULIZER TWICE DAILY No arformoter ol 15 mcg/2 mL solution for nebulizati on USE 1 VIAL IN NEBULIZER TWICE DAILY [facility] atorvastati n 20 mg tablet TAKE 1 TABLET BY MOUTH EVERY DAY FOR 90 DAYS atorvastati n 20 mg tablet TAKE 1 TABLET BY MOUTH EVERY DAY FOR 90 DAYS No atorvastat in 20 mg tablet TAKE 1 TABLET BY MOUTH EVERY DAY FOR 90 DAYS [facility] azithromyci n 250 mg tablet TAKE 1 TABLET BY MOUTH ONCE DAILY azithromyci n 250 mg tablet TAKE 1 TABLET BY MOUTH ONCE DAILY No azithromyc in 250 mg tablet TAKE 1 TABLET BY MOUTH ONCE DAILY [facility] cefdinir 300 mg capsule cefdinir 300 mg capsule No cefdinir 300 mg capsule [facility] gabapentin 300 mg capsule TAKE 1 CAPSULE BY MOUTH AT BEDTIME gabapentin 300 mg capsule TAKE 1 CAPSULE BY MOUTH AT BEDTIME No gabapentin 300 mg capsule TAKE 1 CAPSULE BY MOUTH AT BEDTIME [facility] gabapentin 600 mg tablet TAKE 1 TABLET BY MOUTH TWICE A DAY gabapentin 600 mg tablet TAKE 1 TABLET BY MOUTH TWICE A DAY No gabapentin 600 mg tablet TAKE 1 TABLET BY MOUTH TWICE A DAY [facility] hydrocodone 7.5 mg-acetamin ophen 325 mg tablet TAKE 1 TABLET BY MOUTH EVERY 6 HOURS NEEDED FOR PAIN (SCALE 5-7) hydrocodone 7.5 mg-acetamin ophen 325 mg tablet TAKE 1 TABLET BY MOUTH EVERY 6 HOURS NEEDED FOR PAIN (SCALE 5-7) No hydrocodon e 7.5 mg-acetami nophen 325 mg tablet TAKE 1 TABLET BY MOUTH EVERY 6 HOURS NEEDED FOR PAIN (SCALE 5-7) [facility] ipratropium bromide 0.02 % solution for inhalation INHALE 1 VIAL IN NEBULIZER EVERY 6 HOURS NEEDED FOR SHORTNESS OF BREATH ipratropium bromide 0.02 % solution for inhalation INHALE 1 VIAL IN NEBULIZER EVERY 6 HOURS NEEDED FOR SHORTNESS OF BREATH No ipratropiu m bromide 0.02 % solution for inhalation INHALE 1 VIAL IN NEBULIZER EVERY 6 HOURS NEEDED FOR SHORTNESS OF BREATH [facility] ketorolac 10 mg tablet TAKE 1 TABLET BY MOUTH EVERY 6 HOURS NEEDED ketorolac 10 mg tablet TAKE 1 TABLET BY MOUTH EVERY 6 HOURS NEEDED No ketorolac 10 mg tablet TAKE 1 TABLET BY MOUTH EVERY 6 HOURS NEEDED [facility] lactulose 10 gram/15 mL oral solution lactulose 10 gram/15 mL oral solution No lactulose 10 gram/15 mL oral solution [facility] lisinopril 20 mg tablet TAKE 1 TABLET BY MOUTH ONCE DAILY lisinopril 20 mg tablet TAKE 1 TABLET BY MOUTH ONCE DAILY No lisinopril 20 mg tablet TAKE 1 TABLET BY MOUTH ONCE DAILY [facility] losartan 50 mg tablet TAKE 1 TABLET BY MOUTH ONCE DAILY losartan 50 mg tablet TAKE 1 TABLET BY MOUTH ONCE DAILY No losartan 50 mg tablet TAKE 1 TABLET BY MOUTH ONCE DAILY [facility] nitrofurant oin monohydrate /macrocryst als 100 mg capsule TAKE 1 CAPSULE BY MOUTH EVERY 12 HOURS FOR 7 DAYS nitrofurant oin monohydrate /macrocryst als 100 mg capsule TAKE 1 CAPSULE BY MOUTH EVERY 12 HOURS FOR 7 DAYS No nitrofuran toin monohydrat e/macrocry stals 100 mg capsule TAKE 1 CAPSULE BY MOUTH EVERY 12 HOURS FOR 7 DAYS [facility] prednisone 10 mg tablet TAKE 1 TABLET BY MOUTH EVERY DAY NEEDED prednisone 10 mg tablet TAKE 1 TABLET BY MOUTH EVERY DAY NEEDED No prednisone 10 mg tablet TAKE 1 TABLET BY MOUTH EVERY DAY NEEDED [facility] prednisone 20 mg tablet TAKE 1 TABLET BY MOUTH TWICE DAILY FOR 3 DAYS AND 1 TABLET ONCE DAILY FOR 3 DAYS AND 1/2 (ONE-HALF) TABLET ONCE DAILY FOR 4 DAYS prednisone 20 mg tablet TAKE 1 TABLET BY MOUTH TWICE DAILY FOR 3 DAYS AND 1 TABLET ONCE DAILY FOR 3 DAYS AND 1/2 (ONE-HALF) TABLET ONCE DAILY FOR 4 DAYS No prednisone 20 mg tablet TAKE 1 TABLET BY MOUTH TWICE DAILY FOR 3 DAYS AND 1 TABLET ONCE DAILY FOR 3 DAYS AND 1/2 (ONE-HALF) TABLET ONCE DAILY FOR 4 DAYS [facility] pregabalin 75 mg capsule pregabalin 75 mg capsule No pregabalin 75 mg capsule [facility] primidone 50 mg tablet 1/2 TABLET B.I.D. primidone 50 mg tablet 1/2 TABLET B.I.D. No primidone 50 mg tablet 1/2 TABLET B.I.D. [facility] sertraline 100 mg tablet TAKE 1 TABLET BY MOUTH ONCE DAILY sertraline 100 mg tablet TAKE 1 TABLET BY MOUTH ONCE DAILY No sertraline 100 mg tablet TAKE 1 TABLET BY MOUTH ONCE DAILY [facility] tizanidine 4 mg tablet TAKE 1 TABLET BY MOUTH EVERY 8 HOURS NEEDED FOR MUSCLE SPASMS tizanidine 4 mg tablet TAKE 1 TABLET BY MOUTH EVERY 8 HOURS NEEDED FOR MUSCLE SPASMS No tizanidine 4 mg tablet TAKE 1 TABLET BY MOUTH EVERY 8 HOURS NEEDED FOR MUSCLE SPASMS [facility] tramadol 37.5 mg-acetamin ophen 325 mg tablet TAKE 1 TABLET BY MOUTH EVERY 8 HOURS NEEDED FOR 10 DAYS tramadol 37.5 mg-acetamin ophen 325 mg tablet TAKE 1 TABLET BY MOUTH EVERY 8 HOURS NEEDED FOR 10 DAYS No tramadol 37.5 mg-acetami nophen 325 mg tablet TAKE 1 TABLET BY MOUTH EVERY 8 HOURS NEEDED FOR 10 DAYS [facility] tramadol 50 mg tablet tramadol 50 mg tablet No tramadol 50 mg tablet [facility] trazodone 100 mg tablet TAKE 1 TABLET BY MOUTH ONCE DAILY AT BEDTIME trazodone 100 mg tablet TAKE 1 TABLET BY MOUTH ONCE DAILY AT BEDTIME No trazodone 100 mg tablet TAKE 1 TABLET BY MOUTH ONCE DAILY AT BEDTIME [facility] Carvedilol 3.125 MG Carvedilol 3.125 MG No 1{table t_with_ food} BID Carvedilol 3.125 MG DULoxetine HCl 20 MG DULoxetine HCl 20 MG No 1{capsu le} QD DULoxetine HCl 20 MG Spironolact one 25 MG Spironolact one 25 MG No 1{table t} QD Spironolac tone 25 MG Primidone 50 MG Primidone 50 MG No 1{table t} BID Primidone 50 MG predniSONE 10 MG predniSONE 10 MG No 1{table t} QD predniSONE 10 MG Breztri Aerosphere 160-9-4.8 MCG/ACT Breztri Aerosphere 160-9-4.8 MCG/ACT No 2{puffs } BID Breztri Aerosphere 160-9-4.8 MCG/ACT Magnesium 200 MG Magnesium 200 MG No 1{table t} QD Magnesium 200 MG Furosemide 40 MG Furosemide 40 MG No 1{table t} QD Furosemide 40 MG Potassium Chloride ER 10 MEQ Potassium Chloride ER 10 MEQ No 1{table t_with_ food} BID Potassium Chloride ER 10 MEQ Baclofen 5 MG Baclofen 5 MG No 1{table t_as_ne eded} BID Baclofen 5 MG Gabapentin 600 MG Gabapentin 600 MG No 1{table t} BID Gabapentin 600 MG Vitamin D3 50 MCG (1999) Vitamin D3 50 MCG (1999) No 1{table t} QD Vitamin D3 50 MCG (1999) Rosuvastati n Calcium 20 MG Rosuvastati n Calcium 20 MG No 1{table t} QD Rosuvastat in Calcium 20 MG traMADol HCl 100 MG traMADol HCl 100 MG No 1{table t_as_ne eded} QD traMADol HCl 100 MG Immunizations Ordered Immunization Name Filled Immunization Name Date Status Comments Source Pfizer COVID-19 Vaccine Pfizer COVID-19 Vaccine 2021-03-06 08:26:00 Completed [facility] Pfizer COVID-19 Vaccine Pfizer COVID-19 Vaccine 2021-03-06 08:26:00 Completed [facility] Pfizer COVID-19 Vaccine Pfizer COVID-19 Vaccine 2021-03-06 08:26:00 Completed [facility] Pfizer COVID-19 Vaccine Pfizer COVID-19 Vaccine 2021-03-06 08:26:00 Completed [facility] Pfizer COVID-19 Vaccine Pfizer COVID-19 Vaccine 2021-03-06 08:26:00 Completed [facility] Pfizer COVID-19 Vaccine Pfizer COVID-19 Vaccine 2021-03-06 08:26:00 Completed [facility] Pfizer COVID-19 Vaccine Pfizer COVID-19 Vaccine 2021-03-06 08:26:00 Completed [facility] Pfizer COVID-19 Vaccine Pfizer COVID-19 Vaccine 2021-03-06 08:26:00 Completed [facility] Pfizer COVID-19 Vaccine Pfizer COVID-19 Vaccine 2021-03-06 08:26:00 Completed [facility] Pfizer COVID-19 Vaccine Pfizer COVID-19 Vaccine 2021-03-06 08:26:00 Completed [facility] Pfizer COVID-19 Vaccine Pfizer COVID-19 Vaccine 2021-03-06 08:26:00 Completed [facility] Pfizer COVID-19 Vaccine Pfizer COVID-19 Vaccine 2021-03-06 08:26:00 Completed [facility] Pfizer COVID-19 Vaccine Pfizer COVID-19 Vaccine 2021-03-06 08:26:00 Completed [facility] Pfizer COVID-19 Vaccine Pfizer COVID-19 Vaccine 2021-03-06 08:26:00 Completed [facility] Pfizer COVID-19 Vaccine Pfizer COVID-19 Vaccine 2021-03-06 08:26:00 Completed [facility] Pfizer COVID-19 Vaccine Pfizer COVID-19 Vaccine 2021-03-06 08:26:00 Completed [facility] FLUZONE HIGH DOSE OVER 65 FLUZONE HIGH DOSE OVER 65 2021-03-06 08:25:00 Completed [facility] FLUZONE HIGH DOSE OVER 65 FLUZONE HIGH DOSE OVER 65 2021-03-06 08:25:00 Completed [facility] FLUZONE HIGH DOSE OVER 65 FLUZONE HIGH DOSE OVER 65 2021-03-06 08:25:00 Completed [facility] FLUZONE HIGH DOSE OVER 65 FLUZONE HIGH DOSE OVER 65 2021-03-06 08:25:00 Completed [facility] FLUZONE HIGH DOSE OVER 65 FLUZONE HIGH DOSE OVER 65 2021-03-06 08:25:00 Completed [facility] FLUZONE HIGH DOSE OVER 65 FLUZONE HIGH DOSE OVER 65 2021-03-06 08:25:00 Completed [facility] FLUZONE HIGH DOSE OVER 65 FLUZONE HIGH DOSE OVER 65 2021-03-06 08:25:00 Completed [facility] FLUZONE HIGH DOSE OVER 65 FLUZONE HIGH DOSE OVER 65 2021-03-06 08:25:00 Completed [facility] FLUZONE HIGH DOSE OVER 65 FLUZONE HIGH DOSE OVER 65 2021-03-06 08:25:00 Completed [facility] FLUZONE HIGH DOSE OVER 65 FLUZONE HIGH DOSE OVER 65 2021-03-06 08:25:00 Completed [facility] FLUZONE HIGH DOSE OVER 65 FLUZONE HIGH DOSE OVER 65 2021-03-06 08:25:00 Completed [facility] FLUZONE HIGH DOSE OVER 65 FLUZONE HIGH DOSE OVER 65 2021-03-06 08:25:00 Completed [facility] FLUZONE HIGH DOSE OVER 65 FLUZONE HIGH DOSE OVER 65 2021-03-06 08:25:00 Completed [facility] FLUZONE HIGH DOSE OVER 65 FLUZONE HIGH DOSE OVER 65 2021-03-06 08:25:00 Completed [facility] FLUZONE HIGH DOSE OVER 65 FLUZONE HIGH DOSE OVER 65 2021-03-06 08:25:00 Completed [facility] FLUZONE HIGH DOSE OVER 65 FLUZONE HIGH DOSE OVER 65 2021-03-06 08:25:00 Completed [facility] Pfizer COVID-19 Vaccine Pfizer COVID-19 Vaccine 2020-08-13 08:26:00 Completed [facility] Pfizer COVID-19 Vaccine Pfizer COVID-19 Vaccine 2020-08-13 08:26:00 Completed [facility] Pfizer COVID-19 Vaccine Pfizer COVID-19 Vaccine 2020-08-13 08:26:00 Completed [facility] Pfizer COVID-19 Vaccine Pfizer COVID-19 Vaccine 2020-08-13 08:26:00 Completed [facility] Pfizer COVID-19 Vaccine Pfizer COVID-19 Vaccine 2020-08-13 08:26:00 Completed [facility] Pfizer COVID-19 Vaccine Pfizer COVID-19 Vaccine 2020-08-13 08:26:00 Completed [facility] Pfizer COVID-19 Vaccine Pfizer COVID-19 Vaccine 2020-08-13 08:26:00 Completed [facility] Pfizer COVID-19 Vaccine Pfizer COVID-19 Vaccine 2020-08-13 08:26:00 Completed [facility] Pfizer COVID-19 Vaccine Pfizer COVID-19 Vaccine 2020-08-13 08:26:00 Completed [facility] Pfizer COVID-19 Vaccine Pfizer COVID-19 Vaccine 2020-08-13 08:26:00 Completed [facility] Pfizer COVID-19 Vaccine Pfizer COVID-19 Vaccine 2020-08-13 08:26:00 Completed [facility] Pfizer COVID-19 Vaccine Pfizer COVID-19 Vaccine 2020-08-13 08:26:00 Completed [facility] Pfizer COVID-19 Vaccine Pfizer COVID-19 Vaccine 2020-08-13 08:26:00 Completed [facility] Pfizer COVID-19 Vaccine Pfizer COVID-19 Vaccine 2020-08-13 08:26:00 Completed [facility] Pfizer COVID-19 Vaccine Pfizer COVID-19 Vaccine 2020-08-13 08:26:00 Completed [facility] Pfizer COVID-19 Vaccine Pfizer COVID-19 Vaccine 2020-08-13 08:26:00 Completed [facility] Pfizer COVID-19 Vaccine Pfizer COVID-19 Vaccine 2020-06-27 08:25:00 Completed [facility] Pfizer COVID-19 Vaccine Pfizer COVID-19 Vaccine 2020-06-27 08:25:00 Completed [facility] Pfizer COVID-19 Vaccine Pfizer COVID-19 Vaccine 2020-06-27 08:25:00 Completed [facility] Pfizer COVID-19 Vaccine Pfizer COVID-19 Vaccine 2020-06-27 08:25:00 Completed [facility] Pfizer COVID-19 Vaccine Pfizer COVID-19 Vaccine 2020-06-27 08:25:00 Completed [facility] Pfizer COVID-19 Vaccine Pfizer COVID-19 Vaccine 2020-06-27 08:25:00 Completed [facility] Pfizer COVID-19 Vaccine Pfizer COVID-19 Vaccine 2020-06-27 08:25:00 Completed [facility] Pfizer COVID-19 Vaccine Pfizer COVID-19 Vaccine 2020-06-27 08:25:00 Completed [facility] Pfizer COVID-19 Vaccine Pfizer COVID-19 Vaccine 2020-06-27 08:25:00 Completed [facility] Pfizer COVID-19 Vaccine Pfizer COVID-19 Vaccine 2020-06-27 08:25:00 Completed [facility] Pfizer COVID-19 Vaccine Pfizer COVID-19 Vaccine 2020-06-27 08:25:00 Completed [facility] Pfizer COVID-19 Vaccine Pfizer COVID-19 Vaccine 2020-06-27 08:25:00 Completed [facility] Pfizer COVID-19 Vaccine Pfizer COVID-19 Vaccine 2020-06-27 08:25:00 Completed [facility] Pfizer COVID-19 Vaccine Pfizer COVID-19 Vaccine 2020-06-27 08:25:00 Completed [facility] Pfizer COVID-19 Vaccine Pfizer COVID-19 Vaccine 2020-06-27 08:25:00 Completed [facility] Pfizer COVID-19 Vaccine Pfizer COVID-19 Vaccine 2020-06-27 08:25:00 Completed [facility] Pfizer COVID-19 Vaccine Pfizer COVID-19 Vaccine Unknown Completed [facility] FLUZONE HIGH DOSE OVER 65 FLUZONE HIGH DOSE OVER 65 Unknown Completed [facility] Pfizer COVID-19 Vaccine Pfizer COVID-19 Vaccine Unknown Completed [facility] FLUZONE HIGH DOSE OVER 65 FLUZONE HIGH DOSE OVER 65 Unknown Completed [facility] Pfizer COVID-19 Vaccine Pfizer COVID-19 Vaccine Unknown Completed [facility] FLUZONE HIGH DOSE OVER 65 FLUZONE HIGH DOSE OVER 65 Unknown Completed [facility] Pfizer COVID-19 Vaccine Pfizer COVID-19 Vaccine Unknown Completed [facility] FLUZONE HIGH DOSE OVER 65 FLUZONE HIGH DOSE OVER 65 Unknown Completed [facility] Pfizer COVID-19 Vaccine Pfizer COVID-19 Vaccine Unknown Completed [facility] FLUZONE HIGH DOSE OVER 65 FLUZONE HIGH DOSE OVER 65 Unknown Completed [facility] Pfizer COVID-19 Vaccine Pfizer COVID-19 Vaccine Unknown Completed [facility] FLUZONE HIGH DOSE OVER 65 FLUZONE HIGH DOSE OVER 65 Unknown Completed [facility] Pfizer COVID-19 Vaccine Pfizer COVID-19 Vaccine Unknown Completed [facility] FLUZONE HIGH DOSE OVER 65 FLUZONE HIGH DOSE OVER 65 Unknown Completed [facility] Pfizer COVID-19 Vaccine Pfizer COVID-19 Vaccine Unknown Completed [facility] FLUZONE HIGH DOSE OVER 65 FLUZONE HIGH DOSE OVER 65 Unknown Completed [facility] Pfizer COVID-19 Vaccine Pfizer COVID-19 Vaccine Unknown Completed [facility] FLUZONE HIGH DOSE OVER 65 FLUZONE HIGH DOSE OVER 65 Unknown Completed [facility] Pfizer COVID-19 Vaccine Pfizer COVID-19 Vaccine Unknown Completed [facility] FLUZONE HIGH DOSE OVER 65 FLUZONE HIGH DOSE OVER 65 Unknown Completed [facility] Pfizer COVID-19 Vaccine Pfizer COVID-19 Vaccine Unknown Completed [facility] FLUZONE HIGH DOSE OVER 65 FLUZONE HIGH DOSE OVER 65 Unknown Completed [facility] Pfizer COVID-19 Vaccine Pfizer COVID-19 Vaccine Unknown Completed [facility] FLUZONE HIGH DOSE OVER 65 FLUZONE HIGH DOSE OVER 65 Unknown Completed [facility] Pfizer COVID-19 Vaccine Pfizer COVID-19 Vaccine Unknown Completed [facility] FLUZONE HIGH DOSE OVER 65 FLUZONE HIGH DOSE OVER 65 Unknown Completed [facility] Pfizer COVID-19 Vaccine Pfizer COVID-19 Vaccine Unknown Completed [facility] FLUZONE HIGH DOSE OVER 65 FLUZONE HIGH DOSE OVER 65 Unknown Completed [facility] SARS-COV-2 COVID-[address] V[address] Unknown Completed [facility] SARS-COV-2 COVID-19 [address] VACC[address] Unknown Completed [facility] SARS-COV-2 COVID-19 [address] VACCINE Unknown Completed [facility] SARS-COV-2 COVID-19 P[address]ZER VACCINE Unknown Completed [facility] SARS-COV-2 COVID-19 P[address]ZER VACCINE Unknown Completed [facility] SARS-COV-2 COVID-19 PFIZER VACCINE Unknown Completed [facility] SARS-COV-2 COVID-19 PFIZER VACCINE Unknown Completed [facility] SARS-COV-2 COVID-19 PFIZER VACCINE Unknown Completed [facility] SARS-COV-2 COVID-19 PFIZER VACCINE Unknown Completed [facility] SARS-COV-2 COVID-19 PFIZER VACCINE Unknown Completed [facility] SARS-COV-2 COVID-19 PFIZER VACCINE Unknown Completed [facility] SARS-COV-2 COVID-19 PFIZER VACCINE Unknown Completed [facility] SARS-COV-2 COVID-19 PFIZER VACCINE Unknown Completed [facility] SARS-COV-2 COVID-19 PFIZER VACCINE Unknown Completed [facility] SARS-COV-2 COVID-19 PFIZER VACCINE Unknown Completed [facility] SARS-COV-2 COVID-19 PFIZER VACCINE Unknown Completed [facility] SARS-COV-2 COVID-19 PFIZER VACCINE Unknown Completed [facility] SARS-COV-2 COVID-19 PFIZER VACCINE Unknown Completed [facility] Vital Signs Vital Name Observation Time Observation Value Comments S ource BP Systolic 2024-03-08 00:00:00 130 mm[Hg] [facility] BP Diastolic 2024-03-08 00:00:00 88 mm[Hg] [facility] Height 2024-03-08 00:00:00 63 [in_i] [facility] BMI (Body Mass Index) 2024-03-08 00:00:00 35.7 kg/m2 [facility] Body Weight 2024-03-08 00:00:00 201.6 [lb_av] [facility] height 2024-01-05 10:00:00 65.00 [in_i] [facility] weight 2024-01-05 10:00:00 206.4 [lb_av] [facility] temperature 2024-01-05 10:00:00 97.4 [degF] [facility] bmi 2024-01-05 10:00:00 34.34 kg/m2 [facility] oximetry 2024-01-05 10:00:00 100 % [facility] respiratory rate 2024-01-05 10:00:00 18 /min [facility] blood pressure systolic 2024-01-05 10:00:00 134 mm[Hg] [facility] blood pressure diastolic 2024-01-05 10:00:00 60 mm[Hg] [facility] Systolic blood pressure 2023-12-14 16:00:00 118 mm[Hg] manual [facility] Diastolic blood pressure 2023-12-14 16:00:00 70 mm[Hg] manual [facility] Heart rate 2023-12-14 16:00:00 70 /min [facility] Respiratory rate 2023-12-14 16:00:00 22 /min [facility] Body weight 2023-12-14 16:00:[address] [facility] BMI 2023-12-14 16:00:00 33.98 kg/m2 [facility] Oxygen saturation in Arterial blood by Pulse oximetry 2023-12-14 16:00:00 100 /min arrived on 5 l/m pulsed NC; exercised on 5 l/m con't NC [facility] Systolic blood pressure 2023-12-09 16:00:00 116 mm[Hg] manual [facility] Diastolic blood pressure 2023-12-09 16:00:00 70 mm[Hg] manual [facility] Heart rate 2023-12-09 16:00:00 72 /min [facility] Respiratory rate 2023-12-09 16:00:00 22 /min [facility] Body weight 2023-12-09 16:00:[address] [facility] BMI 2023-12-09 16:00:00 33.95 kg/m2 [facility] Oxygen saturation in Arterial blood by Pulse oximetry 2023-12-09 16:00:00 95 /min arrived on pulsed 4 l/m NC; exercised on 4 l/m con't NC [facility] height 2023-12-06 11:40:00 65.00 [in_i] [facility] weight 2023-12-06 11:40:00 211 [lb_av] [facility] bmi 2023-12-06 11:40:00 35.11 kg/m2 [facility] oximetry 2023-12-06 11:40:00 97 % [facility] respiratory rate 2023-12-06 11:40:00 18 /min [facility] Systolic blood pressure 2023-12-02 19:00:00 124 mm[Hg] manual [facility] Diastolic blood pressure 2023-12-02 19:00:00 78 mm[Hg] manual [facility] Heart rate 2023-12-02 19:00:00 71 /min [facility] Respiratory rate 2023-12-02 19:00:00 22 /min [facility] Body weight 2023-12-02 19:00:[address] [facility] BMI 2023-12-02 19:00:00 34.08 kg/m2 [facility] Oxygen saturation in Arterial blood by Pulse oximetry 2023-12-02 19:00:00 97 /min arrived on 5l/m pulsed Inogen [place]; 6MW started on 4l/m, increased to 6 l/m NC e-cylinder [facility] height 2023-10-04 10:20:00 65.00 [in_i] [facility] weight 2023-10-04 10:20:00 211.0 [lb_av] [facility] temperature 2023-10-04 10:20:00 97.5 [degF] [facility] bmi 2023-10-04 10:20:00 35.11 kg/m2 [facility] oximetry 2023-10-04 10:20:00 97 % [facility] respiratory rate 2023-10-04 10:20:00 18 /min [facility] blood pressure systolic 2023-10-04 10:20:00 107 mm[Hg] [facility] blood pressure diastolic 2023-10-04 10:20:00 65 mm[Hg] [facility] height 2023-10-04 10:40:00 65.00 [in_i] [facility] weight 2023-10-04 10:40:00 211.0 [lb_av] [facility] temperature 2023-10-04 10:40:00 97.5 [degF] [facility] bmi 2023-10-04 10:40:00 35.11 kg/m2 [facility] oximetry 2023-10-04 10:40:00 97 % [facility] respiratory rate 2023-10-04 10:40:00 18 /min [facility] blood pressure systolic 2023-10-04 10:40:00 107 mm[Hg] [facility] blood pressure diastolic 2023-10-04 10:40:00 65 mm[Hg] [facility] height 2023-07-09 08:20:00 65.00 [in_i] [facility] weight 2023-07-09 08:20:00 200 [lb_av] [facility] temperature 2023-07-09 08:20:00 99 [degF] [facility] bmi 2023-07-09 08:20:00 33.28 kg/m2 [facility] height 2023-06-04 10:00:00 65.00 [in_i] [facility] weight 2023-06-04 10:00:00 213.4 [lb_av] [facility] temperature 2023-06-04 10:00:00 97.5 [degF] [facility] bmi 2023-06-04 10:00:00 35.51 kg/m2 [facility] oximetry 2023-06-04 10:00:00 99 % [facility] respiratory rate 2023-06-04 10:00:00 18 /min [facility] blood pressure systolic 2023-06-04 10:00:00 136 mm[Hg] [facility] blood pressure diastolic 2023-06-04 10:00:00 61 mm[Hg] [facility] height 2023-02-02 09:40:00 65.00 [in_i] [facility] weight 2023-02-02 09:40:00 204.2 [lb_av] [facility] temperature 2023-02-02 09:40:00 97.3 [degF] [facility] bmi 2023-02-02 09:40:00 33.98 kg/m2 [facility] oximetry 2023-02-02 09:40:00 99 % [facility] respiratory rate 2023-02-02 09:40:00 17 /min [facility] blood pressure systolic 2023-02-02 09:40:00 122 mm[Hg] [facility] blood pressure diastolic 2023-02-02 09:40:00 59 mm[Hg] [facility] height 2022-11-11 13:00:00 65.00 [in_i] [facility] weight 2022-11-11 13:00:00 204 [lb_av] [facility] bmi 2022-11-11 13:00:00 33.94 kg/m2 [facility] oximetry 2022-11-11 13:00:00 90 % [facility] respiratory rate 2022-11-11 13:00:00 18 /min [facility] height 2022-10-06 11:20:00 65.00 [in_i] [facility] weight 2022-10-06 11:20:00 204.8 [lb_av] [facility] temperature 2022-10-06 11:20:00 98.1 [degF] [facility] bmi 2022-10-06 11:20:00 34.08 kg/m2 [facility] oximetry 2022-10-06 11:20:00 94 % [facility] respiratory rate 2022-10-06 11:20:00 18 /min [facility] blood pressure systolic 2022-10-06 11:20:00 131 mm[Hg] [facility] blood pressure diastolic 2022-10-06 11:20:00 72 mm[Hg] [facility] height 2022-10-06 11:20:00 65.00 [in_i] [facility] weight 2022-10-06 11:20:00 204.8 [lb_av] [facility] temperature 2022-10-06 11:20:00 98.1 [degF] [facility] bmi 2022-10-06 11:20:00 34.08 kg/m2 [facility] oximetry 2022-10-06 11:20:00 94 % [facility] respiratory rate 2022-10-06 11:20:00 18 /min [facility] blood pressure systolic 2022-10-06 11:20:00 131 mm[Hg] [facility] blood pressure diastolic 2022-10-06 11:20:00 72 mm[Hg] [facility] Height 2022-08-10 00:00:00 65 [in_i] [facility] BMI (Body Mass Index) 2022-08-10 00:00:00 34.1 kg/m2 [facility] Body Weight 2022-08-10 00:00:00 205 [lb_av] [facility] height 2022-04-30 11:00:00 65.00 [in_i] [facility] weight 2022-04-30 11:00:00 200 [lb_av] [facility] temperature 2022-04-30 11:00:00 97.6 [degF] [facility] bmi 2022-04-30 11:00:00 33.28 kg/m2 [facility] blood pressure systolic 2022-04-30 11:00:00 139 mm[Hg] [facility] blood pressure diastolic 2022-04-30 11:00:00 84 mm[Hg] [facility] Height 2022-04-22 00:00:00 65 [in_i] [facility] BMI (Body Mass Index) 2022-04-22 00:00:00 46.6 kg/m2 [facility] Body Weight 2022-04-22 00:00:00 280 [lb_av] [facility] height 2022-04-13 09:00:00 65.00 [in_i] [facility] weight 2022-04-13 09:00:00 208.4 [lb_av] [facility] temperature 2022-04-13 09:00:00 97.3 [degF] [facility] bmi 2022-04-13 09:00:00 34.68 kg/m2 [facility] oximetry 2022-04-13 09:00:00 95 % [facility] respiratory rate 2022-04-13 09:00:00 17 /min [facility] blood pressure systolic 2022-04-13 09:00:00 139 mm[Hg] [facility] blood pressure diastolic 2022-04-13 09:00:00 84 mm[Hg] [facility] temperature 2022-03-30 10:00:00 98.0 [degF] [facility] bmi 2022-03-30 10:00:00 34.44 kg/m2 [facility] blood pressure systolic 2022-03-30 10:00:00 130 mm[Hg] [facility] blood pressure diastolic 2022-03-30 10:00:00 72 mm[Hg] [facility] height 2022-03-30 10:00:00 65.00 [in_i] [facility] weight 2022-03-30 10:00:00 207 [lb_av] [facility] height 2022-03-23 13:30:00 65.00 [in_i] [facility] weight 2022-03-23 13:30:00 206.3 [lb_av] [facility] temperature 2022-03-23 13:30:00 97.9 [degF] [facility] bmi 2022-03-23 13:30:00 34.33 kg/m2 [facility] blood pressure systolic 2022-03-23 13:30:00 128 mm[Hg] [facility] blood pressure diastolic 2022-03-23 13:30:00 70 mm[Hg] [facility] height 2022-02-11 13:20:00 65.00 [in_i] [facility] weight 2022-02-11 13:20:00 204 [lb_av] [facility] temperature 2022-02-11 13:20:00 98.1 [degF] [facility] bmi 2022-02-11 13:20:00 33.94 kg/m2 [facility] oximetry 2022-02-11 13:20:00 100 % [facility] respiratory rate 2022-02-11 13:20:00 17 /min [facility] blood pressure systolic 2022-02-11 13:20:00 131 mm[Hg] [facility] blood pressure diastolic 2022-02-11 13:20:00 64 mm[Hg] [facility] height 2022-01-09 09:40:00 65.00 [in_i] [facility] weight 2022-01-09 09:40:00 208.2 [lb_av] [facility] temperature 2022-01-09 09:40:00 97.5 [degF] [facility] bmi 2022-01-09 09:40:00 34.64 kg/m2 [facility] oximetry 2022-01-09 09:40:00 95 % [facility] respiratory rate 2022-01-09 09:40:00 17 /min [facility] blood pressure systolic 2022-01-09 09:40:00 116 mm[Hg] [facility] blood pressure diastolic 2022-01-09 09:40:00 63 mm[Hg] [facility] height 2021-11-19 09:00:00 65.00 [in_i] [facility] weight 2021-11-19 09:00:00 208.6 [lb_av] [facility] temperature 2021-11-19 09:00:00 98.3 [degF] [facility] bmi 2021-11-19 09:00:00 34.71 kg/m2 [facility] oximetry 2021-11-19 09:00:00 96 % [facility] respiratory rate 2021-11-19 09:00:00 18 /min [facility] blood pressure systolic 2021-11-19 09:00:00 124 mm[Hg] [facility] blood pressure diastolic 2021-11-19 09:00:00 59 mm[Hg] [facility] height 2021-10-27 09:20:00 65.00 [in_i] [facility] weight 2021-10-27 09:20:00 204.8 [lb_av] [facility] temperature 2021-10-27 09:20:00 97.2 [degF] [facility] bmi 2021-10-27 09:20:00 34.08 kg/m2 [facility] oximetry 2021-10-27 09:20:00 98 % [facility] respiratory rate 2021-10-27 09:20:00 17 /min [facility] blood pressure systolic 2021-10-27 09:20:00 125 mm[Hg] [facility] blood pressure diastolic 2021-10-27 09:20:00 66 mm[Hg] [facility] height 2021-09-30 08:20:00 65.00 [in_i] [facility] weight 2021-09-30 08:20:00 199.0 [lb_av] [facility] temperature 2021-09-30 08:20:00 97.4 [degF] [facility] bmi 2021-09-30 08:20:00 33.11 kg/m2 [facility] oximetry 2021-09-30 08:20:00 96 % [facility] respiratory rate 2021-09-30 08:20:00 16 /min [facility] blood pressure systolic 2021-09-30 08:20:00 123 mm[Hg] [facility] blood pressure diastolic 2021-09-30 08:20:00 67 mm[Hg] [facility] height 2021-09-30 08:20:00 65.00 [in_i] [facility] weight 2021-09-30 08:20:00 199.0 [lb_av] [facility] temperature 2021-09-30 08:20:00 97.4 [degF] [facility] bmi 2021-09-30 08:20:00 33.11 kg/m2 [facility] oximetry 2021-09-30 08:20:00 96 % [facility] respiratory rate 2021-09-30 08:20:00 16 /min [facility] blood pressure systolic 2021-09-30 08:20:00 123 mm[Hg] [facility] blood pressure diastolic 2021-09-30 08:20:00 67 mm[Hg] [facility] height 2021-06-27 13:40:00 65.00 [in_i] [facility] weight 2021-06-27 13:40:00 203 [lb_av] [facility] temperature 2021-06-27 13:40:00 97.0 [degF] [facility] bmi 2021-06-27 13:40:00 33.78 kg/m2 [facility] oximetry 2021-06-27 13:40:00 96 % [facility] respiratory rate 2021-06-27 13:40:00 16 /min [facility] blood pressure systolic 2021-06-27 13:40:00 122 mm[Hg] [facility] blood pressure diastolic 2021-06-27 13:40:00 58 mm[Hg] [facility] height 2021-03-17 08:00:00 65.00 [in_i] [facility] weight 2021-03-17 08:00:00 198.8 [lb_av] [facility] temperature 2021-03-17 08:00:00 97.0 [degF] [facility] bmi 2021-03-17 08:00:00 33.08 kg/m2 [facility] oximetry 2021-03-17 08:00:00 95 % [facility] respiratory rate 2021-03-17 08:00:00 18 /min [facility] blood pressure systolic 2021-03-17 08:00:00 120 mm[Hg] [facility] blood pressure diastolic 2021-03-17 08:00:00 82 mm[Hg] [facility] Procedures Procedure Date / Time Performed Performing Clinicia n Source XR, knee, 3 view 2022-04-22 00:00:00 [facility] Hysterectomy 1999-05-17 00:00:00 Edita mckinney Appendectomy 1966-05-17 00:00:00 Edita mckinney Plan of Care Planned Activity Planned Date Details Comments Source Instructions [facility] Encounters Start Date/Time End Date/Time Encounter Type Admission Type Attending Clinicians Care Facility Care Department Encounter ID Source 2024-01-05 10:43:00 Outpatient Angelica Sales STLMLC STLMLC [id number] [facility] 2022-11-12 11:10:00 Outpatient Rosa Mckeon STLMLC STLMLC [id number] [facility] 2022-04-28 14:46:01 Outpatient Mckeon Avnee STLMLC STLMLC [id number] [facility] 2022-03-23 13:22:01 Outpatient Mckeon Avnee STLMLC STLMLC [id number] [facility] 2022-03-18 15:16:01 Outpatient Mike Avnee STLMLC STLMLC [id number] [facility] 2022-03-17 10:06:01 Outpatient Mckeon Avnee STLMLC STLMLC [id number] [facility] 2022-01-08 10:56:01 Outpatient Mckeon Avnee STLMLC STLMLC [id number] [facility] 2022-01-07 10:04:00 Outpatient Mike Avnee STLMLC STLMLC [id number] [facility] 2021-09-29 15:48:01 Outpatient Mckeon Avnee STLMLC STLMLC [id number] [facility] 2021-06-27 13:32:02 Outpatient Mckeon Avnee STLMLC STLMLC [id number] [facility] 2021-06-11 12:53:14 Outpatient Mike Avnee STLMLC STLMLC [id number] [facility] 2024-03-08 00:00:00 2024-03-08 00:00:00 Cydney Humphreys, NETWORK LEAD: [address], [place] [address], [place] [address] , Ph. [facility] - GC_GCBZW_La jerrod Cody* [id number] [facility] 2024-02-23 00:00:00 2024-02-23 00:00:00 (TEL) STLMLC STLMLC [id number] [facility] 2024-02-18 00:00:00 2024-02-18 00:00:00 OFFICE VISIT ESTAB PT LEVEL 4 STLMLC STLMLC [id number] [facility] 2024-02-18 00:00:00 2024-02-18 00:00:00 (TEL) STLMLC STLMLC [id number] [facility] 2024-01-21 00:00:00 2024-01-21 00:00:00 (TEL) STLMLC STLMLC [id number] [facility] 2024-01-21 00:00:00 2024-01-21 00:00:00 OFFICE VISIT ESTAB PT LEVEL 4 STLMLC STLMLC [id number] [facility] 2024-01-07 00:00:00 2024-01-07 00:00:00 (TEL) STLMLC STLMLC [id number] [facility] 2024-01-05 00:00:00 2024-01-05 00:00:00 OFFICE VISIT NEW PT LEVEL 4 STLMLC STLMLC [id number] [facility] 2024-01-05 00:00:00 2024-01-05 00:00:00 (TEL) STLMLC STLMLC [id number] [facility] 2023-12-30 00:00:00 2023-12-30 00:00:00 (TEL) STLMLC STLMLC [id number] [facility] 2023-12-27 00:00:00 2023-12-27 00:00:00 (TEL) STLMLC STLMLC [id number] [facility] 2023-12-22 00:00:00 2023-12-22 13:13:40 Letter (Out) Ursula Ramos Peggy C [facility] 1..840.114 350.1.13.10 4.2.7.2.686 [id number] [facility] 2023-12-21 00:00:00 2023-12-21 11:50:28 Telephone Ursula Ramos Peggy C [facility] 1.2840.114 350.1.13.10 4.2.7.2.686 [id number] 296 [id number] [facility] 2023-12-20 00:00:00 2023-12-20 00:00:00 (TEL) [facility] [id number] [facility] 2023-12-16 00:00:00 2023-12-16 14:53:47 Telephone Ursula Ramos [facility] 1..840.114 350.1.13.10 4.2.7.2.686 [id number] 296 [id number] [facility] 2023-12-14 11:00:00 2023-12-14 11:55:14 Ancillary Visit Therapist[facility] 1..840.114 350.1.13.10 4.2.7.2.686 [id number] [facility] 2023-12-14 11:00:00 2023-12-14 11:55:14 Outpatient R [facility]AN [facility] [id number] [facility] 2023-12-09 11:00:00 2023-12-09 11:54:52 Ancillary Visit Therapist, [facility] 1..840.114 350.1.13.10 4.2.7.2.686 [id number] [facility] 2023-12-08 00:00:00 2023-12-08 09:48:33 Telephone Ursula Ramos [facility] 1.2.840.114 350.1.13.10 4.2.7.2.686 [id number] [facility] 2023-12-08 00:00:00 2023-12-08 00:00:00 (TEL) [facility] [id number] [facility] 2023-12-06 00:00:00 2023-12-06 00:00:00 (EST. VIDEO) EST VIRTUAL VIDEO VISIT [facility] [id number] [facility] 2023-12-04 00:00:00 2023-12-04 00:00:00 (TEL) [facility] [id number] [facility] 2023-12-03 00:00:00 2023-12-03 16:24:23 Telephone rUsula Ramos [facility] 1.2.840.114 350.1.13.10 4.2.7.2.686 [id number] 296 [id number] [facility] 2023-12-02 14:00:00 2023-12-02 16:16:15 Ancillary Visit Therapist, [facility] Solomon, Danny [facility] 1.2.840.114 350.1.13.10 4.2.7.2.686 [id number] [facility] 2023-11-29 00:00:00 2023-11-29 11:52:46 Telephone Ursula Ramos [facility] 1.2.840.114 350.1.13.10 4.2.7.2.686 [id number] 296 [id number] [facility] 2023-11-26 00:00:00 2023-11-26 13:49:48 Letter (Out) Fellow, Pulmonary [facility] 1.2.840.114 350.1.13.10 4.2.7.2.686 [id number] [facility] 2023-11-26 00:00:00 2023-11-26 00:00:00 (TEL) STLC STLC [id number] [facility] 2023-11-09 00:00:00 2023-11-16 08:09:55 Telephone Ursula Ramos [facility] 1.2.840.114 350.1.13.10 4.2.7.2.686 [id number] [facility] 2023-10-28 00:00:00 2023-10-28 14:50:11 Telephone Ursula Ramos [facility] 1.2.840.114 350.1.13.10 4.2.7.2.686 [id number] [facility] 2023-10-25 00:00:00 2023-10-25 16:17:22 Case Management Ursula Ramos [facility] 1.2.840.114 350.1.13.10 4.2.7.2.686 [id number] [facility] 2023-10-06 00:00:00 2023-10-06 00:00:00 (TEL) STLC STLC [id number] [facility] 2023-10-05 00:00:00 2023-10-05 00:00:00 (TEL) STLC STLC [id number] [facility] 2023-10-04 00:00:00 2023-10-04 00:00:00 OFFICE VISIT ESTAB PT LEVEL 4 [facility] [id number] [facility] 2023-10-04 00:00:00 2023-10-04 00:00:00 SUB ANNUAL [facility] WELLNESS VISIT [facility] [id number] [facility] 2023-09-17 00:00:00 2023-09-17 00:00:00 Telephone Ursula Ramos [facility] 1.2.840.114 350.1.13.10 4.2.7.2.686 [id number] [facility] 2023 00:00:00 2023 00:00:00 Telephone [facility]ula Ramos [facility] 1.2.840.114 350.1.13.10 4.2.7.2.686 [id number] [facility] 2023-09-07 00:00:00 2023-09-07 00:00:00 Telephone Ursula Ramos [facility] 1.2.840.114 350.1.13.10 4.2.7.2.686 [id number] [facility] 2023-08-31 00:00:00 2023-08-31 00:00:00 Telephone Ramos Ursula C [facility] 1.2.840.114 350.1.13.10 4.2.7.2.686 [id number] [facility] 2023-07-09 00:00:00 2023-07-09 00:00:00 OFFICE VISIT ESTAB PT LEVEL 4 STLMLC STLC [id number] [facility] 2023-07-07 00:00:00 2023-07-07 00:00:00 (TEL) STLMLC STLC [id number] [facility] 2023-06-04 00:00:00 2023-06-04 00:00:00 OFFICE VISIT ESTAB PT LEVEL 4 STLMLC STLC [id number] [facility] 2023-03-17 00:00:00 2023-03-17 00:00:00 Outpatient GC_GCBZW_Ka diyala_S [facility] [id number] [facility] 2023-02-02 00:00:00 2023-02-02 00:00:00 OFFICE VISIT ESTAB PT LEVEL 4 [facility] [id number] [facility] 2022-11-19 00:00:00 2022-11-19 00:00:00 (TEL) [facility] [id number] [facility] 2022-11-11 00:00:00 2022-11-11 00:00:00 (TEL) [facility] [id number] [facility] 2022-11-11 00:00:00 2022-11-11 00:00:00 (EST. VIDEO) EST VIRTUAL VIDEO VISIT [facility] [id number] [facility] 2022-10-30 00:00:00 2022-10-30 00:00:00 Outpatient FOG_Goytia_ Robin_MD AOSM AO [id number] [facility] 2022-10-30 00:00:00 2022-10-30 00:00:00 Outpatient FOG_Goytia_ Robin_MD AOSM AOSM [id number] [facility] 2022-10-30 00:00:00 2022-10-30 00:00:00 Outpatient FOG_Goytia_ Robin_MD AOSM AOSM [id number] [facility] 2022-10-16 00:00:00 2022-10-16 00:00:00 Outpatient FOG_Goytia_ Robin_MD AOSM AOSM [id number] [facility] 2022-10-06 00:00:00 2022-10-06 00:00:00 OFFICE VISIT ESTAB PT LEVEL 4 [facility] [id number] [facility] 2022-10-06 00:00:00 2022-10-06 00:00:00 SUB ANNUAL [facility] WELLNESS VISIT [facility] [id number] [facility] 2022-09-30 00:00:00 2022-09-30 00:00:00 (TEL) [facility] [id number] [facility] 2022-09-18 00:00:00 2022-09-18 00:00:00 [place] Hall II, MD: [id number] [facility] [address], [place] [address] , Ph. [phone] [facility] [place] [facility] [place] [id number] [facility] 2022-08-31 05:40:00 2022-08-31 13:50:00 Outpatient ROSS HALL [facility]FB MH[facility] [id number] [facility] 2022-08-31 00:00:00 2022-08-31 00:00:00 Ross Hall II, MD: [id number] [place] [address] , Ph. [phone] [facility] [place] [facility] [id number] [facility] 2022-08-24 00:00:00 2022-08-24 00:00:00 Outpatient FOG_Goytia_ Robin_MD AOSM AO [id number] [facility] 2022-08-24 00:00:00 2022-08-24 00:00:00 Outpatient FOG_Goytia_ Robin_MD AOSM AO [id number] [facility] 2022-08-24 00:00:00 2022-08-24 00:00:00 Outpatient FOG_Goytia_ Robin_MD AOSM AO [id number] [facility] 2022-08-24 00:00:00 2022-08-24 00:00:00 Outpatient FOG_Goytia_ Robin_MD AOSM AO [id number] [facility] 2022-08-24 00:00:00 2022-08-24 00:00:00 Outpatient FOG_Goytia_ Robin_MD AOSM AO [id number] [facility] 2022-08-24 00:00:00 2022-08-24 00:00:00 Outpatient FOG_Goytia_ Robin_MD AOSM AOSM [id number] [facility] 2022-08-24 00:00:00 2022-08-24 00:00:00 Outpatient FOG_Goytia_ Robin_MD AOSM AOSM [id number] [facility] 2022-08-10 00:00:00 2022-08-10 00:00:00 Outpatient FOG_Goytia_ Robin_MD AOSM AO [id number] [facility] 2022-08-10 00:00:00 2022-08-10 00:00:00 [place] II, MD: [id number] [address] [address], [place] [address] , Ph. [phone] [facility] [place] [facility] [place] [id number] [facility] 2022-08-08 00:00:00 2022-08-08 00:00:00 Outpatient FOG_Goytia_ Robin_MD AOSM AO [id number] [facility] 2022-07-27 00:00:00 2022-07-27 00:00:00 Outpatient FOG_Goytia_ Robin_MD AOSM AO [id number] [facility] 2022-07-27 00:00:00 2022-07-27 00:00:00 Outpatient FOG_Goytia_ Robin_MD AOSM AO [id number] [facility] 2022-07-27 00:00:00 2022-07-27 00:00:00 Outpatient FOG_Goytia_ Robin_MD AOSM AO [id number] [facility] 2022-07-21 16:12:00 2022-07-21 16:12:00 Outpatient Mahad Regalado HCACL LABO [id number] [facility] 2022-07-21 08:00:00 2022-07-21 09:00:00 Outpatient EL Mahad Regalado HCATO LABO [id number] [facility] 2022-06-22 00:00:00 2022-06-22 00:00:00 (TEL) [facility] [id number] [facility] 2022-04-30 00:00:00 2022-04-30 00:00:00 Outpatient FOG_Sabine_ Mahad_ AOSM AOSM [id number] [facility] 2022-04-30 00:00:00 2022-04-30 00:00:00 Outpatient FOG_Gonarayania_ Mahad_ AOSM AOSM [id number] [facility] 2022-04-30 00:00:00 2022-04-30 00:00:00 Outpatient FOG_Sabine_ Mahad_ AOSM AOSM [id number] [facility] 2022-04-30 00:00:00 2022-04-30 00:00:00 OFFICE VISIT EST PT LEVEL 3 [facility] [id number] [facility] 2022-04-23 00:00:00 2022-04-23 00:00:00 Outpatient FOG_Goytia_ Mahad_ AOSM AOSM [id number] [facility] 2022-04-22 00:00:00 2022-04-22 00:00:00 Outpatient FOG_Goytia_ Mahad_ AOSM AOSM [id number] [facility] 2022-04-22 00:00:00 2022-04-22 00:00:00 Mahad Regalado MD: [address] [place] [address] , Ph. [phone] [facility] [place] [facility] [place] [id number] [facility] 2022-04-21 00:00:00 2022-04-21 00:00:00 Outpatient FOG_Gocamryn_ Mahad_ AO AO [id number] [facility] 2022-04-13 00:00:00 2022-04-13 00:00:00 OFFICE VISIT ESTAB PT LEVEL 4 STLMLC STLMLC [id number] [facility] 2022-04-08 00:00:00 2022-04-08 00:00:00 Outpatient FOG_Goytfinn_ Mahad_ AO AO [id number] [facility] 2022-04-01 00:00:00 2022-04-01 00:00:00 Outpatient FOG_Goytia_ Robthania_ AO AO [id number] [facility] 2022-03-31 00:00:00 2022-03-31 00:00:00 (TEL) STLMLC STLMLC [id number] [facility] 2022-03-30 00:00:00 2022-03-30 00:00:00 OFFICE VISIT EST PT LEVEL 3 STLMLC STLMLC [id number] [facility] 2022-03-23 00:00:00 2022-03-23 00:00:00 (STEM SIZER) New Patient STLMLC STLMLC [id number] [facility] 2022-03-17 00:00:00 2022-03-17 00:00:00 (TEL) STLMLC STLMLC [id number] [facility] 2022-03-10 00:00:00 2022-03-10 00:00:00 (TEL) STLMLC STLMLC [id number] [facility] 2022-02-12 00:00:00 2022-02-12 00:00:00 (TEL) STLMLC STLMLC [id number] [facility] 2022-02-11 00:00:00 2022-02-11 00:00:00 OFFICE VISIT ESTAB PT LEVEL 4 STLMLC STLMLC [id number] [facility] 2022-02-04 00:00:00 2022-02-04 00:00:00 (TEL) STLMLC STLMLC [id number] [facility] 2022-01-30 00:00:00 2022-01-30 00:00:00 (TEL) STLMLC STLMLC [id number] [facility] 2022-01-27 00:00:00 2022-01-27 00:00:00 (TEL) STLMLC STLMLC [id number] [facility] 2022-01-09 00:00:00 2022-01-09 00:00:00 OFFICE VISIT ESTAB PT LEVEL 4 STLMLC STLMLC [id number] [facility] 2021-12-23 00:00:00 2021-12-23 00:00:00 (TEL) STLMLC STLMLC [id number] [facility] 2021-11-19 00:00:00 2021-11-19 00:00:00 OFFICE VISIT ESTAB PT LEVEL 4 [facility]LMLC STLMLC [id number] [facility] 2021-11-10 00:00:00 2021-11-10 00:00:00 (TEL) STLMLC STLMLC [id number] [facility] 2021-11-06 00:00:00 2021-11-06 00:00:00 (TEL) STLMLC STLMLC [id number] [facility] 2021-11-06 00:00:00 2021-11-06 00:00:00 (TEL) STLMLC STLMLC [id number] [facility] 2021-10-30 00:00:00 2021-10-30 00:00:00 (TEL) STLMLC STLMLC [id number] [facility] 2021-10-27 00:00:00 2021-10-27 00:00:00 OFFICE VISIT EST PT LEVEL 3 STLMLC STLMLC [id number] [facility] 2021-10-02 00:00:00 2021-10-02 00:00:00 (TEL) STLMLC STLMLC [id number] [facility] 2021-09-30 00:00:00 2021-09-30 00:00:00 (MCR WELL) Medicare Wellness STLMLC STLMLC [id number] [facility] 2021-09-30 00:00:00 2021-09-30 00:00:00 OFFICE VISIT ESTAB PT LEVEL 4 STLMLC STLMLC [id number] [facility] 2021-06-27 00:00:00 2021-06-27 00:00:00 OFFICE VISIT ESTAB PT LEVEL 4 STLMLC STLMLC [id number] [facility] 2021-06-16 00:00:00 2021-06-16 00:00:00 (TEL) STLMLC STLMLC [id number] [facility] 2021-03-17 00:00:00 2021-03-17 00:00:00 OFFICE VISIT EST PT LEVEL 3 STLMLC STLMLC [id number] [facility] 2021-03-17 00:00:00 2021-03-17 00:00:00 (TEL) STLMLC STLMLC [id number] [facility] 2020-12-17 00:00:00 2020-12-17 00:00:00 Outpatient STLMLC STLMLC [id number] [facility] 2020-12-12 00:00:00 2020-12-12 00:00:00 Outpatient STLMLC STLMLC [id number] [facility] 2020-11-20 00:00:00 2020-11-20 00:00:00 Outpatient STLMLC STLMLC [id number] [facility] 2020-11-04 00:00:00 2020-11-04 00:00:00 Outpatient STLMLC STLMLC [id number] [facility] 2020-10-08 00:00:00 2020-10-08 00:00:00 Outpatient STLMLC STLMLC [id number] [facility] 2020-10-07 00:00:00 2020-10-07 00:00:00 Outpatient STLMLC STLMLC [id number] [facility] 2020-10-04 00:00:00 2020-10-04 00:00:00 Outpatient STLMLC STLMLC [id number] [facility] 2020-09-16 00:00:00 2020-09-16 00:00:00 Outpatient STLMLC STLMLC [id number] [facility] 2020-09-13 00:00:00 2020-09-13 00:00:00 Outpatient STLMLC STLMLC [id number] [facility] 2020-09-13 00:00:00 2020-09-13 00:00:00 Outpatient STLMLC STLMLC [id number] [facility] 2020-09-03 00:00:00 2020-09-03 00:00:00 Outpatient STLMLC STLMLC [id number] [facility] 2020-09-03 00:00:00 2020-09-03 00:00:00 Outpatient STLMLC STLMLC [id number] [facility] 2020-09-02 00:00:00 2020-09-02 00:00:00 Outpatient STLMLC STLMLC [id number] [facility] 2020-09-02 00:00:00 2020-09-02 00:00:00 Outpatient STLMLC STLMLC [id number] [facility] 2020-08-13 11:50:00 2020-08-13 11:34:24 Outpatient MASSIEL DEJESUS [facility] [id number] [facility] 2020-07-12 00:00:2020-07-12 00:00:00 Patient Secure Msg Doctor Unassigned, [place] [facility] [id number] [facility] 2020-07-11 16:40:00 2020-07-11 16:42:58 Outpatient R IMELDA FLETCHER [facility] [id number] [facility] Results Test Description Test Time Test Comments Results Result Co mments Source PROTHROMBIN [id number] 14:18:00* Test Item Value Reference Range Interpretation Comme nts PROTHROMBIN TIME PATIENT (test code = PTP) 11.4 secs 10.1-12.5 N Please note new normal range. INTERNATIONAL NORMAL RATIO (test code = INR) 0.99 <2.0 RECOMMENDED THER APEUTIC RANGE FOR ORAL ANTICOAGULANTTREATMENT: CONDITION INRProphylaxis of venous thrombosis in 2.0 - 3.0 high-risk medical or surgical patientsTreatment of venous thrombosis 2.0 - 3.0Prevention of embolism 2.0 - 3.0Prevention of recurrent embolism, or 3.0 - 4.5 patients with mechanical prosthetic intravascular valves IS PATIENT ON ANTICOAGULANTS ? YLIST ANTICOAGULANT/ANTI PLT MEDICATION : AspirinHas Lab been notified if Patient is on Heparin Drip? NOTHROMBOPLASTIN TIME [id number] 14:18:00* Test Item Value Reference Range Interpretation Comme nts PTT ACTIVATED (test code = APTT) 33.1 secs 24.9-37.0 N Please note new normal range. IS PATIENT ON ANTICOAGULANTS ? YLIST ANTICOAGULANT/ANTI PLT MEDICATION : AspirinHas Lab been notified if Patient is on Heparin Drip? NOCBC W/AUTO DIFF 2022-07-21 14:02:00* Test Item Value Reference Range Interpretation Comme nts WHITE BLOOD CELL (test code = WBC) [...] 27-34 N MEAN CELL HGB CONCENTRATION (test code = MCHC) 31.3 g/dL 30.8-34.1 N RED CELL DISTRIBUTION WIDTH (test code = RDW) 12.8 % 11-16 N PLT (test code = PLT) 350 K/mm3 130-400 N MEAN PLATELET VOLUME (test c ode = MPV) 10.5 fL 8.9-12.1 N NEUTROPHIL % (test code = NT%) 60.4 [...] K/mm3 0.02-0.10 N MANUAL DIFF REQUIRED (test c ode = MDIFF) NO MANUAL DIFF NUCLEATED RED BLOOD CELL (te st code = NRBC) 0 % 0-0 N mssa PCR surveillance [id number] 13:23:00* Test Item Value Reference Range Interpretation Comme nts mssa PCR surveillance screen (test code = mssa PCR surveillance screen) see below performing lab: (test code = performing lab:) [facility] W Auto Differential panel - [id number] 13:23:00* Test Item Value Reference Range Interpretation Comme nts white blood cell (test code = white blood cell) 6.9 K/mm3 5.8-11.0 red blood cell (test code = red blood cell) 4.00 M/mm3 4.2-5.4 L hemoglobin (test code = hemoglobin) 12.2 g/dL 12-16 hematocrit (test code = hematocrit) 39.0 % 37-47 mean cell volume (test code = mean cell volume) 98 fL 80-98 mean cell HGB (test code = m madeline cell HGB) 30.5 pg 27-34 mean cell HGB concentration (test code = mean cell HGB concentration) 31.3 g/dL 30.8-34.1 red cell distribution width (test code = red cell distribution width) 12.8 % 11-16 plt (test code = plt) 350 K/mm3 130-400 mean platelet volume (test c ode = mean platelet volume) 10.5 fL 8.9-12.1 neutrophil % (test code = neutrophil %) 60.4 % 45-70 lymphocyte % (test code = lymphocyte %) 28.1 % 20-40 monocyte % (test code = mono cyte %) 8.2 % 3-10 eosinophil % (test code = eosinophil %) 2.0 % 1-5 basophil % (test code = baso nubia %) 1.0 % 0.0-1.1 neutrophil # (test code = neutrophil #) 4.15 K/mm3 2.00-7.50 lymphocyte # (test code = lymphocyte #) 1.93 K/mm3 1.50-4.00 monocyte # (test code = mono cyte #) 0.56 K/mm3 0.2-0.8 eosinophil # (test code = eosinophil #) 0.14 K/mm3 0.04-0.4 basophil # (test code = baso nubia #) 0.07 K/mm3 0.02-0.10 manual diff required (test c ode = manual diff required) no manual diff nucleated red blood cell (te st code = nucleated red blood cell) 0 % 0-0 performing lab: (test code = performing lab:) [facility]2022-07-21 13:23:00* Test Item Value Reference Range Interpretation Comme nts prothrombin time patient (te st code = prothrombin time patient) 11.4 secs 10.1-12.5 international normal ratio ( test code = international normal ratio) 0.99 <2.0 performing lab: (test code = performing lab:) [facility] [id number] 13:23:00 * Test Item Value Reference Range Interpretation Comme nts PTT activated (test code = P TT activated) 33.1 secs 24.9-37.0 performing lab: (test code = performing lab:) [facility] - Serum or [id number] 13:23:00* Test Item Value Reference Range Interpretation Comme nts sodium (test code = sodium) 142 mmol/L 136-145 potassium (test code = potassium) 3.7 mmol/L 3.5-5.1 chloride (test code = chloride) 101.0 mmol/L 98-107 carbon dioxide (test code = carbon dioxide) 33.0 mmol/L 21-32 H glucose (test code = glucose) 79 mg/dL 70-110 blood urea nitrogen (test co de = blood urea nitrogen) 11 mg/dL 7-18 glomerular filtration rate ( test code = glomerular filtration rate) 59.3 >60 creatinine (test code = creatinine) 1.04 mg/dL 0.55-1.30 total protein (test code = t otal protein) 7.4 g/dL 6.4-8.2 albumin (test code = albumin) 3.9 g/dL 3.4-5.0 globulin (test code = globulin) 3.5 g/dL 2.2-4.2 albumin/globulin ratio (test code = albumin/globulin ratio) 1.1 0.7-2.0 calcium (test code = calcium) 9.2 mg/dL 8.2-10.1 bilirubin total (test code = bilirubin total) 0.40 mg/dL 0.2-1.00 SGOT/AST (test code = SGOT/AST) 25.0 U/L 15-37 SGPT/ALT (test code = SGPT/ALT) 20.0 U/L 12-78 alkaline phosphatase total ( test code = alkaline phosphatase total) 135 U/L 46-116 H performing lab: (test code = performing lab:) [facility] Staphylococcus aureus [Presence] in Specimen by Organism specific [id number] 13:23:00* Test Item Value Reference Range Interpretation Comme nts MRSA surveillance screen (te st code = MRSA surveillance screen) see below performing lab: (test code = performing lab:) [facility] [id number] 13:00:02- SCR MAMM BILATERAL CAD DIGITALBILATERAL DIGITAL SCREENING MAMMOGRAM WITH CAD: 03/13/2019CLINICAL:Asymptomatic. Current mammographic images were evaluated by either a [employer] M-Vu or a [employer] Image[employer]er CAD (computer aided detection system). Comparison is made to exams dated 07/20/2016 mammogram - [facility] and 03/23/2013 mammogram - [facility]. The tissue of both breasts is predominantly fatty. No suspicious mass, architectural distortion, malignant type calcification, or lymph node abnormality detected. Breast architecture is stable compared to prior exams.IMPRESSION: NEGATIVEThere is no mammographic evidence of malignancy. Resume annual screeningmammography in one year. Yoli caldwell/penrad:03/14/2019 13:00:02 Voice Data Communications Engineer: Tracee Finney MM, [facility] sent: BIRADS 1-2 Normal Mammogram BI-RADS: 1 NegativeCT Abdomen Pelvis W/Wo ContrastCT Abdomen Pelvis W/Wo Contrast Notes Date/Time Note Provider Source 2022-07-21 13:27:00 [id number] [place] [id number] PATIENT NAME: ANJU HERMAN ADMIT DATE: ACCOUNT NO: [id number] ROOM NO: AGE: 66 REPORT TYPE: ELECTROCARDIOGRAM SEX: F ADMITTING PHYSICIAN:Mahad Regalado MD ATTENDING PHYSICIAN:Mahad Regalado MD Order: [id number] Test Reason : PRE OP CLEARANCE HTN Test Date/Time Stamp: WedJul 21 2022 13:27:43 Blood Pressure : / mmHG Vent. Rate : 079 BPM Atrial Rate : 079 BPM P-R Int : 182 ms QRS Dur : 082 ms QT Int : 382 ms P-R-T Axes : 064 -31 047 degrees QTc Int : 438 ms Normal sinus rhythm Left axis deviation Abnormal ECG No previous ECGs available Confirmed by TIMI SOLOMON MD ([id number]) on 07/28/2022 12:33:47 PM Referred By: Mahad Regalado Confirmed by:TIMI SOLOMON MD PATIENT NAME: ANJU HERMAN [facility]
[2024-03-26] MEDS ORDERED: NA CHLORIDE 0.9% 1,000 ML ONE (16:45)
[2024-03-26] MEDS ORDERED: CEFTRIAXONE 1000 MG/VIAL ONE (16:45)
[2024-03-26 16:50] LABS: Specific Gravity 1.011 (1.005-1.030); Sqamous Epithelial <5 /HPF (None Seen); Urine Bacteria None Seen /HPF (<20); Urine Bilirubin NEGATIVE (Negative); Urine Blood 1+ (Negative); Urine Clarity Turbid (Clear); Urine Color Colorless (Yellow); Urine Crystals Unidentified Few /HPF (None Seen); Urine Culture Reflex Order NOT NEEDED; Urine Glucose NEGATIVE (Negative); Urine Ketones NEGATIVE (Negative); Urine Microscopic Reflex YN ORDER UMIC; Urine Mucus Slight /HPF (None Seen); Urine Nitrite NEGATIVE (Negative); Urine Protein NEGATIVE (Negative); Urine RBC <5 /HPF (None Seen); Urine Urobilinogen Normal (Normal); Urine pH 5.5 (5.0-7.0)
[2024-03-26 17:00] LABS: Absolute Basophils 0.1 K/uL (0-0.5); Absolute Lymphocytes (CBC) 1.1 K/uL (0.7-4.9); Absolute Monocytes 0.5 K/uL (0.1-1.3); Absolute Neutrophil 9.3 K/uL (1.8-8.0); Basophils % 0.5 % (0-1.3); Eosinophils % 0.3 % (0-4.4); Hematocrit 31.7 % (36.0-45.0); Hemoglobin 9.7 g/dL (12.0-15.0); Lymphocytes % 10.2 % (15.3-44.8); MCH 29.9 pg (27.0-35.0); MCHC 30.7 g/dL (32.0-36.0); MCV 97.5 fL (80-100); MPV 8.4 fL (7.6-11.3); Monocytes % 4.4 % (3.3-12.3); Neutrophils % 84.6 % (41.7-73.7); Platelets 304 thou/uL (152-406); RBC Red Blood Cell Count 3.25 M/uL (3.86-4.86); Red Cell Distribution Width 14.9 % (12.1-15.2)
[2024-03-26 17:01] LABS: PT Prothrombin Time 11.7 SECONDS (9.4-12.5); Protime INR 1.05
--- NOTE | 2024-03-26 17:07 | RAD REPORT ---
EXAMINATION: ONE VIEW CHEST XR CLINICAL INDICATION: Female, 68 years old.,COUGH TECHNIQUE: Frontal chest projection is submitted. Examination is limited by patient positioning and t echnique. COMPARISON: 10/23/2023. FINDINGS: Decreased inspiratory effort somewhat limits evaluation. The lungs are clear. No pneumothorax or siz able effusion. The heart is normal in size. Mediastinal contours are unremarkable. IMPRESSION: No acute intrathoracic abnormalities.
[2024-03-26 17:16] LABS: ALT/SGPT 30 U/L (13-56); AST/SGOT 28 U/L (15-37); Albumin 3.3 g/dL (3.4-5.0); Albumin/Globulin Ratio 0.8 (1.1-1.8); Alkaline Phosphatase 92 U/L (45-117); Anion Gap 6.5 mEq/L (5.0-15.0); BUN Blood Urea Nitrogen 19 mg/dL (7-18); Bicarbonate 37 mEq/L (21-32); Bilirubin Total 0.2 mg/dL (0.2-1.0); Globulin 4.3 g/dL (2.3-3.5); Glomerular Filtration Rate 47 ml/min (=/>90); Glucose Level 97 mg/dL (74-106); Lipase 44 U/L (13-75); Magnesium 2.4 mg/dL (1.6-2.4); NT PRO-BNP 471 pg/mL (<125); Potassium 4.5 mEq/L (3.5-5.1); Protein, Total 7.6 g/dL (6.4-8.2); Sodium Level 136 mEq/L (136-145); Troponin High Sensitivity 5.3 pg/mL (<58.9)
[2024-03-26 17:22] LABS: Bilirubin Direct < 0.2 mg/dL (0-0.2)
[2024-03-26 17:25] LABS: SARS-CoV-2 Antigen CONTROL BLUE LINE VIS/BG OK; SARS-CoV-2 Antigen Rapid Res Negative (Negative)
[2024-03-26] MEDS ORDERED: IPRATROPIUM BROM 0.5MG/2.5ML ONE (18:12)
[2024-03-26] MEDS ORDERED: LEVALBUTEROL 1.25 MG/3 ML NEB ONE ×2 (18:12→18:56)
--- NOTE | 2024-03-26 18:26 | ER ---
Nurse's Notes [facility] Name: Anju Richards Age: 68 yrs Sex: Female : 1955 Arrival Date: 03/26/2024 Time: 15:42 Bed 19 Private MD: Diagnosis: Other specified forms of tremor-WORSENED;Obesity, unspecified;COPD/ Chronic obstructive pulmonary disease, unspecified;Weakness;UTI/ Urinary tract infection, site not specified;COPD/ Chronic obstructive pulmonary disease with (acute) exacerbation;Acute and chronic respiratory failure with hypercapnia Presentation: 03/26 15:48 Chief complaint: EMS states: pt has a history of essential tremors that she takes kc6 Baclofen for daily, but reports them worse today. Coronavirus screen: At this time, the client does not indicate any symptoms associated with coronavirus-19. Ebola Screen: No symptoms or risks identified at this time. Initial Sepsis Screen: Does the patient meet any 2 criteria? No. Patient's initial sepsis screen is negative. Does the patient have a suspected source of infection? No. Patient's initial sepsis screen is negative. Risk Assessment: Do you want to hurt yourself or someone else? Patient reports no desire to harm self or others. Onset of symptoms was March 26, 2024. 15:48 Method Of Arrival: EMS: [facility] 15:48 Acuity: ROBBY 3 kc6 Triage Assessment: 15:48 General: Appears in no apparent distress. comfortable, well groomed, well developed, kc6 Behavior is calm, cooperative, appropriate for age. Pain: Denies pain. EENT: No signs and/or symptoms were reported regarding the EENT system. Neuro: Level of Consciousness is awake, alert, obeys commands, Oriented to person, place, time, situation, Appropriate for age Reports severe tremors aside from her baseline. Cardiovascular: Denies chest pain, Capillary refill < 3 seconds. Respiratory: Airway is patent Trachea midline Respiratory effort is even, unlabored, Respiratory pattern is regular, symmetrical, Breath sounds with wheezes bilaterally. GI: No signs and/or symptoms were reported involving the gastrointestinal system. : No signs and/or symptoms were reported regarding the genitourinary system. Derm: No signs and/or symptoms reported regarding the dermatologic system. Skin is intact, is healthy with good turgor, Skin is dry, Skin is pale, Skin temperature is warm. Musculoskeletal: No signs and/or symptoms reported regarding the musculoskeletal system. Circulation, motion, and sensation intact. Capillary refill < 3 seconds, Range of motion: intact in all extremities. Historical: - Allergies: 15:50 No Known Allergies; kc6 - PMHx: 15:50 Chronic obstructive lung disease; Congenital Heart Disease; Fibromyalgia; Hypertensive kc6 disorder; essential tremors (Hypertensive disorder); - PSHx: 15:50 Appendectomy; hysterectomy; knee replacement (ec); kc6 - Immunization history:: Adult Immunizations up to date. - Infectious Disease History:: Denies. - Social history:: Smoking status: Patient denies any tobacco usage or history of. Screenin:29 [facility] ED Fall Risk Assessment (Adult) History of falling in the last 3 months, kc6 including since admission No falls in past 3 months (0 pts) Confusion or Disorientation No (0 pts) Intoxicated or Sedated No (0 pts) Impaired Gait Yes (1 pt) Mobility Assist Device Used Yes (1 pt) Altered Elimination No (0 pt) Score/Fall Risk Level 0 - 2 = Low Risk Oriented to surroundings. Abuse screen: Denies threats or abuse. Denies injuries from another. Nutritional screening: No deficits noted. Tuberculosis screening: No symptoms or risk factors identified. Assessment: 15:48 Reassessment: please see triage. kc6 16:48 Reassessment: Patient appears in no apparent distress at this time. No changes from [facility] previously documented assessment. Patient and/or family updated on plan of care and expected duration. Pain level reassessed. Patient is alert, oriented x 3, equal unlabored respirations, skin warm/dry/pink. 17:48 Reassessment: Patient appears in no apparent distress at this time. No changes from kc6 previously documented assessment. Patient and/or family updated on plan of care and expected duration. Pain level reassessed. Patient is alert, oriented x 3, equal unlabored respirations, skin warm/dry/pink. 18:21 Reassessment: Patient appears in no apparent distress at this time. No changes from [facility] previously documented assessment. Patient and/or family updated on plan of care and expected duration. Pain level reassessed. Patient is alert, oriented x 3, equal unlabored respirations, skin warm/dry/pink. 18:30 Reassessment: pt placed on bipap at this time. kc6 19:05 Reassessment: Patient appears in no apparent distress at this time. Patient and/or kj2 family updated on plan of care and expected duration. Pain level reassessed. Patient is alert, oriented x 3, equal unlabored respirations, skin warm/dry/pink. 20:17 Reassessment: Patient appears in no apparent distress at this time. Patient and/or kj2 family updated on plan of care and expected duration. Pain level reassessed. Patient is alert, oriented x 3, equal unlabored respirations, skin warm/dry/pink. Vital Signs: 15:48 BP 114 / 62; Pulse 71; Resp 17 S; Temp 98.2(O); Pulse Ox 98% on 5 lpm NC; Weight 91.17 kc6 kg (R); Height 5 ft. 5 in. (R); 17:28 BP 125 / 87; Pulse 75; Resp 18 S; Pulse Ox 97% on 5 lpm NC; kc6 18:21 BP 137 / 77; Pulse 85; Resp 18 S; Pulse Ox 97% on 5 lpm NC; kc6 19:05 BP 134 / 74; Pulse 82; Resp 20; Pulse Ox 96% on bi pap; kj2 15:48 Body Mass Index 33.45 (91.17 kg, 165.1 cm) [facility] ED Course: 15:48 Patient arrived in ED. kc6 15:49 Triage completed. kc6 15:50 Dann Howard MD is Attending Physician. [facility] 15:50 Ruby Irwin RN is Primary Nurse. kc6 15:50 Arm band placed on. kc6 16:29 Patient has correct armband on for positive identification. Bed in low position. Call [facility] light in reach. Side rails up X2. youth nutritional monitor on. Pulse ox on. NIBP on. Door closed. Noise minimized. Lights dimmed. Warm blanket given. Pillow given. Assisted to bedside commode. 16:29 Maintain EMS IV. Dressing intact. Good blood return noted. Site clean \T\ dry. Gauge \T\ felix 6 site: 20G LFA. Flushed with 10 mL NS. Oxygen administration via nasal cannula \T\ 5L/min. 16:40 XRAY Chest (1 view) In Process Unspecified. EDMS 16:41 Initial lab(s) drawn, by me, sent to lab. First set of blood cultures drawn by me. tl4 16:43 SARS RAPID Sent. kc6 16:43 Flu Sent. kc6 16:43 Urinalysis w/ reflexes Sent. kc6 16:51 Inserted saline lock: 18 gauge in right forearm, using aseptic technique. Blood tl4 collected. Flushed with 10 mL NS. 18:24 Surendra Lozano MD is Hospitalizing Provider. [facility] 19:00 Report given to Roxane Cruz RN. kc6 19:05 Provided Education on: call light. kj2 21:01 No provider procedures requiring assistance completed. Patient admitted, IV remains in kj2 place. Administered Medications: 16:56 Drug: NS 0.9% IV 1000 ml IV at 1000 ml once; to be given as a bolus over 60 minutes kc6 Route: IV; Rate: 1000 ml; Site: right forearm; 18:09 Follow up: Response: No adverse reaction; IV Status: Completed infusion; IV Intake: kc6 1000ml 16:56 Drug: Rocephin IV 1 grams IV at per protocol once; Given slow IV push per pharmacy kc6 instructions Route: IV; Rate: per protocol; Site: right forearm; 18:09 Follow up: Response: No adverse reaction; IV Status: Completed infusion; IV Intake: [id number] 18:19 Drug: Levalbuterol Inhalation 2.5 mg Inhalation once Route: Inhalation; kc6 19:12 Follow up: Response: No adverse reaction kc6 18:19 Drug: Ipratropium Inhalation Aerosol 0.5 mg Inhalation once Route: Inhalation; kc6 19:12 Follow up: Response: No adverse reaction kc6 19:15 Drug: MethylPrednisoLONE IVP 125 mg IVP once Route: IVP; Site: right forearm; kj2 20:53 Follow up: Response: No adverse reaction kj2 20:47 Drug: Levalbuterol Inhalation 1.25 mg Inhalation once Route: Inhalation; kj2 Medication: 21:01 VIS not applicable for this client. kj2 Intake: 18:09 IV: 1000ml; Total: 1000ml. kc6 18:09 IV: 50ml; Total: 1050ml. kc6 Outcome: 18:25 Decision to Hospitalize by Provider. luther 21:02 Admitted to Med/surg accompanied by tech, via stretcher, room 205, kj2 21:02 Condition: stable 21:02 Instructed on the need for admit, Demonstrated understanding of 21:22 Patient left the ED. kj2 Signatures: Dispatcher [employer] EDDann Ugalde MD MD cha Campbell, Kaitlyn RN RN kc6 Chris Verdugo RN RN tl4 Majo Cruz, PRISCILLA RN kj2 Corrections: (The following items were deleted from the chart) 15:50 15:48 BP 114 / 62; Pulse 71bpm; Resp 17bpm; Spontaneous; Pulse Ox 98% RA; Temp 98.2F kc6 Oral; 91.17 kg Reported; Height 5 ft. 5 in. Reported; BMI: 33.4; kc6
--- NOTE | 2024-03-26 18:26 | EDPHYS ---
Physician Documentation [facility] Name: Anju Richards Age: 68 yrs Sex: Female : 1955 Arrival Date: 03/26/2024 Time: 15:42 Bed 19 Private MD: ED Physician Dann Howard HPI: 03/26 18:18 This 68 yrs old Female presents to ER via EMS with complaints of Tremor. luther 18:18 The patient's problem is reported as weakness, that is generalized. Onset: The luther symptoms/episode began/occurred 2 day(s) ago. Duration: The episodes are intermittent. The symptoms are alleviated by nothing. The symptoms are aggravated by standing. WEAK AND SHAKEY. WEAK, TREMORS, WORSE , HXCOPD. Severity of symptoms: At their worst the symptoms were moderate in the emergency department the symptoms are unchanged. Historical: - Allergies: 15:50 No Known Allergies; kc6 - PMHx: 15:50 Chronic obstructive lung disease; Congenital Heart Disease; Fibromyalgia; Hypertensive kc6 disorder; essential tremors (Hypertensive disorder); - PSHx: 15:50 Appendectomy; hysterectomy; knee replacement (ec); kc6 - Immunization history:: Adult Immunizations up to date. - Infectious Disease History:: Denies. - Social history:: Smoking status: Patient denies any tobacco usage or history of. ROS: 18:21 Constitutional: Negative for fever, chills, and weight loss, Eyes: Negative for injury, luther pain, redness, and discharge, ENT: Negative for injury, pain, and discharge, Neck: Negative for injury, pain, and swelling, Cardiovascular: Negative for chest pain, palpitations, and edema, Abdomen/GI: Negative for abdominal pain, nausea, vomiting, diarrhea, and constipation, Back: Negative for injury and pain, : Negative for injury, bleeding, discharge, and swelling, MS/Extremity: Negative for injury and deformity, Skin: Negative for injury, rash, and discoloration, Psych: Negative for depression, anxiety, suicide ideation, homicidal ideation, and hallucinations, Allergy/Immunology: Negative for hives, rash, and allergies, Endocrine: Negative for neck swelling, polydipsia, polyuria, polyphagia, and marked weight changes, Hematologic/Lymphatic: Negative for swollen nodes, abnormal bleeding, and unusual bruising, 18:21 Respiratory: Positive for cough, "sounds productive", 18:21 MS/extremity: Negative for pain, swelling, tenderness, warmth, 18:21 Neuro: Positive for weakness, TREMORS, WORSE, Exam: 18:21 Constitutional: This is a well developed, well nourished patient who is awake, alert, luther and in no acute distress. Head/Face: Normocephalic, atraumatic. Eyes: Pupils equal round and reactive to light, extra-ocular motions intact. Lids and lashes normal. Conjunctiva and sclera are non-icteric and not injected. Cornea within normal limits. Periorbital areas with no swelling, redness, or edema. ENT: Nares patent. No nasal discharge, no septal abnormalities noted. Tympanic membranes are normal and external auditory canals are clear. Oropharynx with no redness, swelling, or masses, exudates, or evidence of obstruction, uvula midline. Mucous membranes moist. Neck: Trachea midline, no thyromegaly or masses palpated, and no cervical lymphadenopathy. Supple, full range of motion without nuchal rigidity, or vertebral point tenderness. No Meningismus. Chest/axilla: Normal chest wall appearance and motion. Nontender with no deformity. No lesions are appreciated. Cardiovascular: Regular rate and rhythm with a normal S1 and S2. No gallops, murmurs, or rubs. Normal PMI, no JVD. No pulse deficits. Respiratory: Lungs have equal breath sounds bilaterally, clear to auscultation and percussion. No rales, rhonchi or wheezes noted. No increased work of breathing, no retractions or nasal flaring. Abdomen/GI: Soft, non-tender, with normal bowel sounds. No distension or tympany. No guarding or rebound. No evidence of tenderness throughout. Back: No spinal tenderness. No costovertebral tenderness. Full range of motion. Female : Normal external genitalia. Skin: Warm, dry with normal turgor. Normal color with no rashes, no lesions, and no evidence of cellulitis. MS/ Extremity: Pulses equal, no cyanosis. Neurovascular intact. Full, normal range of motion. Neuro: Awake and alert, GCS 15, oriented to person, place, time, and situation. Cranial nerves II-XII grossly intact. Motor strength 5/5 in all extremities. Sensory grossly intact. Cerebellar exam normal. Normal gait. Psych: Awake, alert, with orientation to person, place and time. Behavior, mood, and affect are within normal limits. 18:21 ECG was reviewed by the Attending Physician. 18:32 CT study not indicated or reported. Reason for not performing CT: NA luther Vital Signs: 15:48 BP 114 / 62; Pulse 71; Resp 17 S; Temp 98.2(O); Pulse Ox 98% on 5 lpm NC; Weight 91.17 kc6 kg (R); Height 5 ft. 5 in. (R); 17:28 BP 125 / 87; Pulse 75; Resp 18 S; Pulse Ox 97% on 5 lpm NC; kc6 18:21 BP 137 / 77; Pulse 85; Resp 18 S; Pulse Ox 97% on 5 lpm NC; kc6 19:05 BP 134 / 74; Pulse 82; Resp 20; Pulse Ox 96% on bi pap; kj2 15:48 Body Mass Index 33.45 (91.17 kg, 165.1 cm) kc6 MDM: 15:50 Medical Screening Exam initiated luther 18:31 Differential diagnosis: metabolic disorder. Differential Diagnosis altered mental luther status, sepsis, flu. Data reviewed: vital signs, nurses notes, lab test result(s), EKG, radiologic studies, plain films. Consideration of Admission/Observation Patient was admitted/placed on observation. Escalation of care including admission/observation considered. I considered the following discharge prescriptions or medication management in the emergency department Medications were administered in the Emergency Department. See MAR. Independent interpretation of the following test(s) in the Emergency Department EKG: See my EKG interpretation above. Test considered but Not performed: CT: NO CT CHEST. Historians other than the Patient: EMS: EMS WELL INFORMED. Care significantly affected by the following chronic conditions: Hypertension, Chronic Obstructive Pulmonary Disease, Obesity, CONGENITAL HEART, FIFROMYALGIA. 18:32 TNKase (Tenecteplase) Screening: Not Applicable. [facility] 03/26 15:52 Order name: Basic Metabolic Panel; Complete Time: 18:07 [facility] 03/26 15:52 Order name: CBC with Diff; Complete Time: 18:07 [facility] 03/26 15:52 Order name: LFT's; Complete Time: 18:07 [facility] 03/26 15:52 Order name: Magnesium; Complete Time: 18: [facility] 03/26 15:52 Order name: NT PRO-BNP; Complete Time: 18:07 [facility] 03/26 15:52 Order name: PT-INR; Complete Time: 18:07 [facility] 03/26 15:52 Order name: Troponin HS; Complete Time: 18: [facility] 03/26 15:52 Order name: Lipase; Complete Time: 18: [facility] 03/26 15:52 Order name: Lactate w/ 2H reflex if indic.; Complete Time: 18:07 [facility] 03/26 15:52 Order name: Blood Culture Adult (2) 03/26 15:52 Order name: Urinalysis w/ reflexes; Complete Time: 18:07 [facility] 03/26 15:52 Order name: Flu; Complete Time: 18: [facility] 03/26 15:52 Order name: SARS RAPID; Complete Time: 18: [facility] 03/26 18:08 Order name: ABG [facility] 03/26 19:22 Order name: Urinalysis w/ reflexes EDMS 03/26 19:22 Order name: CBC with Automated Diff EDMS 03/26 19:22 Order name: CBC with Automated Diff EDMS 03/26 19:22 Order name: Comprehensive Metabolic Panel EDMS 03/26 19:22 Order name: Comprehensive Metabolic Panel EDMS 03/26 15:52 Order name: XRAY Chest (1 view); Complete Time: 18:07 [facility] 03/26 18:30 Order name: BIPAP [facility] 03/26 15:52 Order name: EKG; Complete Time: 15:53 [facility] 03/26 15:52 Order name: Cardiac monitoring; Complete Time: 16:33 [facility] 03/26 15:52 Order name: EKG - Nurse/Tech; Complete Time: 16:43 [facility] 03/26 15:52 Order name: IV Saline Lock; Complete Time: 16:33 [facility] 03/26 15:52 Order name: Labs collected and sent; Complete Time: 16:43 [facility] 03/26 15:52 Order name: O2 Per Protocol; Complete Time: 16:33 [facility] 03/26 15:52 Order name: O2 Sat Monitoring; Complete Time: 16:33 [facility] EC:21 Rate is 83 beats/min. Rhythm is regular. QRS [place] is Normal. NM interval is normal. QRS luther interval is normal. QT interval is normal. No Q waves. T waves are Normal. No ST changes noted. Clinical impression: NSR w/ Non-specific ST/T Changes and No evidence of ischemia. Interpreted by me. Reviewed by me. Administered Medications: 16:56 Drug: NS 0.9% IV 1000 ml IV at 1000 ml once; to be given as a bolus over 60 minutes kc6 Route: IV; Rate: 1000 ml; Site: right forearm; 18:09 Follow up: Response: No adverse reaction; IV Status: Completed infusion; IV Intake: kc6 1000ml 16:56 Drug: Rocephin IV 1 grams IV at per protocol once; Given slow IV push per pharmacy kc6 instructions Route: IV; Rate: per protocol; Site: right forearm; 18:09 Follow up: Response: No adverse reaction; IV Status: Completed infusion; IV Intake: [id number] 18:19 Drug: Levalbuterol Inhalation 2.5 mg Inhalation once Route: Inhalation; kc6 19:12 Follow up: Response: No adverse reaction kc6 18:19 Drug: Ipratropium Inhalation Aerosol 0.5 mg Inhalation once Route: Inhalation; kc6 19:12 Follow up: Response: No adverse reaction kc6 19:15 Drug: MethylPrednisoLONE IVP 125 mg IVP once Route: IVP; Site: right forearm; kj2 20:53 Follow up: Response: No adverse reaction kj2 20:47 Drug: Levalbuterol Inhalation 1.25 mg Inhalation once Route: Inhalation; kj2 Disposition Summary: 03/26/24 18:25 Hospitalization Ordered Notes: Provider: Surendra Lozano cha Condition: Fair luther Problem: new luther Symptoms: have improved luther Bed/Room Type: Standard luther Hospitalization Status: Inpatient Admission(03/26/24 18:29) luther [facility] 18:29[facility] luther Room Assignment: [facility](03/26/24 19:32) Diagnosis - Obesity, unspecified luther - COPD/ Chronic obstructive pulmonary disease, unspecified luther - Weakness luther - Other specified forms of tremor - WORSENED(03/26/24 18:25) luther - UTI/ Urinary tract infection, site not specified luther - COPD/ Chronic obstructive pulmonary disease with (acute) exacerbation luther - Acute and chronic respiratory failure with hypercapnia luther Forms: - Medication Reconciliation Form luther - SBAR form luther - Leadership Thank You Letter luther Signatures: Dispatcher [employer] Dann Moore MD MD cha Garcia, Cindy, RN Ruby Fernandes, RN RN kc6 Majo Cruz RN RN kj2 Corrections: (The following items were deleted from the chart) 15:53 15:53 BASIC METABOLIC PANEL+C.LAB.BRZ ordered. EDMS EDMS 15:53 15:53 CBC+H.LAB.BRZ ordered. EDMS EDMS 15:53 15:53 HEPATIC FUNCTION+C.LAB.BRZ ordered. EDMS EDMS 15:53 15:53 MAGNESIUM+C.LAB.BRZ ordered. EDMS EDMS 15:53 15:53 PROBNP+C.LAB.BRZ ordered. EDMS EDMS 15:53 15:53 PROTIME (+INR)+COAG.LAB.BRZ ordered. EDMS EDMS 15:53 15:53 Troponin High Sensitivity+C.LAB.BRZ ordered. EDMS EDMS 15:53 15:53 LIPASE+C.LAB.BRZ ordered. EDMS EDMS 15:53 15:53 LACTATE+C.LAB.BRZ ordered. EDMS EDMS 15:53 15:53 BLOOD CULTURE*+BA.LAB.BRZ ordered. EDMS EDMS 15:53 15:53 Urinalysis+U.LAB.BRZ ordered. EDMS EDMS 15:53 15:53 Influenza Screen (A \\T\\ B)+BA.LAB.BRZ ordered. EDMS EDMS 15:53 15:53 SARS-COV-2 Antigen Rapid+I.LAB.BRZ ordered. EDMS EDMS 18:25 18:25 Other specified forms of tremor luther luther 18:29 18:25 Observation luther luther 18:29 18:25 Telemetry/MedSurg (observation) luther luther 18:29 18:25 luther luther 19:32 18:29 luther cg
[2024-03-26 18:50] LABS: Arterial Blood Carboxyhemoglob 1.1 % (0-1.5); Blood Gas Oxyhemoglobin 96.1 % (94-97); Blood Gas THB 9.7 g/dl (12-18)
[2024-03-26] MEDS ORDERED: METHYLPREDNISOLONE 125 MG INJ ONE (18:56)
[2024-03-26] MEDS ORDERED: ACETAMINOPHEN 325 MG TABLET PO PRN (19:16)
[2024-03-26] MEDS ORDERED: ALBUTEROL 2.5 MG/3 ML NEB SOL NEB PRN (19:16)
[2024-03-26] MEDS ORDERED: IPRATROPIUM BROM 0.5MG/2.5ML NEB PRN (19:16)
[2024-03-26] MEDS ORDERED: ONDANSETRON 4 MG/2 ML VIAL IV PRN (19:16)
--- NOTE | 2024-03-26 19:16 | P.HP ---
Certification for Inpatient Patient admitted to: Inpatient With expected LOS: >2 Midnights Practitioner: I am a practitioner with admitting privileges, knowledge of patient current condition, hospital course, and medical plan of care. Services: Services provided to patient in accordance with Admission requirements found in Title 42 Section 412.3 of the Code of Federal Regulations Patient History Date of Service: 03/26/24 Reason for admission: SOB History of Present Illness: 68 yrs old Female with past medical history of hypertension, advanced COPD, chronic hypoxic respiratory failure on oxygen at 4 L nasal cannula, history of PE treated with Eliquis, chronic back pain, former smoker, fibromyalgia, essential tremor, brought to ER with generalized weakness and s hortness of breath which has been worsening in the last 2 days. Denies any fever or chills. Patient states that she has been weak and shaky and has worsening of the tremors. Patient was assessed in the ER and was admitted for further management of COPD exacerbation and bronchitis Allergies No Known Allergies Allergy (Verified 11/09/21 19:55) Home medications list reviewed: Yes Home Medications: Albuterol Neb [Proventil 0.083% Neb Soln] 2.5 mg NEB [id number] PRN #60 amp 11/10/21 Aspirin [Adult Low Dose Aspirin EC] 81 mg PO DAILY 02/03/22 Gabapentin 600 mg PO BID 02/03/22 Primidone 50 mg PO BID 02/03/22 Budesonide/Glycopyr/Formoterol [Breztri Aerosphere Inhaler] 2 puff IH BID 10/23/23 Carvedilol [Coreg] 3.125 mg PO DAILY 10/23/23 Docusate [Colace Cap*] 100 mg PO BEDTIME 10/23/23 Duloxetine HCl 20 mg PO DAILY 10/23/23 Furosemide [Lasix] 40 mg PO DAILYPRN PRN 10/23/23 Hydrocodone 7.5/APAP 325 [[place] 7.5/325 mg*] 1 tab PO BID 10/23/23 Potassium Chloride [K-Dur] 10 meq PO DAILY 10/23/23 Rosuvastatin [Crestor*] 5 mg PO BEDTIME 10/23/23 Spironolactone [Aldactone*] 25 mg PO BEDTIME 10/23/23 Baclofen [Lioresal*] 5 mg PO BID 30 Days #30 tab 10/29/23 Benzonatate [Tessalon Perle*] 200 mg PO TID PRN 4 Days #12 cap 10/29/23 Magnesium Oxide [Mag 0X*] 400 mg PO BID 15 Days #30 tab 10/29/23 predniSONE [Deltasone*] 10 mg PO BID 30 Days #60 tab 10/29/23 - Past Medical/Surgical History Diabetic: No Past Medical History: Reviewed- Non-Contributory -: COPD -: HTN -: ESSENTIAL TREMORS -: KIDNEY CYST -: HLD Past Surgical History: Reviewed- Non-Contributory -: hysterectomy -: APPENDECTOMY Psychosocial/ Personal History: Patient lives at home. - Family History Father -: Other (see notes) Notes: patient reports no significant family medical history - Social History Smoking Status: Former smoker Alcohol use: Yes CD- Drugs: No Caffeine use: Yes Review of Systems 10-point ROS is otherwise unremarkable Physical Examination - Vital Signs Temperature: 98.2 F Blood Pressure: 114/62 Pulse: 73 Respirations: 18 Pulse Ox (%): 94 - Physical Exam General: Alert, Oriented x3, Cooperative, Mild distress HEENT: Atraumatic, Normocephalic Neck: Supple, No Thyromegaly Respiratory: Diminished, Expiratory wheezes Cardiovascular: Regular rate/rhythm, Normal S1 S2 Capillary refill: <2 Seconds Gastrointestinal: Soft and benign, W/out hepatosplenomegaly Musculoskeletal: No clubbing Integumentary: No rashes Neurological: Normal strength at 5/5 x4 extr, Cranial nerves 3-12 intact, Other (Tremor ++) Lymphatics: No axilla or inguinal lymphadenopathy - Studies Laboratory Data (last 24 hrs) 03/26/24 03/26/24 03/26/24 16:41 16:41 16:41 WBC 11.00 H Hgb 9.7 L Hct 31.7 L Plt Count 304 PT 11.7 INR 1.05 Sodium 136 Potassium 4.5 BUN 19 H Creatinine 1.24 H Glucose 97 Magnesium 2.4 Total Bilirubin 0.2 AST 28 ALT 30 Alkaline Phosphatase 92 Lipase 44 Microbiology Data (last 24 hrs): 03/26/24 16:38 Nasopharnyx Influenza Type A Antigen Screen - Final 03/26/24 16:38 Nasopharnyx Influenza Type B Antigen Screen - Final Assessment and Plan - Plan COPD exacerbation Monitor closely on telemetry Started on bronchodilators Oxygen supplementation Steroids added ABG findings noted Chest x-ray findings noted Pulmonology consult if not better in the a.m. Acute hypoxic hypercapnic respiratory failure On oxygen supplementation Bronchodilators Steroids BiPAP as needed Bronchitis Started on IV antibiotic Monitor closely Leukocytosis noted Will monitor CBC in a.m. Hypertension Antihypertensives titrated Continue home medications and titrate as needed NAGI on CKD stage 2 Monitor renal parameters Electrolytes monitor and replace accordingly Essential tremors Continue home medications including primidone Monitor closely GI/DVT prophylaxis Advanced directive full code Discharge Plan: Home Plan to discharge in: 48 Hours - Advance Directives Does patient have a Living Will: No Does patient have a Durable POA for Healthcare: No - Code Status/Comfort Care Code Status: Full Code Time Spent Managing Pts Care (In Minutes): 48
[2024-03-26] MEDS ORDERED: BENZONATATE 100 MG CAP PO PRN (19:20)
[2024-03-26] MEDS: Budesonide/Glycopyr/Formoterol [Breztri Aerosphere Inhaler] 10.7 GM Hfa IH SCH (20:45)
[2024-03-26] MEDS ORDERED: HOME MED 1 EA UNK (Gabapentin [Gabapentin] 600 MG Tablet) PO SCH (21:00)
[2024-03-26 22:50] VITALS: BMI 33.4
[2024-03-26] MEDS: HYDROCODONE/APAP 7.5/325 MG TAB PO SCH (23:00)
[2024-03-26] MEDS: GABAPENTIN 300 MG CAP PO SCH (23:00)
[2024-03-26] MEDS: DOCUSATE NA 100 MG CAP PO SCH (23:02)
[2024-03-26] MEDS: BACLOFEN 10 MG TAB PO SCH (23:02)
[2024-03-26] MEDS: ROSUVASTATIN 5 MG TAB PO SCH (23:03)
[2024-03-26] MEDS: PRIMIDONE 50 MG TAB PO SCH (23:03)
[2024-03-26] MEDS: METHYLPREDNISOLONE 125 MG INJ IV SCH (23:04)
[2024-03-27 05:27] LABS: Absolute Lymphocytes (CBC) 0.5 K/uL (0.7-4.9); Absolute Neutrophil 6.4 K/uL (1.8-8.0); Basophils % 0.2 % (0-1.3); Eosinophils % 0.1 % (0-4.4); Hematocrit 28.8 % (36.0-45.0); Hemoglobin 9.4 g/dL (12.0-15.0); Lymphocytes % 6.8 % (15.3-44.8); MCH 31.2 pg (27.0-35.0); MCHC 32.5 g/dL (32.0-36.0); MCV 95.9 fL (80-100); MPV 8.4 fL (7.6-11.3); Monocytes % 0.7 % (3.3-12.3); Neutrophils % 92.2 % (41.7-73.7); Platelets 258 thou/uL (152-406)
[2024-03-27 05:48] LABS: Albumin 2.8 g/dL (3.4-5.0); Albumin/Globulin Ratio 0.7 (1.1-1.8); Anion Gap 6.6 mEq/L (5.0-15.0); Bilirubin Total 0.2 mg/dL (0.2-1.0); Globulin 3.8 g/dL (2.3-3.5); Potassium 4.6 mEq/L (3.5-5.1); Protein, Total 6.6 g/dL (6.4-8.2)
--- NOTE | 2024-03-27 07:43 | P.PN ---
Date of Service: 03/27/24 subjective Shortness of breath with exertion, 93% 4 L Review of Systems 10-point ROS is otherwise unremarkable Physical Examination - Vital Signs Reviewed - Physical Exam General: Alert, Oriented x3, Cooperative, HEENT: Atraumatic, Normocephalic Neck: Supple, No Thyromegaly Respiratory: Diminished, Expiratory wheezes Cardiovascular: Regular rate/rhythm, Normal S1 S2 Capillary refill: <2 Seconds Gastrointestinal: Soft and benign, nontender Musculoskeletal: No clubbing, generalized weakness Integumentary: No rashes Neurological: Normal strength at 5/5 x4 extr, Cranial nerves 3-12 intact, Other essential tremors Lymphatics: No axilla or inguinal lymphadenopathy Assessment and Plan - Plan Acute hypoxic respiratory failure secondary to COPD exacerbation COPD exacerbation Acute bronchitis Monitor closely on telemetry Started on bronchodilators Oxygen supplementation Steroids added ABG findings noted Chest x-ray findings noted Started on IV antibiotic Monitor closely Leukocytosis noted Will monitor CBC in a.m. Hypertension-controlled Antihypertensives titrated Continue home medications and titrate as needed NAGI on CKD stage 2 Monitor renal parameters Electrolytes monitor and replace accordingly Essential tremors Continue home medications including primidone, gabapentin 300 3 times daily,, clonazepam 0.25 TID times Monitor closely Fall precautions, GI/DVT prophylaxis Advanced directive full code Discharge Plan: Home Plan to discharge in: 48 Hours - Advance Directives Does patient have a Living Will: No Does patient have a Durable POA for Healthcare: No - Code Status/Comfort Care Code Status: Full Code Time Spent Managing Pts Care (In Minutes): 35
[2024-03-27 08:17] LABS: Basophilic Stippling 1+; Blood Morphology Comment NOTED (NOT SEEN); Platelet Estimate ADEQ; Platelets Clumped FEW; White Blood Cell Scan OK (OK)
[2024-03-27] MEDS: ASPIRIN EC 81 MG TAB PO SCH (08:59)
[2024-03-27] MEDS: carvediloL 3.125 MG TAB PO SCH (08:59)
[2024-03-27] MEDS: CEFTRIAXONE 1,000 MG in NA CHLORIDE 0.9% 50 ML IVPB SCH (09:00)
[2024-03-27] MEDS: ENOXAPARIN 40 MG/0.4 ML SQ SCH (09:01)
[2024-03-27] MEDS: AZITHROMYCIN IV 500 MG in NA CHLORIDE 0.9% 250 ML IVPB SCH (09:01)
--- NOTE | 2024-03-27 12:04 | EKG ---
Test Date: 2024-03-26 Test Time: 16:52:16 [employer] Worker: KRISTA MEASUREMENT RESULTS: Intervals: Rate: 83 MA: 172 QRSD: 78 QT: 396 QTc: 465 [place]: P: 66 MA: 172 QRS: -54 T: 57 INTERPRETIVE STATEMENTS: Sinus rhythm with occasional premature ventricular complexes Left axis deviation Low voltage QRS Abnormal ECG Compared to ECG 10/23/2023 16:50:20 Ventricular premature complex(es) now present Left-axis deviation now present Low QRS voltage now present Electronically Signed On 03-27-24 12:02:52 [employer]MENT INSPECT[employer] by Chance Pierre
[2024-03-27] MEDS ORDERED: clonazePAM 0.5 MG TAB PO PRN ×2 (18:03→18:05)
[2024-03-28 04:55] LABS: Absolute Lymphocytes (CBC) 0.8 K/uL (0.7-4.9); Absolute Monocytes 0.2 K/uL (0.1-1.3); Absolute Neutrophil 8.7 K/uL (1.8-8.0); Basophils % 0.1 % (0-1.3); Hematocrit 27.9 % (36.0-45.0); Hemoglobin 8.9 g/dL (12.0-15.0); Lymphocytes % 8.1 % (15.3-44.8); MCH 30.8 pg (27.0-35.0); MCV 96.2 fL (80-100); MPV 8.5 fL (7.6-11.3); Monocytes % 2.2 % (3.3-12.3); Platelets 249 thou/uL (152-406); Red Cell Distribution Width 14.5 % (12.1-15.2)
[2024-03-28 04:57] LABS: Neutrophils % 89.6 % (41.7-73.7)
[2024-03-28 05:10] LABS: Anion Gap 4.7 mEq/L (5.0-15.0); Magnesium 2.6 mg/dL (1.6-2.4); Potassium 4.7 mEq/L (3.5-5.1)
[2024-03-28] MEDS: MAGNESIUM OXIDE 400 MG TAB PO SCH (09:00)
[2024-03-28] MEDS: MAGNESIUM SULFATE 1 gm IVPB 1 GM/100 ML BAG IV ONE (09:54)
[2024-03-28] MEDS: DULOXETINE 20 MG CAP PO SCH (09:55)
[2024-03-28] MEDS: predniSONE 10 MG TAB PO SCH (09:55)
--- NOTE | 2024-03-28 20:15 | P.PN ---
Date of Service: 03/28/24 subjective Shortness of breath with exertion, 93% 4 L Neurology consulted for worsening essential tremors, started on magnesium Review of Systems 10-point ROS is otherwise unremarkable Physical Examination - Vital Signs Reviewed - Physical Exam General: Alert, Oriented x3, Cooperative, HEENT: Atraumatic, Normocephalic Neck: Supple, no jugular vein distention Respiratory: Diminished, shortness of breath with exertion, Cardiovascular: Regular rate/rhythm, Normal S1 S2 Capillary refill: <2 Seconds Gastrointestinal: Soft and benign, positive bowel Musculoskeletal: No clubbing, generalized weakness Neurological: Normal strength at 5/5 x4 extr, , Other essential tremors Assessment and Plan - Plan Acute hypoxic respiratory failure secondary to COPD exacerbation COPD exacerbation improved Acute bronchitis Monitor closely on telemetry Started on bronchodilators Oxygen supplementation Steroids wean ABG findings noted Chest x-ray findings noted Started on IV antibiotic-finish ceftriaxone, azithromycin, Essential tremors worsening Continue home medications including primidone, gabapentin 300 3 times daily, Fall precautions, Neurology consulted, started on magnesium 400 twice daily Hypertension-controlled Antihypertensives titrated Continue home medications and titrate as needed NAGI on CKD stage 2 Monitor renal parameters Electrolytes monitor and replace accordingly GI/DVT prophylaxis Advanced directive full code Discharge Plan: Home Plan to discharge in: 48 Hours - Advance Directives Does patient have a Living Will: No Does patient have a Durable POA for Healthcare: No - Code Status/Comfort Care Code Status: Full Code Time Spent Managing Pts Care (In Minutes): 30
--- NOTE | 2024-03-29 02:32 | CON ---
Date of Consultation: 03/28/2024 Reason For Consultation: Consultation is called because of tremors. History Of Present Illness: Ms. Richards is a 68-year-old patient who was admitted on 03/26/2024 with w orsening shortness of breath related to advanced COPD. She had hypoxic respiratory failure on 4 L of oxygen via nasal cannula. However, consultation was called because of worsening tremors. She does have a history of essential tremors. She was treated with primidone 50 mg twice daily. Also, she ta kes [place] 7.5/325 by pain management. She said at home, she has more shortness of breath and along w ith that for a few days, has had some jerking of the arms and legs and at times she feels that her in sides are jerking and shaking. The case was discussed with Dr. Weston earlier today. She did rece kalli a gram of magnesium. She said her jerking essentially stopped, but at times she still has the oc casional tremors. At the time I evaluated the patient, she was resting in bed, had finished lunch, a nd had no obvious jerking, but at times she might have some head titubation and occasional arm tremor s, but those would subside as she is engaged in conversation. She has no focal deficits such as face , arm, or leg numbness and weakness; loss of speech, vision, hearing. Past Medical History: As noted above including COPD, hypertension, essential tremor, dyslipidemia. Past Surgical History: Hysterectomy, appendectomy. Social History: Lives at home. No alcohol, tobacco, or IV drug use. Family History: Noncontributory. Allergies: NO KNOWN DRUG ALLERGIES. Current Medications: Tylenol 650 every 4 hours as needed, [place] 7.5/325 twice daily, albuterol nebul izer 2.5 mg every 6 hours as needed, aspirin 81 mg daily, baclofen 5 mg twice daily, Tessalon Perles 200 mg 3 times daily, Coreg 3.125 mg daily, Colace 100 mg at bedtime, duloxetine 20 mg daily, Lovenox 40 mg subcutaneously daily, gabapentin 300 mg 3 times daily, Atrovent 0.5 mg nebulizer every 6 hours as needed, magnesium oxide 400 mg twice daily, prednisone 10 mg twice daily, Zofran 4 mg every 6 paddy rs as needed, primidone 50 mg twice daily, Crestor 5 mg at bedtime. Review of Systems: As noted, she has experienced some jerks and tremors in the arms and legs. Mild fatigue, mild weakne ss, shortness of breath. Denies any active psychiatric issues, gastrointestinal, or genitourinary is sues. Physical Examination: Vital Signs: Blood pressure is 130/68, pulse 66, respiratory rate 14, temperature 98.5, oxygen satur ation 100% on 4 L. HEENT: Ms. Richards is normocephalic, atraumatic. Sclerae anicteric. Oropharynx pink and moist. Neck: Supple. Chest: Clear. General: She is lying in bed and just finished her lunch. Neuro: She has no focal cranial nerves, motor, coordination, or reflex deficits. She has some occas ional tremors in the upper extremities and head titubation. Laboratory Studies: White blood cell count 9.7, hemoglobin 8.9, platelets 249. INR 1.05. Arterial blood gas done yesterday shows pH of 7.32, pCO2 was elevated at 71.4, pO2 elevated at 160. Creatinin e 1.21, BUN of 26. Magnesium is 2.6. Esterase 250, blood 1+, turbid clarity. COVID testing was neg ative. Assessment: Ms. Richards is a 68-year-old patient with benign essential tremor and tremors are possibly aggravated by renal function being slightly worse with dehydration. She has retained CO2, potential ly also a contributing factor. Otherwise, sodium and potassium are within normal limits. Her magnes ium has come up slightly from 2.4 to 2.6 with a gram of magnesium and again jerks have resolved per t he patient. Plan: We will continue with oral magnesium. Continue with primidone. Continue other medications as indicated. She may be discharged home with physical therapy via outpatient services. She may follo w up in Dr. Arambula's clinic for essential tremor and of course follow up with her primary care physician, Yen Weston, for pulmonary issues. LB/MODL Voice ID: [id number] Report ID: [id number]
[2024-03-29 05:19] LABS: Absolute Monocytes 0.9 K/uL (0.1-1.3); Absolute Neutrophil 12.3 K/uL (1.8-8.0); Hematocrit 29.7 % (36.0-45.0); Hemoglobin 9.6 g/dL (12.0-15.0); Lymphocytes % 6.9 % (15.3-44.8); MCH 30.9 pg (27.0-35.0); MCHC 32.3 g/dL (32.0-36.0); MCV 95.9 fL (80-100); MPV 8.2 fL (7.6-11.3); Platelets 324 thou/uL (152-406); Red Cell Distribution Width 14.9 % (12.1-15.2)
[2024-03-29 05:24] LABS: Neutrophils % 87.1 % (41.7-73.7)
[2024-03-29 05:41] LABS: Magnesium 3.1 mg/dL (1.6-2.4); Phosphorus 3.5 mg/dL (2.5-4.9)
[2024-03-29 06:11] VITALS: O2SAT 97
[2024-03-29] MEDS ORDERED: Budesonide/Glycopyr/Formoterol [Breztri Aerosphere Inhaler] IH SCH ×2 (07:00→10:00)
--- NOTE | 2024-03-29 07:05 | P.DS ---
Admission Date: 03/26/24 Discharge Date: 03/29/24 Disposition: ROUTINE DISCHARGE Discharge Condition: GOOD Reason for Admission: SOB Brief History of Present Illness: 68 yrs old Female with past medical history of hypertension, advanced COPD, chronic hypoxic respiratory failure on oxygen at 4 L nasal cannula, history of PE treated with Eliquis, chronic back pain, former smoker, fibromyalgia, essential tremor, brought to ER with generalized weakness and shortness of breath which has been worsening in the last 2 days. Denies any fever or chills. Patient states that she has been weak and shaky and has worsening of the tremors - Physical Exam General: Alert, Oriented x3, Cooperative, Mild distress HEENT: Atraumatic, Normocephalic Neck: Supple, No Thyromegaly Respiratory: Diminished, Expiratory wheezes Cardiovascular: Regular rate/rhythm, Normal S1 S2 Capillary refill: <2 Seconds Gastrointestinal: Soft and benign, W/out hepatosplenomegaly Musculoskeletal: No clubbing Integumentary: No rashes Neurological: Normal strength at 5/5 x4 extr, Cranial nerves 3-12 intact, Other (Tremor ++) Hospital Course: 68 yrs old Female with past medical history of hypertension, advanced COPD, chronic hypoxic respiratory failure on oxygen at 4 L nasal cannula, history of PE treated with Eliquis, chronic back pain, former smoker, fibromyalgia, essential tremor, brought to ER with generalized weakness and shortness of breath which has been worsening in the last 2 days. Denies any fever or chills. Patient states that she has been weak and shaky and has worsening of the tremors. She was seen by pulmonary, treated for COPD exacerbation, had worsening tremors, was seen by neurology, placed on magnesium, she reports tremors are better, plan to discharge home, follow-up with neurology and pulmonology after discharge Current Medications: Tylenol 650 every 4 hours as needed, [place] 7.5/325 twice daily, albuterol nebulizer 2.5 mg every 6 hours as needed, aspirin 81 mg daily, baclofen 5 mg twice daily, Tessalon Perles 200 mg 3 times daily, Coreg 3.125 mg daily, Colace 100 mg at bedtime, duloxetine 20 mg daily, gabapentin 300 mg 3 times daily, Atrovent 0.5 mg nebulizer every 6 hours as needed, magnesium oxide 400 mg twice daily, prednisone 10 mg twice daily, Zofran 4 mg every 6 hours as needed, primidone 50 mg twice daily, Crestor 5 mg at bedtime Assessment Acute hypoxic respiratory failure secondary to COPD exacerbation, oxygen improved to baseline, discharged home with home O2 Acute bronchitis, improved with steroids, breathing treatments, oxygen. Essential tremors, started on home medications, magnesium added per neurology. Essential hypertension, resume home meds after discharge Acute kidney injury, follow-up with PCP after discharge, monitoring kidney function Continue home meds after discharge GOAL: Clear understanding of disease process INSTRUCTIONS: Physician Discharge Instructions: -Follow-up with neurology after discharge, call office for appointment -Follow-up with pulmonary after discharge call office for appointment -Follow-up with PCP in 1 to 2 weeks -Please call Dr. Manning at [phone] if any questions regarding hospital stay -Please call nursing station at [phone] if any nursing or medication questions -Return to the emergency room if symptoms worsen Diet: ADA, low sodium Activity: Fall precautions Vital Signs/Physical Exam: Temp Pulse Resp BP Pulse Ox 97.5 F 61 17 103/56 L 98 03/29/24 04:00 03/29/24 04:00 03/29/24 04:00 03/29/24 04:00 03/29/24 04:00 Laboratory Data at Discharge: WBC Cancelled 03/29/24 06:00 Hgb Cancelled 03/29/24 06:00 Hct Cancelled 03/29/24 06:00 Plt Count Cancelled 03/29/24 06:00 PT 11.7 SECONDS (9.4-12.5) 03/26/24 16:41 INR 1.05 03/26/24 16:41 Sodium Cancelled 03/29/24 06:00 Potassium Cancelled 03/29/24 06:00 BUN Cancelled 03/29/24 06:00 Creatinine Cancelled 03/29/24 06:00 Glucose Cancelled 03/29/24 06:00 Phosphorus 3.5 mg/dL (2.5-4.9) 03/29/24 04:46 Magnesium Cancelled 03/29/24 06:00 Total Bilirubin 0.2 mg/dL (0.2-1.0) 03/27/24 04:53 AST 17 U/L (15-37) 03/27/24 04:53 ALT 23 U/L (13-56) 03/27/24 04:53 Alkaline Phosphatase 80 U/L (45-117) 03/27/24 04:53 Lipase 44 U/L (13-75) 03/26/24 16:41 Home Medications: Albuterol Neb [Proventil 0.083% Neb Soln] 2.5 mg NEB [id number] PRN #60 amp 11/10/21 Aspirin [Adult Low Dose Aspirin EC] 81 mg PO DAILY 02/03/22 Gabapentin 600 mg PO BID 02/03/22 Primidone 50 mg PO BID 02/03/22 Budesonide/Glycopyr/Formoterol [Breztri Aerosphere Inhaler] 2 puff IH BID 10/23/23 Carvedilol [Coreg] 3.125 mg PO DAILY 10/23/23 Docusate [Colace Cap*] 100 mg PO BEDTIME 10/23/23 Duloxetine HCl 20 mg PO DAILY 10/23/23 Furosemide [Lasix] 40 mg PO DAILYPRN PRN 10/23/23 Hydrocodone 7.5/APAP 325 [[place] 7.5/325 mg*] 1 tab PO BID 10/23/23 Potassium Chloride [K-Dur] 10 meq PO DAILY 10/23/23 Rosuvastatin [Crestor*] 5 mg PO BEDTIME 10/23/23 Spironolactone [Aldactone*] 25 mg PO BEDTIME 10/23/23 Baclofen [Lioresal*] 5 mg PO BID 30 Days #30 tab 10/29/23 Benzonatate [Tessalon Perle*] 200 mg PO TID PRN 4 Days #12 cap 10/29/23 predniSONE [Deltasone*] 10 mg PO BID 30 Days #60 tab 10/29/23 Magnesium Chloride [Slow-Mag] 64 mg PO DAILY #30 tab 03/29/24 New Medications: Magnesium Chloride [Slow-Mag] 64 mg PO DAILY #30 tab Physician Discharge Instructions: 68 yrs old Female with past medical history of hypertension, advanced COPD, chronic hypoxic respiratory failure on oxygen at 4 L nasal cannula, history of PE treated with Eliquis, chronic back pain, former smoker, fibromyalgia, essential tremor, brought to ER with generalized weakness and farrah rtness of breath which has been worsening in the last 2 days. Denies any fever or chills. Patient states that she has been weak and shaky and has worsening of the tremors. She was seen by pulmonary, treated for COPD exacerbation, had worsening tremors, was seen by neurology, placed on magnesium, she reports tremors are better, plan to discharge home, follow-up with neurology and pulmonology after discharge She has all home meds, she doesn't need refills, she will pickle p[employer] Mag at [employer] Assessment Acute hypoxic respiratory failure secondary to COPD exacerbation, oxygen improved to baseline, discharged home with home O2 (already arranged) Acute bronchitis, improved with steroids, breathing treatments, oxygen. Essential tremors, started on home medications, magnesium added per neurology. Essential hypertension, resume home meds after discharge Acute kidney injury, follow-up with PCP after discharge, monitoring kidney function Continue home meds after discharge GOAL: Clear understanding of disease process INSTRUCTIONS: Physician Discharge Instructions: -Follow-up with PCP in 1 to 2 weeks -Follow-up with Dr. Arambula after discharge -Follow-up with Dr. Layton after discharge -Please call Dr. Manning at [phone] if any questions regarding hospital stay -Please call nursing station at [phone] if any nursing or medication questions -Return to the emergency room if symptoms worsen Diet: ADA, low sodium Activity: Fall precautions Followup: Murphy Weston MD [ACTIVE - CAN ADMIT] - 1-2 Weeks Tavares Arambula MD [ASSOCIATE-ACTIVE - CAN ADMIT] - 1-2 Weeks Angelica Sales MD [Primary Care Provider] - 1-2 Weeks Time spent managing pt's care (in minutes): 45
[2024-03-29 08:19] VITALS: BP 127/66; TEMP 97.7
== END 2024-03-29 11:34 | disposition home or self-care (01) | DRG 189 ==
LOC: ER 15:42 → ERHOLD 19:16 → 2ND 20:50
PROVIDERS: ADMIT Family Medicine; ATTEND Hospitalist
PROC: 4A033R1 Measurement of Arterial Saturation, Peripheral, Percutaneous Approach (ICD-10-PCS; principal; 2024-03-26)
PROC: 5A09357 Assistance with Respiratory Ventilation, Less than 24 Consecutive Hours, Continuous Positive Airway Pressure (ICD-10-PCS; 2024-03-26)
DX: J96.22 Acute and chronic respiratory failure with hypercapnia (principal); N39.0 Urinary tract infection, site not specified; J44.1 Chronic obstructive pulmonary disease with (acute) exacerbation; N17.9 Acute kidney failure, unspecified; J44.0 Chronic obstructive pulmonary disease with (acute) lower respiratory infection; M79.7 Fibromyalgia; E66.9 Obesity, unspecified; Z90.49 Acquired absence of other specified parts of digestive tract; Z90.710 Acquired absence of both cervix and uterus; Z96.659 Presence of unspecified artificial knee joint; Z11.52 Encounter for screening for COVID-19; Z68.33 Body mass index [BMI] 33.0-33.9, adult; Z86.711 Personal history of pulmonary embolism; Z79.01 Long term (current) use of anticoagulants; Z87.891 Personal history of nicotine dependence; Z79.82 Long term (current) use of aspirin; Z79.02 Long term (current) use of antithrombotics/antiplatelets; Z79.899 Other long term (current) drug therapy; Z79.52 Long term (current) use of systemic steroids; N18.2 Chronic kidney disease, stage 2 (mild); I12.9 Hypertensive chronic kidney disease with stage 1 through stage 4 chronic kidney disease, or unspecified chronic kidney disease; J20.9 Acute bronchitis, unspecified; E86.0 Dehydration; G25.0 Essential tremor; Z99.81 Dependence on supplemental oxygen
CPT/HCPCS: 36415; 36600; 71045; 80048; 80053; 80076; 81001; 82805; 83605; 83690; 83735; 83880; 84100; 84484; 85025; 85610; 87040; 87804; 87811; 93005; 94660; 94760; 96365; 96375; 99285; J0696; J1650; J2919; J3475; J7030; J7050; J7512; J7614; J7644